=== PATIENT | male | born 1960 | race Caucasian/White ===

== ENCOUNTER 2020-05-17 20:39 | Emergency (ER) | payer MEDICAID, SELFPAY ==
[2020-05-17 21:02] VITALS: BP 148/81; PULSE 112; RESP 22; TEMP 36.6; O2SAT 96
[2020-05-17 21:16] VITALS: BP 148/81; PULSE 112; RESP 22; TEMP 36.6; O2SAT 96; BMI 25.1
[2020-05-17 22:14] VITALS: BP 150/77; PULSE 100; RESP 20; O2SAT 97
--- NOTE | 2020-05-17 22:32 | XR_ITS ---
EXAMINATION: XR chest 1V CLINICAL INFORMATION: Shortness of breath COMPARISON: None TECHNIQUE: XR chest 1V Tubes and lines: None Lungs and Diane: Crowding of lung markings at the right base concerning for possible developing mild interstitial infiltrates. Pleura: Normal. Costophrenic angles are sharp. No pneumothorax. Heart and mediastinum: The mediastinum is within normal limits.. Bones: Skeletal structures included are normal for patient's age. XR/XR chest 1V IMPRESSION: Crowding of lung markings at the right base concerning for possible developing mild infiltrates, please correlate clinically. No dense lobar consolidation pneumonia or pleural effusion.
--- NOTE | 2020-05-17 22:33 | ED_ITS ---
HPI - General Adult General Chief complaint: Anxiety Stated complaint: Panic attack Time Seen by Provider: 05/17/20 21:16 History of Present Illness HPI narrative: patient comes to the emergency room complaining of severe anxiety and shortness of breath. Patient states it has been approximately 24 hours. Patient states that yesterday his Haldol dose was increased from 2 mg to 10 mg, since then he has been having twitching of his cheeks and tongue. patient denies any chest pain, complaining of ongoing shortness of breath. Patient states this is the 1st time that he feels short of breath even with anxiety. Related Data Allergies Allergy/AdvReac Type Severity Reaction Status Date / Time No Known Allergies Allergy Verified 05/17/20 21:16 Review of Systems Review of Systems: Constitutional : No Weight loss, No Fever, No Chills, No Night Sweats, No Fatigue, No Malaise ENT/Mouth : No Hearing loss, No Ear Pain, No Nasal Congestion, No Sinus Pain, No Hoarseness, No sore throat, No Rhinorrhea, No Swallowing Difficulty Eyes: No Eye Pain, No Swelling, No Redness, No Foreign Body, No Discharge, No Vision Changes Cardiovascular : No Chest Pain, No SOB, No Dyspnea on Exertion, No Orthopnea, No Edema, No Palpitations Respiratory : No Cough, No Sputum, No Wheezing, No Smoke Exposure, Complaining of dyspnea Gastrointestinal : No Nausea, No Vomiting, No Diarrhea, No Constipation, No abdominal Pain, No Hematochezia, No Melena Genitourinary : no irregular bleeding, No Dysuria, No Urinary Frequency, No Hematuria, No Urinary Incontinence, No Urgency, No Flank Pain, No Urinary Flow Changes, No Hesitancy Musculoskeletal : no joint pain Skin : No Skin Lesions, No rash Neuro : No Weakness, No Numbness, No Paresthesias, No Loss of Consciousness, No Dizziness, No Headache, complaining twitching of his facial cheeks in his tongue Psych : complaining of anxiety No Depression, No SI/HI/AH/VH, No Social Issues, Heme/Lymph: No Bruising, No Bleeding,No Lymphadenopathy Endocrine : No Polyuria, No Polydipsia, No Temperature Intolerance PMFSH Past Medical History Medical History (Updated 05/18/20 @ 02:16 by Gladis Vanessa MD) MDD (major depressive disorder) Social History Social History Alcohol intake: never Smoking Status: Current every day smoker Smoked in Last 30 Days: Yes Use of substances other than those prescribed or required for medical reasons: No Advance Directives: No Advance Directives Information Provided: Yes Physical Exam Vital Signs: Vital Signs: Last Vital Signs Temp 98 F 05/17/20 21:16 Pulse 100 05/17/20 22:14 Resp 20 05/17/20 22:14 BP 150/77 H 05/17/20 22:14 Pulse Ox 97 05/17/20 22:14 Body Mass Index 25.1 Appearance: Alert. Oriented X3. seems nervous, restless Eyes: Pupils equal, round and reactive to light. ENT: Pharynx normal. Neck: Normal inspection. Neck supple. No lymph nodes noted. No crepitus CVS: Normal heart rate and rhythm. Pulses normal. Normal S1 and S2 Respiratory: No respiratory distress. Breath sounds normal. No Wheezing. No r ales Abdomen: Soft and nontender. No rigidity. No distention. good BS x4 Skin: Skin warm and dry. Normal skin color. Normal skin turgor. Extremities: No lower extremity edema. patient have an tremors involving hands, shakiness, I did not observe any tongue abnormal movements, patient occasionally smack his lips Neuro: Oriented X 3. No motor deficit. No sensory deficit. Moving all extermit ies. No slurred speech. Course Course Course Narrative: , very anxious patient slept comfortably, when patient woke up, he immediately started becoming very anxious. I discussed with the patient that he is possibly developing pneumonia, he will be started on oral antibiotics. Patient agrees to stay for BPH and consult for anxiety and for med readjustment. Patient's brother requesting N consult as well. Patient agrees with plan. Patient is to take 4 more doses of azithromycin to complete a course of antibiotics. N consult pending. Sign-out given to Dr. Rangel. Medical Decision Making Lab Data Result diagrams: 05/17/20 22:51 05/17/20 22:51 Labs: Lab Results 05/17/20 05/17/20 05/17/20 Range/Units 22:51 22:51 22:51 WBC 11.0 H (4.8-10.8) X10*3/uL RBC 5.51 (4.60-5.80) X10*6/uL Hgb 15.1 (14.0-18.0) g/dl Hct 47.3 (42-52) % MCV 85.8 (80-98) fL MCH 27.4 (27.0-33.0) pg MCHC 31.9 (31.0-36.0) g/dl RDW 13.3 (11.0-16.0) % Plt Count 236 (160-400) X10*3/uL MPV 10.7 (9.4-12.4) fL Immature Gran % (Auto) 0.2 (0.0-0.4) % Neut % (Auto) 70.4 (45-73) % Lymph % (Auto) 21.2 (20-40) % [place] % (Auto) 6.3 (2-11) % Eos % (Auto) 1.5 (0-4) % Baso % (Auto) 0.4 (0-2) % Lymph # (Auto) 2.3 (1.2-4.9) X10*3/uL [place] # (Auto) 0.7 (0.1-1.2) X10*3/uL Eos # (Auto) 0.2 (0.0-0.4) X10*3/uL Baso # (Auto) 0.0 (0.0-0.2) X10*3/uL Abs Immat Gran (auto) 0.02 (0.00-0.03) X10*3/uL Absolute Neuts (auto) 7.8 (2.0-8.3) X10*3/uL Absolute Nucleated RBC 0.000 (0.0-0.012) X10*3/uL Nucleated RBC % (auto) 0.0 (0.0-0.2) /100WBC D-Dimer < 200 NG/ML Sodium 143 (135-145) mmol/L Potassium 3.8 (3.3-5.1) mmol/l Chloride 107 (96-108) mmol/L Carbon Dioxide 26 (22-29) mmol/L Anion Gap 14 (12-20) BUN 8 L (9-16) mg/dL Creatinine 0.71 (0.5-1.4) mg/dL Estim Creat Clear Calc 114.2 Estimated GFR > 60 Random Glucose 93 (60-115) mg/dL Calcium 9.1 (8.4-10.2) mg/dL Troponin I High Sens (<3.5-35.0) ng/L B-Natriuretic Peptide (<100) pg/mL 05/17/20 Range/Units 22:51 WBC (4.8-10.8) X10*3/uL RBC (4.60-5.80) X10*6/uL Hgb (14.0-18.0) g/dl Hct (42-52) % MCV (80-98) fL MCH (27.0-33.0) pg MCHC (31.0-36.0) g/dl RDW (11.0-16.0) % Plt Count (160-400) X10*3/uL MPV (9.4-12.4) fL Immature Gran % (Auto) (0.0-0.4) % Neut % (Auto) (45-73) % Lymph % (Auto) (20-40) % [place] % (Auto) (2-11) % Eos % (Auto) (0-4) % Baso % (Auto) (0-2) % Lymph # (Auto) (1.2-4.9) X10*3/uL [place] # (Auto) (0.1-1.2) X10*3/uL Eos # (Auto) (0.0-0.4) X10*3/uL Baso # (Auto) (0.0-0.2) X10*3/uL Abs Immat Gran (auto) (0.00-0.03) X10*3/uL Absolute Neuts (auto) (2.0-8.3) X10*3/uL Absolute Nucleated RBC (0.0-0.012) X10*3/uL Nucleated RBC % (auto) (0.0-0.2) /100WBC D-Dimer NG/ML Sodium (135-145) mmol/L Potassium (3.3-5.1) mmol/l Chloride (96-108) mmol/L Carbon Dioxide (22-29) mmol/L Anion Gap (12-20) BUN (9-16) mg/dL Creatinine (0.5-1.4) mg/dL Estim Creat Clear Calc Estimated GFR Random Glucose (60-115) mg/dL Calcium (8.4-10.2) mg/dL Troponin I High Sens 4.1 (<3.5-35.0) ng/L B-Natriuretic Peptide 47 (<100) pg/mL Discharge Plan Discharge Clinical Impression: Pneumonia, Anxiety
[2020-05-17] MEDS: LORazepam 2 MG/ML VIAL IVPUSH (22:54)
[2020-05-17] MEDS: diphenhydrAMINE HCL 50 MG/ML VIAL IVPUSH (22:54)
[2020-05-17 22:57] LABS: Basophils Percent Auto 0.4 % (0-2); Eosinophils Absolute Auto 0.2 X10*3/uL (0.0-0.4); Eosinophils Percent Auto 1.5 % (0-4); Hematocrit 47.3 % (42-52); Hemoglobin 15.1 g/dl (14.0-18.0); Imm Gran Abs Auto 0.02 X10*3/uL (0.00-0.03); Imm Gran Pct Auto 0.2 % (0.0-0.4); Lymphocytes Absolute Auto 2.3 X10*3/uL (1.2-4.9); Lymphocytes Percent Auto 21.2 % (20-40); MANUAL DIFF FLAG NO; Mean Corpuscular HGB Conc 31.9 g/dl (31.0-36.0); Mean Corpuscular Hemoglobin 27.4 pg (27.0-33.0); Mean Corpuscular Volume 85.8 fL (80-98); Mean Platelet Volume 10.7 fL (9.4-12.4); Monocytes Absolute Auto 0.7 X10*3/uL (0.1-1.2); Monocytes Percent Auto 6.3 % (2-11); Neutrophils Absolute Auto 7.8 X10*3/uL (2.0-8.3); Neutrophils Percent Auto 70.4 % (45-73); Platelet Count 236 X10*3/uL (160-400); Red Blood Count 5.51 X10*6/uL (4.60-5.80); Red Cell Distribution Width 13.3 % (11.0-16.0)
[2020-05-17 23:06] LABS: D Dimer < 200 NG/ML
[2020-05-17 23:16] LABS: Anion Gap 14 (12-20); Blood Urea Nitrogen 8 mg/dL (9-16); Calcium 9.1 mg/dL (8.4-10.2); Carbon Dioxide 26 mmol/L (22-29); Chloride 107 mmol/L (96-108); Creatinine Clr Calc Pharmacy 114.2; Estimated Glomerular Filt Rate > 60; Glucose Random 93 mg/dL (60-115); Potassium 3.8 mmol/l (3.3-5.1); Sodium 143 mmol/L (135-145)
[2020-05-17 23:23] LABS: B Type Natriuretic Peptide 47 pg/mL (<100); Troponin-I High Sensitivity 4.1 ng/L (<3.5-35.0)
[2020-05-18 02:00] VITALS: BP 98/62; PULSE 82; RESP 16; TEMP 36.7; O2SAT 98
[2020-05-18] MEDS: Azithromycin 500 MG TABLET PO (02:33)
--- NOTE | 2020-05-18 02:58 | PC.NURSE ---
call skyla [phone] when need to be picked up.
[2020-05-18 06:43] VITALS: BP 101/61; PULSE 76; RESP 16; TEMP 36.4; O2SAT 96
--- NOTE | 2020-05-18 07:04 | PC.NURSE ---
Report recieved. Pt currently sleeping, respirations even and unlabored, in no apparent distress.
--- NOTE | 2020-05-18 08:01 | PC.NURSE ---
[facility] at bedside for eval.
== END 2020-05-18 09:20 | disposition home or self-care (01) ==
PROVIDERS: Emergency Medicine; Emergency Provider Internal Medicine
DX: J18.9 Pneumonia, unspecified organism (principal); F41.1 Generalized anxiety disorder; F43.0 Acute stress reaction; Z20.828 Contact with and (suspected) exposure to other viral communicable diseases; F17.200 Nicotine dependence, unspecified, uncomplicated; Z71.6 Tobacco abuse counseling
CPT/HCPCS: 36415; 71045; 80048; 83880; 84484; 85025; 85379; 96374; 96375; 99284; J1200; J2060; U0003

== ENCOUNTER 2020-05-19 12:58 | Outpatient (REF) | payer MEDICAID, SELFPAY ==
--- NOTE | 2020-05-19 13:02 | CT_ITS ---
EXAMINATION: CT HEAD WITHOUT CONTRAST CLINICAL INFORMATION: Headaches. COMPARISON: None TECHNIQUE: Contiguous axial imaging was performed from the skull base to vertex without intravenous administration of contrast. This CT examination was performed using dose optimization techniques as appropriate, variously including the following: *Automated exposure control *Adjustment of mA and/or kV according to patient size (this includes techniques or standardized protocols for targeted exams where dose is matched to indication/reason for exam; i.e. extremities or head) *Use of iterative reconstruction technique DLP: 758 mGy-cm FINDINGS: There is no evidence of acute intracranial hemorrhage or territorial infarction. No abnormal mass effect or midline shift is seen. Rankin to white matter differentiation is well preserved. No extra-axial fluid collections are identified. The ventricles are normal in size. There is no abnormal attenuation within the brain parenchyma. The osseous structures and soft tissues are normal. The mastoid air cells are well aerated. There is mild mucosal thickening in the right maxillary antrum and anterior ethmoid air cells. CT/CT head/brain wo con IMPRESSION: No acute intracranial pathology.
== END 2020-05-19 12:59 | disposition home or self-care (01) ==
LOC: HO.CT 12:58
PROVIDERS: Visit Provider Emergency Medicine
DX: R51.9 Headache, unspecified (principal)
CPT/HCPCS: 70450

== ENCOUNTER 2020-09-04 10:00 | Outpatient (RCR) | payer MEDICAID, SELFPAY | END 2020-09-05 08:36 | disposition other institution (70) | LOC: HO.PT 10:00 | PROVIDERS: PCP Emergency Medicine; Visit Provider Emergency Medicine | DX: M25.561 Pain in right knee (principal) | CPT/HCPCS: 97110; 97162; 97530 ==

== ENCOUNTER 2020-09-26 10:08 | Outpatient (REF) | payer MEDICAID, SELFPAY ==
[2020-09-26 10:50] LABS: COVID-19 Test Positive (Negative)
== END 2020-09-26 10:09 | disposition home or self-care (01) ==
LOC: HO.LAB 10:08
PROVIDERS: Visit Provider Internal Medicine
DX: Z20.822 Contact with and (suspected) exposure to COVID-19 (principal)
CPT/HCPCS: 36415; 87635; C9803

== ENCOUNTER 2020-10-27 15:15 | Outpatient (REF) | payer MEDICAID, SELFPAY ==
[2020-10-27 16:34] LABS: MANUAL DIFF FLAG NO
[2020-10-27 16:40] LABS: Basophils Percent Auto 0.3 % (0-2); Eosinophils Absolute Auto 0.2 X10*3/uL (0.0-0.4); Eosinophils Percent Auto 1.9 % (0-4); Hematocrit 46.7 % (42-52); Hemoglobin 14.5 g/dl (14.0-18.0); Imm Gran Abs Auto 0.05 X10*3/uL (0.00-0.03); Imm Gran Pct Auto 0.4 % (0.0-0.4); Lymphocytes Absolute Auto 1.9 X10*3/uL (1.2-4.9); Lymphocytes Percent Auto 14.4 % (20-40); Mean Corpuscular Hemoglobin 26.6 pg (27.0-33.0); Mean Corpuscular Volume 85.7 fL (80-98); Mean Platelet Volume 10.6 fL (9.4-12.4); Monocytes Absolute Auto 0.7 X10*3/uL (0.1-1.2); Monocytes Percent Auto 5.4 % (2-11); Neutrophils Percent Auto 77.6 % (45-73); Platelet Count 241 X10*3/uL (160-400); Red Blood Count 5.45 X10*6/uL (4.60-5.80); Red Cell Distribution Width 14.1 % (11.0-16.0); White Blood Count 12.9 X10*3/uL (4.8-10.8)
[2020-10-27 17:05] LABS: Alanine Aminotransferase 36 U/L (0-40); Albumin Level 4.3 g/dL (3.5-5.0); Alkaline Phosphatase 212 U/L (39-117); Amylase 74 U/L (28-100); Anion Gap 14 (12-20); Aspartate Amino Transferase 19 U/L (5-37); Bilirubin Total 0.4 mg/dL (0.0-1.0); Blood Urea Nitrogen 13 mg/dL (9-16); Calcium 9.5 mg/dL (8.4-10.2); Carbon Dioxide 27 mmol/L (22-29); Chloride 105 mmol/L (96-108); Estimated Glomerular Filt Rate > 60; Glucose Random 134 mg/dL (60-115); Lipase 8 U/L (8-78); Potassium 3.7 mmol/L (3.3-5.1); Sodium 142 mmol/L (135-145); Total Protein 7.1 g/dL (6.5-8.0)
== END 2020-10-27 15:16 | disposition home or self-care (01) ==
LOC: HO.LAB 15:15
PROVIDERS: PCP Family Medicine; Visit Provider Nurse Practitioner
DX: R10.13 Epigastric pain (principal); Z87.11 Personal history of peptic ulcer disease
CPT/HCPCS: 36415; 80053; 82150; 83690; 85025; 99202

== ENCOUNTER → 2020-12-18 09:45 | Outpatient (BNVA) | payer MEDICAID, SELFPAY | PROVIDERS: Visit Provider Nurse Practitioner ==

== ENCOUNTER 2020-12-23 13:54 | Outpatient (REF) | payer MEDICAID, SELFPAY | END 2020-12-23 13:55 | disposition home or self-care (01) | LOC: HO.LNP 13:54 | PROVIDERS: Visit Provider Nurse Practitioner | DX: R10.13 Epigastric pain (principal) | CPT/HCPCS: 87338 ==

== ENCOUNTER 2021-01-01 10:07 | Outpatient (REF) | payer MEDICAID, SELFPAY ==
--- NOTE | ~2021-01-01 | US_ITS ---
EXAMINATION: US ABDOMEN COMPLETE CLINICAL INFORMATION: Epigastric pain. COMPARISON: CT abdomen and pelvis 05/04/2019. Ultrasound abdomen complete 05/01/2018. TECHNIQUE: Real-time imaging of the abdominal viscera. FINDINGS: PANCREAS: Mild prominence of the main pancreatic duct, unchanged when compared to the CT from 2019. ABDOMINAL AORTA: The proximal, mid, and distal segments are normal in caliber. INFERIOR VENA CAVA: Visualized portions are normal. LIVER: Normal. The liver is normal in size. The liver contour is normal. Parenchymal echogenicity is normal. No focal hepatic lesion. There is no intrahepatic biliary duct dilatation seen. GALLBLADDER: Cholelithiasis. No gallbladder wall thickening or pericholecystic free fluid to suggest acute cholecystitis. Focal ring down artifact, likely indicating adenomyomatosis. COMMON BILE DUCT: Dilated measuring up to 1.2 cm. RIGHT KIDNEY: Probable extrarenal pelvis. No hydronephrosis. No renal calculi or focal parenchymal lesions. The kidney measures 11.1 cm in maximum dimension. LEFT KIDNEY: Simple lower pole cyst measuring 1.6 cm. Findings are not clinically significant, and no followup imaging is recommended. No hydronephrosis or renal calculi. The kidney measures 11.9 cm in maximum dimension. SPLEEN: Tiny parenchymal calcification. The spleen measures 10.3 cm in maximum dimension. FREE FLUID: None. US/US abdomen complete IMPRESSION: 1. Cholelithiasis without gallbladder wall thickening or pericholecystic free fluid to suggest acute cholecystitis. 2. Mild dilatation of the common bile duct, new when compared to the prior CT. A distal duct obstruction could be considered. 3. Mild prominence of the main pancreatic duct, unchanged.
== END 2021-01-01 10:08 | disposition home or self-care (01) ==
LOC: HO.US 10:07
PROVIDERS: Visit Provider Nurse Practitioner
DX: R10.13 Epigastric pain (principal); Z87.11 Personal history of peptic ulcer disease
CPT/HCPCS: 76700

== ENCOUNTER → 2021-01-06 16:07 | Outpatient (BNVA) | payer MEDICAID, SELFPAY | PROVIDERS: PCP Family Medicine; Visit Provider Nurse Practitioner ==

== ENCOUNTER 2021-02-13 09:59 | Outpatient (REF) | payer MEDICAID, SELFPAY ==
--- NOTE | ~2021-02-13 | XR_ITS ---
EXAMINATION: XR SHOULDER, LEFT CLINICAL INFORMATION: Left shoulder pain COMPARISON: None TECHNIQUE: AP external rotation, Grashey, scapular Y, and axillary views of the left shoulder. FINDINGS: The bones and soft tissues are normal. No fracture. Glenohumeral and acromioclavicular alignment is anatomic with normal joint space. No abnormal soft tissue calcifications. XR/XR shoulder LT min 2V IMPRESSION: Normal left shoulder.
== END 2021-02-13 10:00 | disposition home or self-care (01) ==
LOC: HO.XRAY 09:59
PROVIDERS: Absent Provider Family Medicine; PCP Family Medicine; Visit Provider Nurse Practitioner Family
DX: M25.512 Pain in left shoulder (principal)
CPT/HCPCS: 73030

== ENCOUNTER → 2021-04-06 15:51 | Outpatient (BNVA) | payer MEDICAID, SELFPAY | PROVIDERS: PCP Family Medicine; Visit Provider Nurse Practitioner ==

== ENCOUNTER 2021-04-10 15:00 | Outpatient (RCR) | payer MEDICAID, SELFPAY | END 2021-05-01 12:33 | disposition home or self-care (01) | LOC: HO.PT 15:00 | PROVIDERS: PCP Nurse Practitioner Family; Visit Provider Nurse Practitioner Family | DX: M25.512 Pain in left shoulder (principal) | CPT/HCPCS: 97110; 97140; 97162; 97530 ==

== ENCOUNTER 2021-04-20 15:09 | Outpatient (REF) | payer MEDICAID, SELFPAY ==
[2021-04-20 15:23] LABS: MANUAL DIFF FLAG NO
[2021-04-20 15:57] LABS: Basophils Absolute Auto 0.1 X10*3/uL (0.0-0.2); Basophils Percent Auto 0.4 % (0-2); Eosinophils Absolute Auto 0.3 X10*3/uL (0.0-0.4); Eosinophils Percent Auto 2.4 % (0-4); Hematocrit 47.7 % (42.0-52.0); Hemoglobin 15.1 g/dl (14.0-18.0); Imm Gran Abs Auto 0.04 X10*3/uL (0.00-0.03); Imm Gran Pct Auto 0.3 % (0.0-0.4); Lymphocytes Absolute Auto 4.1 X10*3/uL (1.2-4.9); Mean Corpuscular HGB Conc 31.7 g/dl (31.0-36.0); Mean Corpuscular Hemoglobin 27.6 pg (27.0-33.0); Mean Corpuscular Volume 87.2 fL (80.0-98.0); Monocytes Absolute Auto 0.8 X10*3/uL (0.1-1.2); Monocytes Percent Auto 6.6 % (2-11); Neutrophils Absolute Auto 7.04 x10*3/uL (2.0-8.3); Neutrophils Percent Auto 57.3 % (45-73); Platelet Count 239 X10*3/uL (160-400); Red Blood Count 5.47 X10*6/uL (4.60-5.80); Red Cell Distribution Width 14.1 % (11.0-16.0); White Blood Count 12.3 X10*3/uL (4.8-10.8)
[2021-04-20 16:26] LABS: Alanine Aminotransferase 16 U/L (0-40); Albumin Level 4.6 g/dL (3.5-5.0); Alkaline Phosphatase 80 U/L (39-117); Anion Gap 13 (12-20); Aspartate Amino Transferase 15 U/L (5-37); Bilirubin Total 0.5 mg/dL (0.0-1.0); Blood Urea Nitrogen 20 mg/dL (9-16); Calcium 9.2 mg/dL (8.4-10.2); Carbon Dioxide 28 mmol/L (22-29); Chloride 105 mmol/L (96-108); Estimated Glomerular Filt Rate > 60; Glucose Random 84 mg/dL (60-115); Potassium 4.1 mmol/L (3.3-5.1); Sodium 142 mmol/L (135-145); Total Protein 7.1 g/dL (6.5-8.0)
== END 2021-04-20 15:10 | disposition home or self-care (01) ==
LOC: HO.LAB 15:09
PROVIDERS: PCP Family Medicine; Visit Provider Nurse Practitioner
DX: Z12.11 Encounter for screening for malignant neoplasm of colon (principal)
CPT/HCPCS: 36415; 80053; 85025

== ENCOUNTER → 2021-06-24 10:02 | Day surgery (SDC) | payer MEDICAID, SELFPAY ==
--- NOTE | 2021-06-23 10:56 | HO.ANESPROP2 ---
Documented by User: Katelynn Olvera NP 06/23/21 10:57 HPI - Anesthesia Eval Consult details Narrative: 60yo M for Colonoscopy PMFSH Active Problems Active Problems: All Active Problems (Updated 04/06/21 @ 17:14 by FRANCO Stock) Smoker (Acute) Hard of hearing (Acute) Chronic hepatitis C (Acute) Colon cancer screening (Acute) IBS (irritable bowel syndrome) (Acute) Gallstones (Acute) History of peptic ulcer disease (Acute) Epigastric pain (Acute) Past Medical History Medical History Chronic headaches MDD (major depressive disorder) Social History Social History Household Members: Family Alcohol intake: never Patient Tobacco Use Status: Current everyday Tobacco user Cigarette Packs Per Day: 0.5 Cigarettes Per Day: 10.0 Use of substances other than those prescribed or required for medical reasons: No Advance Directives: No Advance Directives Information Provided: Yes Recently lost weight without trying: No Current occupational status: disabled Meds Allergies Allergy/AdvReac Type Severity Reaction Status Date / Time haloperidol [From Haldol] Allergy Severe Can't Verified 01/06/21 16:07 breathe Exam Exam Date and Time: June 23, 2021 1056 Pertinent Lab Results Pertinent Lab Results: Laboratory Tests 04/20/21 04/20/21 15:20 15:20 WBC 12.3 H Hgb 15.1 Hct 47.7 Plt Count 239 Sodium 142 Potassium 4.1 Chloride 105 Carbon Dioxide 28 BUN 20 H D Creatinine 0.86 Assessment and Plan Assessment Anesthesia Assessment: Chart Reviewed Documented by User: Sonia Ibarra MD 06/24/21 11:55 PMFSH Past Medical History Medical History Chronic headaches MDD (major depressive disorder) Functional capacity: independent ambulation Family History Family history of problems with anesthesia: No Surgical History History of Problems with Anesthesia: No Social History Social History Household Members: Family Alcohol intake: never Patient Tobacco Use Status: Current everyday Tobacco user Cigarette Packs Per Day: 0.5 Cigarettes Per Day: 10.0 Use of substances other than those prescribed or required for medical reasons: No Advance Directives: No Advance Directives Information Provided: Yes Recently lost weight without trying: No Current occupational status: disabled Meds Allergies Allergy/AdvReac Type Severity Reaction Status Date / Time haloperidol [From Haldol] Allergy Severe Can't Verified 01/06/21 16:07 breathe Assessment and Plan Final Anesthetic Review Family History of Problems with Anesthesia: No History of Problems with Anesthesia: No
[2021-06-24 11:45] VITALS: BP 129/73; PULSE 100; RESP 17; TEMP 37.3; O2SAT 97; BMI 18.8
--- NOTE | 2021-06-24 11:49 | PC.NURSE ---
patient complained of congestion and cough. temp 99.2, sinus tachycardia. denies being in contact with anyone with covid moved to iso room covid test given
[2021-06-24 11:56] LABS: COVID-19 Test Positive (Negative)
--- NOTE | 2021-06-24 12:02 | PC.NURSE ---
covid positive, case cancelled
== END ==
PROVIDERS: Anesthesiology; PCP Family Medicine; Visit Provider Internal Medicine Gastroenterology
DX: Z12.11 Encounter for screening for malignant neoplasm of colon (principal); Z53.09 Procedure and treatment not carried out because of other contraindication; Z20.822 Contact with and (suspected) exposure to COVID-19
CPT/HCPCS: 87635

== ENCOUNTER 2022-11-03 09:44 | Outpatient (REF) | payer MEDICAID, SELFPAY ==
--- NOTE | ~2022-11-03 | MR_ITS ---
EXAMINATION: MR BRAIN WITHOUT CONTRAST CLINICAL INFORMATION: Memory deficit. Dementia. COMPARISON: CT head from 05/19/2020. TECHNIQUE: MRI of the brain was obtained using routine sequences without contrast. FINDINGS: No focal restricted diffusion is demonstrated to suggest acute or subacute cerebral ischemia. No evidence of acute or chronic hemorrhagic products on heme-sensitive imaging. Scattered periventricular and deep white matter T2 FLAIR hyperintensities consistent with mild underlying microangiopathy. Proportional prominence of the ventricles and sulcal spaces without evidence of obstructive hydrocephalus. No abnormal mass effect. No midline shift. Normal appearance of the pituitary gland. Normal positioning of the cerebellar tonsils. Normal arterial and venous vascular flow voids are present. Normal, homogeneous marrow signal. Mild mucosal thickening of the paranasal sinuses. No signal abnormalities within the mastoids. MR/MR head/brain wo con IMPRESSION: 1. No acute intracranial abnormalities. 2. Mild underlying microangiopathy and generalized cerebral volume loss.
== END 2022-11-03 09:45 | disposition home or self-care (01) ==
LOC: HO.MRI 09:44
PROVIDERS: PCP Family Medicine; Visit Provider Family Medicine
DX: R41.3 Other amnesia (principal)
CPT/HCPCS: 70551

== ENCOUNTER 2022-12-28 09:41 | Outpatient (REF) | payer MEDICAID, SELFPAY ==
--- NOTE | ~2022-12-28 | XR_ITS ---
Examination: XR knee LT 2V, XR knee RT 2V Indication: PAIN Comparison: No pertinent prior studies are currently available for comparison. Technique: 2 views of each knee obtained Findings: Right: Chondrocalcinosis is noted in both medial and lateral compartments. No significant knee joint effusion. Mild joint space loss in the medial and lateral compartments. No acute fracture or dislocation. No bony destructive lesions. Left: Mild joint space loss in the medial lateral compartments but no fracture or dislocation. No significant joint effusion. XR/XR knee RT 2V Impression: Mild degenerative changes but no acute fracture or dislocation. Chondrocalcinosis noted.
--- NOTE | ~2022-12-28 | XR_ITS ---
Examination: XR knee LT 2V, XR knee RT 2V Indication: PAIN Comparison: No pertinent prior studies are currently available for comparison. Technique: 2 views of each knee obtained Findings: Right: Chondrocalcinosis is noted in both medial and lateral compartments. No significant knee joint effusion. Mild joint space loss in the medial and lateral compartments. No acute fracture or dislocation. No bony destructive lesions. Left: Mild joint space loss in the medial lateral compartments but no fracture or dislocation. No significant joint effusion. XR/XR knee LT 2V Impression: Mild degenerative changes but no acute fracture or dislocation. Chondrocalcinosis noted.
== END 2022-12-28 09:42 | disposition home or self-care (01) ==
LOC: HO.HHCX 09:41
PROVIDERS: Visit Provider Family Medicine
DX: M25.561 Pain in right knee (principal); M25.562 Pain in left knee; G89.29 Other chronic pain
CPT/HCPCS: 73560

== ENCOUNTER 2023-02-03 16:36 | Emergency (ER) | payer MEDICAID, SELFPAY ==
[2023-02-03] VITALS (9 sets, daily range): BP systolic 91–120; BP diastolic 48–79; PULSE 73–114; RESP 14–16; TEMP 36.3–36.8; O2SAT 98–100; BMI 16.2
--- NOTE | ~2023-02-03 | CT_ITS ---
EXAMINATION: CT ABDOMEN AND PELVIS WITHOUT CONTRAST CLINICAL INFORMATION: Hematuria. COMPARISON: None available. TECHNIQUE: Multidetector volumetric imaging was performed from the superior aspect of the liver through the pubic symphysis. Sagittal and coronal reformatted images were obtained on the technologist's workstation. This CT examination was performed using dose optimization techniques as appropriate, variously including the following: *Automated exposure control. *Adjustment of mA and/or kV according to patient size (this includes techniques or standardized protocols for targeted exams where dose is matched to indication/reason for exam; i.e. extremities or head). *Use of iterative reconstruction technique. DLP: 275 mGy-cm FINDINGS: LUNG BASES: The visualized lung bases are unremarkable. LIVER, GALLBLADDER, AND BILIARY TREE: The liver is normal in size, shape, and attenuation. No focal hepatic lesion or biliary ductal dilatation is present. A single faint 1.3 cm gallstone is noted. PANCREAS: Unremarkable. SPLEEN: A few splenic calcifications are noted. ADRENAL GLANDS: There is nonspecific bilateral adrenal gland thickening. KIDNEYS AND URETERS: The kidneys are normal in size, shape, and attenuation. There is a nonobstructing 1 mm calculus in the midpole of the right kidney. There is a 1.7 cm cyst in the midpole of the left kidney. No perinephric stranding. BLADDER: There are multiple lobular densities within the urinary bladder measuring up to 3 cm which do not appear to arise from the prostate. GASTROINTESTINAL TRACT: There is retained stool throughout. The appendix is within normal limits. ABDOMINAL WALL: No significant hernia is appreciated. LYMPH NODES: Normal. VASCULAR: Unremarkable. PELVIC VISCERA: Unremarkable. OSSEOUS STRUCTURES: Unremarkable. CT/CT abdomen pelvis wo IV con IMPRESSION: Nonobstructing 1 mm calculus midpole of the right kidney. Multiple lobular soft tissue structures within the urinary bladder measuring up to 3 cm possibly hemorrhage and/or mass lesions. Consider direct visualization versus CT urogram. Cholelithiasis. Retained stool. Fleischner guidelines were followed.
--- NOTE | ~2023-02-03 | XR_ITS ---
EXAMINATION: XR CHEST CLINICAL INFORMATION: Shortness of breath. COMPARISON: 05/17/2020 TECHNIQUE: Frontal view of the chest was obtained. FINDINGS: The cardiomediastinal silhouette is normal. There is no focal lung consolidation or pleural effusion. The bony structures and soft tissues are unremarkable. XR/XR chest 1V IMPRESSION: No active cardiopulmonary disease.
--- NOTE | 2023-02-03 16:40 | ED.GENADULT ---
HPI - General Adult General Chief complaint: General Medical Stated complaint: Fatigue/ dizziness Time Seen by Provider: 02/03/23 18:06 Source: patient Mode of arrival: ambulatory Limitations: no limitations History of Present Illness HPI narrative: A 62-year-old male came in from PCP office for evaluation of generalized weakness and fatigue that is been progressive for the past few weeks, patient otherwise decline nausea, vomiting, or rectal bleed. Patient reporting blood in the urine, decline CP or abdominal pain. Patient overall is a poor historian stated that he lost some weight over recent time. Decline AC therapy. Related Data Home Medications Medication Instructions Recorded Confirmed amitriptyline 50 mg tablet 50 mg PO BEDTIME 02/03/23 02/03/23 atorvastatin 40 mg tablet 40 mg PO BEDTIME 02/03/23 02/03/23 benztropine 1 mg tablet 1 mg PO BID 02/03/23 02/03/23 cevimeline 30 mg capsule 1 cap PO BID 02/03/23 02/03/23 famotidine 40 mg tablet 40 mg PO BEDTIME 02/03/23 02/03/23 hydroxyzine pamoate 25 mg capsule 25 mg PO TID PRN Anxiety 02/03/23 02/03/23 lnymuo-tetsvjdf-fngitle 1 cap PO Q8H 02/03/23 02/03/23 24,000-76,000-120,000 unit capsule,delayed rel (Creon) pantoprazole 40 mg tablet,delayed 40 mg PO QAM 02/03/23 02/03/23 release paroxetine HCl 20 mg tablet 40 mg PO QAM 02/03/23 02/03/23 quetiapine 100 mg tablet 100 mg PO BEDTIME 02/03/23 02/03/23 Allergies Allergy/AdvReac Type Severity Reaction Status Date / Time haloperidol [From Haldol] Allergy Severe Can't Verified 01/06/21 16:07 breathe Review of Systems Review of Systems: All other systems are reviewed and are negative Constitutional: Reports as per HPI and Reports no additional constitutional complaints Eyes: Reports as per HPI and Reports no additional eye complaints Reports system reviewed and no additional complaints, except as documented Cardiovascular: Reports as per HPI and Reports no additional cardiovascular complaints Respiratory: Reports as per HPI and Reports no additional respiratory complaints Gastrointestinal: Reports as per HPI and Reports no additional gastrointestinal complaints Genitourinary: Reports no additional female genitourinary complaints Musculoskeletal: Reports no additional musculoskeletal complaints Skin/Breast: Reports system reviewed and no additional complaints, except as docu Psychiatric: Reports no additional psychiatric complaints Endocrine: Reports no additional endocrine complaints Hematologic/Lymphatic: Reports no additional hematologic/lymphatic complaints Allergic/Immunologic: Reports no additional allergic/immunologic complaints Reports system reviewed and no additional complaints, except as documented and Reports Abnormal speech present [facility] Past Medical History Medical History Chronic headaches MDD (major depressive disorder) Social History Social History Household Members: Family Alcohol intake: never Patient Tobacco Use Status: Current everyday Tobacco user Cigarette Packs Per Day: 0.5 Cigarettes Per Day: 10.0 Advance Directives: No Advance Directives Information Provided: No Current occupational status: disabled Physical Exam ED Vital Signs: Vital Signs - 24 hr 02/03/23 16:40 02/03/23 17:45 02/03/23 17:49 Temperature 97.4 F Pulse Rate 114 H 101 H 101 H Respiratory Rate 16 Blood Pressure 120/63 115/79 114/63 Pulse Oximetry 98 Oxygen Delivery Method Room Air 02/03/23 17:49 02/03/23 17:50 02/03/23 20:19 Temperature 98.0 F Pulse Rate 102 H 96 78 Respiratory Rate 14 Blood Pressure 97/59 L 91/48 L 108/65 Pulse Oximetry Oxygen Delivery Method 02/03/23 20:35 Temperature 97.7 F Pulse Rate 78 Respiratory Rate 15 Blood Pressure 102/61 Pulse Oximetry Oxygen Delivery Method BMI result Body Mass Index 16.2 Vital signs have been reviewed as appeared to be correct. Blood pressure normal. Heart rate normal. Respiration rate normal. Temperature normal. Oxygen saturation normal. Appearance: Alert. Oriented X3. No acute distress. Head: Normal external exam. Normocephalic. Atraumatic. No Anderson signs noted. No raccoon eyes noted Eyes: PERRLA. EOMI. Conjunctiva and sclera normal. Eyelids normal. ENT: TM's Normal. Pharynx normal. Uvula midline. Moist mucous membranes. No trismus noted. No drooling noted. No muffled voice noted. Neck: Normal inspection. Neck supple. FROM. No adenopathy. Thyroid Normal. No meningeal signs. No neck mass noted. CVS: Normal heart rate and rhythm. Heart sound normal. No murmurs noted. Pulses normal throughout. Respiratory: No respiratory distress. Painless inspiration. Breath sounds normal. No wheezes/rales/rhonchi noted. Chest nontender. No accessory muscle usage noted or decreased air movement noted. Abdomen: Soft and nontender. Bowel sounds normal in all 4 quadrants. No distention noted. No organomegaly noted. No visible injury noted. Rectal exam: Brown stool with trace positive blood. Back: No CVA tenderness. Full range of motion noted. Skin: Skin warm and dry. Normal skin color. Normal skin turgor. No rashes/lesions/lacerations noted. Extremities: No lower extremity edema. Extremities exhibit normal range of motion. Extremities nontender. Neuro: Oriented X 3. Cranial nerve exam: II-XII are grossly intact No motor deficit. No sensory deficit. Reflexes normal. Course Course Course Narrative: RME: 62yo M w/PMHx Hep C, IBS, c/o weakness, room spinning dizziness & lightheadedness, abdominal pain, hematuria & SOB x today. Sent in from [facility] for anemia. Patient is poor historian. Has paperwork with him > papers state patient w/increased thirst & increased urination EKG, labs, UA, CXR, Orthostatics ordered Full HPI, ROS and PE to be performed by primary ED provider. Reevaluation(s) Reevaluation #1: 62-year-old male came in with symptomatic acute anemia with generalized weakness and dizziness, hematocrit is 8 we will transfuse 1 unit of blood. Case discussed with Dr. Maryan Avila. Who recommended to admit the patient to the hospitalist and she will consult, also recommended no CPI at the current time as long as he is able to void. The case discussed with Dr. Jones who will admit the patient to the hospitalist service. Time: 20:11 Reevaluation #2: As the hospitalist is trying to admit the patient, who stated that he is not going to be admitted using the patient portal concierge service to make sure patient is fully understand risk of going home without the proper management of his condition which including but not limited to severe bleeding, severe anemia, , and delay diagnose of bladder cancer. Patient will be signing AMA form with instruction to follow-up with urology as an outpatient. Patient will be discharged after receiving 1 unit of RBC. Time: 20:51 Medications Administered Discontinued Medications Generic Name Dose Route Start Last Admin Trade Name Frekrystyna PRN Reason Stop Dose Admin Sodium Chloride 100 mls @ 100 mls/hr 02/03/23 18:40 02/03/23 20:16 Ns IV 02/03/23 19:39 100 mls/hr ONCE ONE Administration Medical Decision Making Differential Diagnosis Differential Diagnoses: The differential diagnosis associated with the presentation includes (Bladder malignancy, kidney stone, internal bleeding, severe anemia, blood transfusion, electrolyte abnormality, UTI.) Admission/Observation Consideration of admission/observation: Escalation of care including admission/observation considered Consult Healthcare Provider Management of the patient was discussed with: Hospitalist (Dr. Jones.) and Production Recorder (Dr. Maryan Avila.) Lab Data MDM Lab Attestation statement: I reviewed the patient's lab results. 02/03/23 17:14 02/03/23 17:14 Labs: Lab Results 02/03/23 02/03/23 02/03/23 Range/Units 17:14 17:14 17:14 WBC 8.0 (4.8-10.8) X10*3/uL RBC 3.47 L D (4.60-5.80) X10*6/uL Hgb 8.4 L D (14.0-18.0) g/dl Hct 26.8 L D (42.0-52.0) % MCV 77.2 L (80.0-98.0) fL MCH 24.2 L (27.0-33.0) pg MCHC 31.3 (31.0-36.0) g/dl RDW 14.2 (11.0-16.0) % Plt Count 313 D (160-400) X10*3/uL MPV 9.1 L (9.4-12.4) fL Immature Gran % (Auto) 0.4 (0.0-0.4) % Neut % (Auto) 66.8 (45-73) % Lymph % (Auto) 20.8 (20-40) % [place] % (Auto) 6.4 (2-11) % Eos % (Auto) 5.0 H (0-4) % Baso % (Auto) 0.6 (0-2) % Lymph # (Auto) 1.7 (1.2-4.9) X10*3/uL [place] # (Auto) 0.5 (0.1-1.2) X10*3/uL Eos # (Auto) 0.4 (0.0-0.4) X10*3/uL Baso # (Auto) 0.1 (0.0-0.2) X10*3/uL Abs Immat Gran (auto) 0.03 (0.00-0.03) X10*3/uL Absolute Neuts (auto) 5.4 (2.0-8.3) x10*3/uL Absolute Nucleated RBC 0.000 (0.0-0.012) X10*3/uL Nucleated RBC % (auto) 0.0 (0.0-0.2) /100WBC Smear Tech's Comments VERIFIED PT 11.0 L (11.1-13.3) SEC INR 0.9 (0.9-1.1) Sodium 140 (135-145) mmol/L Potassium 4.3 (3.3-5.1) mmol/L Chloride 108 (96-108) mmol/L Carbon Dioxide 25 (22-29) mmol/L Anion Gap 11 L (12-20) BUN 23 H (9-16) mg/dL Creatinine 1.19 (0.5-1.4) mg/dL Estim Creat Clear Calc 46.0 Estimated GFR > 60 Random Glucose 111 (60-115) mg/dL Calcium 9.5 (8.4-10.2) mg/dL Magnesium 1.9 (1.6-2.6) mg/dL Total Bilirubin 0.2 (0.0-1.0) mg/dL Direct Bilirubin < 0.2 (0.0-0.5) mg/dL AST 19 (5-37) U/L ALT 9 (0-40) U/L Alkaline Phosphatase 69 (39-117) U/L Troponin I High Sens (<3.5-35.0) ng/L B-Natriuretic Peptide (<100) pg/mL Total Protein 6.9 (6.5-8.0) g/dL Albumin 4.2 (3.5-5.0) g/dL Lipase 8 (8-78) U/L Urine Color Urine Appearance Urine pH (5.0-9.0) Ur Specific [place] (1.005-1.025) Urine Protein (Neg-Trace) mg/dL Urine Glucose (UA) (Negative) mg/dL Urine Ketones (Negative) mg/dL Urine Blood (Negative) Urine Nitrite (Negative) Ur Leukocyte Esterase (Negative) Urine RBC (0-2) /HPF Urine WBC (0-5) /HPF Ur Squamous Epith Cells (0-2) /HPF Urine Bacteria (None Seen) Hyaline Casts (0-2) /LPF Stool Occult Blood (NEGATIVE) Blood Type Antibody Screen Crossmatch 02/03/23 02/03/23 02/03/23 Range/Units 17:14 17:14 17:14 WBC (4.8-10.8) X10*3/uL RBC (4.60-5.80) X10*6/uL Hgb (14.0-18.0) g/dl Hct (42.0-52.0) % MCV (80.0-98.0) fL MCH (27.0-33.0) pg MCHC (31.0-36.0) g/dl RDW (11.0-16.0) % Plt Count (160-400) X10*3/uL MPV (9.4-12.4) fL Immature Gran % (Auto) (0.0-0.4) % Neut % (Auto) (45-73) % Lymph % (Auto) (20-40) % [place] % (Auto) (2-11) % Eos % (Auto) (0-4) % Baso % (Auto) (0-2) % Lymph # (Auto) (1.2-4.9) X10*3/uL [place] # (Auto) (0.1-1.2) X10*3/uL Eos # (Auto) (0.0-0.4) X10*3/uL Baso # (Auto) (0.0-0.2) X10*3/uL Abs Immat Gran (auto) (0.00-0.03) X10*3/uL Absolute Neuts (auto) (2.0-8.3) x10*3/uL Absolute Nucleated RBC (0.0-0.012) X10*3/uL Nucleated RBC % (auto) (0.0-0.2) /100WBC Smear Tech's Comments PT (11.1-13.3) SEC INR (0.9-1.1) Sodium (135-145) mmol/L Potassium (3.3-5.1) mmol/L Chloride (96-108) mmol/L Carbon Dioxide (22-29) mmol/L Anion Gap (12-20) BUN (9-16) mg/dL Creatinine (0.5-1.4) mg/dL Estim Creat Clear Calc Estimated GFR Random Glucose (60-115) mg/dL Calcium (8.4-10.2) mg/dL Magnesium (1.6-2.6) mg/dL Total Bilirubin (0.0-1.0) mg/dL Direct Bilirubin (0.0-0.5) mg/dL AST (5-37) U/L ALT (0-40) U/L Alkaline Phosphatase (39-117) U/L Troponin I High Sens < 2.7 (<3.5-35.0) ng/L B-Natriuretic Peptide < 10 (<100) pg/mL Total Protein (6.5-8.0) g/dL Albumin (3.5-5.0) g/dL Lipase (8-78) U/L Urine Color RED Urine Appearance Turbid Urine pH 6.5 (5.0-9.0) Ur Specific [place] 1.020 (1.005-1.025) Urine Protein 300 (3+) H (Neg-Trace) mg/dL Urine Glucose (UA) 100 H (Negative) mg/dL Urine Ketones 15 (Negative) mg/dL Urine Blood Large (3+) H (Negative) Urine Nitrite Positive H (Negative) Ur Leukocyte Esterase Moderate (2+) H (Negative) Urine RBC >20 H (0-2) /HPF Urine WBC 11-20 (0-5) /HPF Ur Squamous Epith Cells 3-5 (0-2) /HPF Urine Bacteria 1+ (None Seen) Hyaline Casts 3-5 (0-2) /LPF Stool Occult Blood (NEGATIVE) Blood Type Antibody Screen Crossmatch 02/03/23 02/03/23 Range/Units 18:23 18:52 WBC (4.8-10.8) X10*3/uL RBC (4.60-5.80) X10*6/uL Hgb (14.0-18.0) g/dl Hct (42.0-52.0) % MCV (80.0-98.0) fL MCH (27.0-33.0) pg MCHC (31.0-36.0) g/dl RDW (11.0-16.0) % Plt Count (160-400) X10*3/uL MPV (9.4-12.4) fL Immature Gran % (Auto) (0.0-0.4) % Neut % (Auto) (45-73) % Lymph % (Auto) (20-40) % Par[place] % (Auto) (2-11) % Eos % (Auto) (0-4) % Baso % (Auto) (0-2) % Lymph # (Auto) (1.2-4.9) X10*3/uL [place] # (Auto) (0.1-1.2) X10*3/uL Eos # (Auto) (0.0-0.4) X10*3/uL Baso # (Auto) (0.0-0.2) X10*3/uL Abs Immat Gran (auto) (0.00-0.03) X10*3/uL Absolute Neuts (auto) (2.0-8.3) x10*3/uL Absolute Nucleated RBC (0.0-0.012) X10*3/uL Nucleated RBC % (auto) (0.0-0.2) /100WBC Smear Tech's Comments PT (11.1-13.3) SEC INR (0.9-1.1) Sodium (135-145) mmol/L Potassium (3.3-5.1) mmol/L Chloride (96-108) mmol/L Carbon Dioxide (22-29) mmol/L Anion Gap (12-20) BUN (9-16) mg/dL Creatinine (0.5-1.4) mg/dL Estim Creat Clear Calc Estimated GFR Random Glucose (60-115) mg/dL Calcium (8.4-10.2) mg/dL Magnesium (1.6-2.6) mg/dL Total Bilirubin (0.0-1.0) mg/dL Direct Bilirubin (0.0-0.5) mg/dL AST (5-37) U/L ALT (0-40) U/L Alkaline Phosphatase (39-117) U/L Troponin I High Sens (<3.5-35.0) ng/L B-Natriuretic Peptide (<100) pg/mL Total Protein (6.5-8.0) g/dL Albumin (3.5-5.0) g/dL Lipase (8-78) U/L Urine Color Urine Appearance Urine pH (5.0-9.0) Ur Specific [place] (1.005-1.025) Urine Protein (Neg-Trace) mg/dL Urine Glucose (UA) (Negative) mg/dL Urine Ketones (Negative) mg/dL Urine Blood (Negative) Urine Nitrite (Negative) Ur Leukocyte Esterase (Negative) Urine RBC (0-2) /HPF Urine WBC (0-5) /HPF Ur Squamous Epith Cells (0-2) /HPF Urine Bacteria (None Seen) Hyaline Casts (0-2) /LPF Stool Occult Blood NEGATIVE (NEGATIVE) Blood Type O Positive Antibody Screen NEGATIVE Crossmatch See Detail Independent Interpretation I performed an independent interpretation of an: Plain X-Ray (Chest: No acute intrathoracic pathology.) and CT Scan (Abdomen and pelvis:Nonobstructing 1 mm calculus midpole of the right kidney. Multiple lobular soft tissue structures within the urinary bladder measuring up to 3 cm possibly hemorrhage and/or mass lesions. Consider direct visualization versus CT urogram. ) Radiology Impression Discussion of test interpretation with radiology: I have reviewed the radiologist's reading. Critical Care Time Critical Care Time Critical Care Time: Yes Total Critical Care Time: 60 Attestation: I spent 60 minutes providing critical care service to the patient, this including time spent at the bedside to evaluate the patient, reassess the patient, monitoring vital signs, review labs, and radiographic studies, counseling the patient/family, discussing the case with consultants, disposition the patient. Discharge Plan Discharge Clinical Impression: Anemia, Mass of urinary bladder, Painless hematuria Patient Disposition: Left Against Medical Advice Instructions: Anemia (ED), Bladder Biopsy (DC), Hematuria (ED) Prescriptions: No Action atorvastatin 40 mg tablet 40 mg PO BEDTIME famotidine 40 mg tablet 40 mg PO BEDTIME quetiapine 100 mg tablet 100 mg PO BEDTIME amitriptyline 50 mg tablet 50 mg PO BEDTIME paroxetine HCl 20 mg tablet 40 mg PO QAM pantoprazole 40 mg tablet,delayed release (DR/EC) 40 mg PO QAM benztropine 1 mg tablet 1 mg PO BID hydroxyzine pamoate 25 mg capsule 25 mg PO TID PRN (Reason: Anxiety) Creon 24,000-76,000 -120,000 unit capsule,delayed release(DR/EC) 1 cap PO Q8H cevimeline 30 mg capsule 1 cap PO BID Referrals: Marga Garrido MD [Primary Care Provider] - Maryan Avila MD [Physician] -
--- NOTE | 2023-02-03 16:43 | ECG_ITS ---
Test Reason : dizziness Blood Pressure : / mmHG Vent. Rate : 108 BPM Atrial Rate : 108 BPM P-R Int : 140 ms QRS Dur : 080 ms QT Int : 340 ms P-R-T Axes : 083 078 064 degrees QTc Int : 455 ms Sinus tachycardia Otherwise normal ECG No previous ECGs available Referred By: Stephanie Carbone Electronically Signed By:TEMITOPE GARCIA
[2023-02-03 17:26] LABS: Basophils Absolute Auto 0.1 X10*3/uL (0.0-0.2); Basophils Percent Auto 0.6 % (0-2); Eosinophils Absolute Auto 0.4 X10*3/uL (0.0-0.4); Hematocrit 26.8 % (42.0-52.0); Hemoglobin 8.4 g/dl (14.0-18.0); Imm Gran Abs Auto 0.03 X10*3/uL (0.00-0.03); Imm Gran Pct Auto 0.4 % (0.0-0.4); Lymphocytes Absolute Auto 1.7 X10*3/uL (1.2-4.9); Lymphocytes Percent Auto 20.8 % (20-40); MANUAL DIFF FLAG SCAN; Mean Corpuscular HGB Conc 31.3 g/dl (31.0-36.0); Mean Corpuscular Hemoglobin 24.2 pg (27.0-33.0); Mean Corpuscular Volume 77.2 fL (80.0-98.0); Mean Platelet Volume 9.1 fL (9.4-12.4); Monocytes Absolute Auto 0.5 X10*3/uL (0.1-1.2); Monocytes Percent Auto 6.4 % (2-11); Neutrophils Absolute Auto 5.4 x10*3/uL (2.0-8.3); Neutrophils Percent Auto 66.8 % (45-73); Platelet Count 313 X10*3/uL (160-400); Red Blood Count 3.47 X10*6/uL (4.60-5.80); Red Cell Distribution Width 14.2 % (11.0-16.0); SCAN SMEAR FLAG 1
[2023-02-03 17:27] LABS: Appearance Urine Turbid; Color Urine RED; Glucose Urine UA 100 mg/dL (Negative); Leukocyte Esterase Urine Moderate (2+) (Negative); Nitrite Urine Positive (Negative); PH 6.5 (5.0-9.0); UMIC TRIGGER UACC YES; Urine Blood Large (3+) (Negative); Urine Ketones 15 mg/dL (Negative); Urine Protein 300 (3+) mg/dL (Neg-Trace)
[2023-02-03 17:35] LABS: INTERNATIONAL NORM RATIO 0.9 (0.9-1.1)
[2023-02-03 17:45] LABS: B Type Natriuretic Peptide < 10 pg/mL (<100)
[2023-02-03 18:03] LABS: SLIDE REVIEW VERIFIED
[2023-02-03 18:04] LABS: Alanine Aminotransferase 9 U/L (0-40); Albumin Level 4.2 g/dL (3.5-5.0); Alkaline Phosphatase 69 U/L (39-117); Anion Gap 11 (12-20); Aspartate Amino Transferase 19 U/L (5-37); Bilirubin Direct < 0.2 mg/dL (0.0-0.5); Bilirubin Total 0.2 mg/dL (0.0-1.0); Blood Urea Nitrogen 23 mg/dL (9-16); Calcium 9.5 mg/dL (8.4-10.2); Carbon Dioxide 25 mmol/L (22-29); Chloride 108 mmol/L (96-108); Estimated Glomerular Filt Rate > 60; Glucose Random 111 mg/dL (60-115); Lipase 8 U/L (8-78); Magnesium 1.9 mg/dL (1.6-2.6); Potassium 4.3 mmol/L (3.3-5.1); Sodium 140 mmol/L (135-145); Total Protein 6.9 g/dL (6.5-8.0); Troponin-I High Sensitivity < 2.7 ng/L (<3.5-35.0)
[2023-02-03 18:29] LABS: Bacteria Urine 1+ (None Seen); RBC Urine >20 /HPF (0-2); UACC Culture Trigger YES
[2023-02-03 18:36] LABS: OBS Int Ctl Valid YES; OBS1 NEGATIVE (NEGATIVE)
--- NOTE | 2023-02-03 20:21 | PM.IMHP ---
History of Present Illness Date of Service: 02/03/23 Attending physician on admission: Silverio Jones Chief Complaint: Hematuria, fatigue Pt is a 62-year-old male with a PMH significant for?IBS, chronic hepatitis C, hx of PUD, and depression who presents to the ED from PCPs office for workup and further evaluation of hematuria and generalized fatigue for the past few weeks. In the ED patient was afebrile but tachycardic up to 114, BP soft as low as 91/48. Labs were significant for H&H of 8.4/26.8, otherwise unremarkable. Electrolytes WNL. Renal function, hepatic function WNL. Troponin negative. UA showing gross hematuria and positive for UTI. Stool negative for occult blood. CXR showed no acute cardiopulmonary disease. CT of abdomen/pelvis found multiple lobular soft tissue structures within the urinary bladder measuring up to 3 cm, possibly hemorrhage and or mass lesions. Recommend direct visualization versus CT urogram. EKG demonstrated sinus tachycardia of 108 with no evidence of ST elevations or depressions. Pt was treated with IVF Pt will be admitted to the hospital [facility] Medical History Chronic headaches MDD (major depressive disorder) Social History Household Members: Family Alcohol intake: never Patient Tobacco Use Status: Current everyday Tobacco user Cigarette Packs Per Day: 0.5 Cigarettes Per Day: 10.0 Advance Directives: No Advance Directives Information Provided: No Current occupational status: disabled Meds Allergies Allergy/AdvReac Type Severity Reaction Status Date / Time haloperidol [From Haldol] Allergy Severe Can't Verified 01/06/21 16:07 breathe Active Medications: Current Medications Pharmacy Consult (Consult Rx Perform Med Rec) 1 each MISCELLANE ONCE PRN PRN Reason: Consult order Home Medications Medication Instructions Recorded Confirmed Last Taken Type amitriptyline 50 mg tablet 50 mg PO BEDTIME 02/03/23 02/03/23 Unknown History atorvastatin 40 mg tablet 40 mg PO BEDTIME 02/03/23 02/03/23 Unknown History benztropine 1 mg tablet 1 mg PO BID 02/03/23 02/03/23 Unknown History cevimeline 30 mg capsule 1 cap PO BID 02/03/23 02/03/23 Unknown History famotidine 40 mg tablet 40 mg PO BEDTIME 02/03/23 02/03/23 Unknown History hydroxyzine pamoate 25 mg capsule 25 mg PO TID PRN Anxiety 02/03/23 02/03/23 Unknown History sxguky-kctahscd-bblmock 1 cap PO Q8H 02/03/23 02/03/23 Unknown History 24,000-76,000-120,000 unit capsule,delayed rel (Creon) pantoprazole 40 mg tablet,delayed 40 mg PO QAM 02/03/23 02/03/23 Unknown History release paroxetine HCl 20 mg tablet 40 mg PO QAM 02/03/23 02/03/23 Unknown History quetiapine 100 mg tablet 100 mg PO BEDTIME 02/03/23 02/03/23 Unknown History Physical Exam Vital Signs and Narrative: Vital Signs: Last Vital Signs Temp 98.0 F 02/03/23 20:19 Pulse 78 02/03/23 20:19 Resp 14 02/03/23 20:19 BP 108/65 02/03/23 20:19 Pulse Ox 98 02/03/23 17:45 O2 Del Method Room Air 02/03/23 17:45 BMI result Body Mass Index 16.2 Results Labs 02/03/23 17:14 02/03/23 17:14 Labs: Laboratory Results - last 24 hr 02/03/23 02/03/23 02/03/23 17:14 17:14 17:14 MCV 77.2 L MCH 24.2 L MCHC 31.3 RDW 14.2 Plt Count 313 D MPV 9.1 L Immature Gran % (Auto) 0.4 Neut % (Auto) 66.8 Lymph % (Auto) 20.8 [place] % (Auto) 6.4 Eos % (Auto) 5.0 H Baso % (Auto) 0.6 Lymph # (Auto) 1.7 [place] # (Auto) 0.5 Eos # (Auto) 0.4 Baso # (Auto) 0.1 Abs Immat Gran (auto) 0.03 Absolute Neuts (auto) 5.4 Absolute Nucleated RBC 0.000 Nucleated RBC % (auto) 0.0 Smear Tech's Comments VERIFIED PT 11.0 L INR 0.9 Anion Gap 11 L Estim Creat Clear Calc 46.0 Estimated GFR > 60 Random Glucose 111 Calcium 9.5 Magnesium 1.9 Total Bilirubin 0.2 Direct Bilirubin < 0.2 AST 19 ALT 9 Alkaline Phosphatase 69 B-Natriuretic Peptide Total Protein 6.9 Albumin 4.2 Lipase 8 Urine Color Urine Appearance Urine pH Ur Specific [place] Urine Protein Urine Glucose (UA) Urine Ketones Urine Blood Urine Nitrite Ur Leukocyte Esterase Urine RBC Urine WBC Ur Squamous Epith Cells Urine Bacteria Hyaline Casts Stool Occult Blood Blood Type Antibody Screen Crossmatch 02/03/23 02/03/23 02/03/23 17:14 17:14 18:23 MCV MCH MCHC RDW Plt Count MPV Immature Gran % (Auto) Neut % (Auto) Lymph % (Auto) [place] % (Auto) Eos % (Auto) Baso % (Auto) Lymph # (Auto) [place] # (Auto) Eos # (Auto) Baso # (Auto) Abs Immat Gran (auto) Absolute Neuts (auto) Absolute Nucleated RBC Nucleated RBC % (auto) Smear Tech's Comments PT INR Anion Gap Estim Creat Clear Calc Estimated GFR Random Glucose Calcium Magnesium Total Bilirubin Direct Bilirubin AST ALT Alkaline Phosphatase B-Natriuretic Peptide < 10 Total Protein Albumin Lipase Urine Color RED Urine Appearance Turbid Urine pH 6.5 Ur Specific [place] 1.020 Urine Protein 300 (3+) H Urine Glucose (UA) 100 H Urine Ketones 15 Urine Blood Large (3+) H Urine Nitrite Positive H Ur Leukocyte Esterase Moderate (2+) H Urine RBC >20 H Urine WBC 11-20 Ur Squamous Epith Cells 3-5 Urine Bacteria 1+ Hyaline Casts 3-5 Stool Occult Blood NEGATIVE Blood Type Antibody Screen Crossmatch 02/03/23 18:52 MCV MCH MCHC RDW Plt Count MPV Immature Gran % (Auto) Neut % (Auto) Lymph % (Auto) [place] % (Auto) Eos % (Auto) Baso % (Auto) Lymph # (Auto) [place] # (Auto) Eos # (Auto) Baso # (Auto) Abs Immat Gran (auto) Absolute Neuts (auto) Absolute Nucleated RBC Nucleated RBC % (auto) Smear Tech's Comments PT INR Anion Gap Estim Creat Clear Calc Estimated GFR Random Glucose Calcium Magnesium Total Bilirubin Direct Bilirubin AST ALT Alkaline Phosphatase B-Natriuretic Peptide Total Protein Albumin Lipase Urine Color Urine Appearance Urine pH Ur Specific [place] Urine Protein Urine Glucose (UA) Urine Ketones Urine Blood Urine Nitrite Ur Leukocyte Esterase Urine RBC Urine WBC Ur Squamous Epith Cells Urine Bacteria Hyaline Casts Stool Occult Blood Blood Type O Positive Antibody Screen NEGATIVE Crossmatch See Detail Imaging Radiologist's Impressions: Impressions Chest X-Ray 02/03/23 16:54 IMPRESSION: No active cardiopulmonary disease. Abdomen/Pelvis CT 02/03/23 18:45 IMPRESSION: Nonobstructing 1 mm calculus midpole of the right kidney. Multiple lobular soft tissue structures within the urinary bladder measuring up to 3 cm possibly hemorrhage and/or mass lesions. Consider direct visualization versus CT urogram. Cholelithiasis. Retained stool. Fleischner guidelines were followed. Assessment and Plan Time Spent With Patient Time: Total time managing care of this patient today ____ minutes.
--- NOTE | 2023-02-03 20:34 | PHA.MEDREC ---
Pharmacy Consult ? Medication Reconciliation Pharmacy has completed the medication reconciliation. Patient from intermediate. List from PCP was brought match claim history except 1 medication. Per list, medication was patient reported and per claim has not been filled since 2021. Ofe Basilio, RachelD
--- NOTE | 2023-02-03 20:44 | PC.NURSE ---
Patient is alert and oriented x3, patient is able to make his needs known. He is afebrile, VSS. Patient denies any pain at present. Blood transfusion of 1 unit of PRBC initiated, patient tolerating infusion well with no adverse reactions noted. Hospitalist at bedside discussing plan of care with patient.
--- NOTE | 2023-02-03 20:48 | PC.NURSE ---
Patient report brief episode of feeling hot, oral temp 98.2, 123/69, P 87, RR 16, O2 Sat 99% RA. Patient reports no further discomfort/feeling hot at present. PRBC infusing. Patient had discussion about need for inpatient hospitalization with Dr. Kendrick and hospitalist in presence of Markos [facility] medical billing instructor-patient reports he understands his current health condition/diagnostic findings/results during today's ER visit, risks of leaving without receiving treatment/need for additional diagnostic procedures and assessment by urologist, however continues to refuse inpatient stay and reporting he would like to leave today after completing blood transfusion.
--- NOTE | 2023-02-03 22:38 | PC.NURSE ---
Blood transfusion completed, VSS. Patient denies any pain. Patient requesting to leave AMA. ED provider is aware.
--- NOTE | 2023-02-03 23:31 | PC.NURSE ---
Patient reports he would like to go home against medical advice. Patient signed AMA form. Patient uninstructed to schedule a f/u appt with his PCP and urologist tomorrow for general assessment/to schedule bladder biopsy. Patient advised to return to ED if symptoms get worse: increasing weakness/dizziness/worsening hematuria or he develops new symptoms.
== END 2023-02-03 23:41 | disposition left against medical advice (07) ==
PROVIDERS: Physician Assistant; Emergency Provider Emergency Medicine; PCP Family Medicine
DX: D64.9 Anemia, unspecified (principal); N32.9 Bladder disorder, unspecified; R31.9 Hematuria, unspecified; R53.1 Weakness; R06.02 Shortness of breath; Z79.899 Other long term (current) drug therapy; F17.210 Nicotine dependence, cigarettes, uncomplicated
CPT/HCPCS: 36415; 36430; 71045; 74176; 80048; 80076; 81001; 82272; 83690; 83735; 83880; 84484; 85025; 85610; 86850; 86900; 86901; 86923; 87086; 93005; 96360; 96361; 99285; P9016

== ENCOUNTER 2023-07-01 12:41 | Inpatient (IN) | payer MEDICAID, SELFPAY ==
[2023-07-01] VITALS (12 sets, daily range): BP systolic 92–132; BP diastolic 52–74; PULSE 60–91; RESP 14–18; TEMP 36.1–37.4; O2SAT 90–100; BMI 17.4
--- NOTE | ~2023-07-01 | CT_ITS ---
EXAMINATION: CT CHEST, ABDOMEN AND PELVIS WITH CONTRAST CLINICAL INFORMATION: Bladder cancer; question metastasis. COMPARISON: CT abdomen and pelvis dated 02/03/2023. TECHNIQUE: Multidetector volumetric imaging was performed from the thoracic inlet through the pubic symphysis following administration of 85 mL Omnipaque 350 intravenous contrast. Sagittal and coronal reformatted images were obtained on the technologist workstation. This CT examination was performed using dose optimization techniques as appropriate, variously including the following: *Automated exposure control. *Adjustment of mA and/or kV according to patient size (this includes techniques or standardized protocols for targeted exams where dose is matched to indication/reason for exam, i.e., extremities or head). *Use of iterative reconstruction technique. DLP: 287 mGy-cm. FINDINGS: CHEST: LUNGS: There are diffuse emphysematous changes. No nodule, mass, infiltrate or groundglass opacity is seen. There is a 4.1 x 1.4 cm crescentic pleural-based opacity at the posterior left base, new from prior. This likely represents a focus of round atelectasis. There are lesser foci of linear scar/subsegmental atelectasis within the right middle lobe, the lingula and the posterior right base. There is no associated focal airway obstruction. There is generalized small airway thickening. The central airways appear patent. MEDIASTINUM: The mediastinum is normal. Central vascular structures are unremarkable. No hilar or mediastinal lymphadenopathy. PERICARDIUM/PLEURA: There is no significant effusion. A posterior left base pleural based opacity is noted, as above. No pleural mass is seen. CHEST WALL/AXILLA: Unremarkable. ABDOMEN/PELVIS: LIVER, GALLBLADDER, BILIARY TREE: The liver is normal in size, shape, and attenuation. No focal hepatic lesion or biliary ductal dilatation is present. A 1.2 cm gallstone is seen (13:29), without gallbladder wall thickening or pericholecystic inflammatory changes. PANCREAS: Unremarkable. SPLEEN: Unremarkable. A small posterior benign, calcified granuloma is incidentally noted. ADRENAL GLANDS: Unremarkable. KIDNEYS AND URETERS: The kidneys are normal in size, shape, and attenuation. No hydronephrosis or hydroureter or calculi seen. There are simple appearing bilateral renal cysts, which require no imaging follow-up. No perinephric stranding. BLADDER: The urinary bladder is somewhat distended. There are 6 large bladder nodules noted, the largest towards the base measuring 4.7 x 4.1 x 2.7 cm (13:70 and 16:49). These have frond-like marginations. GASTROINTESTINAL TRACT: The small and large bowel are unremarkable. The vermiform appendix is poorly identified; however, there is no finding to suggest appendicitis. ABDOMINAL WALL: No significant hernia is demonstrated. LYMPH NODES: Normal. VASCULAR: There is mild aortoiliac atherosclerotic calcification. No abdominal aortic aneurysm or dissection is seen. PELVIC VISCERA: The prostate and seminal vesicles are unremarkable. OSSEOUS STRUCTURES: Unremarkable. No lytic or blastic lesion is noted. CT/CT abdomen pelvis w IV con IMPRESSION: 1. No convincing pulmonary metastasis is seen. 2. There are diffuse emphysematous changes. 3. At the posterior left base, there is a focus of probable round atelectasis, for which clinical correlation and continued attention on imaging follow-up is recommended. 4. There is no thoracic lymphadenopathy or pleural effusion. 5. There is cholelithiasis. 6. Multiple bladder masses are noted, highly suspicious for malignancy. Please correlate with the patient's past medical history. 7. No abdominopelvic lymphadenopathy or ascites is seen. 8. The osseous structures are unremarkable.
--- NOTE | 2023-07-01 13:05 | ED_ITS ---
HPI - Recheck/Abnormal Lab/Rx General Chief Complaint: Altered Mental Status Stated Complaint: LOW HEMOGLOBIN SOB Time Seen by Provider: 07/01/23 13:04 Source: patient and other ([facility] walk-in center office visit note, Dr. Anibal Tran) Mode of arrival: EMS Limitations: altered mental status History of Present Illness HPI narrative: 62-year-old male with a history of hepatitis-C, peptic ulcer disease, irritable bowel syndrome, homelessness, who presented to the emergency department for evaluation weakness times weeks, ?heartburn? times weeks and hematuria x9 days. Patient was seen at the [facility] walk-in clinic by Dr. Fer Tran and was found to have a point of care hemoglobin of 2.9 and was sent to the emergency department for evaluation. Patient is a poor informant but did tell me that he has been having heartburn on and off for weeks. He has not noticed any dark tarry stools or blood per rectum. He states that today he had difficulty walking as he was very weak and that when he was at the clinic had difficulty getting out of the chair secondary to weakness. He also states he has had significant weight loss but can not quantify how much weight he is lost, he states that his belt in his pants do not fit him. Related Data Home Medications Medication Instructions Recorded Confirmed amitriptyline 50 mg tablet 50 mg PO BEDTIME 02/03/23 07/01/23 atorvastatin 40 mg tablet 40 mg PO BEDTIME 02/03/23 07/01/23 benztropine 1 mg tablet 1 mg PO BID 02/03/23 07/01/23 famotidine 40 mg tablet 40 mg PO BEDTIME 02/03/23 07/01/23 hydroxyzine pamoate 25 mg capsule 25 mg PO TID PRN Anxiety 02/03/23 07/01/23 [id number] 1 cap PO Q8H 02/03/23 07/01/23 24,000-76,000-120,000 unit capsule,delayed rel (Creon) pantoprazole 40 mg tablet,delayed 40 mg PO DAILY@0630 02/03/23 07/01/23 release paroxetine HCl 20 mg tablet 40 mg PO DAILY 02/03/23 07/01/23 quetiapine 100 mg tablet 100 mg PO BEDTIME 02/03/23 07/01/23 Allergies Allergy/AdvReac Type Severity Reaction Status Date / Time haloperidol [From Haldol] Allergy Severe Can't Verified 01/06/21 16:07 breathe Review of Systems 2 Review of Systems: Yes Unobtainable due to mental status [facility] Past Medical History [facility] Narrative: Past medical history: Anxiety, chronic hepatitis-C, headaches, homelessness, memory deficits, chronic knee pain, constipation. Social history: He does smoke cigarettes. He denies alcohol use. He denies drug use. Onset Date is defined in the Problem List Problems that require an onset date and time if occurred within 24 hrs of arrival to the ED Aortic Dissection and Rupture; Neurologic impairment; Cardiopulmonary Arrest; Endotracheal Intubation; Insertion or Replacement of Mechanical Circulatory Assist Device Medical History (Updated 07/01/23 @ 16:30 by BRAD Lincoln) HLD (hyperlipidemia) Chronic headaches MDD (major depressive disorder) Social History Social History Household Members: Family Unable to assess alcohol history related to: Unknown Alcohol intake: never Patient Tobacco Use Status: Current everyday Tobacco user Cigarette Packs Per Day: 0.5 Smoked in Last 30 Days: Yes Use of substances other than those prescribed or required for medical reasons: No Advance Directives: Yes Advance Directives Information Provided: Yes Advance Directives on File: No Current occupational status: disabled Physical Exam 2 Vital Signs: Vital Signs: Last Vital Signs Temp 98.4 F 07/01/23 16:22 Pulse 91 07/01/23 16:22 Resp 15 07/01/23 16:22 BP 121/57 L 07/01/23 16:22 Pulse Ox 100 07/01/23 16:22 O2 Del Method Room Air 07/01/23 16:22 O2 Flow Rate 2 07/01/23 16:22 Oxygen Flow Rate 2 07/01/23 13:04 BMI result Body Mass Index 17.4 Exam: General: Awake, alert in no distress, lacks insight as to why he is here. Very thin and cachectic appearing. Patient is very pale Head: Normocephalic, atraumatic EENT: PERRL, Lids normal, sclera normal, conjunctiva normal, nose normal , ears normal, throat without erythema or exudates Neck: Supple, no adenopathy, no trachea midline or C-spine tenderness Lung: breath sounds symmetric, no wheezing, rales or rhonchi Chest: symmetric movement, nontender Heart: regular rate and rhythm, normal S1, S2 no murmurs or rubs Abdomen: Very thin abdomen, moderate epigastric tenderness, normoactive bowel sounds, no rebound, no guarding Rectal: External exam normal, rectal tone normal, brown stool which was Hemoccult negative Back: no vertebral tenderness, no CVAT Extremities: no deformities, moves all extremities symmetrically Skin: Very pale Neuro: Awake, alert, oriented, normal speech, cranial nerves intact, moves all extremities symmetrically Psych: Pleasant, cooperative Medications Administered Discontinued Medications Generic Name Dose Route Start Last Admin Trade Name Freq PRN Reason Stop Dose Admin Al Hydroxide/Mg Hydroxide 30 ml 07/01/23 13:31 07/01/23 14:13 Magnesium Hydrox/Alum Hydrox 30 Ml Oral.Susp PO 07/01/23 13:32 30 ml ONCE STA Administration Belladonna Alkaloids/Phenobarbital 10 ml 07/01/23 13:31 07/01/23 14:13 Phenobarb/Hyoscy/Atropine/Scop 10 Ml Elixir PO 07/01/23 13:32 10 ml ONCE ONE Administration Sodium Chloride 100 mls @ 100 mls/hr 07/01/23 14:28 07/01/23 16:37 Ns IV 07/01/23 15:27 Infused ONCE ONE Infusion Lidocaine HCl 10 ml 07/01/23 13:31 07/01/23 14:13 Lidocaine Hcl Viscous 2 % 15 Ml Solution PO 07/01/23 13:32 10 ml ONCE ONE Administration Pantoprazole Sodium 40 mg 07/01/23 13:31 07/01/23 14:13 Pantoprazole Sodium 40 Mg/10 Ml Vial IVPUSH 07/01/23 13:32 40 mg ONCE ONE Administration Medical Decision Making Medical Decision Making MDM Narrative: 62-year-old male with a history of hepatitis-C, peptic ulcer disease, irritable bowel syndrome, homelessness, who presented to the emergency department for evaluation weakness , ?heartburn? times weeks and hematuria x9 days and significant weight loss. Patient was seen at the [facility] walk-in clinic and found to have point of care hemoglobin of 2.9. Patient is very cachectic and pale appearing. He did have epigastric tenderness on his exam. Rectal exam revealed brown stool which is Hemoccult negative I ordered the following evaluation: CBC, CMP, PT/INR, PTT, type and screen, lipase, COVID-19, influenza, occult stool Patient was ordered to get the following medications: Viscous lidocaine 10 mL, 10 mL, Maalox 30 mL, pantoprazole 40 mg IV 14:29 My interpretation patient's laboratory evaluation is as follows: Severe anemia with an H&H of 2.811.4, this is compared to an H&H of 8.4 and 26.8 on 02/03/2023 and an H&H of 15.1 and 47.7 on 04/20/2021. Patient's MCV is low at 2.8 and 11.4. Coags were normal. BUN elevated at 19 with a normal creatinine of 1.04- otherwise CMP was normal. Lipase was normal. COVID-19 and influenza were negative. Patient most likely has upper GI bleed given his heartburn like symptoms despite the negative occult stool. Malignancy also needs to be considered considering his cachexia. I ordered 3 units of packed red blood cells to be transfused each unit over 2 hours. I will discuss admission with the covering hospitalist. Differential Diagnosis Differential Diagnoses: The differential diagnosis associated with the presentation includes Differential diagnosis includes was not limited to upper GI bleed, lower, GI bleed, peptic ulcer disease, gastric ulcer, iron deficient anemia, blood dyscrasia, malignancy Admission/Observation Consideration of admission/observation: Escalation of care including admission/observation considered Consult Healthcare Provider Management of the patient was discussed with: Hospitalist Lab Data [facility] Lab Attestation statement: I reviewed the patient's lab results. See [facility] for my interpretation 07/01/23 13:35 07/01/23 13:35 Labs: Lab Results 07/01/23 07/01/23 Range/Units 13:35 14:49 WBC 8.9 (4.8-10.8) X10*3/uL RBC 2.09 L D (4.60-5.80) X10*6/uL Hgb 2.8 L* D (14.0-18.0) g/dl Hct 11.4 L* D (42.0-52.0) % MCV 54.5 L (80.0-98.0) fL MCH 13.4 L (27.0-33.0) pg MCHC 24.6 L (31.0-36.0) g/dl RDW 24.6 H (11.0-16.0) % Plt Count 438 H D (160-400) X10*3/uL MPV 10.3 (9.4-12.4) fL Immature Gran % (Auto) 0.8 H (0.0-0.4) % Neut % (Auto) 72.4 (45-73) % Lymph % (Auto) 19.8 L (20-40) % Wilkin % (Auto) 5.9 (2-11) % Eos % (Auto) 0.9 (0-4) % Baso % (Auto) 0.2 (0-2) % Lymph # (Auto) 1.8 (1.2-4.9) X10*3/uL Wilkin # (Auto) 0.5 (0.1-1.2) X10*3/uL Eos # (Auto) 0.1 (0.0-0.4) X10*3/uL Baso # (Auto) 0.0 (0.0-0.2) X10*3/uL Abs Immat Gran (auto) 0.07 H (0.00-0.03) X10*3/uL Absolute Neuts (auto) 6.4 (2.0-8.3) x10*3/uL Absolute Nucleated RBC 0.060 H (0.0-0.012) X10*3/uL Nucleated RBC % (auto) 0.7 H (0.0-0.2) /100WBC Smear Tech's Comments VERIFIED PT 11.5 (11.1-13.3) SEC INR 0.9 (0.9-1.1) APTT 28.8 (26.0-36.4) SEC Sodium 138 (135-145) mmol/L Potassium 4.2 (3.3-5.1) mmol/L Chloride 108 (96-108) mmol/L Carbon Dioxide 24 (22-29) mmol/L Anion Gap 10 L (12-20) BUN 19 H (9-16) mg/dL Creatinine 1.04 (0.5-1.4) mg/dL Estim Creat Clear Calc 56.5 Estimated GFR > 60 Random Glucose 105 (60-115) mg/dL Calcium 8.4 D (8.4-10.2) mg/dL Iron 14 L (45-160) mcg/dL TIBC 369 (228-428) mcg/dL % Saturation 4 L (15-50) % Unsat Iron Binding 355 ug/dL Total Bilirubin 0.2 (0.0-1.0) mg/dL AST 30 (5-37) U/L ALT 11 (0-40) U/L Alkaline Phosphatase 85 (39-117) U/L Troponin I High Sens 6.7 D (<3.5-35.0) ng/L Total Protein 6.8 (6.5-8.0) g/dL Albumin 3.6 (3.5-5.0) g/dL Lipase 10 (8-78) U/L Urine Color RED Urine Appearance Cloudy Urine pH 6.5 (5.0-9.0) Ur Specific [place] 1.020 (1.005-1.025) Urine Protein 300 (3+) H (Neg-Trace) mg/dL Urine Glucose (UA) Negative (Negative) mg/dL Urine Ketones Trace (Negative) mg/dL Urine Blood Large (3+) H (Negative) Urine Nitrite Positive H (Negative) Ur Leukocyte Esterase Small (1+) H (Negative) Urine RBC >20 H (0-2) /HPF Urine WBC >50 H (0-5) /HPF Ur Squamous Epith Cells 0-2 (0-2) /HPF Urine Bacteria 1+ (None Seen) Hyaline Casts 0-2 (0-2) /LPF Stool Occult Blood NEGATIVE (NEGATIVE) COVID-19 (JAQUELINE) Negative (Negative) COVID-19 Clin Com See Note Influenza Type A (DORIS) Negative (Negative) Influenza Type B (DORIS) Negative (Negative) Influenza A & B Note See Note Blood Type O Positive Antibody Screen NEGATIVE Crossmatch See Detail Independent Interpretation I performed an independent interpretation of an: EKG Interpretation: My independent interpretation patient's 12 EKG done at 13:43 hours is as follows: Normal sinus rhythm rate of 83, normal GA interval, QRS duration QTC interval, no ST segment elevation, no ST segment depression, no T-wave abnormalities-this is a normal EKG Independent Historian Clinical information obtained from an independent historian. History obtained from or confirmed by: Other (Outpatient note from Dr. Tran) Critical Care Time Critical Care Time Critical Care Time: Yes Total Critical Care Time: 45 Attestation: Critical Care: The patient was critically ill with a high probability of imminent or life threatening deterioration. I spent greater than 30 minutes of discontinuous time evaluating the patient,delivering critical care at the bedside, discussing and evaluating pertinent data with consultants. Critical care time does not include time spent performing separately billable procedures or teaching. Total time spent performing critical care was 45 minutes. Discharge Plan Discharge Clinical Impression: Microcytic anemia, Weight loss, Dyspepsia Patient Disposition: Admitted As Inpatient Interventions: Admission Worksheet (ED) Last Done: 07/01/23 17:21
--- NOTE | 2023-07-01 13:10 | ECG_ITS ---
Test Reason : LOW HEMOGLOBIN Blood Pressure : / mmHG Vent. Rate : 088 BPM Atrial Rate : 088 BPM P-R Int : 134 ms QRS Dur : 078 ms QT Int : 366 ms P-R-T Axes : 083 071 067 degrees QTc Int : 442 ms Normal sinus rhythm Normal ECG When compared with ECG of 03-FEB-2023 17:07, No significant change was found Referred By: Jonnie Juárez Electronically Signed By:CAROLYN RAMIREZ MD
[2023-07-01 13:51] LABS: OBS Int Ctl Valid YES; OBS1 NEGATIVE (NEGATIVE)
[2023-07-01 13:55] LABS: Basophils Percent Auto 0.2 % (0-2); Eosinophils Absolute Auto 0.1 X10*3/uL (0.0-0.4); Eosinophils Percent Auto 0.9 % (0-4); Imm Gran Abs Auto 0.07 X10*3/uL (0.00-0.03); Imm Gran Pct Auto 0.8 % (0.0-0.4); Lymphocytes Absolute Auto 1.8 X10*3/uL (1.2-4.9); Lymphocytes Percent Auto 19.8 % (20-40); MANUAL DIFF FLAG SCAN; Mean Corpuscular HGB Conc 24.6 g/dl (31.0-36.0); Mean Corpuscular Hemoglobin 13.4 pg (27.0-33.0); Mean Platelet Volume 10.3 fL (9.4-12.4); Monocytes Absolute Auto 0.5 X10*3/uL (0.1-1.2); Monocytes Percent Auto 5.9 % (2-11); NRBC Pct Auto 0.7 /100WBC (0.0-0.2); Neutrophils Absolute Auto 6.4 x10*3/uL (2.0-8.3); Neutrophils Percent Auto 72.4 % (45-73); Platelet Count 438 X10*3/uL (160-400); Red Blood Count 2.09 X10*6/uL (4.60-5.80); Red Cell Distribution Width 24.6 % (11.0-16.0); SCAN SMEAR FLAG 1; White Blood Count 8.9 X10*3/uL (4.8-10.8)
[2023-07-01 13:56] LABS: Mean Corpuscular Volume 54.5 fL (80.0-98.0); PLT ABN DIST 1
[2023-07-01 13:59] LABS: Hemoglobin 2.8 g/dl (14.0-18.0)
[2023-07-01 14:00] LABS: Hematocrit 11.4 % (42.0-52.0)
[2023-07-01 14:02] LABS: Alanine Aminotransferase 11 U/L (0-40); Albumin Level 3.6 g/dL (3.5-5.0); Alkaline Phosphatase 85 U/L (39-117); Anion Gap 10 (12-20); Aspartate Amino Transferase 30 U/L (5-37); Bilirubin Total 0.2 mg/dL (0.0-1.0); Blood Urea Nitrogen 19 mg/dL (9-16); Calcium 8.4 mg/dL (8.4-10.2); Carbon Dioxide 24 mmol/L (22-29); Chloride 108 mmol/L (96-108); Creatinine Clr Calc Pharmacy 56.5; Estimated Glomerular Filt Rate > 60; Glucose Random 105 mg/dL (60-115); Lipase 10 U/L (8-78); Potassium 4.2 mmol/L (3.3-5.1); Sodium 138 mmol/L (135-145); Total Protein 6.8 g/dL (6.5-8.0)
[2023-07-01 14:03] LABS: INTERNATIONAL NORM RATIO 0.9 (0.9-1.1); Prothrombin Time 11.5 SEC (11.1-13.3)
[2023-07-01 14:05] LABS: Partial Thromboplastin Time 28.8 SEC (26.0-36.4)
[2023-07-01 14:09] LABS: COVID-19 Test Negative (Negative); IDNOW Serial# 08D9AD1C; Troponin-I High Sensitivity 6.7 ng/L (<3.5-35.0)
[2023-07-01 14:12] LABS: IDNOW Serial# 16C4AD1C; Influenza A Negative (Negative); Influenza B2 Negative (Negative)
[2023-07-01] MEDS: Lidocaine HCl Viscous 2 % 15 ML SOLUTION 10 ML PO (14:13)
[2023-07-01] MEDS: Pantoprazole Sodium 40 MG/10 ML VIAL IVPUSH (14:13)
[2023-07-01] MEDS: Magnesium Hydrox/Alum Hydrox 30 ML ORAL.SUSP PO (14:13)
[2023-07-01] MEDS: PHENobarb/Hyoscy/Atropine/Scop 10 ML ELIXIR PO (14:13)
--- NOTE | 2023-07-01 14:47 | PM.IMHP ---
History of Present Illness Date of Service: 07/01/23 Attending physician on admission: La Carney Chief Complaint: Abnormal labs, low H&H Pt is a 62-year-old male with a PMH significant for?peptic ulcer disease, IBS, chronic hepatitis-C, GERD, HLD, and anxiety/depression who presents to the ED with low H&H. Pt was seen at [facility] walk-in clinic by Dr. Fer Tran for evaluation of weakness and hematuria for the past few weeks. Point of care hemoglobin was found to be 2.9 and patient was sent to the ED for further evaluation and workup, where H&H was noted to be 2.8/11.4. Pt previously presented to the ED on 02/03/2023 with similar complaints. H&H was found to be 8.4/26.8 and urine was positive for gross hematuria. CT of abdomen and pelvis found multiple lobular soft tissue structures within the urinary bladder measuring up to 3 cm, possibly hemorrhage and/or mass lesions. Pt was scheduled to be admitted to the hospital for further workup but left AMA. Pt is not the greatest of historians, and lacks precise details, but reports he has been experiencing hematuria for a few weeks . Initially hematuria was intermittent and urine would clear for 1-2 days before returning, but lately urine has constantly been red. Patient also complains of generalized weakness, lightheadedness and dizziness with walking, and dysuria the past couple of weeks. Patient reports he lately has only been eating Frosted Flakes cereal without milk, which he admits he is become ?addicted? to. Has a 60+ pack year smoking history; used to smoke 2-3 packs daily for 30+ years, now down to a few cigarettes daily. In the ED pt had relatively stable vital signs with sightly soft BP of 107/55. Labs were significant for severe microcytic anemia of H&H of 2.8/11.4, MCV 54.5, iron 14, % saturation 4%. Urine with gross hematuria, large amount of urine blood, positive for UTI. EKG demonstrated normal sinus rhythm without evidence of ST elevations or depressions. Pt was treated with Protonix, GI cocktail, and transfused 3 units PRBCs. Pt will be admitted to the hospital for treatment and further evaluation of severe symptomatic anemia likely secondary to bladder cancer. Review of Systems Review of Systems: Hematuria Weakness, fatigue Dizziness, lightheadedness, SOB with standing and walking Dysuria Denies fever, chills, nausea, vomiting, abdominal pain No chest pain/pressure, palpitations [facility] Medical History (Updated 07/01/23 @ 16:30 by BRAD Lincoln) HLD (hyperlipidemia) Chronic headaches MDD (major depressive disorder) Social History Household Members: Family Unable to assess alcohol history related to: Unknown Alcohol intake: never Patient Tobacco Use Status: Current everyday Tobacco user Cigarette Packs Per Day: 0.5 Current occupational status: disabled Meds Allergies Allergy/AdvReac Type Severity Reaction Status Date / Time haloperidol [From Haldol] Allergy Severe Can't Verified 01/06/21 16:07 breathe Active Medications: Current Medications Sodium Chloride (Ns) 100 mls @ 100 mls/hr IV ONCE ONE Stop: 07/01/23 15:27 Sodium Chloride (Ns) 100 mls @ 100 mls/hr IV ONCE ONE Stop: 07/01/23 15:27 Sodium Chloride (Ns) 100 mls @ 100 mls/hr IV ONCE ONE Stop: 07/01/23 15:27 Home Medications Medication Instructions Recorded Confirmed Last Taken Type amitriptyline 50 mg tablet 50 mg PO BEDTIME 02/03/23 07/01/23 1 Week Ago History ~06/24/23 atorvastatin 40 mg tablet 40 mg PO BEDTIME 02/03/23 07/01/23 1 Week Ago History ~06/24/23 benztropine 1 mg tablet 1 mg PO BID 02/03/23 07/01/23 1 Week Ago History ~06/24/23 famotidine 40 mg tablet 40 mg PO BEDTIME 02/03/23 07/01/23 1 Week Ago History ~06/24/23 hydroxyzine pamoate 25 mg capsule 25 mg PO TID PRN Anxiety 02/03/23 07/01/23 1 Week Ago History ~06/24/23 mprobn-jbvlhuxh-htnjkyq 1 cap PO Q8H 02/03/23 07/01/23 1 Week Ago History 24,000-76,000-120,000 unit ~06/24/23 capsule,delayed rel (Creon) pantoprazole 40 mg tablet,delayed 40 mg PO DAILY@0630 02/03/23 07/01/23 1 Week Ago History release ~06/24/23 paroxetine HCl 20 mg tablet 40 mg PO DAILY 02/03/23 07/01/23 1 Week Ago History ~06/24/23 quetiapine 100 mg tablet 100 mg PO BEDTIME 02/03/23 07/01/23 1 Week Ago History ~06/24/23 Physical Exam Vital Signs and Narrative: Vital Signs: Last Vital Signs Pulse 68 07/01/23 13:04 Resp 18 07/01/23 13:04 BP 95/74 07/01/23 13:04 Pulse Ox 95 07/01/23 13:04 O2 Del Method Nasal Cannula 07/01/23 13:04 Oxygen Flow Rate 2 07/01/23 13:04 BMI result Body Mass Index 17.4 Constitutional: Alert, cachectic, pale looking, in no acute distress. Mental Status: Oriented to person, place and time. Eyes: Pupils are equal, round, and reactive to light. Ear, Nose, and Throat: Oropharynx clear, mucous membranes moist. Ears and nose without deformities. Trachea midline. Respiratory: Clear to auscultation bilaterally. No wheezing, rales, or rhonchi. Cardiovascular: S1, S2 regular. No murmurs, rubs, or gallops. Gastrointestinal: Abdomen soft, non-tender, non-distended. Normal bowel sounds. Neurologic: Cranial nerves II-XII are grossly intact bilaterally. No focal neurological deficits. Moves all extremities spontaneously. Uncontrollable, repetitive tardive dyskinesia-like movements of mouth Skin: Warm, dry. Musculoskeletal: No cyanosis or clubbing. Extremities: No edema. Psychiatric: Normal mood and affect. Results Labs 07/01/23 13:35 07/01/23 13:35 Labs: Laboratory Results - last 24 hr 07/01/23 13:35 MCV 54.5 L MCH 13.4 L MCHC 24.6 L RDW 24.6 H Plt Count 438 H D MPV 10.3 PT 11.5 INR 0.9 APTT 28.8 Anion Gap 10 L Estim Creat Clear Calc 56.5 Estimated GFR > 60 Random Glucose 105 Calcium 8.4 D Total Bilirubin 0.2 AST 30 ALT 11 Alkaline Phosphatase 85 Total Protein 6.8 Albumin 3.6 Lipase 10 Stool Occult Blood NEGATIVE COVID-19 (JAQUELINE) Negative COVID-19 Clin Com See Note Influenza Type A (DORIS) Negative Influenza Type B (DORIS) Negative Influenza A & B Note See Note Blood Type O Positive Antibody Screen NEGATIVE Crossmatch See Detail Assessment and Plan (1) Microcytic anemia: Status: Acute Plan Pt is a 62-year-old male with a PMH significant for?peptic ulcer disease, IBS, chronic hepatitis-C, GERD, HLD, and anxiety/depression who presents to the ED with low H&H. Pt was seen at [facility] walk-in clinic by Dr. Fer Tran for evaluation of weakness and hematuria for the past few weeks. Point of care hemoglobin was found to be 2.9 and patient was sent to the ED for further evaluation and workup, where H&H was noted to be 2.8/11.4. Pt will be admitted to the hospital for treatment and further evaluation of severe symptomatic anemia likely secondary to bladder cancer. Microcytic anemia H&H 2.8/11.4 with MCV 54.5 Iron levels 14 with 4% saturation Likely secondary to hematuria Patient received 3 units of PRBCs in the ED Heme/Onc consult for IV iron supplementation recommendations Follow CBC Gross hematuria Intermittent since at least 01/2023, constant the past few weeks Likely secondary to bladder cancer CT of abdomen and pelvis on 02/03/2023 found multi lobular soft tissue structures within the urinary bladder measuring up to 3 cm, likely mass lesions Patient with 60+ pack year history of smoking Will repeat imaging and evaluate for metastasis with CT of chest and abdomen/pelvis with contrast tomorrow Urology consult Treat as above UTI UA positive for UTI Will treat with ceftriaxone, started 07/01/2023 GERD Continue famotidine and pantoprazole Mood disorder Continue paroxetine, quetiapine, amitriptyline, hydroxyzine, benztropine Nicotine dependence 60+ pack-year smoking hx Currently smoking a few cigarettes daily NRT Full Code Attending:?Dr. Carney DVT Prophylaxis: Pneumatic boots d/t anemia, gross hematuria Pt will require a hospitalization of at least two nights for treatment of?acute on chronic microcytic anemia secondary to gross hematuria in the setting of likely bladder cancer. Given the severity of patient's anemia, he required immediate transfusion and close monitoring of CBC levels. He also knee treatment with IV oral iron supplementation, specialist consultation, and further workup and evaluation including CT scans of the abdomen/pelvis and chest as well as direct visualization of the bladder. Quality Stroke Does the patient have a stroke diagnosis?: No VTE Prior VTE?: No VTE Risk Level:: Medical - moderate - high VTE Device Contraindication: N/A - Device Ordered VTE Drug Contraindication: Treatment Not Indicated
[2023-07-01 14:52] LABS: SLIDE REVIEW VERIFIED
[2023-07-01 15:01] LABS: Appearance Urine Cloudy; Color Urine RED; Glucose Urine UA Negative (Negative); Leukocyte Esterase Urine Small (1+) (Negative); Nitrite Urine Positive (Negative); PH 6.5 (5.0-9.0); UMIC TRIGGER UACC YES; Urine Blood Large (3+) (Negative); Urine Ketones Trace mg/dL (Negative); Urine Protein 300 (3+) mg/dL (Neg-Trace)
--- NOTE | 2023-07-01 15:12 | PHA.MEDREC ---
Pharmacy Consult ? Medication Reconciliation Pharmacy has completed the medication reconciliation. Patient gets medbox from [facility]. Called pharmacy and spoke to patient to confirm meds.
[2023-07-01 15:18] LABS: Iron 14 mcg/dL (45-160); Percent Iron Saturation 4 % (15-50); Total Iron Binding Capacity 369 mcg/dL (228-428); Unsaturated Iron Binding 355 ug/dL
[2023-07-01 15:22] LABS: Bacteria Urine 1+ (None Seen); Hyaline Casts Urine 0-2 /LPF (0-2); RBC Urine >20 /HPF (0-2); Squamous Epithelial Cell Urine 0-2 /HPF (0-2); UACC Culture Trigger YES; WBC Urine >50 /HPF (0-5)
--- NOTE | 2023-07-01 15:52 | PC.NURSE ---
Transfusion consent verified, first unit of PRBCs obtained from lab, VSS/documented. Transfusion initiated without issue, currently infusing at 175ml/hr. Pt remains calm/cooperative, appears in NAD.
--- NOTE | 2023-07-01 16:13 | P.CNHO_ITS ---
Subjective - Subjective Chief complaint: Weakness Patient: new to practice Consult date: 07/01/23 Primary Care Provider: Marga Garrido MD HPI - Consult Narrative Reason for consult: Anemia, probable bladder cancer Narrative: Ezra Elkins is a 62 year old male with past medical history significant for GERD, anxiety/depression, chronic hepatitis-C, IBS who is presenting with worsening anemia. Patient was diagnosed with bladder masses in January 2023 when he presented with gross hematuria and anemia. Patient was recommended further workup but he left AMA. Patient now states that he presented to walk-in clinic for worsening hematuria and weakness. He has had significant weight loss, complaints of lightheadedness and dizziness as well. His hemoglobin was noted to be 2.9 gram/dL in the walk-in and therefore he was sent for further evaluation to the ED. Evaluation in the ED demonstrated microcytic anemia with hemoglobin of 2.8 gram/dL with an MCV of 54.5 and iron saturation of 4%. He was transfused 3 units PRBC and is being admitted for further workup. Patient states that he is a chronic smoker. He lives at home with his brother and [id number]. He has a poor historian, does not offer any other complaints. Review of Systems - Constitutional Reports as per HPI, Reports fatigue, Reports lack of energy, Reports malaise, Reports weight loss - Cardiovascular Reports no additional cardiovascular complaints - Respiratory Reports no additional respiratory complaints - Gastrointestinal Reports abdominal pain PMFSH Medical History: Medical History (Last Reviewed 07/02/23 @ 13:04 by Maryan Avila MD) Chronic headaches HLD (hyperlipidemia) MDD (major depressive disorder) Social History: Social History (Last Reviewed 07/02/23 @ 13:04 by Maryan Avila MD) Living Situation History: Household Members: Family Housing: Apartment Do you presently have visiting nurse or other home services: No Alcohol History: Unable to assess alcohol history related to: Unknown Alcohol History Details: 1. How often do you have a drink containing alcohol?: a. Never AUDIT-C Alcohol total score: 0 Currently Displaying Signs/Symptoms of Alcohol Withdrawal: No Tobacco History: Patient Tobacco Use Status: Current everyday Tobacco Tobacco use type: Cigarette Cigarette Packs Per Day: 0.5 Smoked in Last 30 Days: Yes Patient Interested in Nicotine Replacement: No Substance Use History: Use of substances other than those prescribed or required for medical reasons : No Currently Displaying Signs/Symptoms of Drug Intoxication Withdrawal: No Domestic Abuse History: Have you been hit, kicked, punched, or otherwise hurt by someone within the past year? If so, by whom?: No Is there a partner from a previous relationship who is making you feel unsafe now?: No Are you made to feel afraid or neglected: No Advance Directives: Advance Directives: Yes Advance Directives Information Provided: Yes Advance Directives on File: No Advance Directives Date on File: 07/01/23 Homicidal Assessment: Do you have thoughts of harming others: None Do you have a plan to hurt others: No Plan Nutrition Assessment: Nutrition Risks: Difficulty swallowing Occupation Assessmet: service: No Current occupational status: disabled Home Medications and Allergies Current Medications: Current Medications Acetaminophen (Acetaminophen 325 Mg Tablet) 650 mg PO Q6H PRN PRN Reason: Pain, Mild (Pain Scale 1-3) Benzonatate (Benzonatate 100 Mg Capsule) 100 mg PO TID PRN PRN Reason: Cough Docusate Sodium (Docusate Sodium 100 Mg Capsule) 100 mg PO DAILY PRN PRN Reason: Constipation Melatonin (Melatonin 3 Mg Tablet) 6 mg PO BEDTIME PRN PRN Reason: Insomnia Ondansetron HCl (Ondansetron Hcl 4 Mg/2 Ml Vial) 4 mg IVPUSH Q8H PRN PRN Reason: Nausea and Vomiting Sodium Chloride (0.9 % Sodium Chloride Flush 3 Ml Syringe) 3 ml IVFLUSH [facility] Medications Medication Instructions Recorded Confirmed Type amitriptyline 50 mg tablet 50 mg PO BEDTIME 02/03/23 07/01/23 History atorvastatin 40 mg tablet 40 mg PO BEDTIME 02/03/23 07/01/23 History benztropine 1 mg tablet 1 mg PO BID 02/03/23 07/01/23 History famotidine 40 mg tablet 40 mg PO BEDTIME 02/03/23 07/01/23 History hydroxyzine pamoate 25 mg capsule 25 mg PO TID PRN Anxiety 02/03/23 07/01/23 History gwufom-ogujvesy-teqezjd 1 cap PO Q8H 02/03/23 07/01/23 History 24,000-76,000-120,000 unit capsule,delayed rel (Creon) pantoprazole 40 mg tablet,delayed 40 mg PO DAILY@0630 02/03/23 07/01/23 History release paroxetine HCl 20 mg tablet 40 mg PO DAILY 02/03/23 07/01/23 History quetiapine 100 mg tablet 100 mg PO BEDTIME 02/03/23 07/01/23 History Allergies Allergy/AdvReac Type Severity Reaction Status Date / Time haloperidol [From Haldol] Allergy Severe Can't Verified 01/06/21 16:07 breathe Physical Exam Vital signs: Vital Signs Temp 98.4 F 07/01/23 15:48 Pulse 85 07/01/23 15:48 Resp 14 07/01/23 15:48 BP 99/52 L 07/01/23 15:48 Pulse Ox 98 07/01/23 15:35 O2 Del Method Nasal Cannula 07/01/23 15:35 O2 Flow Rate 2 07/01/23 15:35 Intake & Output 06/30/23 07/01/23 07/01/23 18:59 06:59 18:59 Intake Total 0 / 0 Balance 0 / 0 Intake: Intake (Blood Product) Amount 0 / 0 Red Blood Cells (E0382) Unit 0 / 0 [id number] Other: Weight 55 kg Weight 55 kg - Constitutional Present: no acute distress - Routine HEENT Exam Head: Present: normal inspection Eye: Present: conjunctivae pale - Routine Neck Exam Present: supple. Absent: lymphadenopathy - Routine Respiratory Exam Present: CTAB - Routine Cardiovascular Exam Cardiovascular: Present: S1, S2 - Routine Abdominal Exam Present: soft Hem/Onc Consult Result - Labs CBC & Chem 7: 07/04/23 05:39 07/03/23 06:16 Labs: Short CBC 07/01/23 Range/Units 13:35 WBC 8.9 (4.8-10.8) X10*3/uL Hgb 2.8 L* D (14.0-18.0) g/dl Hct 11.4 L* D (42.0-52.0) % Plt Count 438 H D (160-400) X10*3/uL BMP 07/01/23 13:35 Sodium 138 Potassium 4.2 Chloride 108 Carbon Dioxide 24 BUN 19 H Creatinine 1.04 Calcium 8.4 D Liver Function 07/01/23 Range/Units 13:35 Total Bilirubin 0.2 (0.0-1.0) mg/dL AST 30 (5-37) U/L ALT 11 (0-40) U/L Alkaline Phosphatase 85 (39-117) U/L Albumin 3.6 (3.5-5.0) g/dL Urine 07/01/23 Range/Units 14:49 Urine Color RED Urine Appearance Cloudy Urine pH 6.5 (5.0-9.0) Ur Specific [place] 1.020 (1.005-1.025) Urine Protein 300 (3+) H (Neg-Trace) mg/dL Urine Glucose (UA) Negative (Negative) mg/dL Assessment and Plan Patient Active problem list reviewed?: Yes (1) Microcytic anemia Status: Acute Assessment and plan: 1. This is a 62-year-old male presenting worsening microcytic/iron deficiency anemia secondary to hematuria related to bladder tumor. Presenting hemoglobin was 2.8 gram/dL, previously in January 2023 it was 8.4 gram/dL. He has had hematuria for many months, he declined workup in January but is willing to undergo further testing at this time. He is being transfused PRBC. I recommend repeat evaluation with CT chest/abdomen and pelvis with IV contrast. Keep hemoglobin above 7 gram/dL. Urology consultation is recommended. Depending on pathological diagnosis and staging, further recommendations will be made. I thank you for this consultation. - Time Spent With Patient Time Spent with Patient (in minutes): 20
--- NOTE | 2023-07-01 16:17 | PM.EVENT ---
Full consult to follow. Patient will need blood and IV iron infusion. Previous imaging showed bladder tumor, repeat imaging, Urology evaluation recommended.
--- NOTE | 2023-07-01 16:41 | MHC.EDTECH ---
This pct assumed care of Pt at 1500 ,vitals taken ,all extrea blanket remove from Patient ,and Patient belongings list done .
--- NOTE | 2023-07-01 17:43 | PC.NURSE ---
PRBC unit 1/3 transfused; Pt tolerated well. IP bed assignment recieved, report submitted, belongings list complete, transporter notified. No RN assist, unit 2/3 to be initiated on the floor.
[2023-07-01] MEDS: Amitriptyline HCl 50 MG TABLET PO (21:09)
[2023-07-01] MEDS: Atorvastatin Calcium 40 MG TABLET PO (21:09)
[2023-07-01] MEDS: Famotidine 20 MG TABLET 40 MG PO (21:09)
[2023-07-01] MEDS: QUEtiapine Fumarate 100 MG TABLET PO (21:09)
[2023-07-01] MEDS: Benztropine Mesylate 1 MG TABLET PO (21:09)
[2023-07-01] MEDS: cefTRIAXone sodium 1 GM in 0.9 % Sodium Chloride 50 ML IV (22:58)
[2023-07-01] MEDS: Lipase/Prot/Amylase 24/76/120K 1 CAP CAPSULE.DR PO (22:58)
[2023-07-02] VITALS (13 sets, daily range): BP systolic 90–134; BP diastolic 44–61; PULSE 68–82; RESP 16–20; TEMP 36.4–37.7; O2SAT 98–100
[2023-07-02 06:46] LABS: Mean Corpuscular HGB Conc 30.4 g/dl (31.0-36.0); Mean Corpuscular Hemoglobin 21.6 pg (27.0-33.0); Mean Corpuscular Volume 70.9 fL (80.0-98.0); NRBC Pct Auto 0.5 /100WBC (0.0-0.2); Platelet Count 362 X10*3/uL (160-400); Red Blood Count 2.92 X10*6/uL (4.60-5.80); White Blood Count 7.6 X10*3/uL (4.8-10.8)
[2023-07-02 07:12] LABS: Hemoglobin 6.3 g/dl (14.0-18.0)
[2023-07-02 07:13] LABS: Hematocrit 20.7 % (42.0-52.0)
[2023-07-02] MEDS: 0.9 % Sodium Chloride Flush 3 ML SYRINGE IVFLUSH ×2 (08:15→13:25)
[2023-07-02] MEDS: Benztropine Mesylate 1 MG TABLET PO ×2 (08:16→21:26)
[2023-07-02] MEDS: Lipase/Prot/Amylase 24/76/120K 1 CAP CAPSULE.DR PO ×2 (08:17→17:21)
[2023-07-02] MEDS: PARoxetine HCL 40 MG TABLET PO (08:17)
[2023-07-02] MEDS: Nicotine 14 MG PATCH.TD24 TRANSDERMA (08:17)
--- NOTE | 2023-07-02 11:00 | P.PNIM_ITS ---
Subjective Subjective Date of Service: 07/02/23 Interval History: transfused 3u pRBCs, Hb 2.8->6.3 ongoing hematuria + bladder pain no dizziness/lightheadedness Review of Systems Review of Systems: Yes all other systems are reviewed and are negative Physical Exam 2 Vital Signs: Vital Signs: Last Vital Signs Temp 98.8 F 07/02/23 10:31 Pulse 74 07/02/23 10:31 Resp 16 07/02/23 10:31 BP 117/61 07/02/23 10:31 Pulse Ox 100 07/02/23 07:35 O2 Del Method Room Air 07/02/23 07:35 O2 Flow Rate 2 07/01/23 23:39 Oxygen Flow Rate 2 07/01/23 13:04 BMI result Body Mass Index 17.4 Gen: in no acute distress, very pale and extensive multiple wasting HEENT: sclera anicteric, moist mucus membranes Neck: supple Lungs: clear to auscultation bilaterally Heart: regular rate and rhythm, no murmurs Abd: soft, non-tender, non-distended Ext: no edema Skin: warm/well-perfused Neuro: alert and oriented x3, tardive dyskinesia Psych: appropriate affect Objective Data Active Medications Acetaminophen (Acetaminophen 325 Mg Tablet) 650 mg PO Q6H PRN PRN Reason: Pain, Mild (Pain Scale 1-3) Amitriptyline HCl (Amitriptyline Hcl 50 Mg Tablet) 50 mg PO BEDTIME [facility] Last Admin: 07/01/23 21:09 Dose: 50 mg Documented By: DONNA Lipase/Protease/Amylase (Lipase/Prot/Amylase 24/76/120k 1 Cap Capsule.) 1 cap PO TIDWM [facility] Last Admin: 07/02/23 08:17 Dose: 1 cap Documented By: PHYLLIS Atorvastatin Calcium (Atorvastatin Calcium 40 Mg Tablet) 40 mg PO BEDTIME [facility] Last Admin: 07/01/23 21:09 Dose: 40 mg Documented By: DONNA Benzonatate (Benzonatate 100 Mg Capsule) 100 mg PO TID PRN PRN Reason: Cough Benztropine Mesylate (Benztropine Mesylate 1 Mg Tablet) 1 mg PO BID [facility] Last Admin: 07/02/23 08:16 Dose: 1 mg Documented By: PHYLLIS Docusate Sodium (Docusate Sodium 100 Mg Capsule) 100 mg PO DAILY PRN PRN Reason: Constipation Famotidine (Famotidine 20 Mg Tablet) 40 mg PO BEDTIME [facility] Last Admin: 07/01/23 21:09 Dose: 40 mg Documented By: DONNA Hydroxyzine HCl (Hydroxyzine Hcl 25 Mg Tablet) 25 mg PO TID PRN PRN Reason: Anxiety Ceftriaxone Sodium 1 gm/ (Sodium Chloride) 50 mls @ 100 mls/hr IV Q24H [facility] Last Infusion: 07/01/23 23:42 Dose: Infused Documented By: HARMONY Melatonin (Melatonin 3 Mg Tablet) 6 mg PO BEDTIME PRN PRN Reason: Insomnia Nicotine (Nicotine 14 Mg Patch.Td24) 14 mg TRANSDERMA DAILY [facility] Last Admin: 07/02/23 08:17 Dose: 14 mg Documented By: PHYLLIS Omeprazole (Omeprazole 20 Mg Capsule.Dr) 20 mg PO DAILY@0630 [facility] Last Admin: 07/02/23 06:01 Dose: Not Given Documented By: HARMONY Non-Admin Reason: Patient Refused Ondansetron HCl (Ondansetron Hcl 4 Mg/2 Ml Vial) 4 mg IVPUSH Q8H PRN PRN Reason: Nausea and Vomiting Paroxetine HCl (Paroxetine Hcl 40 Mg Tablet) 40 mg PO DAILY [facility] Last Admin: 07/02/23 08:17 Dose: 40 mg Documented By: PHYLLIS Quetiapine Fumarate (Quetiapine Fumarate 100 Mg Tablet) 100 mg PO BEDTIME [facility] Last Admin: 07/01/23 21:09 Dose: 100 mg Documented By: DONNA Sodium Chloride (0.9 % Sodium Chloride Flush 3 Ml Syringe) 3 ml IVFLUSH QSHIFT [facility] Last Admin: 07/02/23 08:15 Dose: 3 ml Documented By: PHYLLIS Labs 07/02/23 05:59 07/01/23 13:35 Labs: Laboratory Results - last 24 hr 07/01/23 07/01/23 07/02/23 13:35 14:49 05:59 MCV 54.5 L 70.9 L D MCH 13.4 L 21.6 L MCHC 24.6 L 30.4 L RDW 24.6 H Not Reportable Plt Count 438 H D 362 MPV 10.3 Not Reportable Immature Gran % (Auto) 0.8 H Neut % (Auto) 72.4 Lymph % (Auto) 19.8 L [place] % (Auto) 5.9 Eos % (Auto) 0.9 Baso % (Auto) 0.2 Lymph # (Auto) 1.8 [place] # (Auto) 0.5 Eos # (Auto) 0.1 Baso # (Auto) 0.0 Abs Immat Gran (auto) 0.07 H Absolute Neuts (auto) 6.4 Absolute Nucleated RBC 0.060 H 0.040 H Nucleated RBC % (auto) 0.7 H 0.5 H Smear Tech's Comments VERIFIED PT 11.5 INR 0.9 APTT 28.8 Anion Gap 10 L Estim Creat Clear Calc 56.5 Estimated GFR > 60 Random Glucose 105 Calcium 8.4 D Iron 14 L TIBC 369 % Saturation 4 L Unsat Iron Binding 355 Total Bilirubin 0.2 AST 30 ALT 11 Alkaline Phosphatase 85 Total Protein 6.8 Albumin 3.6 Lipase 10 Urine Color RED Urine Appearance Cloudy Urine pH 6.5 Ur Specific [place] 1.020 Urine Protein 300 (3+) H Urine Glucose (UA) Negative Urine Ketones Trace Urine Blood Large (3+) H Urine Nitrite Positive H Ur Leukocyte Esterase Small (1+) H Urine RBC >20 H Urine WBC >50 H Ur Squamous Epith Cells 0-2 Urine Bacteria 1+ Hyaline Casts 0-2 Stool Occult Blood NEGATIVE COVID-19 (JAQUELINE) Negative COVID-19 Clin Com See Note Influenza Type A (DORIS) Negative Influenza Type B (DORIS) Negative Influenza A & B Note See Note Blood Type O Positive Antibody Screen NEGATIVE Crossmatch See Detail Assessment and Plan (1) Microcytic anemia: Status: Acute Plan d2 62yo M with PUD, IBS, HCV [cured], HLD, mood disorder [schizophrenia?] sent from walk-in center due to POC Hb 2.9 severe GIFTY with HB 2.8, untreated/undiagnosed bladder tumor [previously signed out AMA from our ED 02/03/23] severe GIFTY due to blood loss - transfused 3u pRBCs 07/01- with appropriate rise in H+H, will give additional 1u and recheck CBC in AM - Heme consult for IV iron - FOBT negative bladder tumor - likely malignancy. will obtain CT C/A/P with contrast and consult Heme-Onc and Urology. UTI - ceftriaxone 07/01-, follow UCx PUD - continue PPI HLD - statin mood disorder, ?schizophrenia - continue paroxetine, quetiapine, amitriptyline, hydroxyzine, benztropine tobacco abuse - NRT VTE ppx - SCDs In my clinical judgment, the patient requires continued inpatient hospitalization for the following reasons: severe anemia requiring transfusion Total time managing care of this patient today: 40 minutes. Quality Stroke Does the patient have a stroke diagnosis?: No VTE Prior VTE?: No VTE Risk Level:: Medical - moderate - high VTE Device Contraindication: N/A - Device Ordered VTE Drug Contraindication: Treatment Not Indicated
[2023-07-02] MEDS: iohexoL 350 MG/ML 100 ML INFUS..BTL 85 ML IV (12:34)
--- NOTE | 2023-07-02 12:55 | PM.HEMONCPN ---
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 He has been transfused and seems comfortable. He was seen by Dr. García yesterday. I have seen and examined him and he is stable. Interval History Interval history: Ezra Elkins is a 62 year old male described above. Review of Systems - Constitutional Reports fatigue, Reports lack of energy, Reports weakness, Reports weight loss - ENT Reports dizziness - Cardiovascular Reports fast heart rate, Reports lightheadedness, Reports shortness of breath - Respiratory Reports dyspnea, Reports dyspnea on exertion - Gastrointestinal Reports abdominal pain - Genitourinary Genitourinary: Reports blood in urine [facility] Medical History: Medical History (Last Updated 07/01/23 @ 16:30 by BRAD Lincoln) Chronic headaches HLD (hyperlipidemia) MDD (major depressive disorder) Social History: Social History (Last Reviewed 02/03/23 @ 18:21 by Klaudia Kendrick MD) Living Situation History: Household Members: Family Housing: Apartment Do you presently have visiting nurse or other home services: No Alcohol History: Unable to assess alcohol history related to: Unknown Alcohol History Details: 1. How often do you have a drink containing alcohol?: a. Never AUDIT-C Alcohol total score: 0 Currently Displaying Signs/Symptoms of Alcohol Withdrawal: No Tobacco History: Patient Tobacco Use Status: Current everyday Tobacco Tobacco use type: Cigarette Cigarette Packs Per Day: 0.5 Cigarettes Per Day: 7 Smoked in Last 30 Days: Yes Patient Interested in Nicotine Replacement: No Substance Use History: Use of substances other than those prescribed or required for medical reasons: No Currently Displaying Signs/Symptoms of Drug Intoxication Withdrawal: No Domestic Abuse History: Have you been hit, kicked, punched, or otherwise hurt by someone within the past year? If so, by whom?: No Is there a partner from a previous relationship who is making you feel unsafe now?: No Are you made to feel afraid or neglected: No Advance Directives: Advance Directives: Yes Advance Directives Information Provided: Yes Advance Directives on File: No Advance Directives Date on File: 07/01/23 Homicidal Assessment: Do you have thoughts of harming others: None Do you have a plan to hurt others: No Plan Nutrition Assessment: Nutrition Risks: Difficulty swallowing Occupation Assessmet: Current occupational status: disabled Home Medications and Allergies Current Medications: Current Medications Acetaminophen (Acetaminophen 325 Mg Tablet) 650 mg PO Q6H PRN PRN Reason: Pain, Mild (Pain Scale 1-3) Amitriptyline HCl (Amitriptyline Hcl 50 Mg Tablet) 50 mg PO BEDTIME [facility] Last Admin: 07/01/23 21:09 Dose: 50 mg Lipase/Protease/Amylase (Lipase/Prot/Amylase 24/76/120k 1 Cap Capsule.) 1 cap PO TIDWM [facility] Last Admin: 07/02/23 11:09 Dose: Not Given Atorvastatin Calcium (Atorvastatin Calcium 40 Mg Tablet) 40 mg PO BEDTIME [facility] Last Admin: 07/01/23 21:09 Dose: 40 mg Benzonatate (Benzonatate 100 Mg Capsule) 100 mg PO TID PRN PRN Reason: Cough Benztropine Mesylate (Benztropine Mesylate 1 Mg Tablet) 1 mg PO BID [facility] Last Admin: 07/02/23 08:16 Dose: 1 mg Docusate Sodium (Docusate Sodium 100 Mg Capsule) 100 mg PO DAILY PRN PRN Reason: Constipation Famotidine (Famotidine 20 Mg Tablet) 40 mg PO BEDTIME [facility] Last Admin: 07/01/23 21:09 Dose: 40 mg Hydroxyzine HCl (Hydroxyzine Hcl 25 Mg Tablet) 25 mg PO TID PRN PRN Reason: Anxiety Ceftriaxone Sodium 1 gm/ (Sodium Chloride) 50 mls @ 100 mls/hr IV Q24H [facility] Last Infusion: 07/01/23 23:42 Dose: Infused Melatonin (Melatonin 3 Mg Tablet) 6 mg PO BEDTIME PRN PRN Reason: Insomnia Nicotine (Nicotine 14 Mg Patch.Td24) 14 mg TRANSDERMA DAILY [facility] Last Admin: 07/02/23 08:17 Dose: 14 mg Omeprazole (Omeprazole 20 Mg Capsule.) 20 mg PO DAILY@0630 [facility] Last Admin: 07/02/23 06:01 Dose: Not Given Ondansetron HCl (Ondansetron Hcl 4 Mg/2 Ml Vial) 4 mg IVPUSH Q8H PRN PRN Reason: Nausea and Vomiting Paroxetine HCl (Paroxetine Hcl 40 Mg Tablet) 40 mg PO DAILY [facility] Last Admin: 07/02/23 08:17 Dose: 40 mg Quetiapine Fumarate (Quetiapine Fumarate 100 Mg Tablet) 100 mg PO BEDTIME [facility] Last Admin: 07/01/23 21:09 Dose: 100 mg Sodium Chloride (0.9 % Sodium Chloride Flush 3 Ml Syringe) 3 ml IVFLUSH QSHIFT [facility] Last Admin: 07/02/23 08:15 Dose: 3 ml Home Medications Medication Instructions Recorded Confirmed Type amitriptyline 50 mg tablet 50 mg PO BEDTIME 02/03/23 07/01/23 History atorvastatin 40 mg tablet 40 mg PO BEDTIME 02/03/23 07/01/23 History benztropine 1 mg tablet 1 mg PO BID 02/03/23 07/01/23 History famotidine 40 mg tablet 40 mg PO BEDTIME 02/03/23 07/01/23 History hydroxyzine pamoate 25 mg capsule 25 mg PO TID PRN Anxiety 02/03/23 07/01/23 History [id number] 1 cap PO Q8H 02/03/23 07/01/23 History 24,000-76,000-120,000 unit capsule,delayed rel (Creon) pantoprazole 40 mg tablet,delayed 40 mg PO DAILY@0630 02/03/23 07/01/23 History release paroxetine HCl 20 mg tablet 40 mg PO DAILY 02/03/23 07/01/23 History quetiapine 100 mg tablet 100 mg PO BEDTIME 02/03/23 07/01/23 History Allergies Allergy/AdvReac Type Severity Reaction Status Date / Time haloperidol [From Haldol] Allergy Severe Can't Verified 01/06/21 16:07 breathe Exam Vital signs: Vital Signs Temp 98.8 F 07/02/23 10:31 Pulse 74 07/02/23 10:31 Resp 16 07/02/23 10:31 BP 117/61 07/02/23 10:31 Pulse Ox 100 07/02/23 07:35 O2 Del Method Room Air 07/02/23 07:35 O2 Flow Rate 2 07/01/23 23:39 Intake & Output 07/01/23 07/02/23 07/02/23 18:59 06:59 18:59 Intake Total 800 / 2153.334 1353.334 / 2153.334 450 / 450 Output Total 250 / 250 Balance 800 / 6057.954 1522.334 / 1903.334 450 / 450 Urine Output (Average ml/kg/hr) 0.38 0.38 Intake: Intake, Oral Amount 420 / 420 Intake (Blood Product) Amount 350 / 1050 700 / 1050 350 / 350 Red Blood Cells (E0382) Unit 350 / 350 [id number] Red Blood Cells (E0382) Unit 350 / 350 [id number] Red Blood Cells (E0382) Unit 350 / 350 [id number] Red Blood Cells (E0382) Unit 350 / 350 [id number] Intake, Other Amount 350 / 350 Red Blood Cells (E0382) Unit 350 / 350 [id number] Intake, IV Amount 100 / 333.334 233.334 / 333.334 100 / 100 0.9 % Sodium Chloride 100 ml @ 100 / 283.334 183.334 / 283.334 100 / 100 100 mls/hr IV ONCE ONE Rx#: [id number] cefTRIAXone sodium 1 gm In 0.9 50 / 50 % Sodium Chloride 50 ml @ 100 mls/hr IV Q24H [facility] Rx#: [id number] Output: Output, Urine Amount 250 / 250 Other: Number of Unmeasured Voids 1 Urine Bathroom Urine Color Bloody Weight 55 kg Weight 55 kg BMI result Body Mass Index 17.4 - Constitutional Present: no acute distress - Routine HEENT Exam Eye: Present: conjunctivae pale ENT: Present: mucous membranes moist - Routine Neck Exam Present: full ROM - Routine Chest/Breast/Axilla Exam Breast: Present: Normal Exam - Routine Respiratory Exam Present: decreased breath sounds - Routine Cardiovascular Exam Cardiovascular: Present: tachycardia - Routine Abdominal Exam Present: diminished bowel sounds - Routine Rectal Exam Patient deferred: visual exam Data - Labs CBC & Chem 7: 07/02/23 05:59 07/01/23 13:35 Labs: Laboratory Last Values WBC 7.6 X10*3/uL (4.8-10.8) 07/02/23 05:59 RBC 2.92 X10*6/uL (4.60-5.80) L D 07/02/23 05:59 Hgb 6.3 g/dl (14.0-18.0) L* D 07/02/23 05:59 Hct 20.7 % (42.0-52.0) L* D 07/02/23 05:59 MCV 70.9 fL (80.0-98.0) L D 07/02/23 05:59 MCH 21.6 pg (27.0-33.0) L 07/02/23 05:59 MCHC 30.4 g/dl (31.0-36.0) L 07/02/23 05:59 RDW Not Reportable 07/02/23 05:59 Plt Count 362 X10*3/uL (160-400) 07/02/23 05:59 MPV Not Reportable 07/02/23 05:59 Immature Gran % (Auto) 0.8 % (0.0-0.4) H 07/01/23 13:35 Neut % (Auto) 72.4 % (45-73) 07/01/23 13:35 Lymph % (Auto) 19.8 % (20-40) L 07/01/23 13:35 [place] % (Auto) 5.9 % (2-11) 07/01/23 13:35 Eos % (Auto) 0.9 % (0-4) 07/01/23 13:35 Baso % (Auto) 0.2 % (0-2) 07/01/23 13:35 Lymph # (Auto) 1.8 X10*3/uL (1.2-4.9) 07/01/23 13:35 [place] # (Auto) 0.5 X10*3/uL (0.1-1.2) 07/01/23 13:35 Eos # (Auto) 0.1 X10*3/uL (0.0-0.4) 07/01/23 13:35 Baso # (Auto) 0.0 X10*3/uL (0.0-0.2) 07/01/23 13:35 Abs Immat Gran (auto) 0.07 X10*3/uL (0.00-0.03) H 07/01/23 13:35 Absolute Neuts (auto) 6.4 x10*3/uL (2.0-8.3) 07/01/23 13:35 Absolute Nucleated RBC 0.040 X10*3/uL (0.0-0.012) H 07/02/23 05:59 Nucleated RBC % (auto) 0.5 /100WBC (0.0-0.2) H 07/02/23 05:59 Smear Tech's Comments VERIFIED 07/01/23 13:35 PT 11.5 SEC (11.1-13.3) 07/01/23 13:35 INR 0.9 (0.9-1.1) 07/01/23 13:35 APTT 28.8 SEC (26.0-36.4) 07/01/23 13:35 Sodium 138 mmol/L (135-145) 07/01/23 13:35 Potassium 4.2 mmol/L (3.3-5.1) 07/01/23 13:35 Chloride 108 mmol/L (96-108) 07/01/23 13:35 Carbon Dioxide 24 mmol/L (22-29) 07/01/23 13:35 Anion Gap 10 (12-20) L 07/01/23 13:35 BUN 19 mg/dL (9-16) H 07/01/23 13:35 Creatinine 1.04 mg/dL (0.5-1.4) 07/01/23 13:35 Estim Creat Clear Calc 56.5 07/01/23 13:35 Estimated GFR > 60 07/01/23 13:35 Random Glucose 105 mg/dL (60-115) 07/01/23 13:35 Calcium 8.4 mg/dL (8.4-10.2) D 07/01/23 13:35 Iron 14 mcg/dL (45-160) L 07/01/23 13:35 TIBC 369 mcg/dL (228-428) 07/01/23 13:35 % Saturation 4 % (15-50) L 07/01/23 13:35 Unsat Iron Binding 355 ug/dL 07/01/23 13:35 Total Bilirubin 0.2 mg/dL (0.0-1.0) 07/01/23 13:35 AST 30 U/L (5-37) 07/01/23 13:35 ALT 11 U/L (0-40) 07/01/23 13:35 Alkaline Phosphatase 85 U/L (39-117) 07/01/23 13:35 Troponin I High Sens 6.7 ng/L (<3.5-35.0) D 07/01/23 13:35 Total Protein 6.8 g/dL (6.5-8.0) 07/01/23 13:35 Albumin 3.6 g/dL (3.5-5.0) 07/01/23 13:35 Lipase 10 U/L (8-78) 07/01/23 13:35 Urine Color RED 07/01/23 14:49 Urine Appearance Cloudy 07/01/23 14:49 Urine pH 6.5 (5.0-9.0) 07/01/23 14:49 Ur Specific [place] 1.020 (1.005-1.025) 07/01/23 14:49 Urine Protein 300 (3+) mg/dL (Neg-Trace) H 07/01/23 14:49 Urine Glucose (UA) Negative mg/dL (Negative) 07/01/23 14:49 Urine Ketones Trace mg/dL (Negative) 07/01/23 14:49 Urine Blood Large (3+) (Negative) H 07/01/23 14:49 Urine Nitrite Positive (Negative) H 07/01/23 14:49 Ur Leukocyte Esterase Small (1+) (Negative) H 07/01/23 14:49 Urine RBC >20 /HPF (0-2) H 07/01/23 14:49 Urine WBC >50 /HPF (0-5) H 07/01/23 14:49 Ur Squamous Epith Cells 0-2 /HPF (0-2) 07/01/23 14:49 Urine Bacteria 1+ (None Seen) 07/01/23 14:49 Hyaline Casts 0-2 /LPF (0-2) 07/01/23 14:49 Stool Occult Blood NEGATIVE (NEGATIVE) 07/01/23 13:35 COVID-19 (JAQUELINE) Negative (Negative) 07/01/23 13:35 COVID-19 Clin Com See Note 07/01/23 13:35 Influenza Type A (DORIS) Negative (Negative) 07/01/23 13:35 Influenza Type B (DORIS) Negative (Negative) 07/01/23 13:35 Influenza A & B Note See Note 07/01/23 13:35 Blood Type O Positive 07/01/23 13:35 Antibody Screen NEGATIVE 07/01/23 13:35 Crossmatch See Detail 07/01/23 13:35 Assessment and Plan Patient Active problem list reviewed?: Yes (1) Microcytic anemia Status: Acute Assessment and plan: We recommend we keep hematocrit at 25. He may begin ferrous sufate or gluconate. I will review the issue and ldosing of intravenous iron. - Time Spent With Patient Time Spent with Patient (in minutes): 20
--- NOTE | 2023-07-02 12:58 | PM.UROCN ---
History of Present Illness Consult details Consult date: 07/02/23 Requesting physician: La Carney Narrative: Ezra is a 62 year old male admitted with weakness, anemia due to blood loss, presents with gross hematuria. The chart reviewed notes the patient was evaluated in January 2023 with symptoms of gross hematuria but left AMA at that time. Co-morbidity - Nicotine dependence. CTAP - 02/03/23- Nonobstructing 1 mm calculus midpole of the right kidney. Multiple lobular soft tissue structures within the urinary bladder measuring up to 3 cm possibly hemorrhage and/or mass lesions. CT scan Abd/pelvis performed this AM, results pending. The patient has received transfusions since admisssion. Review of Systems Review of Systems: 10 point ROS negative other than stated in HPI [facility] Past Medical History Medical History HLD (hyperlipidemia) Chronic headaches MDD (major depressive disorder) Social History Social History Household Members: Family Housing: Apartment Do you presently have visiting nurse or other home services: No Unable to assess alcohol history related to: Unknown Alcohol intake: never Patient Tobacco Use Status: Current everyday Tobacco user Tobacco use type: Cigarette Cigarette Packs Per Day: 0.5 Smoked in Last 30 Days: Yes Patient Interested in Nicotine Replacement: No Use of substances other than those prescribed or required for medical reasons: No Currently Displaying Signs/Symptoms of Drug Intoxication Withdrawal: No Have you been hit, kicked, punched, or otherwise hurt by someone within the past year? If so, by whom?: No Is there a partner from a previous relationship who is making you feel unsafe now?: No Are you made to feel afraid or neglected: No Advance Directives: Yes Advance Directives Information Provided: Yes Advance Directives on File: No Advance Directives Date on File: 07/01/23 Do you have thoughts of harming others: None Do you have a plan to hurt others: No Plan Nutrition Risks: Difficulty swallowing Current occupational status: disabled Meds Allergies Allergy/AdvReac Type Severity Reaction Status Date / Time haloperidol [From Haldol] Allergy Severe Can't Verified 01/06/21 16:07 breathe Active Medications: Current Medications Acetaminophen (Acetaminophen 325 Mg Tablet) 650 mg PO Q6H PRN PRN Reason: Pain, Mild (Pain Scale 1-3) Amitriptyline HCl (Amitriptyline Hcl 50 Mg Tablet) 50 mg PO BEDTIME [facility] Last Admin: 07/01/23 21:09 Dose: 50 mg Lipase/Protease/Amylase (Lipase/Prot/Amylase 24/76/120k 1 Cap Capsule.) 1 cap PO TIDWM [facility] Last Admin: 07/02/23 11:09 Dose: Not Given Atorvastatin Calcium (Atorvastatin Calcium 40 Mg Tablet) 40 mg PO BEDTIME [facility] Last Admin: 07/01/23 21:09 Dose: 40 mg Benzonatate (Benzonatate 100 Mg Capsule) 100 mg PO TID PRN PRN Reason: Cough Benztropine Mesylate (Benztropine Mesylate 1 Mg Tablet) 1 mg PO BID [facility] Last Admin: 07/02/23 08:16 Dose: 1 mg Docusate Sodium (Docusate Sodium 100 Mg Capsule) 100 mg PO DAILY PRN PRN Reason: Constipation Famotidine (Famotidine 20 Mg Tablet) 40 mg PO BEDTIME [facility] Last Admin: 07/01/23 21:09 Dose: 40 mg Hydroxyzine HCl (Hydroxyzine Hcl 25 Mg Tablet) 25 mg PO TID PRN PRN Reason: Anxiety Ceftriaxone Sodium 1 gm/ (Sodium Chloride) 50 mls @ 100 mls/hr IV Q24H [facility] Last Infusion: 07/01/23 23:42 Dose: Infused Melatonin (Melatonin 3 Mg Tablet) 6 mg PO BEDTIME PRN PRN Reason: Insomnia Nicotine (Nicotine 14 Mg Patch.Td24) 14 mg TRANSDERMA DAILY [facility] Last Admin: 07/02/23 08:17 Dose: 14 mg Omeprazole (Omeprazole 20 Mg Capsule.) 20 mg PO DAILY@0630 [facility] Last Admin: 07/02/23 06:01 Dose: Not Given Ondansetron HCl (Ondansetron Hcl 4 Mg/2 Ml Vial) 4 mg IVPUSH Q8H PRN PRN Reason: Nausea and Vomiting Paroxetine HCl (Paroxetine Hcl 40 Mg Tablet) 40 mg PO DAILY [facility] Last Admin: 07/02/23 08:17 Dose: 40 mg Quetiapine Fumarate (Quetiapine Fumarate 100 Mg Tablet) 100 mg PO BEDTIME [facility] Last Admin: 07/01/23 21:09 Dose: 100 mg Sodium Chloride (0.9 % Sodium Chloride Flush 3 Ml Syringe) 3 ml IVFLUSH QSHIFT [facility] Last Admin: 07/02/23 08:15 Dose: 3 ml Home Medications Medication Instructions Recorded Confirmed Last Taken Type amitriptyline 50 mg tablet 50 mg PO BEDTIME 02/03/23 07/01/23 1 Week Ago History ~06/24/23 atorvastatin 40 mg tablet 40 mg PO BEDTIME 02/03/23 07/01/23 1 Week Ago History ~06/24/23 benztropine 1 mg tablet 1 mg PO BID 02/03/23 07/01/23 1 Week Ago History ~06/24/23 famotidine 40 mg tablet 40 mg PO BEDTIME 02/03/23 07/01/23 1 Week Ago History ~06/24/23 hydroxyzine pamoate 25 mg capsule 25 mg PO TID PRN Anxiety 02/03/23 07/01/23 1 Week Ago History ~06/24/23 [id number] 1 cap PO Q8H 02/03/23 07/01/23 1 Week Ago History 24,000-76,000-120,000 unit ~06/24/23 capsule,delayed rel (Creon) pantoprazole 40 mg tablet,delayed 40 mg PO DAILY@0630 02/03/23 07/01/23 1 Week Ago History release ~06/24/23 paroxetine HCl 20 mg tablet 40 mg PO DAILY 02/03/23 07/01/23 1 Week Ago History ~06/24/23 quetiapine 100 mg tablet 100 mg PO BEDTIME 02/03/23 07/01/23 1 Week Ago History ~06/24/23 Physical Exam Vital Signs: Vital Signs: Last Vital Signs Temp 98.8 F 07/02/23 10:31 Pulse 74 07/02/23 10:31 Resp 16 07/02/23 10:31 BP 117/61 07/02/23 10:31 Pulse Ox 100 07/02/23 07:35 O2 Del Method Room Air 07/02/23 07:35 O2 Flow Rate 2 07/01/23 23:39 Oxygen Flow Rate 2 07/01/23 13:04 BMI result Body Mass Index 17.4 Results Labs 07/02/23 05:59 07/01/23 13:35 Labs: Abnormal lab results 07/01/23 07/01/23 07/02/23 Range/Units 13:35 14:49 05:59 RBC 2.09 L D 2.92 L D (4.60-5.80) X10*6/uL Hgb 2.8 L* D 6.3 L* D (14.0-18.0) g/dl Hct 11.4 L* D 20.7 L* D (42.0-52.0) % MCV 54.5 L 70.9 L D (80.0-98.0) fL MCH 13.4 L 21.6 L (27.0-33.0) pg MCHC 24.6 L 30.4 L (31.0-36.0) g/dl RDW 24.6 H (11.0-16.0) % Plt Count 438 H D (160-400) X10*3/uL Immature Gran % (Auto) 0.8 H (0.0-0.4) % Lymph % (Auto) 19.8 L (20-40) % Abs Immat Gran (auto) 0.07 H (0.00-0.03) X10*3/uL Absolute Nucleated RBC 0.060 H 0.040 H (0.0-0.012) X10*3/uL Nucleated RBC % (auto) 0.7 H 0.5 H (0.0-0.2) /100WBC Anion Gap 10 L (12-20) BUN 19 H (9-16) mg/dL Iron 14 L (45-160) mcg/dL % Saturation 4 L (15-50) % Urine Protein 300 (3+) H (Neg-Trace) mg/dL Urine Blood Large (3+) H (Negative) Urine Nitrite Positive H (Negative) Ur Leukocyte Esterase Small (1+) H (Negative) Urine RBC >20 H (0-2) /HPF Urine WBC >50 H (0-5) /HPF Crossmatch See Detail Short CBC 07/01/23 07/02/23 Range/Units 13:35 05:59 WBC 8.9 7.6 (4.8-10.8) X10*3/uL Hgb 2.8 L* D 6.3 L* D (14.0-18.0) g/dl Hct 11.4 L* D 20.7 L* D (42.0-52.0) % Plt Count 438 H D 362 (160-400) X10*3/uL BMP 07/01/23 13:35 Sodium 138 Potassium 4.2 Chloride 108 Carbon Dioxide 24 BUN 19 H Creatinine 1.04 Calcium 8.4 D Liver Function 07/01/23 Range/Units 13:35 Total Bilirubin 0.2 (0.0-1.0) mg/dL AST 30 (5-37) U/L ALT 11 (0-40) U/L Alkaline Phosphatase 85 (39-117) U/L Albumin 3.6 (3.5-5.0) g/dL Urine 07/01/23 Range/Units 14:49 Urine Color RED Urine Appearance Cloudy Urine pH 6.5 (5.0-9.0) Ur Specific [place] 1.020 (1.005-1.025) Urine Protein 300 (3+) H (Neg-Trace) mg/dL Urine Glucose (UA) Negative (Negative) mg/dL All other labs normal. Assessment and Plan (1) Smoker: Status: Acute (2) Gross hematuria: Status: Acute (3) Anemia: Status: Inactive Plan Gross hematuria. He is voiding adequately, not in retention Hold on chen or CBI for now The patient will need cystoscopy, will add on for Tue/or Monitor Hb Procedures Date of Service Date of Service: 07/02/23
[2023-07-02] MEDS: Acetaminophen 325 MG TABLET 650 MG PO (13:24)
[2023-07-02 13:28] LABS: Immature Retic Fraction 4.5 % (2.3-13.4); RET ABN SCTR 1; Retic HGB Equivalent 19.4 pg (30.0-35.0); Reticulocyte Percent 1.7 % (0.5-1.8); Reticulocytes Absolute 0.061 X10*6/uL (0.026-0.095)
[2023-07-02 14:06] LABS: Ferritin 29 ng/mL (20-250)
--- NOTE | 2023-07-02 16:46 | PC.NURSE ---
Runs of Vtach today at 15:30 , pt assessed, alert and oriented , no chest pain , no dizziness, no sob . Dr Carney was notified
[2023-07-02 17:09] LABS: Magnesium 2.2 mg/dL (1.6-2.6)
[2023-07-02] MEDS: cefTRIAXone sodium 1 GM in 0.9 % Sodium Chloride 50 ML IV (17:21)
[2023-07-02] MEDS: Atorvastatin Calcium 40 MG TABLET PO (21:26)
[2023-07-02] MEDS: Famotidine 20 MG TABLET 40 MG PO (21:26)
[2023-07-02] MEDS: Amitriptyline HCl 50 MG TABLET PO (21:26)
[2023-07-02] MEDS: QUEtiapine Fumarate 100 MG TABLET PO (21:26)
[2023-07-03] MEDS: 0.9 % Sodium Chloride Flush 3 ML SYRINGE IVFLUSH ×3 (01:41→16:11)
[2023-07-03] MEDS: Omeprazole 20 MG CAPSULE.DR PO (06:41)
[2023-07-03 06:53] LABS: Hematocrit 25.6 % (42.0-52.0); Hemoglobin 7.8 g/dl (14.0-18.0); Mean Corpuscular HGB Conc 30.5 g/dl (31.0-36.0); Mean Corpuscular Hemoglobin 22.2 pg (27.0-33.0); Mean Corpuscular Volume 72.9 fL (80.0-98.0); Mean Platelet Volume 9.8 fL (9.4-12.4); NRBC Pct Auto 1.2 /100WBC (0.0-0.2); Platelet Count 430 X10*3/uL (160-400); Red Blood Count 3.51 X10*6/uL (4.60-5.80); White Blood Count 10.6 X10*3/uL (4.8-10.8)
[2023-07-03 07:06] LABS: Anion Gap 7 (12-20); Blood Urea Nitrogen 17 mg/dL (9-16); Calcium 8.2 mg/dL (8.4-10.2); Carbon Dioxide 25 mmol/L (22-29); Chloride 113 mmol/L (96-108); Creatinine Clr Calc Pharmacy 66.8; Estimated Glomerular Filt Rate > 60; Glucose Random 88 mg/dL (60-115); Sodium 141 mmol/L (135-145)
[2023-07-03 07:22] VITALS: BP 112/55; PULSE 75; RESP 20; TEMP 37.5; O2SAT 99
[2023-07-03 07:40] LABS: Folate 7.9 ng/mL (> or = 4.0); Vitamin B12 1187 pg/mL (200-900)
[2023-07-03] MEDS: Lipase/Prot/Amylase 24/76/120K 1 CAP CAPSULE.DR PO ×2 (08:45→17:41)
[2023-07-03] MEDS: PARoxetine HCL 40 MG TABLET PO (08:45)
[2023-07-03] MEDS: Benztropine Mesylate 1 MG TABLET PO ×2 (08:45→21:06)
--- NOTE | 2023-07-03 09:16 | MHC.CM.PN ---
Pt lives with his brother and sister in law, he does not have home health services, he has not used VNA services. He has gone to [facility] in in [place]. He completed HCP form, naming his 2 brothers, James and James, this was added to chart. For transportation he uses [facility] to get to his medical appts. He does not have any medical equipment. PCP verified, Marga Garrido. CM to follow and assist with DC planning.
--- NOTE | 2023-07-03 11:38 | P.PNIM_ITS ---
Subjective Subjective Date of Service: 07/03/23 Interval History: Being followed for hematuria and anemia. Had 1 episode of hematuria this morning, denies abdominal pain, no nausea, no vomiting, complaining of lightheadedness, no chest pain, no shortness of breath, no palpitation. Review of Systems All other system reviewed and negative. Physical Exam 2 Vital Signs: Vital Signs: Last Vital Signs Temp 99.5 F 07/03/23 07:22 Pulse 75 07/03/23 07:22 Resp 20 07/03/23 07:22 BP 112/55 L 07/03/23 07:22 Pulse Ox 99 07/03/23 07:22 O2 Del Method Room Air 07/03/23 07:22 O2 Flow Rate 2 07/01/23 23:39 Oxygen Flow Rate 2 07/01/23 13:04 BMI result Body Mass Index 17.4 Const: Other: Gen: in no acute distress, resting comfortably Neck: supple Lungs: clear to auscultation bilaterally Heart: regular rate and rhythm, no murmurs Abd: soft, non-tender, non-distended Ext: no edema Skin: warm/well-perfused Neuro: alert and oriented x3 Psych: appropriate affect Objective Data Active Medications Acetaminophen (Acetaminophen 325 Mg Tablet) 650 mg PO Q6H PRN PRN Reason: Pain, Mild (Pain Scale 1-3) Last Admin: 07/02/23 13:24 Dose: 650 mg Documented By: PHYLLIS Amitriptyline HCl (Amitriptyline Hcl 50 Mg Tablet) 50 mg PO BEDTIME [facility] Last Admin: 07/02/23 21:26 Dose: 50 mg Documented By: RAYSHAWN Lipase/Protease/Amylase (Lipase/Prot/Amylase 24/76/120k 1 Cap Capsule.Dr) 1 cap PO TIDWM [facility] Last Admin: 07/03/23 11:03 Dose: Not Given Documented By: COTEMA Non-Admin Reason: Patient Refused Atorvastatin Calcium (Atorvastatin Calcium 40 Mg Tablet) 40 mg PO BEDTIME [facility] Last Admin: 07/02/23 21:26 Dose: 40 mg Documented By: RAYSHAWN Benzonatate (Benzonatate 100 Mg Capsule) 100 mg PO TID PRN PRN Reason: Cough Benztropine Mesylate (Benztropine Mesylate 1 Mg Tablet) 1 mg PO BID [facility] Last Admin: 07/03/23 08:45 Dose: 1 mg Documented By: JOSE Docusate Sodium (Docusate Sodium 100 Mg Capsule) 100 mg PO DAILY PRN PRN Reason: Constipation Famotidine (Famotidine 20 Mg Tablet) 40 mg PO BEDTIME [facility] Last Admin: 07/02/23 21:26 Dose: 40 mg Documented By: RAYSHAWN Hydroxyzine HCl (Hydroxyzine Hcl 25 Mg Tablet) 25 mg PO TID PRN PRN Reason: Anxiety Ceftriaxone Sodium 1 gm/ (Sodium Chloride) 50 mls @ 100 mls/hr IV Q24H [facility] Last Infusion: 07/02/23 17:59 Dose: Infused Documented By: RAYSHAWN Melatonin (Melatonin 3 Mg Tablet) 6 mg PO BEDTIME PRN PRN Reason: Insomnia Nicotine (Nicotine 14 Mg Patch.Td24) 14 mg TRANSDERMA DAILY [facility] Last Admin: 07/03/23 08:44 Dose: Not Given Documented By: JOES Non-Admin Reason: Patient Refused Omeprazole (Omeprazole 20 Mg Capsule.) 20 mg PO DAILY@0630 [facility] Last Admin: 07/03/23 06:41 Dose: 20 mg Documented By: DONNA Ondansetron HCl (Ondansetron Hcl 4 Mg/2 Ml Vial) 4 mg IVPUSH Q8H PRN PRN Reason: Nausea and Vomiting Paroxetine HCl (Paroxetine Hcl 40 Mg Tablet) 40 mg PO DAILY [facility] Last Admin: 07/03/23 08:45 Dose: 40 mg Documented By: JOSE Quetiapine Fumarate (Quetiapine Fumarate 100 Mg Tablet) 100 mg PO BEDTIME [facility] Last Admin: 07/02/23 21:26 Dose: 100 mg Documented By: RAYSHAWN Sodium Chloride (0.9 % Sodium Chloride Flush 3 Ml Syringe) 3 ml IVFLUSH QSHIFT [facility] Last Admin: 07/03/23 08:46 Dose: 3 ml Documented By: JOSE Labs 07/03/23 06:16 07/03/23 06:16 Labs: Laboratory Results - last 24 hr 07/02/23 07/02/23 07/03/23 05:59 13:10 06:16 MCV 72.9 L MCH 22.2 L MCHC 30.5 L RDW Not Reportable Plt Count 430 H MPV 9.8 Absolute Nucleated RBC 0.130 H Nucleated RBC % (auto) 1.2 H Absolute Retic 0.061 Percent Retic 1.7 Immature Retic Fraction 4.5 Retic Hgb Equivalent 19.4 L Anion Gap 7 L Estim Creat Clear Calc 66.8 Estimated GFR > 60 Random Glucose 88 Calcium 8.2 L Magnesium 2.2 Ferritin 29 Vitamin B12 1187 H Folate 7.9 Microbiology Microbiology Results: Microbiology 07/01/23 Unknown Urine Culture - Preliminary Urine clean catch - Urine wheat top No growth to date. Assessment and Plan (1) Microcytic anemia: Status: Acute Plan 62yo M with PUD, IBS, HCV [cured], HLD, mood disorder [schizophrenia?] sent from walk-in center due to POC Hb 2.9 severe GIFTY with HB 2.8, untreated/undiagnosed bladder tumor [previously signed out AMA from our ED 02/03/23] severe GIFTY due to blood loss - status post 4 units of packed RBC, transfused 3u pRBCs 07/01- with appropriate rise in H+H - seen by Dr. García/Dr. Cazares will place on ferrous sulfate monitor H&H, transfuse to keep hematocrit above 25 - FOBT negative, normal B12 and folate bladder tumor - CT abdomen and pelvis showed multiple bladder masses, highly suspicious for malignancy no abdominal pelvic lymphadenopathy or ascites noted, unremarkable osseous structures. Seen by Urology they recommend cystoscopy Tuesday and or Tuesday, will hold off on Vaughn or CBI. UTI -on iv ceftriaxone 07/01-, urine culture showed no growth will DC antibiotics PUD - continue PPI HLD - statin mood disorder, ?schizophrenia - continue paroxetine, quetiapine, amitriptyline, hydroxyzine, benztropine tobacco abuse continue nicotine patch VTE ppx - SCDs In my clinical judgment, the patient requires continued inpatient hospitalization for the following reasons: severe anemia requiring transfusion Total time managing care of this patient today: 40 minutes. Quality Stroke Does the patient have a stroke diagnosis?: No VTE Prior VTE?: No VTE Risk Level:: Medical - moderate - high VTE Device Contraindication: N/A - Device Ordered VTE Drug Contraindication: Treatment Not Indicated
--- NOTE | 2023-07-03 12:23 | PM.HEMONCPN ---
Medical Summary - Medical Summary Date of Service: 07/03/23 Primary Care Provider: Marga Garrido MD Medical Summary: He is a 62 year old man with severe microcytic anemia and chronic genitourinary blood loss from a bladder tumor for which he has declined treatment. He has been transfused and seems comfortable. He was seen by Dr. García yesterday. I have seen and examined him and he is stable. Interval History Interval history: Ezra Elkins is a 62 year old male with chronic iron deficiency from chronic blood loss from a bladder tumor. His hematocrit is no 25%. He feels much better. He is willing to have the tumor treated. Urology will be involved. Review of Systems - Constitutional Reports anorexia, Reports lack of energy, Reports weight loss - Cardiovascular Reports fast heart rate - Respiratory Reports dyspnea - Gastrointestinal Reports abdominal pain - Genitourinary Genitourinary: Reports decreased urination - Musculoskeletal Reports back pain - Neurologic Reports weakness PMFSH Medical History: Medical History (Last Reviewed 07/02/23 @ 13:04 by Maryan Avila MD) Chronic headaches HLD (hyperlipidemia) MDD (major depressive disorder) Social History: Social History (Last Reviewed 07/02/23 @ 13:04 by Maryan Avila MD) Living Situation History: Household Members: Family Housing: Apartment Do you presently have visiting nurse or other home services: No Alcohol History: Unable to assess alcohol history related to: Unknown Alcohol History Details: 1. How often do you have a drink containing alcohol?: a. Never AUDIT-C Alcohol total score: 0 Currently Displaying Signs/Symptoms of Alcohol Withdrawal: No Tobacco History: Patient Tobacco Use Status: Current everyday Tobacco Tobacco use type: Cigarette Cigarette Packs Per Day: 0.5 Smoked in Last 30 Days: Yes Patient Interested in Nicotine Replacement: No Substance Use History: Use of substances other than those prescribed or required for medical reasons: No Currently Displaying Signs/Symptoms of Drug Intoxication Withdrawal: No Domestic Abuse History: Have you been hit, kicked, punched, or otherwise hurt by someone within the past year? If so, by whom?: No Is there a partner from a previous relationship who is making you feel unsafe now?: No Are you made to feel afraid or neglected: No Advance Directives: Advance Directives: Yes Advance Directives Information Provided: Yes Advance Directives on File: No Advance Directives Date on File: 07/01/23 Homicidal Assessment: Do you have thoughts of harming others: None Do you have a plan to hurt others: No Plan Nutrition Assessment: Nutrition Risks: Difficulty swallowing Occupation Assessmet: service: No Current occupational status: disabled Home Medications and Allergies Current Medications: Current Medications Acetaminophen (Acetaminophen 325 Mg Tablet) 650 mg PO Q6H PRN PRN Reason: Pain, Mild (Pain Scale 1-3) Last Admin: 07/02/23 13:24 Dose: 650 mg Amitriptyline HCl (Amitriptyline Hcl 50 Mg Tablet) 50 mg PO BEDTIME [facility] Last Admin: 07/02/23 21:26 Dose: 50 mg Lipase/Protease/Amylase (Lipase/Prot/Amylase 24/76/120k 1 Cap Capsule.) 1 cap PO TIDWM [facility] Last Admin: 07/03/23 11:03 Dose: Not Given Ascorbic Acid (Ascorbic Acid 250 Mg Tablet) 250 mg PO BID [facility] Atorvastatin Calcium (Atorvastatin Calcium 40 Mg Tablet) 40 mg PO BEDTIME [facility] Last Admin: 07/02/23 21:26 Dose: 40 mg Benzonatate (Benzonatate 100 Mg Capsule) 100 mg PO TID PRN PRN Reason: Cough Benztropine Mesylate (Benztropine Mesylate 1 Mg Tablet) 1 mg PO BID [facility] Last Admin: 07/03/23 08:45 Dose: 1 mg Docusate Sodium (Docusate Sodium 100 Mg Capsule) 100 mg PO DAILY PRN PRN Reason: Constipation Famotidine (Famotidine 20 Mg Tablet) 40 mg PO BEDTIME [facility] Last Admin: 07/02/23 21:26 Dose: 40 mg Ferrous Sulfate (Ferrous Sulfate 324 Mg Tablet.) 325 mg PO BIDWM [facility] Hydroxyzine HCl (Hydroxyzine Hcl 25 Mg Tablet) 25 mg PO TID PRN PRN Reason: Anxiety Melatonin (Melatonin 3 Mg Tablet) 6 mg PO BEDTIME PRN PRN Reason: Insomnia Nicotine (Nicotine 14 Mg Patch.Td24) 14 mg TRANSDERMA DAILY [facility] Last Admin: 07/03/23 08:44 Dose: Not Given Omeprazole (Omeprazole 20 Mg Capsule.) 20 mg PO DAILY@0630 [facility] Last Admin: 07/03/23 06:41 Dose: 20 mg Ondansetron HCl (Ondansetron Hcl 4 Mg/2 Ml Vial) 4 mg IVPUSH Q8H PRN PRN Reason: Nausea and Vomiting Paroxetine HCl (Paroxetine Hcl 40 Mg Tablet) 40 mg PO DAILY [facility] Last Admin: 07/03/23 08:45 Dose: 40 mg Quetiapine Fumarate (Quetiapine Fumarate 100 Mg Tablet) 100 mg PO BEDTIME [facility] Last Admin: 07/02/23 21:26 Dose: 100 mg Sodium Chloride (0.9 % Sodium Chloride Flush 3 Ml Syringe) 3 ml IVFLUSH QSHIFT [facility] Last Admin: 07/03/23 08:46 Dose: 3 ml Home Medications Medication Instructions Recorded Confirmed Type amitriptyline 50 mg tablet 50 mg PO BEDTIME 02/03/23 07/01/23 History atorvastatin 40 mg tablet 40 mg PO BEDTIME 02/03/23 07/01/23 History benztropine 1 mg tablet 1 mg PO BID 02/03/23 07/01/23 History famotidine 40 mg tablet 40 mg PO BEDTIME 02/03/23 07/01/23 History hydroxyzine pamoate 25 mg capsule 25 mg PO TID PRN Anxiety 02/03/23 07/01/23 History lvavyv-[id number]-eoevewv 1 cap PO Q8H 02/03/23 07/01/23 History 24,000-76,000-120,000 unit capsule,delayed rel (Creon) pantoprazole 40 mg tablet,delayed 40 mg PO DAILY@0630 02/03/23 07/01/23 History release paroxetine HCl 20 mg tablet 40 mg PO DAILY 02/03/23 07/01/23 History quetiapine 100 mg tablet 100 mg PO BEDTIME 02/03/23 07/01/23 History Allergies Allergy/AdvReac Type Severity Reaction Status Date / Time haloperidol [From Haldol] Allergy Severe Can't Verified 01/06/21 16:07 breathe Exam Vital signs: Vital Signs Temp 99.5 F 07/03/23 07:22 Pulse 75 07/03/23 07:22 Resp 20 07/03/23 07:22 BP 112/55 L 07/03/23 07:22 Pulse Ox 99 07/03/23 07:22 O2 Del Method Room Air 07/03/23 07:22 O2 Flow Rate 2 07/01/23 23:39 Intake & Output 01/13/24 01/14/24 01/14/24 18:59 06:59 18:59 Intake Total 1000 / 1000 Balance 1000 / 1000 Intake: Intake, Oral Amount 500 / 500 Intake (Blood Product) Amount 350 / 350 Red Blood Cells (E0382) Unit 350 / 350 [id number] Intake, IV Amount 150 / 150 0.9 % Sodium Chloride 100 ml @ 100 / 100 100 mls/hr IV ONCE ONE Rx#: [id number] cefTRIAXone sodium 1 gm In 0.9 50 / 50 % Sodium Chloride 50 ml @ 100 mls/hr IV Q24H [facility] Rx#: [id number] Other: Breakfast % Eaten 100% Number of Unmeasured Voids 2 2 Urine Bathroom Bathroom Urine Color Yellow Bloody Weight 55 kg BMI result Body Mass Index 17.4 - Constitutional Present: no acute distress - Routine HEENT Exam Head: Present: atraumatic, normal inspection - Routine Neck Exam Present: full ROM - Routine Respiratory Exam Present: decreased breath sounds - Routine Cardiovascular Exam Cardiovascular: Present: tachycardia - Routine Abdominal Exam Present: diminished bowel sounds, hypoactive bowel sounds - Routine Exam Scrotal: Present: tenderness - Routine Extremities Exam Present: normal capillary refill Data - Labs CBC & Chem 7: 07/03/23 06:16 07/03/23 06:16 - Imaging Radiologist's impression: ITS Impressions Abdomen/Pelvis CT 07/02/23 12:50 IMPRESSION: 1. No convincing pulmonary metastasis is seen. 2. There are diffuse emphysematous changes. 3. At the posterior left base, there is a focus of probable round atelectasis, for which clinical correlation and continued attention on imaging follow-up is recommended. 4. There is no thoracic lymphadenopathy or pleural effusion. 5. There is cholelithiasis. 6. Multiple bladder masses are noted, highly suspicious for malignancy. Please correlate with the patient's past medical history. 7. No abdominopelvic lymphadenopathy or ascites is seen. 8. The osseous structures are unremarkable. Chest CT 07/02/23 12:50 IMPRESSION: 1. No convincing pulmonary metastasis is seen. 2. There are diffuse emphysematous changes. 3. At the posterior left base, there is a focus of probable round atelectasis, for which clinical correlation and continued attention on imaging follow-up is recommended. 4. There is no thoracic lymphadenopathy or pleural effusion. 5. There is cholelithiasis. 6. Multiple bladder masses are noted, highly suspicious for malignancy. Please correlate with the patient's past medical history. 7. No abdominopelvic lymphadenopathy or ascites is seen. 8. The osseous structures are unremarkable. Assessment and Plan Patient Active problem list reviewed?: Yes (1) Microcytic anemia Status: Acute Assessment and plan: We recommend we keep hematocrit at 25. He may begin ferrous sulfate or gluconate. I will review the issue and dosing of intravenous iron. He is more comfortable. Will await urology input and staging. - Time Spent With Patient Time Spent with Patient (in minutes): 15
[2023-07-03 15:40] VITALS: BP 103/56; PULSE 86; RESP 18; TEMP 36.8; O2SAT 100
[2023-07-03] MEDS: Ferrous Sulfate 324 MG TABLET.DR PO (18:32)
[2023-07-03 21:03] VITALS: BP 104/59; PULSE 77; RESP 18; TEMP 37; O2SAT 97
[2023-07-03] MEDS: Famotidine 20 MG TABLET 40 MG PO (21:06)
[2023-07-03] MEDS: QUEtiapine Fumarate 100 MG TABLET PO (21:06)
[2023-07-03] MEDS: Ascorbic Acid 250 MG TABLET PO (21:06)
[2023-07-03] MEDS: Atorvastatin Calcium 40 MG TABLET PO (21:06)
[2023-07-03] MEDS: Amitriptyline HCl 50 MG TABLET PO (21:06)
[2023-07-03 22:59] VITALS: BP 105/59; PULSE 80; RESP 18; TEMP 37.7; O2SAT 99
[2023-07-04 06:46] LABS: Hematocrit 28.6 % (42.0-52.0); Hemoglobin 8.3 g/dl (14.0-18.0); Mean Corpuscular Hemoglobin 22.1 pg (27.0-33.0); Mean Corpuscular Volume 76.1 fL (80.0-98.0); Mean Platelet Volume 9.6 fL (9.4-12.4); NRBC Pct Auto 0.7 /100WBC (0.0-0.2); Platelet Count 487 X10*3/uL (160-400); Red Blood Count 3.76 X10*6/uL (4.60-5.80); White Blood Count 10.7 X10*3/uL (4.8-10.8)
--- NOTE | 2023-07-04 07:00 | CA_ITS ---
Transthoracic Echocardiogram Patient (Last, First, Middle): Ezra Elkins, Gender: Male Date of : 1960 Age: 62 Procedure Date: 07/04/2023 Procedure Type: Transthoracic Echocardiogram Location[place] [facility] [place] Height: 177.8 cm Weight: 54.89 kg BSA: 1.69 m2 Heart Rate: bpm BP: 105 / 59 mmHg Heater Operator: Referring MD: La Carney MD Symptoms: NSVT Study Quality: Adequate ECG Rhythm: Sinus Conclusions: - The left ventricular systolic function is normal. The calculated ejection fraction is 61% by biplane method. - No obvious valvular pathology seen on this study. Findings Left Ventricle Normal left ventricular cavity size. There is normal left ventricular wall thickness. The left ventricular systolic function is normal. The calculated ejection fraction is 61% by biplane method. There is no evidence of regional wall motion abnormalities. Diastolic function is normal for age. LV peak GLS -20.5%. Right Ventricle Normal right ventricular cavity size and systolic function. Atria Both atria are normal in size. Aortic Valve There is a normal trileaflet aortic valve. There is no aortic valve stenosis. There is no aortic valve regurgitation. Mitral Valve The mitral valve appears normal. There is trace mitral valve regurgitation. There is no mitral valve stenosis. Pulmonic Valve The pulmonic valve is likely normal. Tricuspid Valve Normal tricuspid valve structure. There is trace tricuspid valve regurgitation. There is no evidence of pulmonary hypertension. Great Vessels The asc aorta is normal in size. Venous The inferior vena cava is normal in size and collapses greater than 50% with inspiration. Pericardium/Pleural There is no evidence of pericardial effusion. Prior Study Comparison No prior study available for comparison. Recommendations, Care & Conclusions No obvious valvular pathology seen on this study. Measurements 2D Linear Measurements IVSd: 0.92 0.6-0.9/0.6-1.0 cm LVIDd: 4.90 3.9-5.3/4.2-5.9 cm LVIDd Index: 2.90 2.4-3.2/2.2-3.1 cm/m2 LVIDs: 3.25 2.0-3.6 cm LVPWd: 1.08 0.7-1.1 cm Ao Root: 3.40 2.1-3.5 cm LA Diam: 3.70 2.7-3.8/3.0-4.0 cm LAIDs Index: 2.19 1.5-2.3 cm/m2 LV Mass: 219.29 67-162/88-224 g LV Mass Index: 129.76 43-95/49-115 g/m2 LVOT Diam: 1.90 3.0+(-)1.3 cm 2D Systolic Function EF 4C: 63.20 >55% EF 2C: 58.30 >55% EF BiP: 60.60 >55% Mitral Valve MV Pk E: 0.65 MV PK A: 0.90 MV Decel Time: 163.00 E/A: 0.70 E'Lateral: 13.30 E'Medial: 8.81 E/E' Med: 7.40 E/E' Lat: 4.90 PHT: 48.00 MVA PHT: 4.58 Decel [place]: 3.99 Aortic Valve AoV Pk Sixto: 2.12 AoV Mn Sixto: 1.28 AoV VTI: 0.37 AoV Pk Grad: 18.00 Aov Mn Grad: 8.00 KATIA Cont.VTI: 2.05 LVOT LVOT Pk Sixto: 1.36 LVOT Mn Sixto: 0.79 LVOT VTI: 0.27 LVOT Pk Grad: 7.00 LVOT Mn Grad: 3.00 LVOT Diam: 1.90 LVOT Area: 2.84 Diastolic Function MV Pk E: 0.65 MV Pk A: 0.90 E/A: 0.70 E'Medial: 8.81 E/E' Med: 7.40 E' Laterial: 13.30 E/E' Lat: 4.90 Right Ventricle TAPSE (mm): 22.00 TVS' Sixto: 14.00 Tricuspid Valve TR Pk Sixto: 2.19 TR Pk Grad: 19.00 RA Press: 3.00 RVSP: 22.00 Great Vessels Aorta Ao Root-2D: 3.40 2.0-3.7 cm Ao Asc: 3.50 2.1-3.4 cm Pulmonary Valve PV Pk Sixto: 1.02 Peak PV Grad: 4.00 Updated in Other Vendor System with Status of Final Cole Montiel MD electronically signed on 07/04/2023 4:20:18 PM with status of Final
[2023-07-04 07:57] VITALS: BP 99/48; PULSE 74; RESP 20; TEMP 36.6; O2SAT 97
--- NOTE | 2023-07-04 08:11 | P.PNUR_ITS ---
Subjective Subjective Date of Service: 07/05/23 Interval history: Ezra is a 62 year old male with gross hematuria. CTAP - findings suspicious for bladder cancer KIDNEYS AND URETERS: The kidneys are normal in size, shape, and attenuation. No hydronephrosis or hydroureter or calculi seen. BLADDER: The urinary bladder is somewhat distended. 6 large bladder nodules noted, the largest towards the base measuring 4.7 x 4.1 x 2.7 cm. These have frond-like marginations. Physical Exam 2 Vital Signs: Vital Signs: Last Vital Signs Temp 97.9 F 07/04/23 07:57 Pulse 74 07/04/23 07:57 Resp 20 07/04/23 07:57 BP 99/48 L 07/04/23 07:57 Pulse Ox 97 07/04/23 07:57 O2 Del Method Room Air 07/04/23 07:57 O2 Flow Rate 2 07/01/23 23:39 Oxygen Flow Rate 2 07/01/23 13:04 BMI result Body Mass Index 17.4 Const: General: no acute distress and well developed O rientation/consciousness: patient oriented x3 HEENT: Head: Yes normocephalic and Yes atraumatic Eyes: Conjunctivae: conjunctivae normal Neck: Neck: Yes normal visual inspection Chest: Chest palpation & inspection: normal inspection of the chest Resp: Effort & Inspection: normal respiratory effort Cardio: Rate: regular rate GI: Inspection: Yes normal to inspection Palpation (GI): Soft to palpation Skin: General skin exam: no rashes or lesions noted Neuro: General: patient oriented x3 Psych: Appearance: grossly normal Affect: normal affect Urology Results Labs 07/05/23 06:01 07/03/23 06:16 Labs: Laboratory Results - last 24 hr 07/04/23 05:39 WBC 10.7 RBC 3.76 L Hgb 8.3 L Hct 28.6 L MCV 76.1 L MCH 22.1 L MCHC 29.0 L RDW Not Reportable Plt Count 487 H MPV 9.6 Absolute Nucleated RBC 0.080 H Nucleated RBC % (auto) 0.7 H Date of Service: 07/02/23 EXAMINATION: CT CHEST, ABDOMEN AND PELVIS WITH CONTRAST CLINICAL INFORMATION: Bladder cancer; question metastasis. COMPARISON: CT abdomen and pelvis dated 02/03/2023. TECHNIQUE: Multidetector volumetric imaging was performed from the thoracic inlet through the pubic symphysis following administration of 85 mL Omnipaque 350 intravenous contrast. Sagittal and coronal reformatted images were obtained on the technologist workstation. This CT examination was performed using dose optimization techniques as appropriate, variously including the following: *Automated exposure control. *Adjustment of mA and/or kV according to patient size (this includes techniques or standardized protocols for targeted exams where dose is matched to indication/reason for exam, i.e., extremities or head). *Use of iterative reconstruction technique. DLP: 287 mGy-cm. FINDINGS: CHEST: LUNGS: There are diffuse emphysematous changes. No nodule, mass, infiltrate or groundglass opacity is seen. There is a 4.1 x 1.4 cm crescentic pleural-based opacity at the posterior left base, new from prior. This likely represents a focus of round atelectasis. There are lesser foci of linear scar/subsegmental atelectasis within the right middle lobe, the lingula and the posterior right base. There is no associated focal airway obstruction. There is generalized small airway thickening. The central airways appear patent. MEDIASTINUM: The mediastinum is normal. Central vascular structures are unremarkable. No hilar or mediastinal lymphadenopathy. PERICARDIUM/PLEURA: There is no significant effusion. A posterior left base pleural based opacity is noted, as above. No pleural mass is seen. CHEST WALL/AXILLA: Unremarkable. ABDOMEN/PELVIS: LIVER, GALLBLADDER, BILIARY TREE: The liver is normal in size, shape, and attenuation. No focal hepatic lesion or biliary ductal dilatation is present. A 1.2 cm gallstone is seen (13:29), without gallbladder wall thickening or pericholecystic inflammatory changes. PANCREAS: Unremarkable. SPLEEN: Unremarkable. A small posterior benign, calcified granuloma is incidentally noted. ADRENAL GLANDS: Unremarkable. KIDNEYS AND URETERS: The kidneys are normal in size, shape, and attenuation. No hydronephrosis or hydroureter or calculi seen. There are simple appearing bilateral renal cysts, which require no imaging follow-up. No perinephric stranding. BLADDER: The urinary bladder is somewhat distended. There are 6 large bladder nodules noted, the largest towards the base measuring 4.7 x 4.1 x 2.7 cm (13:70 and 16:49). These have frond-like marginations. GASTROINTESTINAL TRACT: The small and large bowel are unremarkable. The vermiform appendix is poorly identified; however, there is no finding to suggest appendicitis. ABDOMINAL WALL: No significant hernia is demonstrated. LYMPH NODES: Normal. VASCULAR: There is mild aortoiliac atherosclerotic calcification. No abdominal aortic aneurysm or dissection is seen. PELVIC VISCERA: The prostate and seminal vesicles are unremarkable. OSSEOUS STRUCTURES: Unremarkable. No lytic or blastic lesion is noted. CT/CT chest w IV con IMPRESSION: 1. No convincing pulmonary metastasis is seen. 2. There are diffuse emphysematous changes. 3. At the posterior left base, there is a focus of probable round atelectasis, for which clinical correlation and continued attention on imaging follow-up is recommended. 4. There is no thoracic lymphadenopathy or pleural effusion. 5. There is cholelithiasis. 6. Multiple bladder masses are noted, highly suspicious for malignancy. Please correlate with the patient's past medical history. 7. No abdominopelvic lymphadenopathy or ascites is seen. 8. The osseous structures are unremarkable. Progress Note: A&P Assessment and plan (1) Gross hematuria: Status: Acute (2) Mass of urinary bladder: Status: Inactive Plan Cystoscopy, fulgaration, bladder tumor resection, in AM Plan discussed with the patient Time Spent With Patient Time: Total time managing care of this patient today ____ minutes. Progress Note: Quality Stroke Does the patient have a stroke diagnosis?: No
--- NOTE | 2023-07-04 09:35 | P.PNIM_ITS ---
Subjective Subjective Date of Service: 07/04/23 Interval History: Being followed for anemia related to hematuria. Persistent hematuria, hematocrit stable denies lightheadedness, no dizziness, no chest pain, no palpitation, tolerating diet, no nausea, no vomiting, no diarrhea. Review of Systems All other system reviewed Physical Exam 2 Vital Signs: Vital Signs: Last Vital Signs Temp 97.9 F 07/04/23 07:57 Pulse 74 07/04/23 07:57 Resp 20 07/04/23 07:57 BP 99/48 L 07/04/23 07:57 Pulse Ox 97 07/04/23 07:57 O2 Del Method Room Air 07/04/23 07:57 O2 Flow Rate 2 07/01/23 23:39 Oxygen Flow Rate 2 07/01/23 13:04 BMI result Body Mass Index 17.4 Const: Other: Gen: in no acute distress, resting comfortably Neck: supple Lungs: clear to auscultation bilaterally Heart: regular rate and rhythm, no murmurs Abd: soft, non-tender, non-distended Ext: no edema Skin: warm/well-perfused Neuro: alert and oriented x3 Psych: appropriate affect Objective Data Active Medications Acetaminophen (Acetaminophen 325 Mg Tablet) 650 mg PO Q6H PRN PRN Reason: Pain, Mild (Pain Scale 1-3) Last Admin: 07/02/23 13:24 Dose: 650 mg Documented By: PHYLLIS Amitriptyline HCl (Amitriptyline Hcl 50 Mg Tablet) 50 mg PO BEDTIME [facility] Last Admin: 07/03/23 21:06 Dose: 50 mg Documented By: RAYSHAWN Lipase/Protease/Amylase (Lipase/Prot/Amylase 24/76/120k 1 Cap Capsule.) 1 cap PO TIDWM [facility] Last Admin: 07/03/23 17:41 Dose: 1 cap Documented By: RAYSHAWN Ascorbic Acid (Ascorbic Acid 250 Mg Tablet) 250 mg PO BID [facility] Last Admin: 07/03/23 21:06 Dose: 250 mg Documented By: RAYSHAWN Atorvastatin Calcium (Atorvastatin Calcium 40 Mg Tablet) 40 mg PO BEDTIME [facility] Last Admin: 07/03/23 21:06 Dose: 40 mg Documented By: RAYSHAWN Benzonatate (Benzonatate 100 Mg Capsule) 100 mg PO TID PRN PRN Reason: Cough Benztropine Mesylate (Benztropine Mesylate 1 Mg Tablet) 1 mg PO BID [facility] Last Admin: 07/03/23 21:06 Dose: 1 mg Documented By: RAYSHAWN Docusate Sodium (Docusate Sodium 100 Mg Capsule) 100 mg PO DAILY PRN PRN Reason: Constipation Famotidine (Famotidine 20 Mg Tablet) 40 mg PO BEDTIME [facility] Last Admin: 07/03/23 21:06 Dose: 40 mg Documented By: RAYSHAWN Ferrous Sulfate (Ferrous Sulfate 324 Mg Tablet.) 324 mg PO BIDWM [facility] Last Admin: 07/03/23 18:32 Dose: 324 mg Documented By: RAYSHAWN Hydroxyzine HCl (Hydroxyzine Hcl 25 Mg Tablet) 25 mg PO TID PRN PRN Reason: Anxiety Melatonin (Melatonin 3 Mg Tablet) 6 mg PO BEDTIME PRN PRN Reason: Insomnia Nicotine (Nicotine 14 Mg Patch.Td24) 14 mg TRANSDERMA DAILY [facility] Last Admin: 07/03/23 08:44 Dose: Not Given Documented By: JOSE Non-Admin Reason: Patient Refused Omeprazole (Omeprazole 20 Mg Capsule.) 20 mg PO DAILY@0630 [facility] Last Admin: 07/04/23 06:43 Dose: Not Given Documented By: GLORIA Non-Admin Reason: Patient Refused Ondansetron HCl (Ondansetron Hcl 4 Mg/2 Ml Vial) 4 mg IVPUSH Q8H PRN PRN Reason: Nausea and Vomiting Paroxetine HCl (Paroxetine Hcl 40 Mg Tablet) 40 mg PO DAILY [facility] Last Admin: 07/03/23 08:45 Dose: 40 mg Documented By: JOSE Quetiapine Fumarate (Quetiapine Fumarate 100 Mg Tablet) 100 mg PO BEDTIME [facility] Last Admin: 07/03/23 21:06 Dose: 100 mg Documented By: RAYSHAWN Sodium Chloride (0.9 % Sodium Chloride Flush 3 Ml Syringe) 3 ml IVFLUSH QSHIFT [facility] Last Admin: 07/04/23 00:09 Dose: Not Given Documented By: GLORIA Non-Admin Reason: Previously Administered Labs 07/04/23 05:39 07/03/23 06:16 Labs: Laboratory Results - last 24 hr 07/04/23 05:39 MCV 76.1 L MCH 22.1 L MCHC 29.0 L RDW Not Reportable Plt Count 487 H MPV 9.6 Absolute Nucleated RBC 0.080 H Nucleated RBC % (auto) 0.7 H Microbiology Microbiology Results: Microbiology 07/01/23 Unknown Urine Culture - Final Urine clean catch - Urine wheat top No growth. Assessment and Plan (1) Microcytic anemia: Status: Acute Plan 62yo M with PUD, IBS, HCV [cured], HLD, mood disorder [schizophrenia?] sent from walk-in center due to POC Hb 2.9 severe GIFTY with HB 2.8, untreated/undiagnosed bladder tumor [previously signed out AMA from our ED 02/03/23] severe GIFTY due to blood loss - status post 4 units of packed RBC, with appropriate rise in H+H - seen by Dr. García/Dr. Cazares they recommend iron supplement, on ferrous sulfate + vitamin-C, monitor H&H, transfuse to keep hematocrit above 25 - FOBT negative, normal B12 and folate bladder tumor Persistent hematuria CT abdomen and pelvis showed multiple bladder masses, highly suspicious for malignancy no abdominal pelvic lymphadenopathy or ascites noted, unremarkable osseous structures. Seen by Urology they recommend cystoscopy on Tuesday, will hold off on Vaughn or CBI. UTI -initially felt to have UTI placed on iv ceftriaxone 07/01-, urine culture showed no growth , IV ceftriaxone discontinued on 07/03 . PUD - continue PPI HLD - statin mood disorder, ?schizophrenia - continue paroxetine, quetiapine, amitriptyline, hydroxyzine, benztropine tobacco abuse continue nicotine patch VTE ppx - SCDs In my clinical judgment, the patient requires continued inpatient hospitalization for the following reasons: severe anemia requiring transfusion and need for cystoscopy. Total time managing care of this patient today: 40 minutes. Quality Stroke Does the patient have a stroke diagnosis?: No VTE Prior VTE?: No VTE Risk Level:: Medical - moderate - high VTE Device Contraindication: N/A - Device Ordered VTE Drug Contraindication: Treatment Not Indicated
--- NOTE | 2023-07-04 10:19 | PC.NURSE ---
Patient refusing all PO medications and breakfast.
--- NOTE | 2023-07-04 10:46 | MHC.CM.PN ---
Per ROUNDS discussion, Patient is not yet medically cleared for dc (Cystoscopy tomorrow); home is the goal and CM will continue to follow.
[2023-07-04 12:09] VITALS: BP 111/65; PULSE 73; RESP 20; TEMP 36.7; O2SAT 99
[2023-07-04] MEDS: Ascorbic Acid 250 MG TABLET PO ×2 (13:56→21:08)
[2023-07-04] MEDS: Lipase/Prot/Amylase 24/76/120K 1 CAP CAPSULE.DR PO ×2 (13:56→17:15)
[2023-07-04] MEDS: PARoxetine HCL 40 MG TABLET PO (13:57)
[2023-07-04] MEDS: Ferrous Sulfate 324 MG TABLET.DR PO (13:57)
[2023-07-04] MEDS: Benztropine Mesylate 1 MG TABLET PO ×2 (13:57→21:09)
[2023-07-04] MEDS: Nicotine 14 MG PATCH.TD24 TRANSDERMA (13:57)
[2023-07-04] MEDS: 0.9 % Sodium Chloride Flush 3 ML SYRINGE IVFLUSH ×2 (14:00→21:09)
[2023-07-04 15:56] VITALS: BP 116/63; PULSE 91; RESP 18; TEMP 36.5; O2SAT 96
[2023-07-04 17:39] LABS: Hematocrit 29.3 % (42.0-52.0); Hemoglobin 8.6 g/dl (14.0-18.0); Mean Corpuscular HGB Conc 29.4 g/dl (31.0-36.0); Mean Corpuscular Hemoglobin 22.3 pg (27.0-33.0); Mean Corpuscular Volume 75.9 fL (80.0-98.0); Mean Platelet Volume 9.7 fL (9.4-12.4); NRBC Pct Auto 0.5 /100WBC (0.0-0.2); Platelet Count 527 X10*3/uL (160-400); Red Blood Count 3.86 X10*6/uL (4.60-5.80); White Blood Count 8.5 X10*3/uL (4.8-10.8)
[2023-07-04 19:25] VITALS: BP 105/52; PULSE 87; RESP 18; TEMP 36.8; O2SAT 100
[2023-07-04] MEDS: Amitriptyline HCl 50 MG TABLET PO (21:08)
[2023-07-04] MEDS: Famotidine 20 MG TABLET 40 MG PO (21:08)
[2023-07-04] MEDS: QUEtiapine Fumarate 100 MG TABLET PO (21:08)
[2023-07-04] MEDS: Atorvastatin Calcium 40 MG TABLET PO (21:09)
[2023-07-04 23:17] VITALS: BP 94/50; PULSE 86; RESP 18; TEMP 36.5; O2SAT 96
[2023-07-05] VITALS (16 sets, daily range): BP systolic 91–139; BP diastolic 45–94; PULSE 63–95; RESP 12–20; TEMP 35.5–37.2; O2SAT 95–100; BMI 17.4
[2023-07-05 07:21] LABS: Hematocrit 28.7 % (42.0-52.0); Hemoglobin 8.3 g/dl (14.0-18.0); Mean Corpuscular HGB Conc 28.9 g/dl (31.0-36.0); Mean Corpuscular Hemoglobin 22.2 pg (27.0-33.0); Mean Corpuscular Volume 76.7 fL (80.0-98.0); Mean Platelet Volume 10.1 fL (9.4-12.4); NRBC Pct Auto 0.5 /100WBC (0.0-0.2); Platelet Count 516 X10*3/uL (160-400); Red Blood Count 3.74 X10*6/uL (4.60-5.80); White Blood Count 8.5 X10*3/uL (4.8-10.8)
[2023-07-05] MEDS: Dextrose 5 % and 0.9 % NaCl 1,000 ML 100 ML IVCONT (08:37)
[2023-07-05] MEDS: Ascorbic Acid 250 MG TABLET PO ×2 (08:39→20:06)
[2023-07-05] MEDS: Lipase/Prot/Amylase 24/76/120K 1 CAP CAPSULE.DR PO ×2 (08:39→12:25)
[2023-07-05] MEDS: Nicotine 14 MG PATCH.TD24 TRANSDERMA (08:39)
[2023-07-05] MEDS: PARoxetine HCL 40 MG TABLET PO (08:39)
[2023-07-05] MEDS: Benztropine Mesylate 1 MG TABLET PO ×2 (08:39→20:06)
[2023-07-05] MEDS: Ferrous Sulfate 324 MG TABLET.DR PO (08:39)
[2023-07-05] MEDS: 0.9 % Sodium Chloride Flush 3 ML SYRINGE IVFLUSH (08:39)
--- NOTE | 2023-07-05 10:32 | MHC.CLN ---
PT IS MODERATELY MALNOURISHED PT WITH MILDLY DEPLETED SUBCUTANEOUS FAT AND MUSCLE MASS, BMI 17.4 WITH 7% NONSIGNIFICANT WT LOSS X 2 YEARS WITH CHRONIC POOR PO INTAKE. PT REPORTS CONSUMING ONLY DRY FROSTED FLAKES CEREAL MAIN SOURCE OF NUTRITION. PT WITH LIKELY BLADDER CA PER MD WITH INCREASED NUTRITION NEEDS. PT APPEARS CACHETIC AND PALE CURRENTLY NPO R/T CYSTOSCOPY TODAY WHEN DIET TO ADVANCE, RECOMMEND ADDING ENSURE MAX BID TO INCREASE KCALS/PROTEIN MONITOR FOR DIET ADVANCEMENT SEE ALSO FULL CLINICAL NUTRITION ASSESSMENT
--- NOTE | 2023-07-05 12:30 | P.PNIM_ITS ---
Subjective Subjective Date of Service: 07/05/23 Interval History: Continued to have hematuria, denies urinary burning, no pain, no lightheadedness, no dizziness, NPO for cystoscopy scheduled for today. No acute events overnight. Review of Systems All other system reviewed and negative. Physical Exam 2 Vital Signs: Vital Signs: Last Vital Signs Temp 98.1 F 07/05/23 07:33 Pulse 69 07/05/23 07:33 Resp 20 07/05/23 07:33 BP 91/52 L 07/05/23 07:33 Pulse Ox 98 07/05/23 07:33 O2 Del Method Room Air 07/05/23 07:33 O2 Flow Rate 2 07/01/23 23:39 Oxygen Flow Rate 2 07/01/23 13:04 BMI result Body Mass Index 17.4 Const: Other: Gen: Awake alert x3, in no acute distress, resting comfortably Neck: supple, no JVD Lungs: clear to auscultation bilaterally Heart: regular rate and rhythm, no murmurs Abd: soft, non-tender, non-distended Ext: no edema Skin: warm/well-perfused Neuro: Nonfocal Psych: appropriate affect Objective Data Active Medications Acetaminophen (Acetaminophen 325 Mg Tablet) 650 mg PO Q6H PRN PRN Reason: Pain, Mild (Pain Scale 1-3) Last Admin: 07/02/23 13:24 Dose: 650 mg Documented By: PHYLLIS Amitriptyline HCl (Amitriptyline Hcl 50 Mg Tablet) 50 mg PO BEDTIME [facility] Last Admin: 07/04/23 21:08 Dose: 50 mg Documented By: YASMIN Lipase/Protease/Amylase (Lipase/Prot/Amylase 24/76/120k 1 Cap Capsule.Dr) 1 cap PO TIDWM [facility] Last Admin: 07/05/23 12:25 Dose: 1 cap Documented By: ALIVIA Ascorbic Acid (Ascorbic Acid 250 Mg Tablet) 250 mg PO BID [facility] Last Admin: 07/05/23 08:39 Dose: 250 mg Documented By: ALIVIA Atorvastatin Calcium (Atorvastatin Calcium 40 Mg Tablet) 40 mg PO BEDTIME [facility] Last Admin: 07/04/23 21:09 Dose: 40 mg Documented By: YASMIN Benzonatate (Benzonatate 100 Mg Capsule) 100 mg PO TID PRN PRN Reason: Cough Benztropine Mesylate (Benztropine Mesylate 1 Mg Tablet) 1 mg PO BID [facility] Last Admin: 07/05/23 08:39 Dose: 1 mg Documented By: ALIVIA Docusate Sodium (Docusate Sodium 100 Mg Capsule) 100 mg PO DAILY PRN PRN Reason: Constipation Famotidine (Famotidine 20 Mg Tablet) 40 mg PO BEDTIME [facility] Last Admin: 07/04/23 21:08 Dose: 40 mg Documented By: YASMIN Fentanyl (Fentanyl Citrate/Pf 100 Mcg/2 Ml Vial) 25 mcg IVPUSH Q5M PRN; Protocol PRN Reason: Pain, Moderate(Pain Scale 4-6) Ferrous Sulfate (Ferrous Sulfate 324 Mg Tablet.) 324 mg PO BIDWM [facility] Last Admin: 07/05/23 08:39 Dose: 324 mg Documented By: ALIVIA Hydroxyzine HCl (Hydroxyzine Hcl 25 Mg Tablet) 25 mg PO TID PRN PRN Reason: Anxiety Cefazolin Sodium/Dextrose (Ancef) 2 gm in 50 mls @ 100 mls/hr IV PREOP ONE Stop: 07/05/23 13:02 Dextrose/Sodium Chloride (D5ns) 1,000 mls @ 100 mls/hr IVCONT .Q10H [facility] Last Admin: 07/05/23 08:37 Dose: 100 mls/hr Documented By: ALIVIA Melatonin (Melatonin 3 Mg Tablet) 6 mg PO BEDTIME PRN PRN Reason: Insomnia Nicotine (Nicotine 14 Mg Patch.Td24) 14 mg TRANSDERMA DAILY [facility] Last Admin: 07/05/23 08:39 Dose: 14 mg Documented By: ALIVIA Omeprazole (Omeprazole 20 Mg Capsule.) 20 mg PO DAILY@0630 [facility] Last Admin: 07/05/23 06:55 Dose: Not Given Documented By: YASMIN Non-Admin Reason: Patient Refused Ondansetron HCl (Ondansetron Hcl 4 Mg/2 Ml Vial) 4 mg IVPUSH Q8H PRN PRN Reason: Nausea and Vomiting Ondansetron HCl (Ondansetron Hcl 4 Mg/2 Ml Vial) 4 mg IVPUSH ONCE PRN PRN Reason: Nausea and Vomiting Paroxetine HCl (Paroxetine Hcl 40 Mg Tablet) 40 mg PO DAILY [facility] Last Admin: 07/05/23 08:39 Dose: 40 mg Documented By: ALIVIA Quetiapine Fumarate (Quetiapine Fumarate 100 Mg Tablet) 100 mg PO BEDTIME [facility] Last Admin: 07/04/23 21:08 Dose: 100 mg Documented By: YASMIN Sodium Chloride (0.9 % Sodium Chloride Flush 3 Ml Syringe) 3 ml IVFLUSH QSHIFT [facility] Last Admin: 07/05/23 08:39 Dose: 3 ml Documented By: ALIVIA Labs 07/05/23 06:01 07/03/23 06:16 Labs: Laboratory Results - last 24 hr 07/04/23 07/05/23 17:14 06:01 MCV 75.9 L 76.7 L MCH 22.3 L 22.2 L MCHC 29.4 L 28.9 L RDW Not Reportable Not Reportable Plt Count 527 H 516 H MPV 9.7 10.1 Absolute Nucleated RBC 0.040 H 0.040 H Nucleated RBC % (auto) 0.5 H 0.5 H Assessment and Plan (1) Microcytic anemia: Status: Acute Plan 62yo M with PUD, IBS, HCV [cured], HLD, mood disorder [schizophrenia?] sent from walk-in center due to POC Hb 2.9 severe GIFTY with HB 2.8, untreated/undiagnosed bladder tumor [previously signed out AMA from our ED 02/03/23] severe GIFTY due to blood loss - status post 4 units of packed RBC, with appropriate rise in H+H , repeat hematocrit stable - seen by Dr. García/Dr. Cazares they recommend iron supplement, on ferrous sulfate + vitamin-C, monitor H&H, transfuse to keep hematocrit above 25 - FOBT negative, normal B12 and folate bladder tumor Persistent hematuria CT abdomen and pelvis showed multiple bladder masses, highly suspicious for malignancy no abdominal pelvic lymphadenopathy or ascites noted, unremarkable osseous structures. Seen by Urology they recommend cystoscopy scheduled for today, patient NPO placed on IV fluids. UTI -initially felt to have UTI placed on iv ceftriaxone 07/01-, urine culture showed no growth , IV ceftriaxone discontinued on 07/03 . PUD - continue PPI HLD - statin mood disorder, ?schizophrenia - continue paroxetine, quetiapine, amitriptyline, hydroxyzine, benztropine tobacco abuse continue nicotine patch VTE ppx - SCDs In my clinical judgment, the patient requires continued inpatient hospitalization for the following reasons: severe anemia requiring transfusion and need for cystoscopy. Total time managing care of this patient today: 40 minutes. Quality Stroke Does the patient have a stroke diagnosis?: No VTE Prior VTE?: No VTE Risk Level:: Medical - moderate - high VTE Device Contraindication: N/A - Device Ordered VTE Drug Contraindication: Treatment Not Indicated
--- NOTE | 2023-07-05 13:13 | HO.ANESPROP2 ---
[facility] Active Problems Active Problems: All Active Problems (Updated 07/02/23 @ 14:07 by Maryan Avila MD) Gross hematuria (Acute) Dyspepsia (Acute) Weight loss (Acute) Microcytic anemia (Acute) Smoker (Acute) Hard of hearing (Acute) Chronic hepatitis C (Acute) Colon cancer screening (Acute) IBS (irritable bowel syndrome) (Acute) Gallstones (Acute) History of peptic ulcer disease (Acute) Epigastric pain (Acute) Past Medical History Medical History HLD (hyperlipidemia) Chronic headaches MDD (major depressive disorder) Family History Family history of problems with anesthesia: No Surgical History History of Problems with Anesthesia: No Social History Social History Household Members: Family Housing: Apartment Do you presently have visiting nurse or other home services: No Unable to assess alcohol history related to: Unknown Alcohol intake: never Patient Tobacco Use Status: Current everyday Tobacco user Tobacco use type: Cigarette Cigarette Packs Per Day: 0.5 Cigarettes Per Day: 10.0 Advance Directives Date on File: 07/01/23 service: No Current occupational status: disabled Meds Allergies Allergy/AdvReac Type Severity Reaction Status Date / Time haloperidol [From Haldol] Allergy Severe Can't Verified 01/06/21 16:07 breathe Active Medications: Current Medications Acetaminophen (Acetaminophen 325 Mg Tablet) 650 mg PO Q6H PRN PRN Reason: Pain, Mild (Pain Scale 1-3) Last Admin: 07/02/23 13:24 Dose: 650 mg Amitriptyline HCl (Amitriptyline Hcl 50 Mg Tablet) 50 mg PO BEDTIME [facility] Last Admin: 07/04/23 21:08 Dose: 50 mg Lipase/Protease/Amylase (Lipase/Prot/Amylase 24/76/120k 1 Cap Capsule.) 1 cap PO TIDWM [facility] Last Admin: 07/05/23 12:25 Dose: 1 cap Ascorbic Acid (Ascorbic Acid 250 Mg Tablet) 250 mg PO BID [facility] Last Admin: 07/05/23 08:39 Dose: 250 mg Atorvastatin Calcium (Atorvastatin Calcium 40 Mg Tablet) 40 mg PO BEDTIME [facility] Last Admin: 07/04/23 21:09 Dose: 40 mg Benzonatate (Benzonatate 100 Mg Capsule) 100 mg PO TID PRN PRN Reason: Cough Benztropine Mesylate (Benztropine Mesylate 1 Mg Tablet) 1 mg PO BID [facility] Last Admin: 07/05/23 08:39 Dose: 1 mg Docusate Sodium (Docusate Sodium 100 Mg Capsule) 100 mg PO DAILY PRN PRN Reason: Constipation Famotidine (Famotidine 20 Mg Tablet) 40 mg PO BEDTIME [facility] Last Admin: 07/04/23 21:08 Dose: 40 mg Fentanyl (Fentanyl Citrate/Pf 100 Mcg/2 Ml Vial) 25 mcg IVPUSH Q5M PRN; Protocol PRN Reason: Pain, Moderate(Pain Scale 4-6) Ferrous Sulfate (Ferrous Sulfate 324 Mg Tablet.) 324 mg PO BIDWM [facility] Last Admin: 07/05/23 08:39 Dose: 324 mg Hydroxyzine HCl (Hydroxyzine Hcl 25 Mg Tablet) 25 mg PO TID PRN PRN Reason: Anxiety Dextrose/Sodium Chloride (D5ns) 1,000 mls @ 100 mls/hr IVCONT .Q10H [facility] Last Infusion: 07/05/23 12:42 Dose: 0 mls/hr Melatonin (Melatonin 3 Mg Tablet) 6 mg PO BEDTIME PRN PRN Reason: Insomnia Nicotine (Nicotine 14 Mg Patch.Td24) 14 mg TRANSDERMA DAILY [facility] Last Admin: 07/05/23 08:39 Dose: 14 mg Omeprazole (Omeprazole 20 Mg Capsule.) 20 mg PO DAILY@0630 [facility] Last Admin: 07/05/23 06:55 Dose: Not Given Ondansetron HCl (Ondansetron Hcl 4 Mg/2 Ml Vial) 4 mg IVPUSH Q8H PRN PRN Reason: Nausea and Vomiting Ondansetron HCl (Ondansetron Hcl 4 Mg/2 Ml Vial) 4 mg IVPUSH ONCE PRN PRN Reason: Nausea and Vomiting Paroxetine HCl (Paroxetine Hcl 40 Mg Tablet) 40 mg PO DAILY [facility] Last Admin: 07/05/23 08:39 Dose: 40 mg Quetiapine Fumarate (Quetiapine Fumarate 100 Mg Tablet) 100 mg PO BEDTIME [facility] Last Admin: 07/04/23 21:08 Dose: 100 mg Sodium Chloride (0.9 % Sodium Chloride Flush 3 Ml Syringe) 3 ml IVFLUSH QSHIFT [facility] Last Admin: 07/05/23 08:39 Dose: 3 ml Home Medications Medication Instructions Recorded Confirmed Last Taken Type amitriptyline 50 mg tablet 50 mg PO BEDTIME 02/03/23 07/01/23 1 Week Ago History ~06/24/23 atorvastatin 40 mg tablet 40 mg PO BEDTIME 02/03/23 07/01/23 1 Week Ago History ~06/24/23 benztropine 1 mg tablet 1 mg PO BID 02/03/23 07/01/23 1 Week Ago History ~06/24/23 famotidine 40 mg tablet 40 mg PO BEDTIME 02/03/23 07/01/23 1 Week Ago History ~06/24/23 hydroxyzine pamoate 25 mg capsule 25 mg PO TID PRN Anxiety 02/03/23 07/01/23 1 Week Ago History ~06/24/23 [id number] 1 cap PO Q8H 02/03/23 07/01/23 1 Week Ago History 24,000-76,000-120,000 unit ~06/24/23 capsule,delayed rel (Creon) pantoprazole 40 mg tablet,delayed 40 mg PO DAILY@0630 02/03/23 07/01/23 1 Week Ago History release ~06/24/23 paroxetine HCl 20 mg tablet 40 mg PO DAILY 02/03/23 07/01/23 1 Week Ago History ~06/24/23 quetiapine 100 mg tablet 100 mg PO BEDTIME 02/03/23 07/01/23 1 Week Ago History ~06/24/23 Exam Height,Weight and Vital Signs: Height 5 ft 10 in Weight 55 kg Last Vital Signs Temp 98.1 F 07/05/23 07:33 Pulse 69 07/05/23 07:33 Resp 20 07/05/23 07:33 BP 91/52 L 07/05/23 07:33 Pulse Ox 98 07/05/23 07:33 O2 Del Method Room Air 07/05/23 07:33 O2 Flow Rate 2 07/01/23 23:39 Oxygen Flow Rate 2 07/01/23 13:04 Pertinent Lab Results Pertinent Lab Results: Laboratory Tests 07/01/23 07/01/23 07/02/23 13:35 14:49 05:59 WBC 8.9 7.6 RBC 2.09 L D 2.92 L D Hgb 2.8 L* D 6.3 L* D Hct 11.4 L* D 20.7 L* D MCV 54.5 L 70.9 L D MCH 13.4 L 21.6 L MCHC 24.6 L 30.4 L RDW 24.6 H Not Reportable Plt Count 438 H D 362 MPV 10.3 Not Reportable Immature Gran % (Auto) 0.8 H Neut % (Auto) 72.4 Lymph % (Auto) 19.8 L [place] % (Auto) 5.9 Eos % (Auto) 0.9 Baso % (Auto) 0.2 Lymph # (Auto) 1.8 [place] # (Auto) 0.5 Eos # (Auto) 0.1 Baso # (Auto) 0.0 Abs Immat Gran (auto) 0.07 H Absolute Neuts (auto) 6.4 Absolute Nucleated RBC 0.060 H 0.040 H Nucleated RBC % (auto) 0.7 H 0.5 H Smear Tech's Comments VERIFIED Smear Path Review SEE NOTE Absolute Retic Percent Retic Immature Retic Fraction Retic Hgb Equivalent PT 11.5 INR 0.9 APTT 28.8 Sodium 138 Potassium 4.2 4.0 Chloride 108 Carbon Dioxide 24 Anion Gap 10 L BUN 19 H Creatinine 1.04 Estim Creat Clear Calc 56.5 Estimated GFR > 60 Random Glucose 105 Calcium 8.4 D Magnesium 2.2 Iron 14 L TIBC 369 % Saturation 4 L Unsat Iron Binding 355 Ferritin Total Bilirubin 0.2 AST 30 ALT 11 Alkaline Phosphatase 85 Troponin I High Sens 6.7 D Total Protein 6.8 Albumin 3.6 Lipase 10 Vitamin B12 Folate Urine Color RED Urine Appearance Cloudy Urine pH 6.5 Ur Specific Mak[place] 1.020 Urine Protein 300 (3+) H Urine Glucose (UA) Negative Urine Ketones Trace Urine Blood Large (3+) H Urine Nitrite Positive H Ur Leukocyte Esterase Small (1+) H Urine RBC >20 H Urine WBC >50 H Ur Squamous Epith Cells 0-2 Urine Bacteria 1+ Hyaline Casts 0-2 Stool Occult Blood NEGATIVE COVID-19 (JAQUELINE) Negative COVID-19 Clin Com See Note Influenza Type A (DORIS) Negative Influenza Type B (DORIS) Negative Influenza A & B Note See Note Blood Type O Positive Antibody Screen NEGATIVE Crossmatch See Detail 07/02/23 07/03/23 07/04/23 13:10 06:16 05:39 WBC 10.6 10.7 RBC 3.51 L D 3.76 L Hgb 7.8 L D 8.3 L Hct 25.6 L D 28.6 L MCV 72.9 L 76.1 L MCH 22.2 L 22.1 L MCHC 30.5 L 29.0 L RDW Not Reportable Not Reportable Plt Count 430 H 487 H MPV 9.8 9.6 Immature Gran % (Auto) Neut % (Auto) Lymph % (Auto) [place] % (Auto) Eos % (Auto) Baso % (Auto) Lymph # (Auto) [place] # (Auto) Eos # (Auto) Baso # (Auto) Abs Immat Gran (auto) Absolute Neuts (auto) Absolute Nucleated RBC 0.130 H 0.080 H Nucleated RBC % (auto) 1.2 H 0.7 H Smear Tech's Comments Smear Path Review Absolute Retic 0.061 Percent Retic 1.7 Immature Retic Fraction 4.5 Retic Hgb Equivalent 19.4 L PT INR APTT Sodium 141 Potassium 4.0 Chloride 113 H Carbon Dioxide 25 Anion Gap 7 L BUN 17 H Creatinine 0.88 Estim Creat Clear Calc 66.8 Estimated GFR > 60 Random Glucose 88 Calcium 8.2 L Magnesium Iron TIBC % Saturation Unsat Iron Binding Ferritin 29 Total Bilirubin AST ALT Alkaline Phosphatase Troponin I High Sens Total Protein Albumin Lipase Vitamin B12 1187 H Folate 7.9 Urine Color Urine Appearance Urine pH Ur Specific [place] Urine Protein Urine Glucose (UA) Urine Ketones Urine Blood Urine Nitrite Ur Leukocyte Esterase Urine RBC Urine WBC Ur Squamous Epith Cells Urine Bacteria Hyaline Casts Stool Occult Blood COVID-19 (JAQUELINE) COVID-19 Clin Com Influenza Type A (DORIS) Influenza Type B (DORIS) Influenza A & B Note Blood Type Antibody Screen Crossmatch 07/04/23 07/05/23 17:14 06:01 WBC 8.5 8.5 RBC 3.86 L 3.74 L Hgb 8.6 L 8.3 L Hct 29.3 L 28.7 L MCV 75.9 L 76.7 L MCH 22.3 L 22.2 L MCHC 29.4 L 28.9 L RDW Not Reportable Not Reportable Plt Count 527 H 516 H MPV 9.7 10.1 Immature Gran % (Auto) Neut % (Auto) Lymph % (Auto) [place] % (Auto) Eos % (Auto) Baso % (Auto) Lymph # (Auto) [place] # (Auto) Eos # (Auto) Baso # (Auto) Abs Immat Gran (auto) Absolute Neuts (auto) Absolute Nucleated RBC 0.040 H 0.040 H Nucleated RBC % (auto) 0.5 H 0.5 H Smear Tech's Comments Smear Path Review Absolute Retic Percent Retic Immature Retic Fraction Retic Hgb Equivalent PT INR APTT Sodium Potassium Chloride Carbon Dioxide Anion Gap BUN Creatinine Estim Creat Clear Calc Estimated GFR Random Glucose Calcium Magnesium Iron TIBC % Saturation Unsat Iron Binding Ferritin Total Bilirubin AST ALT Alkaline Phosphatase Troponin I High Sens Total Protein Albumin Lipase Vitamin B12 Folate Urine Color Urine Appearance Urine pH Ur Specific [place] Urine Protein Urine Glucose (UA) Urine Ketones Urine Blood Urine Nitrite Ur Leukocyte Esterase Urine RBC Urine WBC Ur Squamous Epith Cells Urine Bacteria Hyaline Casts Stool Occult Blood COVID-19 (JAQUELINE) COVID-19 Clin Com Influenza Type A (DORIS) Influenza Type B (DORIS) Influenza A & B Note Blood Type Antibody Screen Crossmatch Airway Mallampati Class: I TM Dist: >3cm Neck ROM: Full Denture: Upper and Lower Partial: Lower Heart: rrr Lungs: clear Assessment and Plan Final Anesthetic Review Family History of Problems with Anesthesia: No History of Problems with Anesthesia: No ASA Class: IV and Emergency Final Preanesthetic Review: No Changes in Pt Med Stat, Meds/Allgs Chart Reviewed, Consent Obtained/Reviewed and Anes Risks/Benef Reviewed Patient Risk: High Procedure Risk: Intermediate Anesthetic Plan Anesthetic Plan: GA Disposition: Standard PACU
--- NOTE | 2023-07-05 13:48 | MHC.SHP ---
Pre-Procedural Eval Section A Date of Service: 07/05/23 The patient is an INPATIENT: Yes Section B Chief Complaint: Gross Hematuria, bladder tumor Allergies: Allergies Allergy/AdvReac Type Severity Reaction Status Date / Time haloperidol [From Haldol] Allergy Severe Can't Verified 01/06/21 16:07 breathe Plan Diagnosis/Plan: Unchanged I have reviewed the history and physical and performed a pertinent physical examination on my patient. No changes have occurred unless specified. Cystoscopy, evacuation of blood clots, fulguration, resection bladder tumors Time Spent With Patient Time: Total time managing care of this patient today ____ minutes.
--- NOTE | 2023-07-05 16:48 | P.BOP_ITS ---
Brief Operative Note Date of Service: 07/05/23 Pre-op diagnosis: Gross Hematuria Bladder tumor Post-op diagnosis: same Procedure: cystoscopy Fulguration, Resection Findings -- Multiple large bladder tumors, bladder neck at 3 and 9' oclock, right and left lateral wall and posterior wall - with largest tumor greater then 5 cm. Complete transurethral resection Bladder tumor - complicated due to size of tumor burden. Sample of resected tumor sent as a specimen, Bleeding areas fulgurated The patient received 2 units PRBC's intra op. Surgeon: Maryan Avila MD Was an [employer] Department Supervisor used for this Procedure?: No Estimated blood loss (mL): 100 Pathology: other (bladder tumor) Condition: stable Disposition: PACU
[2023-07-05] MEDS: fentaNYL citrate/PF 100 MCG/2 ML VIAL 25 MCG IVPUSH ×3 (17:30→17:40)
[2023-07-05] MEDS: Phenazopyridine HCL 100 MG TABLET PO (17:48)
[2023-07-05] MEDS: QUEtiapine Fumarate 100 MG TABLET PO (20:06)
[2023-07-05] MEDS: Atorvastatin Calcium 40 MG TABLET PO (20:06)
[2023-07-05] MEDS: Amitriptyline HCl 50 MG TABLET PO (20:06)
[2023-07-05] MEDS: Famotidine 20 MG TABLET 40 MG PO (20:06)
[2023-07-06] MEDS: 0.9 % Sodium Chloride Flush 3 ML SYRINGE IVFLUSH ×4 (00:05→23:47)
[2023-07-06] MEDS: Dextrose 5 % and 0.9 % NaCl 1,000 ML 100 ML IVCONT (00:37)
[2023-07-06 02:47] VITALS: BP 108/57; PULSE 85; RESP 18; TEMP 36.3; O2SAT 98
[2023-07-06] MEDS: Omeprazole 20 MG CAPSULE.DR PO (05:48)
[2023-07-06 07:42] VITALS: BP 112/58; PULSE 76; RESP 20; TEMP 36.6; O2SAT 97
[2023-07-06 08:04] LABS: Anion Gap 7 (12-20); Blood Urea Nitrogen 14 mg/dL (9-16); Carbon Dioxide 26 mmol/L (22-29); Chloride 112 mmol/L (96-108); Creatinine Clr Calc Pharmacy 76.3; Estimated Glomerular Filt Rate > 60; Glucose Random 184 mg/dL (60-115); Potassium 3.9 mmol/L (3.3-5.1); Sodium 141 mmol/L (135-145)
[2023-07-06 08:26] LABS: Hematocrit 34.4 % (42.0-52.0); Hemoglobin 10.4 g/dl (14.0-18.0); Mean Corpuscular HGB Conc 30.2 g/dl (31.0-36.0); Mean Corpuscular Hemoglobin 24.4 pg (27.0-33.0); Mean Corpuscular Volume 80.6 fL (80.0-98.0); Mean Platelet Volume 9.3 fL (9.4-12.4); NRBC Pct Auto 0.2 /100WBC (0.0-0.2); Platelet Count 478 X10*3/uL (160-400); Red Blood Count 4.27 X10*6/uL (4.60-5.80); White Blood Count 11.5 X10*3/uL (4.8-10.8)
--- NOTE | 2023-07-06 09:02 | HO.POSTANES ---
Post Anesthesia Evaluation Post Anesthesia Evaluation Date of Service: 07/06/23 Vital Signs: Vital Signs Temp Pulse Resp BP Pulse Ox O2 Del Method 07/06/23 07:42 97.8 F 76 20 112/58 L 97 Room Air 07/06/23 02:47 97.3 F 85 18 108/57 L 98 Room Air 07/05/23 23:41 97.3 F 93 18 105/55 L 96 Room Air Anesthesia: General Mental Status: Awake Pain Control: Satisfactory Nausea/Vomiting: None Hydration: Adequate Anesthesia-Related Issues: No Anes. Related Issues
[2023-07-06] MEDS: Benztropine Mesylate 1 MG TABLET PO ×2 (09:31→20:02)
[2023-07-06] MEDS: Acetaminophen 325 MG TABLET 650 MG PO (09:31)
[2023-07-06] MEDS: Lipase/Prot/Amylase 24/76/120K 1 CAP CAPSULE.DR PO ×3 (09:31→16:53)
[2023-07-06] MEDS: Ferrous Sulfate 324 MG TABLET.DR PO ×2 (09:31→16:54)
[2023-07-06] MEDS: Nicotine 14 MG PATCH.TD24 TRANSDERMA (09:32)
[2023-07-06] MEDS: PARoxetine HCL 40 MG TABLET PO (09:32)
[2023-07-06] MEDS: Ascorbic Acid 250 MG TABLET PO ×2 (09:35→20:03)
--- NOTE | 2023-07-06 10:55 | MHC.CLN ---
F/U PT IS MODERATELY MALNOURISHED SEE FULL CLINICAL NUTRITION ASSESSMENT DATED 07/05/23 DIET ADVANCED TO REGULAR RECOMMEND ADDING ENSURE MAX BID TO INCREASE KCALS/PROTEIN MONITOR PO INTAKE
--- NOTE | 2023-07-06 13:46 | HO.PM.IMPN ---
Subjective Subjective Date of Service: 07/06/23 Interval History: Complaining of bladder discomfort, denies fever, no chills, no lightheadedness, no dizziness, CBI with punch colored urine, complaining of bilateral elbow redness, no fevers, no chills, no pain, complaining of itching. Tolerating diet. Review of Systems All other system reviewed and negative Physical Exam Vital Signs: Vital Signs: Last Vital Signs Temp 97.8 F 07/06/23 07:42 Pulse 76 07/06/23 07:42 Resp 20 07/06/23 07:42 BP 112/58 L 07/06/23 07:42 Pulse Ox 97 07/06/23 07:42 O2 Del Method Room Air 07/06/23 07:42 O2 Flow Rate 2 07/01/23 23:39 Oxygen Flow Rate 2 07/01/23 13:04 BMI result Body Mass Index 17.4 Const: Other: Gen: Awake alert x3, in no acute distress, resting comfortably Neck: supple, no JVD Lungs: clear to auscultation bilaterally Heart: regular rate and rhythm, no murmurs Abd: soft, non-tender, non-distended Ext: no edema Skin: Bilateral elbow hyperemia, no swelling, no lesions, likely pressure related Neuro: Non focal Psych: appropriate affect Objective Data Active Medications Acetaminophen (Acetaminophen 325 Mg Tablet) 650 mg PO Q6H PRN PRN Reason: Pain, Mild (Pain Scale 1-3) Last Admin: 07/06/23 09:31 Dose: 650 mg Documented By: ALIVIA Amitriptyline HCl (Amitriptyline Hcl 50 Mg Tablet) 50 mg PO BEDTIME [facility] Last Admin: 07/05/23 20:06 Dose: 50 mg Documented By: CELSA Lipase/Protease/Amylase (Lipase/Prot/Amylase 24/76/120k 1 Cap Capsule.Dr) 1 cap PO TIDWM [facility] Last Admin: 07/06/23 12:58 Dose: 1 cap Documented By: ALIVIA Ascorbic Acid (Ascorbic Acid 250 Mg Tablet) 250 mg PO BID [facility] Last Admin: 07/06/23 09:35 Dose: 250 mg Documented By: ALIVIA Atorvastatin Calcium (Atorvastatin Calcium 40 Mg Tablet) 40 mg PO BEDTIME [facility] Last Admin: 07/05/23 20:06 Dose: 40 mg Documented By: CELSA Benzonatate (Benzonatate 100 Mg Capsule) 100 mg PO TID PRN PRN Reason: Cough Benztropine Mesylate (Benztropine Mesylate 1 Mg Tablet) 1 mg PO BID [facility] Last Admin: 07/06/23 09:31 Dose: 1 mg Documented By: ALIVIA Docusate Sodium (Docusate Sodium 100 Mg Capsule) 100 mg PO DAILY PRN PRN Reason: Constipation Famotidine (Famotidine 20 Mg Tablet) 40 mg PO BEDTIME [facility] Last Admin: 07/05/23 20:06 Dose: 40 mg Documented By: CELSA Ferrous Sulfate (Ferrous Sulfate 324 Mg Tablet.) 324 mg PO BIDWM [facility] Last Admin: 07/06/23 09:31 Dose: 324 mg Documented By: ALIVIA Hydroxyzine HCl (Hydroxyzine Hcl 25 Mg Tablet) 25 mg PO TID PRN PRN Reason: Anxiety Melatonin (Melatonin 3 Mg Tablet) 6 mg PO BEDTIME PRN PRN Reason: Insomnia Nicotine (Nicotine 14 Mg Patch.Td24) 14 mg TRANSDERMA DAILY [facility] Last Admin: 07/06/23 09:32 Dose: 14 mg Documented By: ALIVIA Omeprazole (Omeprazole 20 Mg Capsule.) 20 mg PO DAILY@0630 [facility] Last Admin: 07/06/23 05:48 Dose: 20 mg Documented By: CELSA Ondansetron HCl (Ondansetron Hcl 4 Mg/2 Ml Vial) 4 mg IVPUSH Q8H PRN PRN Reason: Nausea and Vomiting Ondansetron HCl (Ondansetron Hcl 4 Mg/2 Ml Vial) 4 mg IVPUSH ONCE PRN PRN Reason: Nausea and Vomiting Oxycodone HCl (Oxycodone Hcl Immed Release 5 Mg Tablet) 5 mg PO Q6H PRN PRN Reason: Pain, Severe (Pain Scale 7-10) Paroxetine HCl (Paroxetine Hcl 40 Mg Tablet) 40 mg PO DAILY [facility] Last Admin: 07/06/23 09:32 Dose: 40 mg Documented By: ALIVIA Quetiapine Fumarate (Quetiapine Fumarate 100 Mg Tablet) 100 mg PO BEDTIME [facility] Last Admin: 07/05/23 20:06 Dose: 100 mg Documented By: CELSA Sodium Chloride (0.9 % Sodium Chloride Flush 3 Ml Syringe) 3 ml IVFLUSH QSHIFT [facility] Last Admin: 07/06/23 09:31 Dose: 3 ml Documented By: IZZYAC Labs 07/06/23 07:00 07/06/23 07:00 Labs: Laboratory Results - last 24 hr 07/05/23 07/06/23 14:03 07:00 MCV 80.6 MCH 24.4 L MCHC 30.2 L RDW Not Reportable Plt Count 478 H MPV 9.3 L Absolute Nucleated RBC 0.020 H Nucleated RBC % (auto) 0.2 Anion Gap 7 L Estim Creat Clear Calc 76.3 Estimated GFR > 60 Random Glucose 184 H Calcium 8.0 L Blood Type O Positive Antibody Screen NEGATIVE Crossmatch See Detail Assessment and Plan (1) Microcytic anemia: Status: Acute Plan 62yo M with PUD, IBS, HCV [cured], HLD, mood disorder [schizophrenia?] sent from walk-in center due to POC Hb 2.9 severe GIFTY with HB 2.8, untreated/undiagnosed bladder tumor [previously signed out AMA from our ED 02/03/23] severe GIFTY due to Acute blood loss - status post 6 units of packed RBC, with appropriate rise in H+H , repeat hematocrit stable this a.m. - continue ferrous sulfate + vitamin-C, monitor H&H, transfuse to keep hematocrit above 25 - FOBT negative, normal B12 and folate bladder tumor Underwent cystoscopy , complete Transurethral resection of bladder tumor and fulguration pod #1 Continue CBI, follow urology recommendation, monitor H&H, follow pathology,add oxycodone for pain PUD - continue PPI HLD - statin mood disorder, ?schizophrenia - continue paroxetine, quetiapine, amitriptyline, hydroxyzine, benztropine tobacco abuse continue nicotine patch VTE ppx - SCDs In my clinical judgment, the patient requires continued inpatient hospitalization for the following reasons: Persistent hematuria receiving CBI and need close hematocrit monitoring Total time managing care of this patient today: 40 minutes. Quality Stroke Does the patient have a stroke diagnosis?: No VTE Prior VTE?: No VTE Risk Level:: Medical - moderate - high VTE Device Contraindication: N/A - Device Ordered VTE Drug Contraindication: Treatment Not Indicated
[2023-07-06 15:30] VITALS: BP 125/66; PULSE 89; RESP 18; TEMP 36.3; O2SAT 99
--- NOTE | 2023-07-06 15:42 | MHC.CM.PN ---
EMR reviewed and per MD rounds, pt is not medically cleared for D/C due to management of hematuria/receiving CBI. CM will continue to follow.
[2023-07-06 19:48] VITALS: BP 135/69; PULSE 102; RESP 20; TEMP 36.4; O2SAT 97
[2023-07-06] MEDS: QUEtiapine Fumarate 100 MG TABLET PO (20:02)
[2023-07-06] MEDS: Amitriptyline HCl 50 MG TABLET PO (20:02)
[2023-07-06] MEDS: Atorvastatin Calcium 40 MG TABLET PO (20:02)
[2023-07-06] MEDS: Famotidine 20 MG TABLET 40 MG PO (20:03)
[2023-07-06 23:48] VITALS: BP 135/69; PULSE 102; RESP 20; TEMP 36.4; O2SAT 97
[2023-07-07 03:14] VITALS: BP 107/61; PULSE 80; RESP 20; TEMP 36.6; O2SAT 97
[2023-07-07] MEDS: Omeprazole 20 MG CAPSULE.DR PO (05:31)
[2023-07-07 07:26] LABS: MANUAL DIFF FLAG NO
[2023-07-07 07:34] LABS: Basophils Percent Auto 0.4 % (0-2); Eosinophils Absolute Auto 0.2 X10*3/uL (0.0-0.4); Eosinophils Percent Auto 2.1 % (0-4); Hematocrit 32.8 % (42.0-52.0); Imm Gran Abs Auto 0.07 X10*3/uL (0.00-0.03); Imm Gran Pct Auto 0.6 % (0.0-0.4); Lymphocytes Absolute Auto 2.2 X10*3/uL (1.2-4.9); Lymphocytes Percent Auto 19.6 % (20-40); Mean Corpuscular HGB Conc 30.5 g/dl (31.0-36.0); Mean Corpuscular Hemoglobin 24.3 pg (27.0-33.0); Mean Corpuscular Volume 79.6 fL (80.0-98.0); Mean Platelet Volume 9.4 fL (9.4-12.4); Monocytes Absolute Auto 0.9 X10*3/uL (0.1-1.2); Monocytes Percent Auto 7.8 % (2-11); Neutrophils Absolute Auto 7.9 x10*3/uL (2.0-8.3); Neutrophils Percent Auto 69.5 % (45-73); Platelet Count 430 X10*3/uL (160-400); Red Blood Count 4.12 X10*6/uL (4.60-5.80); White Blood Count 11.3 X10*3/uL (4.8-10.8)
[2023-07-07 07:38] VITALS: BP 102/55; PULSE 67; RESP 20; TEMP 36.9; O2SAT 97
--- NOTE | 2023-07-07 09:13 | PM.UROPN ---
Subjective Subjective Date of Service: 07/07/23 Interval history: Cystoscopy findings: Large bladder cancer burden, unable to debulk. Fulgurated bleeding areas however, tumors may rebleed. Recommend Oncology evaluation for neoadjuvant chemo-with goal to refer to center for radical cystectomy Physical Exam Vital Signs: Vital Signs: Last Vital Signs Temp 98.4 F 07/07/23 07:38 Pulse 67 07/07/23 07:38 Resp 20 07/07/23 07:38 BP 102/55 L 07/07/23 07:38 Pulse Ox 97 07/07/23 07:38 O2 Del Method Room Air 07/07/23 07:38 O2 Flow Rate 2 07/01/23 23:39 Oxygen Flow Rate 2 07/01/23 13:04 BMI result Body Mass Index 17.4 Urology Results Labs 07/07/23 07:13 07/06/23 07:00 Labs: Laboratory Results - last 24 hr 07/05/23 07/07/23 14:03 07:13 WBC 11.3 H RBC 4.12 L Hgb 10.0 L Hct 32.8 L MCV 79.6 L MCH 24.3 L MCHC 30.5 L RDW Not Reportable Plt Count 430 H MPV 9.4 Immature Gran % (Auto) 0.6 H Neut % (Auto) 69.5 Lymph % (Auto) 19.6 L [place] % (Auto) 7.8 Eos % (Auto) 2.1 Baso % (Auto) 0.4 Lymph # (Auto) 2.2 [place] # (Auto) 0.9 Eos # (Auto) 0.2 Baso # (Auto) 0.0 Abs Immat Gran (auto) 0.07 H Absolute Neuts (auto) 7.9 Absolute Nucleated RBC 0.000 Nucleated RBC % (auto) 0.0 Blood Type O Positive Antibody Screen NEGATIVE Crossmatch See Detail Progress Note: A&P Assessment and plan (1) Gross hematuria: Status: Acute (2) Bladder cancer: Status: Acute Plan Large bladder cancer burden, unable to debulk. Fulgurated bleeding areas however, tumors may rebleed. Recommend Oncology evaluation for neoadjuvant chemo-with goal to refer to center for radical cystectomy Hold CBI and observe - restart for [place] colored urine or clots Time Spent With Patient Time: Total time managing care of this patient today ____ minutes. Progress Note: Quality Stroke Does the patient have a stroke diagnosis?: No
[2023-07-07] MEDS: Docusate Sodium 100 MG CAPSULE PO (09:18)
[2023-07-07] MEDS: Lipase/Prot/Amylase 24/76/120K 1 CAP CAPSULE.DR PO ×3 (09:18→16:28)
[2023-07-07] MEDS: Ferrous Sulfate 324 MG TABLET.DR PO ×2 (09:18→16:28)
[2023-07-07] MEDS: Nicotine 14 MG PATCH.TD24 TRANSDERMA (09:18)
[2023-07-07] MEDS: PARoxetine HCL 40 MG TABLET PO (09:18)
[2023-07-07] MEDS: Benztropine Mesylate 1 MG TABLET PO ×2 (09:18→20:34)
[2023-07-07] MEDS: Ascorbic Acid 250 MG TABLET PO ×2 (09:19→20:34)
[2023-07-07] MEDS: 0.9 % Sodium Chloride Flush 3 ML SYRINGE IVFLUSH ×2 (09:19→16:28)
[2023-07-07] MEDS: oxyCODONE HCl Immed Release 5 MG TABLET PO ×2 (09:25→20:35)
--- NOTE | 2023-07-07 11:34 | PC.NURSE ---
CBI clamped at 940 per MD progress report note plan
--- NOTE | 2023-07-07 12:19 | P.PNIM_ITS ---
Subjective Subjective Date of Service: 07/07/23 Interval History: Denies pain, CBI running urine lyte punch colored, no fevers no chills hematocrit stable tolerating diet no acute issues overnight. Review of Systems All other system reviewed and negative. Physical Exam 2 Vital Signs: Vital Signs: Last Vital Signs Temp 98.4 F 07/07/23 07:38 Pulse 67 07/07/23 07:38 Resp 20 07/07/23 07:38 BP 102/55 L 07/07/23 07:38 Pulse Ox 97 07/07/23 07:38 O2 Del Method Room Air 07/07/23 07:38 O2 Flow Rate 2 07/01/23 23:39 Oxygen Flow Rate 2 07/01/23 13:04 BMI result Body Mass Index 17.4 Const: Other: Gen: Awake alert x3, in no acute distress, resting comfortably Neck: supple, no JVD Lungs: clear to auscultation bilaterally Heart: regular rate and rhythm, no murmurs Abd: soft, non-tender, non-distended Ext: no edema Skin: Bilateral elbow hyperemia, no swelling, no lesions, likely pressure related Neuro: Non focal Psych: appropriate affect CBI dark pink urine Objective Data Active Medications Acetaminophen (Acetaminophen 325 Mg Tablet) 650 mg PO Q6H PRN PRN Reason: Pain, Mild (Pain Scale 1-3) Last Admin: 07/06/23 09:31 Dose: 650 mg Documented By: ALIVIA Amitriptyline HCl (Amitriptyline Hcl 50 Mg Tablet) 50 mg PO BEDTIME [facility] Last Admin: 07/06/23 20:02 Dose: 50 mg Documented By: RAYSHAWN Lipase/Protease/Amylase (Lipase/Prot/Amylase 24/76/120k 1 Cap Capsule.Dr) 1 cap PO TIDWM [facility] Last Admin: 07/07/23 11:37 Dose: 1 cap Documented By: ALIVIA Ascorbic Acid (Ascorbic Acid 250 Mg Tablet) 250 mg PO BID [facility] Last Admin: 07/07/23 09:19 Dose: 250 mg Documented By: ALIVIA Atorvastatin Calcium (Atorvastatin Calcium 40 Mg Tablet) 40 mg PO BEDTIME [facility] Last Admin: 07/06/23 20:02 Dose: 40 mg Documented By: RAYSHAWN Benzonatate (Benzonatate 100 Mg Capsule) 100 mg PO TID PRN PRN Reason: Cough Benztropine Mesylate (Benztropine Mesylate 1 Mg Tablet) 1 mg PO BID [facility] Last Admin: 07/07/23 09:18 Dose: 1 mg Documented By: ALIVIA Docusate Sodium (Docusate Sodium 100 Mg Capsule) 100 mg PO DAILY PRN PRN Reason: Constipation Last Admin: 07/07/23 09:18 Dose: 100 mg Documented By: ALIVIA Famotidine (Famotidine 20 Mg Tablet) 40 mg PO BEDTIME [facility] Last Admin: 07/06/23 20:03 Dose: 40 mg Documented By: RAYSHAWN Ferrous Sulfate (Ferrous Sulfate 324 Mg Tablet.) 324 mg PO BIDWM [facility] Last Admin: 07/07/23 09:18 Dose: 324 mg Documented By: ALIVIA Hydroxyzine HCl (Hydroxyzine Hcl 25 Mg Tablet) 25 mg PO TID PRN PRN Reason: Anxiety Melatonin (Melatonin 3 Mg Tablet) 6 mg PO BEDTIME PRN PRN Reason: Insomnia Nicotine (Nicotine 14 Mg Patch.Td24) 14 mg TRANSDERMA DAILY [facility] Last Admin: 07/07/23 09:18 Dose: 14 mg Documented By: ALIVIA Omeprazole (Omeprazole 20 Mg Capsule.) 20 mg PO DAILY@0630 [facility] Last Admin: 07/07/23 05:31 Dose: 20 mg Documented By: CELSA Ondansetron HCl (Ondansetron Hcl 4 Mg/2 Ml Vial) 4 mg IVPUSH Q8H PRN PRN Reason: Nausea and Vomiting Ondansetron HCl (Ondansetron Hcl 4 Mg/2 Ml Vial) 4 mg IVPUSH ONCE PRN PRN Reason: Nausea and Vomiting Oxycodone HCl (Oxycodone Hcl Immed Release 5 Mg Tablet) 5 mg PO Q6H PRN PRN Reason: Pain, Severe (Pain Scale 7-10) Last Admin: 07/07/23 09:25 Dose: 5 mg Documented By: ALIVIA Paroxetine HCl (Paroxetine Hcl 40 Mg Tablet) 40 mg PO DAILY [facility] Last Admin: 07/07/23 09:18 Dose: 40 mg Documented By: ALIVIA Quetiapine Fumarate (Quetiapine Fumarate 100 Mg Tablet) 100 mg PO BEDTIME [facility] Last Admin: 07/06/23 20:02 Dose: 100 mg Documented By: RAYSHAWN Sodium Chloride (0.9 % Sodium Chloride Flush 3 Ml Syringe) 3 ml IVFLUSH QSHIFT [facility] Last Admin: 07/07/23 09:19 Dose: 3 ml Documented By: ALIVIA Labs 07/07/23 07:13 07/06/23 07:00 Labs: Laboratory Results - last 24 hr 07/05/23 07/07/23 14:03 07:13 MCV 79.6 L MCH 24.3 L MCHC 30.5 L RDW Not Reportable Plt Count 430 H MPV 9.4 Immature Gran % (Auto) 0.6 H Neut % (Auto) 69.5 Lymph % (Auto) 19.6 L [place] % (Auto) 7.8 Eos % (Auto) 2.1 Baso % (Auto) 0.4 Lymph # (Auto) 2.2 [place] # (Auto) 0.9 Eos # (Auto) 0.2 Baso # (Auto) 0.0 Abs Immat Gran (auto) 0.07 H Absolute Neuts (auto) 7.9 Absolute Nucleated RBC 0.000 Nucleated RBC % (auto) 0.0 Blood Type O Positive Antibody Screen NEGATIVE Crossmatch See Detail Assessment and Plan (1) Microcytic anemia: Status: Acute Plan 62yo M with PUD, IBS, HCV [cured], HLD, mood disorder [schizophrenia?] sent from walk-in center due to POC Hb 2.9 severe GIFTY with HB 2.8, untreated/undiagnosed bladder tumor [previously signed out AMA from our ED 02/03/23] severe GIFTY due to Acute blood loss - status post 6 units of packed RBC, with appropriate rise in H+H , repeat hematocrit stable this a.m. - continue ferrous sulfate + vitamin-C, monitor H&H - FOBT negative, normal B12 and folate. bladder tumor Underwent cystoscopy , complete Transurethral resection of bladder tumor and fulguration pod #2 Will clamp CBI, as per neuro recommendation, if noted to have [place] colored urine no clots will resume CBI monitor H&H, follow pathology, oxycodone for pain PUD - continue PPI HLD - statin mood disorder, ?schizophrenia - continue paroxetine, quetiapine, amitriptyline, hydroxyzine,and benztropine. Moderate malnutrition continue supplements tobacco abuse continue nicotine patch VTE ppx - SCDs In my clinical judgment, the patient requires continued inpatient hospitalization for the following reasons: Persistent hematuria receiving CBI and need close hematocrit monitoring Total time managing care of this patient today: 40 minutes. Quality Stroke Does the patient have a stroke diagnosis?: No VTE Prior VTE?: No VTE Risk Level:: Medical - moderate - high VTE Device Contraindication: N/A - Device Ordered VTE Drug Contraindication: Treatment Not Indicated
--- NOTE | 2023-07-07 12:31 | PC.NURSE ---
CBI unclamped at 1230 by , wants it to run for another day
[2023-07-07 15:18] VITALS: BP 125/74; PULSE 88; RESP 16; TEMP 36.4; O2SAT 96
[2023-07-07] MEDS: Famotidine 20 MG TABLET 40 MG PO (20:34)
[2023-07-07] MEDS: QUEtiapine Fumarate 100 MG TABLET PO (20:34)
[2023-07-07] MEDS: Atorvastatin Calcium 40 MG TABLET PO (20:35)
[2023-07-07] MEDS: Amitriptyline HCl 50 MG TABLET PO (20:35)
[2023-07-07 23:44] VITALS: BP 127/71; PULSE 83; RESP 16; TEMP 37.1; O2SAT 98
[2023-07-08] MEDS: 0.9 % Sodium Chloride Flush 3 ML SYRINGE IVFLUSH ×3 (00:15→16:29)
[2023-07-08 03:30] VITALS: BP 109/57; PULSE 77; RESP 20; TEMP 36.2; O2SAT 95
[2023-07-08] MEDS: Omeprazole 20 MG CAPSULE.DR PO (05:51)
[2023-07-08 06:09] LABS: Hemoglobin 9.9 g/dl (14.0-18.0)
[2023-07-08 06:11] LABS: Hematocrit 33.1 % (42.0-52.0); Mean Corpuscular HGB Conc 29.9 g/dl (31.0-36.0); Mean Corpuscular Hemoglobin 24.4 pg (27.0-33.0); Mean Corpuscular Volume 81.5 fL (80.0-98.0); Mean Platelet Volume 9.5 fL (9.4-12.4); Platelet Count 408 X10*3/uL (160-400); Red Blood Count 4.06 X10*6/uL (4.60-5.80); White Blood Count 10.4 X10*3/uL (4.8-10.8)
[2023-07-08 06:14] LABS: PLT ABN DIST 1
[2023-07-08] MEDS: Lipase/Prot/Amylase 24/76/120K 1 CAP CAPSULE.DR PO ×3 (07:47→16:26)
[2023-07-08] MEDS: Ferrous Sulfate 324 MG TABLET.DR PO ×2 (07:48→16:26)
[2023-07-08] MEDS: Benztropine Mesylate 1 MG TABLET PO ×2 (07:48→21:20)
[2023-07-08] MEDS: Ascorbic Acid 250 MG TABLET PO ×2 (07:48→21:20)
[2023-07-08] MEDS: Nicotine 14 MG PATCH.TD24 TRANSDERMA (07:48)
[2023-07-08] MEDS: PARoxetine HCL 40 MG TABLET PO (07:48)
[2023-07-08] MEDS: oxyCODONE HCl Immed Release 5 MG TABLET PO ×2 (07:50→19:13)
[2023-07-08] MEDS: Docusate Sodium 100 MG CAPSULE PO (07:50)
[2023-07-08 07:54] VITALS: BP 129/62; PULSE 76; RESP 20; TEMP 36.6; O2SAT 97
--- NOTE | 2023-07-08 11:54 | MHC.CLN ---
F/U PO INTAKE 75-100% DIET RX: REGULAR-APPROPRIATE PT RECEIVING ENSURE MAX BID TO INCREASE KCALS/PROTEIN SUPP PROVIDES 300KCALS, 60G PROTEIN MONITOR PO INTAKE AND ENCOURAGE SUPPLEMENT
--- NOTE | 2023-07-08 13:34 | PC.NURSE ---
Dr Barone asked to stopped CBI at 10 am, pink tinged urine. Started to have increased hematuria. Urology at bedside and wanted CBI restarted for another 24 hours. Restarted at 1PM. Will continue to monitor.
--- NOTE | 2023-07-08 14:42 | P.PNIM_ITS ---
Subjective Subjective Date of Service: 07/08/23 Interval History: Being followed for hematuria status post resection of bladder tumor and fulguration, noted to have large bladder cancer burden on cystoscopy. Receiving CBI, CBI was held but noted to have recurrent hematuria therefore CVA restarted patient denies pain, no fevers, no chills, tolerating diet with no nausea no vomiting or abdominal pain. Review of Systems All other system reviewed and negative. Physical Exam 2 Vital Signs: Vital Signs: Last Vital Signs Temp 97.8 F 07/08/23 07:54 Pulse 76 07/08/23 07:54 Resp 20 07/08/23 07:54 BP 129/62 07/08/23 07:54 Pulse Ox 97 07/08/23 07:54 O2 Del Method Room Air 07/08/23 07:54 O2 Flow Rate 2 07/01/23 23:39 Oxygen Flow Rate 2 07/01/23 13:04 BMI result Body Mass Index 17.4 Const: Other: Gen: Awake alert x3, in no acute distress, resting comfortably Neck: supple, no JVD Lungs: clear to auscultation bilaterally Heart: regular rate and rhythm, no murmurs Abd: soft, non-tender, non-distended Ext: no edema Skin: Bilateral elbow hyperemia, stable, no swelling, no lesions, likely pressure related Neuro: Non focal Psych: appropriate affect CBI dark pink urine Objective Data Active Medications Acetaminophen (Acetaminophen 325 Mg Tablet) 650 mg PO Q6H PRN PRN Reason: Pain, Mild (Pain Scale 1-3) Last Admin: 07/06/23 09:31 Dose: 650 mg Documented By: ALIVIA Amitriptyline HCl (Amitriptyline Hcl 50 Mg Tablet) 50 mg PO BEDTIME [facility] Last Admin: 07/07/23 20:35 Dose: 50 mg Documented By: RAYSHAWN Lipase/Protease/Amylase (Lipase/Prot/Amylase /120k 1 Cap Capsule.) 1 cap PO TIDWM [facility] Last Admin: 07/08/23 11:30 Dose: 1 cap Documented By: ANITHA Ascorbic Acid (Ascorbic Acid 250 Mg Tablet) 250 mg PO BID [facility] Last Admin: 07/08/23 07:48 Dose: 250 mg Documented By: ANITHA Atorvastatin Calcium (Atorvastatin Calcium 40 Mg Tablet) 40 mg PO BEDTIME [facility] Last Admin: 07/07/23 20:35 Dose: 40 mg Documented By: RAYSHAWN Benzonatate (Benzonatate 100 Mg Capsule) 100 mg PO TID PRN PRN Reason: Cough Benztropine Mesylate (Benztropine Mesylate 1 Mg Tablet) 1 mg PO BID [facility] Last Admin: 07/08/23 07:48 Dose: 1 mg Documented By: ANITHA Docusate Sodium (Docusate Sodium 100 Mg Capsule) 100 mg PO DAILY PRN PRN Reason: Constipation Last Admin: 07/08/23 07:50 Dose: 100 mg Documented By: ANITHA Famotidine (Famotidine 20 Mg Tablet) 40 mg PO BEDTIME [facility] Last Admin: 07/07/23 20:34 Dose: 40 mg Documented By: RAYSHAWN Ferrous Sulfate (Ferrous Sulfate 324 Mg Tablet.) 324 mg PO BIDWM [facility] Last Admin: 07/08/23 07:48 Dose: 324 mg Documented By: ANITHA Hydroxyzine HCl (Hydroxyzine Hcl 25 Mg Tablet) 25 mg PO TID PRN PRN Reason: Anxiety Melatonin (Melatonin 3 Mg Tablet) 6 mg PO BEDTIME PRN PRN Reason: Insomnia Nicotine (Nicotine 14 Mg Patch.Td24) 14 mg TRANSDERMA DAILY [facility] Last Admin: 07/08/23 07:48 Dose: 14 mg Documented By: ANITHA Omeprazole (Omeprazole 20 Mg Capsule.) 20 mg PO DAILY@0630 [facility] Last Admin: 07/08/23 05:51 Dose: 20 mg Documented By: JEANMARIEBBAJ Ondansetron HCl (Ondansetron Hcl 4 Mg/2 Ml Vial) 4 mg IVPUSH Q8H PRN PRN Reason: Nausea and Vomiting Ondansetron HCl (Ondansetron Hcl 4 Mg/2 Ml Vial) 4 mg IVPUSH ONCE PRN PRN Reason: Nausea and Vomiting Oxycodone HCl (Oxycodone Hcl Immed Release 5 Mg Tablet) 5 mg PO Q6H PRN PRN Reason: Pain, Severe (Pain Scale 7-10) Last Admin: 07/08/23 07:50 Dose: 5 mg Documented By: ANITHA Paroxetine HCl (Paroxetine Hcl 40 Mg Tablet) 40 mg PO DAILY [facility] Last Admin: 07/08/23 07:48 Dose: 40 mg Documented By: ANITHA Quetiapine Fumarate (Quetiapine Fumarate 100 Mg Tablet) 100 mg PO BEDTIME [facility] Last Admin: 07/07/23 20:34 Dose: 100 mg Documented By: RAYSHAWN Sodium Chloride (0.9 % Sodium Chloride Flush 3 Ml Syringe) 3 ml IVFLUSH QSHIFT [facility] Last Admin: 07/08/23 07:53 Dose: 3 ml Documented By: ANITHA Labs 07/08/23 05:39 07/06/23 07:00 Labs: Laboratory Results - last 24 hr 07/08/23 05:39 MCV 81.5 MCH 24.4 L MCHC 29.9 L RDW Not Reportable Plt Count 408 H MPV 9.5 Absolute Nucleated RBC 0.000 Nucleated RBC % (auto) 0.0 Assessment and Plan (1) Microcytic anemia: Status: Acute Plan 62yo M with PUD, IBS, HCV [cured], HLD, mood disorder [schizophrenia?] sent from walk-in center due to POC Hb 2.9 noted to have severe iron deficiency anemia with HB 2.8, untreated/undiagnosed bladder tumor [previously signed out AMA from our ED 02/03/23] severe GIFTY due to Acute blood loss - status post 6 units of packed RBC, with appropriate rise in H+H , repeat hematocrit stable this a.m. - continue ferrous sulfate + vitamin-C, monitor H&H, FOBT negative, normal B12 and folate. Bladder tumor Underwent cystoscopy , complete Transurethral resection of bladder tumor and fulguration pod #3 CBI clamped but noted to have recurrent hematuria therefore will continue CBI , persistent bleed due to areas of fulguration and tumor can rebleed. monitor H&H, pathology showed urothelial carcinoma, invasive and papillary, oxycodone for pain Dr. Chris Dimas recommend to consult Oncology for neoadjuvant chemo-with goal to refer to center for radical cystectomy due to large bladder cancer burden, unable to debulk Spoke with Dr. Valles she recommend outpatient follow-up for chemotherapy, patient seen by Dr. García she will be back on Tuesday. PUD - continue PPI HLD - statin mood disorder, ?schizophrenia - continue paroxetine, quetiapine, amitriptyline, hydroxyzine,and benztropine. No behavioral issues Moderate malnutrition continue supplements tobacco abuse continue nicotine patch VTE ppx - SCDs In my clinical judgment, the patient requires continued inpatient hospitalization for the following reasons: Persistent hematuria receiving CBI and need close hematocrit monitoring Total time managing care of this patient today: 40 minutes. Quality Stroke Does the patient have a stroke diagnosis?: No VTE Prior VTE?: No VTE Risk Level:: Medical - moderate - high VTE Device Contraindication: N/A - Device Ordered VTE Drug Contraindication: Treatment Not Indicated
[2023-07-08 15:55] VITALS: BP 107/69; PULSE 92; RESP 18; TEMP 37; O2SAT 94
[2023-07-08 20:03] VITALS: BP 129/66; PULSE 96; RESP 18; TEMP 37.2; O2SAT 96
[2023-07-08] MEDS: QUEtiapine Fumarate 100 MG TABLET PO (21:20)
[2023-07-08] MEDS: Atorvastatin Calcium 40 MG TABLET PO (21:20)
[2023-07-08] MEDS: Famotidine 20 MG TABLET 40 MG PO (21:20)
[2023-07-08] MEDS: Amitriptyline HCl 50 MG TABLET PO (21:20)
[2023-07-08 23:40] VITALS: BP 124/64; PULSE 90; RESP 18; TEMP 37.1; O2SAT 96
[2023-07-09] MEDS: 0.9 % Sodium Chloride Flush 3 ML SYRINGE IVFLUSH ×4 (00:02→20:23)
[2023-07-09] MEDS: oxyCODONE HCl Immed Release 5 MG TABLET PO ×3 (03:57→20:23)
[2023-07-09 03:58] VITALS: BP 127/64; PULSE 81; RESP 18; TEMP 36.6; O2SAT 98
[2023-07-09] MEDS: Omeprazole 20 MG CAPSULE.DR PO (05:23)
[2023-07-09 06:20] LABS: Hematocrit 30.8 % (42.0-52.0); Hemoglobin 9.4 g/dl (14.0-18.0); Mean Corpuscular HGB Conc 30.5 g/dl (31.0-36.0); Mean Corpuscular Hemoglobin 24.7 pg (27.0-33.0); Mean Corpuscular Volume 81.1 fL (80.0-98.0); Mean Platelet Volume 9.6 fL (9.4-12.4); Platelet Count 381 X10*3/uL (160-400); White Blood Count 8.5 X10*3/uL (4.8-10.8)
[2023-07-09 07:26] VITALS: BP 111/63; PULSE 76; RESP 20; TEMP 36.2; O2SAT 96
[2023-07-09] MEDS: Nicotine 14 MG PATCH.TD24 TRANSDERMA (08:20)
[2023-07-09] MEDS: Ferrous Sulfate 324 MG TABLET.DR PO ×2 (08:21→17:37)
[2023-07-09] MEDS: Lipase/Prot/Amylase 24/76/120K 1 CAP CAPSULE.DR PO ×3 (08:21→17:37)
[2023-07-09] MEDS: Ascorbic Acid 250 MG TABLET PO ×2 (08:21→20:22)
[2023-07-09] MEDS: PARoxetine HCL 40 MG TABLET PO (08:21)
[2023-07-09] MEDS: Benztropine Mesylate 1 MG TABLET PO ×2 (08:21→20:23)
--- NOTE | 2023-07-09 11:04 | HO.PM.IMPN ---
Subjective Subjective Date of Service: 07/09/23 Interval History: Being followed for hematuria status post resection of bladder tumor and fulguration noted to have large bladder cancer burden on cystoscopy. Receiving CBI CBI was held but noted to have recurrent hematuria therefore CVA restarted patient denies pain, no fevers, no chills, tolerating diet with no nausea no vomiting or abdominal pain. Review of Systems All other system reviewed and negative. Physical Exam Vital Signs: Vital Signs: Last Vital Signs Temp 97.2 F 07/09/23 07:26 Pulse 76 07/09/23 07:26 Resp 20 07/09/23 07:26 BP 111/63 07/09/23 07:26 Pulse Ox 96 07/09/23 07:26 O2 Del Method Room Air 07/09/23 07:26 O2 Flow Rate 2 07/01/23 23:39 Oxygen Flow Rate 2 07/01/23 13:04 BMI result Body Mass Index 17.4 Appearing in no acute distress lung sounds are clear to auscultation heart regular rate rhythm, clear S1, S2 positive bowel sounds, abdomen is soft, nontender neuro patient is alert x3, no focal deficits Objective Data Active Medications Acetaminophen (Acetaminophen 325 Mg Tablet) 650 mg PO Q6H PRN PRN Reason: Pain, Mild (Pain Scale 1-3) Last Admin: 07/06/23 09:31 Dose: 650 mg Documented By: ALIVIA Amitriptyline HCl (Amitriptyline Hcl 50 Mg Tablet) 50 mg PO BEDTIME [facility] Last Admin: 07/08/23 21:20 Dose: 50 mg Documented By: LAURA Lipase/Protease/Amylase (Lipase/Prot/Amylase /76/120k 1 Cap Capsule.Dr) 1 cap PO TIDWM [facility] Last Admin: 07/09/23 08:21 Dose: 1 cap Documented By: MARY BETH Ascorbic Acid (Ascorbic Acid 250 Mg Tablet) 250 mg PO BID [facility] Last Admin: 07/09/23 08:21 Dose: 250 mg Documented By: MARY BETH Atorvastatin Calcium (Atorvastatin Calcium 40 Mg Tablet) 40 mg PO BEDTIME [facility] Last Admin: 07/08/23 21:20 Dose: 40 mg Documented By: LAURA Benzonatate (Benzonatate 100 Mg Capsule) 100 mg PO TID PRN PRN Reason: Cough Benztropine Mesylate (Benztropine Mesylate 1 Mg Tablet) 1 mg PO BID [facility] Last Admin: 07/09/23 08:21 Dose: 1 mg Documented By: MARY BETH Docusate Sodium (Docusate Sodium 100 Mg Capsule) 100 mg PO DAILY PRN PRN Reason: Constipation Last Admin: 07/08/23 07:50 Dose: 100 mg Documented By: ANITHA Famotidine (Famotidine 20 Mg Tablet) 40 mg PO BEDTIME [facility] Last Admin: 07/08/23 21:20 Dose: 40 mg Documented By: LAURA Ferrous Sulfate (Ferrous Sulfate 324 Mg Tablet.) 324 mg PO BIDWM [facility] Last Admin: 07/09/23 08:21 Dose: 324 mg Documented By: MARY BETH Hydroxyzine HCl (Hydroxyzine Hcl 25 Mg Tablet) 25 mg PO TID PRN PRN Reason: Anxiety Melatonin (Melatonin 3 Mg Tablet) 6 mg PO BEDTIME PRN PRN Reason: Insomnia Nicotine (Nicotine 14 Mg Patch.Td24) 14 mg TRANSDERMA DAILY [facility] Last Admin: 07/09/23 08:20 Dose: 14 mg Documented By: MARY BETH Omeprazole (Omeprazole 20 Mg Capsule.) 20 mg PO DAILY@0630 [facility] Last Admin: 07/09/23 05:23 Dose: 20 mg Documented By: COLLEEN Ondansetron HCl (Ondansetron Hcl 4 Mg/2 Ml Vial) 4 mg IVPUSH Q8H PRN PRN Reason: Nausea and Vomiting Ondansetron HCl (Ondansetron Hcl 4 Mg/2 Ml Vial) 4 mg IVPUSH ONCE PRN PRN Reason: Nausea and Vomiting Oxycodone HCl (Oxycodone Hcl Immed Release 5 Mg Tablet) 5 mg PO Q6H PRN PRN Reason: Pain, Severe (Pain Scale 7-10) Last Admin: 07/09/23 03:57 Dose: 5 mg Documented By: COLLEEN Paroxetine HCl (Paroxetine Hcl 40 Mg Tablet) 40 mg PO DAILY [facility] Last Admin: 07/09/23 08:21 Dose: 40 mg Documented By: MARY BETH Quetiapine Fumarate (Quetiapine Fumarate 100 Mg Tablet) 100 mg PO BEDTIME [facility] Last Admin: 07/08/23 21:20 Dose: 100 mg Documented By: LAURA Sodium Chloride (0.9 % Sodium Chloride Flush 3 Ml Syringe) 3 ml IVFLUSH QSHIFT [facility] Last Admin: 07/09/23 08:21 Dose: 3 ml Documented By: MARY BETH Labs 07/09/23 05:38 07/06/23 07:00 Labs: Laboratory Results - last 24 hr 07/09/23 05:38 MCV 81.1 MCH 24.7 L MCHC 30.5 L RDW TNP Plt Count 381 MPV 9.6 Absolute Nucleated RBC 0.000 Nucleated RBC % (auto) 0.0 Assessment and Plan (1) Microcytic anemia: Status: Acute Plan 62yo M with PUD, IBS, HCV [cured], HLD, mood disorder [schizophrenia?] sent from walk-in center due to POC Hb 2.9 noted to have severe iron deficiency anemia with HB 2.8, untreated/undiagnosed bladder tumor [previously signed out AMA from our ED 02/03/23] Severe GIFTY due to Acute blood loss status post 6 units of packed RBC with appropriate rise in H+H continue ferrous sulfate + vitamin-C monitor H&H FOBT negative normal B12 and folate. Bladder tumor Underwent cystoscopy, complete Transurethral resection of bladder tumor and fulguration CBI clamped but noted to have recurrent hematuria therefore will continue CBI , persistent bleed due to areas of fulguration and tumor can rebleed. monitor H&H, pathology showed urothelial carcinoma, invasive and papillary, oxycodone for pain Dr. Chris Dimas recommend to consult Oncology for neoadjuvant chemo-with goal to refer to center for radical cystectomy due to large bladder cancer burden, unable to debulk Spoke with Dr. Valles she recommend outpatient follow-up for chemotherapy PUD continue PPI HLD statin mood disorder, ?schizophrenia continue paroxetine, quetiapine, amitriptyline, hydroxyzine,and benztropine. No behavioral issues Moderate malnutrition continue supplements tobacco abuse continue nicotine patch VTE ppx - SCDs Attending Dr. Wright full code In my clinical judgment, the patient requires continued inpatient hospitalization for the following reasons: Persistent hematuria receiving CBI and need close hematocrit monitoring Total time managing care of this patient today: 40 minutes. Quality Stroke Does the patient have a stroke diagnosis?: No VTE Prior VTE?: No VTE Risk Level:: Medical - moderate - high VTE Device Contraindication: N/A - Device Ordered VTE Drug Contraindication: Treatment Not Indicated
[2023-07-09 15:37] VITALS: BP 116/61; PULSE 81; RESP 18; TEMP 36.6; O2SAT 98
[2023-07-09] MEDS: Acetaminophen 325 MG TABLET 650 MG PO (20:22)
[2023-07-09] MEDS: QUEtiapine Fumarate 100 MG TABLET PO (20:22)
[2023-07-09] MEDS: Amitriptyline HCl 50 MG TABLET PO (20:22)
[2023-07-09] MEDS: Famotidine 20 MG TABLET 40 MG PO (20:22)
[2023-07-09] MEDS: Atorvastatin Calcium 40 MG TABLET PO (20:23)
[2023-07-10] VITALS: BP 116/58; PULSE 84; RESP 18; TEMP 36.5; O2SAT 96
[2023-07-10 06:04] LABS: Hematocrit 31.8 % (42.0-52.0); Hemoglobin 9.6 g/dl (14.0-18.0); Mean Corpuscular HGB Conc 30.2 g/dl (31.0-36.0); Mean Corpuscular Hemoglobin 24.8 pg (27.0-33.0); Mean Corpuscular Volume 82.2 fL (80.0-98.0); Mean Platelet Volume 9.3 fL (9.4-12.4); Platelet Count 360 X10*3/uL (160-400); Red Blood Count 3.87 X10*6/uL (4.60-5.80); White Blood Count 7.7 X10*3/uL (4.8-10.8)
[2023-07-10] MEDS: Omeprazole 20 MG CAPSULE.DR PO (06:07)
[2023-07-10 07:04] VITALS: BP 117/65; PULSE 70; RESP 18; TEMP 37; O2SAT 95
[2023-07-10] MEDS: Ferrous Sulfate 324 MG TABLET.DR PO (09:11)
[2023-07-10] MEDS: Benztropine Mesylate 1 MG TABLET PO ×2 (09:11→20:20)
[2023-07-10] MEDS: Lipase/Prot/Amylase 24/76/120K 1 CAP CAPSULE.DR PO ×2 (09:11→12:40)
[2023-07-10] MEDS: Nicotine 14 MG PATCH.TD24 TRANSDERMA (09:11)
[2023-07-10] MEDS: Ascorbic Acid 250 MG TABLET PO ×2 (09:11→20:21)
[2023-07-10] MEDS: PARoxetine HCL 40 MG TABLET PO (09:11)
[2023-07-10] MEDS: 0.9 % Sodium Chloride Flush 3 ML SYRINGE IVFLUSH ×2 (09:13→20:29)
--- NOTE | 2023-07-10 10:45 | HO.PM.IMPN ---
Subjective Subjective Date of Service: 07/10/23 Interval History: Being followed for hematuria status post resection of bladder tumor and fulguration noted to have large bladder cancer burden on cystoscopy. Receiving CBI Review of Systems All other system reviewed and negative. Physical Exam Vital Signs: Vital Signs: Last Vital Signs Temp 98.6 F 07/10/23 07:04 Pulse 70 07/10/23 07:04 Resp 18 07/10/23 07:04 BP 117/65 07/10/23 07:04 Pulse Ox 95 07/10/23 07:04 O2 Del Method Room Air 07/10/23 07:04 O2 Flow Rate 2 07/01/23 23:39 Oxygen Flow Rate 2 07/01/23 13:04 BMI result Body Mass Index 17.4 Appearing in no acute distress lung sounds are clear to auscultation heart regular rate rhythm, clear S1, S2 positive bowel sounds, abdomen is soft, nontender neuro patient is alert x3, no focal deficits Vaughn and CBI Objective Data Active Medications Acetaminophen (Acetaminophen 325 Mg Tablet) 650 mg PO Q6H PRN PRN Reason: Pain, Mild (Pain Scale 1-3) Last Admin: 07/09/23 20:22 Dose: 650 mg Documented By: BARRERA Amitriptyline HCl (Amitriptyline Hcl 50 Mg Tablet) 50 mg PO BEDTIME [facility] Last Admin: 07/09/23 20:22 Dose: 50 mg Documented By: BARRERA Lipase/Protease/Amylase (Lipase/Prot/Amylase 24/76/120k [address] Caps[address].Dr) 1 cap PO TIDWM [facility] Last Admin: 07/10/23 09:11 Dose: 1 cap Documented By: MARY BETH Ascorbic Acid (Ascorbic Acid 250 Mg Tablet) 250 mg PO BID [facility] Last Admin: 07/10/23 09:11 Dose: 250 mg Documented By: MARY BETH Atorvastatin Calcium (Atorvastatin Calcium 40 Mg Tablet) 40 mg PO BEDTIME [facility] Last Admin: 07/09/23 20:23 Dose: 40 mg Documented By: BARRERA Benzonatate (Benzonatate 100 Mg Capsule) 100 mg PO TID PRN PRN Reason: Cough Benztropine Mesylate (Benztropine Mesylate 1 Mg Tablet) 1 mg PO BID [facility] Last Admin: 07/10/23 09:11 Dose: 1 mg Documented By: MARY BETH Docusate Sodium (Docusate Sodium 100 Mg Capsule) 100 mg PO DAILY PRN PRN Reason: Constipation Last Admin: 07/08/23 07:50 Dose: 100 mg Documented By: ANITHA Famotidine (Famotidine 20 Mg Tablet) 40 mg PO BEDTIME [facility] Last Admin: 07/09/23 20:22 Dose: 40 mg Documented By: BARRERA Ferrous Sulfate (Ferrous Sulfate 324 Mg Tablet.) 324 mg PO BIDWM [facility] Last Admin: 07/10/23 09:11 Dose: 324 mg Documented By: MARY BETH Hydroxyzine HCl (Hydroxyzine Hcl 25 Mg Tablet) 25 mg PO TID PRN PRN Reason: Anxiety Melatonin (Melatonin 3 Mg Tablet) 6 mg PO BEDTIME PRN PRN Reason: Insomnia Nicotine (Nicotine 14 Mg Patch.Td24) 14 mg TRANSDERMA DAILY [facility] Last Admin: 07/10/23 09:11 Dose: 14 mg Documented By: MARY BETH Omeprazole (Omeprazole 20 Mg Capsule.) 20 mg PO DAILY@0630 [facility] Last Admin: 07/10/23 06:07 Dose: 20 mg Documented By: BARRERA Ondansetron HCl (Ondansetron Hcl 4 Mg/2 Ml Vial) 4 mg IVPUSH Q8H PRN PRN Reason: Nausea and Vomiting Ondansetron HCl (Ondansetron Hcl 4 Mg/2 Ml Vial) 4 mg IVPUSH ONCE PRN PRN Reason: Nausea and Vomiting Oxycodone HCl (Oxycodone Hcl Immed Release 5 Mg Tablet) 5 mg PO Q6H PRN PRN Reason: Pain, Severe (Pain Scale 7-10) Last Admin: 07/09/23 20:23 Dose: 5 mg Documented By: BARRERA Paroxetine HCl (Paroxetine Hcl 40 Mg Tablet) 40 mg PO DAILY [facility] Last Admin: 07/10/23 09:11 Dose: 40 mg Documented By: MARY BETH Quetiapine Fumarate (Quetiapine Fumarate 100 Mg Tablet) 100 mg PO BEDTIME [facility] Last Admin: 07/09/23 20:22 Dose: 100 mg Documented By: BARRERA Sodium Chloride (0.9 % Sodium Chloride Flush 3 Ml Syringe) 3 ml IVFLUSH QSHIFT [facility] Last Admin: 07/10/23 09:13 Dose: 3 ml Documented By: MARY BETH Labs 07/10/23 05:40 07/06/23 07:00 Labs: Laboratory Results - last 24 hr 07/10/23 05:40 MCV 82.2 MCH 24.8 L MCHC 30.2 L RDW Not Reportable Plt Count 360 MPV 9.3 L Absolute Nucleated RBC 0.000 Nucleated RBC % (auto) 0.0 Assessment and Plan (1) Microcytic anemia: Status: Acute Plan 62yo M with PUD, IBS, HCV [cured], HLD, mood disorder [schizophrenia?] sent from walk-in center due to POC Hb 2.9 noted to have severe iron deficiency anemia with HB 2.8, untreated/undiagnosed bladder tumor [previously signed out AMA from our ED 02/03/23] Severe GIFTY due to Acute blood loss status post 6 units of packed RBC with appropriate rise in H+H continue ferrous sulfate + vitamin-C monitor H&H FOBT negative normal B12 and folate. Bladder tumor Underwent cystoscopy, complete Transurethral resection of bladder tumor and fulguration CBI clamped but noted to have recurrent hematuria therefore will continue CBI , persistent bleed due to areas of fulguration and tumor can rebleed. monitor H&H, pathology showed urothelial carcinoma, invasive and papillary, oxycodone for pain Dr. Chris Dimas recommend to consult Oncology for neoadjuvant chemo-with goal to refer to center for radical cystectomy due to large bladder cancer burden, unable to debulk Dr. Valles>recommend outpatient follow-up for chemotherapy PUD continue PPI HLD statin mood disorder, ?schizophrenia continue paroxetine, quetiapine, amitriptyline, hydroxyzine,and benztropine. No behavioral issues Moderate protein callorie malnutrition. BMI 17.4 continue supplements tobacco abuse continue nicotine patch VTE ppx - SCDs Attending Dr. Wright full code In my clinical judgment, the patient requires continued inpatient hospitalization for the following reasons: Persistent hematuria receiving CBI and need close hematocrit monitoring Total time managing care of this patient today: 40 minutes. Quality Stroke Does the patient have a stroke diagnosis?: No VTE Prior VTE?: No VTE Risk Level:: Medical - moderate - high VTE Device Contraindication: N/A - Device Ordered VTE Drug Contraindication: Treatment Not Indicated
[2023-07-10 15:25] VITALS: BP 124/72; PULSE 74; RESP 18; TEMP 36.6; O2SAT 96
--- NOTE | 2023-07-10 16:59 | PC.NURSE ---
CBI clamped per request of Divine Hernandez NP at 1050 for one hour. At 1150 recheck urine remained pink with very small clots provider notified hand irrigated per request to assess for clots. No further clotting noted urine remains pink with very small clots. Divine Hernandez NP aware irrigation to remain clamped at this time. 1520 pt agitated wanting to leave this RN sat with patient addressed concerns Divine Hernandez [employer] at bedside to speak with patient. Pleasant and calm following meeting with provider bed in low position alarm for safety.
[2023-07-10 20:16] VITALS: BP 127/63; PULSE 93; RESP 18; TEMP 36.8; O2SAT 97
[2023-07-10] MEDS: Famotidine 20 MG TABLET 40 MG PO (20:18)
[2023-07-10] MEDS: Amitriptyline HCl 50 MG TABLET PO (20:20)
[2023-07-10] MEDS: QUEtiapine Fumarate 100 MG TABLET PO (20:21)
[2023-07-10] MEDS: Atorvastatin Calcium 40 MG TABLET PO (20:21)
[2023-07-10] MEDS: oxyCODONE HCl Immed Release 5 MG TABLET PO (20:26)
[2023-07-10] MEDS: Melatonin 3 MG TABLET 6 MG PO (20:26)
[2023-07-10] MEDS: hydrOXYzine HCL 25 MG TABLET PO (20:28)
[2023-07-10 23:57] VITALS: BP 104/56; PULSE 71; RESP 16; TEMP 36.6; O2SAT 97
[2023-07-11] MEDS: oxyCODONE HCl Immed Release 5 MG TABLET PO (02:51)
[2023-07-11 03:07] VITALS: BP 107/59; PULSE 70; RESP 18; TEMP 36.4; O2SAT 97
[2023-07-11] MEDS: Omeprazole 20 MG CAPSULE.DR PO (05:12)
[2023-07-11] MEDS: hydrOXYzine HCL 25 MG TABLET PO ×2 (05:12→20:44)
[2023-07-11 07:05] LABS: MANUAL DIFF FLAG NO
[2023-07-11 07:21] LABS: Basophils Absolute Auto 0.1 X10*3/uL (0.0-0.2); Basophils Percent Auto 0.6 % (0-2); Eosinophils Absolute Auto 0.3 X10*3/uL (0.0-0.4); Eosinophils Percent Auto 3.6 % (0-4); Hematocrit 34.4 % (42.0-52.0); Hemoglobin 10.2 g/dl (14.0-18.0); Imm Gran Abs Auto 0.03 X10*3/uL (0.00-0.03); Imm Gran Pct Auto 0.3 % (0.0-0.4); Lymphocytes Absolute Auto 2.2 X10*3/uL (1.2-4.9); Lymphocytes Percent Auto 25.5 % (20-40); Mean Corpuscular HGB Conc 29.7 g/dl (31.0-36.0); Mean Corpuscular Volume 84.3 fL (80.0-98.0); Mean Platelet Volume 9.7 fL (9.4-12.4); Monocytes Absolute Auto 0.6 X10*3/uL (0.1-1.2); Monocytes Percent Auto 7.3 % (2-11); Neutrophils Absolute Auto 5.5 x10*3/uL (2.0-8.3); Neutrophils Percent Auto 62.7 % (45-73); Platelet Count 355 X10*3/uL (160-400); Red Blood Count 4.08 X10*6/uL (4.60-5.80); White Blood Count 8.7 X10*3/uL (4.8-10.8)
[2023-07-11 07:31] LABS: Anion Gap 8 (12-20); Blood Urea Nitrogen 17 mg/dL (9-16); Calcium 8.6 mg/dL (8.4-10.2); Carbon Dioxide 31 mmol/L (22-29); Chloride 109 mmol/L (96-108); Creatinine Clr Calc Pharmacy 77.3; Estimated Glomerular Filt Rate > 60; Glucose Random 64 mg/dL (60-115); Potassium 4.1 mmol/L (3.3-5.1); Sodium 144 mmol/L (135-145)
[2023-07-11 07:34] VITALS: BP 112/57; PULSE 74; RESP 20; TEMP 36.7; O2SAT 97
--- NOTE | 2023-07-11 08:15 | P.PNHO-ONC_ITS ---
Medical Summary - Medical Summary Date of Service: 07/11/23 Chief complaint: None at this time Primary Care Provider: Marga Garrido MD Medical Summary: Diagnosis: Muscle invasive bladder cancer Patient was diagnosed with bladder masses in January 2023 when he presented with gross hematuria and anemia. Patient was recommended further workup but he left AMA. He presented to emergency department in June 2023 with hemoglobin of 2.9 gram/dL. Evaluation in the ED demonstrated microcytic anemia with hemoglobin of 2.8 gram/dL with an MCV of 54.5 and iron saturation of 4%. He was transfused 3 units PRBC and is being admitted for further workup. Interval History Interval history: Patient is aware that he has bladder cancer. He denies any abdominal pain or any complaints at this time. He wants to know when he can go home. Review of Systems - Neurologic Reports dizziness, Reports weakness PMFSH Medical History: Medical History (Last Reviewed 07/02/23 @ 13:04 by Maryan Avila MD) Chronic headaches HLD (hyperlipidemia) MDD (major depressive disorder) Social History: Social History (Last Reviewed 07/02/23 @ 13:04 by Maryan Avila MD) Living Situation History: Household Members: Family Housing: Apartment Do you presently have visiting nurse or other home services: No Alcohol History: Unable to assess alcohol history related to: Unknown Alcohol History Details: 1. How often do you have a drink containing alcohol?: a. Never AUDIT-C Alcohol total score: 0 Currently Displaying Signs/Symptoms of Alcohol Withdrawal: No Tobacco History: Patient Tobacco Use Status: Current everyday Tobacco Tobacco use type: Cigarette Cigarette Packs Per Day: 0.5 Smoked in Last 30 Days: Yes Patient Interested in Nicotine Replacement: No Substance Use History: Use of substances other than those prescribed or required for medical reasons : No Currently Displaying Signs/Symptoms of Drug Intoxication Withdrawal: No Domestic Abuse History: Have you been hit, kicked, punched, or otherwise hurt by someone within the past year? If so, by whom?: No Is there a partner from a previous relationship who is making you feel unsafe now?: No Are you made to feel afraid or neglected: No Advance Directives: Advance Directives: Yes Advance Directives Information Provided: Yes Advance Directives on File: No Advance Directives Date on File: 07/01/23 Homicidal Assessment: Do you have thoughts of harming others: None Do you have a plan to hurt others: No Plan Nutrition Assessment: Nutrition Risks: Difficulty swallowing Occupation Assessmet: service: No Current occupational status: disabled Home Medications and Allergies Current Medications: Current Medications Acetaminophen (Acetaminophen 325 Mg Tablet) 650 mg PO Q6H PRN PRN Reason: Pain, Mild (Pain Scale 1-3) Last Admin: 07/09/23 20:22 Dose: 650 mg Amitriptyline HCl (Amitriptyline Hcl 50 Mg Tablet) 50 mg PO BEDTIME [facility] Last Admin: 07/10/23 20:20 Dose: 50 mg Lipase/Protease/Amylase (Lipase/Prot/Amylase 24/76/120k 1 Cap Capsule.) 1 cap PO TIDWM [facility] Last Admin: 07/10/23 18:11 Dose: Not Given Ascorbic Acid (Ascorbic Acid 250 Mg Tablet) 250 mg PO BID [facility] Last Admin: 07/10/23 20:21 Dose: 250 mg Atorvastatin Calcium (Atorvastatin Calcium 40 Mg Tablet) 40 mg PO BEDTIME [facility] Last Admin: 07/10/23 20:21 Dose: 40 mg Benzonatate (Benzonatate 100 Mg Capsule) 100 mg PO TID PRN PRN Reason: Cough Benztropine Mesylate (Benztropine Mesylate 1 Mg Tablet) 1 mg PO BID [facility] Last Admin: 07/10/23 20:20 Dose: 1 mg Docusate Sodium (Docusate Sodium 100 Mg Capsule) 100 mg PO DAILY PRN PRN Reason: Constipation Last Admin: 07/08/23 07:50 Dose: 100 mg Famotidine (Famotidine 20 Mg Tablet) 40 mg PO BEDTIME [facility] Last Admin: 07/10/23 20:18 Dose: 40 mg Ferrous Sulfate (Ferrous Sulfate 324 Mg Tablet.) 324 mg PO BIDWM [facility] Last Admin: 07/10/23 18:10 Dose: Not Given Hydroxyzine HCl (Hydroxyzine Hcl 25 Mg Tablet) 25 mg PO TID PRN PRN Reason: Anxiety Last Admin: 07/11/23 05:12 Dose: 25 mg Melatonin (Melatonin 3 Mg Tablet) 6 mg PO BEDTIME PRN PRN Reason: Insomnia Last Admin: 07/10/23 20:26 Dose: 6 mg Nicotine (Nicotine 14 Mg Patch.Td24) 14 mg TRANSDERMA DAILY [facility] Last Admin: 07/10/23 09:11 Dose: 14 mg Omeprazole (Omeprazole 20 Mg Capsule.Dr) 20 mg PO DAILY@0630 [facility] Last Admin: 07/11/23 05:12 Dose: 20 mg Ondansetron HCl (Ondansetron Hcl 4 Mg/2 Ml Vial) 4 mg IVPUSH Q8H PRN PRN Reason: Nausea and Vomiting Ondansetron HCl (Ondansetron Hcl 4 Mg/2 Ml Vial) 4 mg IVPUSH ONCE PRN PRN Reason: Nausea and Vomiting Oxycodone HCl (Oxycodone Hcl Immed Release 5 Mg Tablet) 5 mg PO Q6H PRN PRN Reason: Pain, Severe (Pain Scale 7-10) Last Admin: 07/11/23 02:51 Dose: 5 mg Paroxetine HCl (Paroxetine Hcl 40 Mg Tablet) 40 mg PO DAILY [facility] Last Admin: 07/10/23 09:11 Dose: 40 mg Quetiapine Fumarate (Quetiapine Fumarate 100 Mg Tablet) 100 mg PO BEDTIME [facility] Last Admin: 07/10/23 20:21 Dose: 100 mg Sodium Chloride (0.9 % Sodium Chloride Flush 3 Ml Syringe) 3 ml [facility]USH [facility] Last Admin: 07/11/23 07:05 Dose: Not Given Home Medications Medication Instructions Recorded Confirmed Type amitriptyline 50 mg tablet 50 mg PO BEDTIME 02/03/23 07/01/23 History atorvastatin 40 mg tablet 40 mg PO BEDTIME 02/03/23 07/01/23 History benztropine 1 mg tablet 1 mg PO BID 02/03/23 07/01/23 History famotidine 40 mg tablet 40 mg PO BEDTIME 02/03/23 07/01/23 History hydroxyzine pamoate 25 mg capsule 25 mg PO TID PRN Anxiety 02/03/23 07/01/23 History esmegb-qcdstled-oxhdivw 1 cap PO Q8H 02/03/23 07/01/23 History 24,000-76,000-120,000 unit capsule,delayed rel (Creon) pantoprazole 40 mg tablet,delayed 40 mg PO DAILY@0630 02/03/23 07/01/23 History release paroxetine HCl 20 mg tablet 40 mg PO DAILY 02/03/23 07/01/23 History quetiapine 100 mg tablet 100 mg PO BEDTIME 02/03/23 07/01/23 History Allergies Allergy/AdvReac Type Severity Reaction Status Date / Time haloperidol [From Haldol] Allergy Severe Can't Verified 01/06/21 16:07 breathe Exam Vital signs: Vital Signs Temp 98.0 F 07/11/23 07:34 Pulse 74 07/11/23 07:34 Resp 20 07/11/23 07:34 BP 112/57 L 07/11/23 07:34 Pulse Ox 97 07/11/23 07:34 O2 Del Method Room Air 07/11/23 07:34 O2 Flow Rate 2 07/01/23 23:39 Intake & Output 07/10/23 07/11/23 07/11/23 18:59 06:59 18:59 Intake Total 120 / 120 Output Total 1600 / 1800 200 / 1800 Balance -1600 / -1680 -80 / -1680 Urine Output (Average ml/kg/hr) 2.42 0.30 Intake: Intake, Oral Amount 120 / 120 Output: Output, Urine Amount (Catheter) 1600 / 1800 200 / 1800 3-way Urethral 1600 / 1800 200 / 1800 Other: Number of Bowel Movements 0 Urine Color Yellow Bloody Last Bowel Movement 07/09/23 07/09/23 Continuous Bladder Irrigation Fluid - Amount Instilled 3-way Urethral 800 Weight 55 kg BMI result Body Mass Index 17.4 - Constitutional Present: no acute distress - Routine HEENT Exam Head: Present: normal inspection - Routine Neck Exam Present: full ROM - Routine Respiratory Exam Present: CTAB - Routine Cardiovascular Exam Cardiovascular: Present: S1, S2 - Routine Abdominal Exam Present: soft - Routine Extremities Exam Present: normal capillary refill Data - Labs CBC & Chem 7: 07/11/23 06:47 07/11/23 06:47 - Imaging Radiologist's impression: ITS Impressions Abdomen/Pelvis CT 07/02/23 12:50 IMPRESSION: 1. No convincing pulmonary metastasis is seen. 2. There are diffuse emphysematous changes. 3. At the posterior left base, there is a focus of probable round atelectasis, for which clinical correlation and continued attention on imaging follow-up is recommended. 4. There is no thoracic lymphadenopathy or pleural effusion. 5. There is cholelithiasis. 6. Multiple bladder masses are noted, highly suspicious for malignancy. Please correlate with the patient's past medical history. 7. No abdominopelvic lymphadenopathy or ascites is seen. 8. The osseous structures are unremarkable. Chest CT 07/02/23 12:50 IMPRESSION: 1. No convincing pulmonary metastasis is seen. 2. There are diffuse emphysematous changes. 3. At the posterior left base, there is a focus of probable round atelectasis, for which clinical correlation and continued attention on imaging follow-up is recommended. 4. There is no thoracic lymphadenopathy or pleural effusion. 5. There is cholelithiasis. 6. Multiple bladder masses are noted, highly suspicious for malignancy. Please correlate with the patient's past medical history. 7. No abdominopelvic lymphadenopathy or ascites is seen. 8. The osseous structures are unremarkable. Assessment and Plan Patient Active problem list reviewed?: Yes (1) Microcytic anemia Status: Acute Assessment and plan: 1. This is a 62-year-old male presenting worsening microcytic/iron deficiency anemia secondary to hematuria related to bladder tumor. Presenting hemoglobin was 2.8 gram/dL, previously in January 2023 it was 8.4 gram/dL. He has had hematuria for many months, he declined workup in January but is willing to undergo further testing at this time. He is being transfused PRBC. Staging CT chest/abdomen and pelvis demonstrated 6 large bladder masses, largest measuring 4.7 x 4.1 x 2.7 cm present at the base. No evidence of metastatic disease. Diffuse emphysematous changes, at the posterior left base of lung rounded area of atelectasis for which follow-up imaging was recommended. No abdominal or pelvic lymphadenopathy, osseous structures normal. He underwent cystoscopy on 07/05/2023 this revealed multiple large bladder tumors. Transurethral resection of bladder tumor located at 3 and 9 o'clock position of right and left lateral wall and posterior wall revealed high-grade urothelial carcinoma, invasive and papillary. Because of extent of tumor burden, debulking in entirety could not be performed. He has been recommended neoadjuvant chemotherapy. This has been discussed with the patient. I will see him in follow-up upon discharge and make arrangements for this. Thank you. - Time Spent With Patient Time Spent with Patient (in minutes): 15
[2023-07-11] MEDS: Ferrous Sulfate 324 MG TABLET.DR PO (08:18)
[2023-07-11] MEDS: Lipase/Prot/Amylase 24/76/120K 1 CAP CAPSULE.DR PO (08:18)
[2023-07-11] MEDS: Ascorbic Acid 250 MG TABLET PO ×2 (08:19→20:44)
[2023-07-11] MEDS: Benztropine Mesylate 1 MG TABLET PO ×2 (08:19→20:44)
[2023-07-11] MEDS: PARoxetine HCL 40 MG TABLET PO (08:19)
[2023-07-11] MEDS: Nicotine 14 MG PATCH.TD24 TRANSDERMA (08:19)
[2023-07-11 10:40] LABS: Lactate Dehydrogenase 238 U/L (118-273)
--- NOTE | 2023-07-11 11:08 | MHC.CM.PN ---
EMR reviewed and per MD rounds, pt is not medically cleared for D/C due to pending urology and hematology consults, and pending PT consult. CM will continue to follow.
--- NOTE | 2023-07-11 12:06 | MHC.CLN ---
F/U PO INTAKE REMAINS 100% CONSISTENTLY DIET RX: REGULAR-APPROPRIATE PT RECEIVING ENSURE MAX BID TO INCREASE KCALS/PROTEIN SUPP PROVIDES 300KCALS, 60G PROTEIN WITH 100% ACCEPTANCE MONITOR PO INTAKE AND ENCOURAGE SUPPLEMENT WEEKLY WEIGHTS R/T DX MALNUTRITION
--- NOTE | 2023-07-11 14:50 | HO.PM.IMPN ---
Subjective Subjective Date of Service: 07/11/23 Interval History: Being followed for hematuria status post resection of bladder tumor and fulguration noted to have large bladder cancer burden on cystoscopy. Receiving CBI Review of Systems All other system reviewed and negative. Physical Exam Vital Signs: Vital Signs: Last Vital Signs Temp 98.0 F 07/11/23 07:34 Pulse 74 07/11/23 07:34 Resp 20 07/11/23 07:34 BP 112/57 L 07/11/23 07:34 Pulse Ox 97 07/11/23 07:34 O2 Del Method Room Air 07/11/23 07:34 O2 Flow Rate 2 07/01/23 23:39 Oxygen Flow Rate 2 07/01/23 13:04 BMI result Body Mass Index 17.4 Appearing in no acute distress lung sounds are clear to auscultation heart regular rate rhythm, clear S1, S2 positive bowel sounds, abdomen is soft, nontender neuro patient is alert x3, no focal deficits Hematuria Objective Data Active Medications Acetaminophen (Acetaminophen 325 Mg Tablet) 650 mg PO Q6H PRN PRN Reason: Pain, Mild (Pain Scale 1-3) Last Admin: 07/09/23 20:22 Dose: 650 mg Documented By: BARRERA Amitriptyline HCl (Amitriptyline Hcl 50 Mg Tablet) 50 mg PO BEDTIME [facility] Last Admin: 07/10/23 20:20 Dose: 50 mg Documented By: NEY Lipase/Protease/Amylase (Lipase/Prot/Amylase 24/76/120k 1 Cap Capsule.Dr) 1 cap PO TIDWM [facility] Last Admin: 07/11/23 12:17 Dose: 1 cap Documented By: CELIA Ascorbic Acid (Ascorbic Acid 250 Mg Tablet) 250 mg PO BID [facility] Last Admin: 07/11/23 08:19 Dose: 250 mg Documented By: CELIA Atorvastatin Calcium (Atorvastatin Calcium 40 Mg Tablet) 40 mg PO BEDTIME [facility] Last Admin: 07/10/23 20:21 Dose: 40 mg Documented By: NEY Benzonatate (Benzonatate 100 Mg Capsule) 100 mg PO TID PRN PRN Reason: Cough Benztropine Mesylate (Benztropine Mesylate 1 Mg Tablet) 1 mg PO BID [facility] Last Admin: 07/11/23 08:19 Dose: 1 mg Documented By: CELIA Docusate Sodium (Docusate Sodium 100 Mg Capsule) 100 mg PO DAILY PRN PRN Reason: Constipation Last Admin: 07/08/23 07:50 Dose: 100 mg Documented By: ANITHA Famotidine (Famotidine 20 Mg Tablet) 40 mg PO BEDTIME [facility] Last Admin: 07/10/23 20:18 Dose: 40 mg Documented By: NEY Ferrous Sulfate (Ferrous Sulfate 324 Mg Tablet.) 324 mg PO BIDWM [facility] Last Admin: 07/11/23 08:18 Dose: 324 mg Documented By: CELIA Hydroxyzine HCl (Hydroxyzine Hcl 25 Mg Tablet) 25 mg PO TID PRN PRN Reason: Anxiety Last Admin: 07/11/23 05:12 Dose: 25 mg Documented By: NEY Melatonin (Melatonin 3 Mg Tablet) 6 mg PO BEDTIME PRN PRN Reason: Insomnia Last Admin: 07/10/23 20:26 Dose: 6 mg Documented By: NEY Nicotine (Nicotine 14 Mg Patch.Td24) 14 mg TRANSDERMA DAILY [facility] Last Admin: 07/11/23 08:19 Dose: 14 mg Documented By: CELIA Omeprazole (Omeprazole 20 Mg Capsule.) 20 mg PO DAILY@0630 [facility] Last Admin: 07/11/23 05:12 Dose: 20 mg Documented By: NEY Ondansetron HCl (Ondansetron Hcl 4 Mg/2 Ml Vial) 4 mg IVPUSH Q8H PRN PRN Reason: Nausea and Vomiting Ondansetron HCl (Ondansetron Hcl 4 Mg/2 Ml Vial) 4 mg IVPUSH ONCE PRN PRN Reason: Nausea and Vomiting Paroxetine HCl (Paroxetine Hcl 40 Mg Tablet) 40 mg PO DAILY [facility] Last Admin: 07/11/23 08:19 Dose: 40 mg Documented By: CELIA Quetiapine Fumarate (Quetiapine Fumarate 100 Mg Tablet) 100 mg PO BEDTIME [facility] Last Admin: 07/10/23 20:21 Dose: 100 mg Documented By: NEY Sodium Chloride (0.9 % Sodium Chloride Flush 3 Ml Syringe) 3 ml IVFLUSH QSHIFT [facility] Last Admin: 07/11/23 12:25 Dose: Not Given Documented By: HO.SOFFAA Non-Admin Reason: See Note Labs 07/11/23 06:47 07/11/23 06:47 Labs: Laboratory Results - last 24 hr 07/11/23 06:47 MCV 84.3 MCH 25.0 L MCHC 29.7 L RDW Not Reportable Plt Count 355 MPV 9.7 Immature Gran % (Auto) 0.3 Neut % (Auto) 62.7 Lymph % (Auto) 25.5 [place] % (Auto) 7.3 Eos % (Auto) 3.6 Baso % (Auto) 0.6 Lymph # (Auto) 2.2 [place] # (Auto) 0.6 Eos # (Auto) 0.3 Baso # (Auto) 0.1 Abs Immat Gran (auto) 0.03 Absolute Neuts (auto) 5.5 Absolute Nucleated RBC 0.000 Nucleated RBC % (auto) 0.0 Anion Gap 8 L Estim Creat Clear Calc 77.3 Estimated GFR > 60 Random Glucose 64 Calcium 8.6 D Lactate Dehydrogenase 238 Carcinoembryonic Ag 7.70 Assessment and Plan (1) Microcytic anemia: Status: Acute Plan 62yo M with PUD, IBS, HCV [cured], HLD, mood disorder [schizophrenia?] sent from walk-in center due to POC Hb 2.9 noted to have severe iron deficiency anemia with HB 2.8, untreated/undiagnosed bladder tumor [previously signed out AMA from our ED 02/03/23] Acute GI blood loss status post 6 units of packed RBC with appropriate rise in H+H continue ferrous sulfate + vitamin-C monitor H&H FOBT negative normal B12 and folate. Bladder tumor Underwent cystoscopy, complete Transurethral resection of bladder tumor and fulguration CBI clamped but noted to have recurrent hematuria therefore will continue CBI , persistent bleed due to areas of fulguration and tumor can rebleed. monitor H&H, pathology showed urothelial carcinoma, invasive and papillary, oxycodone for pain Dr. Chris Dimas recommend to consult Oncology for neoadjuvant chemo-with goal to refer to center for radical cystectomy due to large bladder cancer burden, unable to debulk Dr. García>recommend outpatient follow-up for chemotherapy PUD continue PPI HLD statin mood disorder, ?schizophrenia continue paroxetine, quetiapine, amitriptyline, hydroxyzine,and benztropine. No behavioral issues Moderate protein callorie malnutrition. BMI 17.4 continue supplements tobacco abuse continue nicotine patch VTE ppx - SCDs Attending Dr. Wright full code In my clinical judgment, the patient requires continued inpatient hospitalization for the following reasons: Persistent hematuria receiving CBI and need close hematocrit monitoring Total time managing care of this patient today: 40 minutes. Quality Stroke Does the patient have a stroke diagnosis?: No VTE Prior VTE?: No VTE Risk Level:: Medical - moderate - high VTE Device Contraindication: N/A - Device Ordered VTE Drug Contraindication: Treatment Not Indicated
--- NOTE | 2023-07-11 14:51 | P.CDIM_ITS ---
PROVIDER RESPONSE TEXT: To clarify, the appropriate diagnosis supported by the clinical indicators: Acute blood loss anemia QUERY TEXT: PHYSICIAN'S DOCUMENTATION REQUEST Date of Query: 07/11/2023 10:12 AM EST Patient Name: Ezra Elkins Admit Date: 07/01/2023 Dear Jeny Hernandez, A review of the medical record indicates additional documentation may be needed. Please review below and update the documentation accordingly. Clinical Indicators: H&H on 07/10/23: 9.6/31.8 Per Hospitalist Progress Note 07/10/23: Severe GIFTY due to Acute blood loss status post 6 units of packed RBC with appropriate rise in H+H continue ferrous sulfate + vitamin-C monitor H&H Persistent hematuria receiving CBI Based on the above, could you clarify which of the following is the most likely type of anemia you ar e evaluating, treating, and/or monitoring? Acute blood loss anemia Acute blood loss anemia with baseline chronic anemia (specify type) Anemia of chronic disease indicate if neoplastic disease, CKD, or other Chronic iron deficiency anemia due to blood loss Other (explain) Clinically unable to determine (explain) Thank you, Mar Foster RN Use of terms such as suspected, likely, concern for, or probable (associated with a specific diagnosi s that is being evaluated, monitored, or treated as if it exists) are acceptable and can be coded in the inpatient se tting, when documented at the time of discharge. Please use your independent medical judgment in providing your response. THIS QUERY IS PART OF THE PERMANENT MEDICAL RECORD
--- NOTE | 2023-07-11 16:29 | P.PNUR_ITS ---
Subjective Subjective Date of Service: 07/11/23 Interval history: Ezra is a 62 year old male with significant bladder tumor burden s/p cysto fulguration, path high grade, invasive, muscle was not present in specimen. Urine is still bloody, no clots, hb stable, chen removed Recommend - Hem/Onc referral for neoadjuvant chemo which may shrink the tumor with referral to tertiary center for second opinion for possible radical cystectomy Path: Histologic type: Urothelial carcinoma, invasive and papillary Histologic grade: High grade Muscularis propria: Not identified Extent of invasion: Invades lamina propria (subepithelial connective tissue) Physical Exam 2 Vital Signs: Vital Signs: Last Vital Signs Temp 98.0 F 07/11/23 07:34 Pulse 74 07/11/23 07:34 Resp 20 07/11/23 07:34 BP 112/57 L 07/11/23 07:34 Pulse Ox 97 07/11/23 07:34 O2 Del Method Room Air 07/11/23 07:34 O2 Flow Rate 2 07/01/23 23:39 Oxygen Flow Rate 2 07/01/23 13:04 BMI result Body Mass Index 17.4 Const: Other: thin General: no acute distress and well developed Nutritional Appearance: c achectic Orientation/consciousness: patient oriented x3 HEENT: Head: Yes normocephalic and Yes atraumatic Eyes: Conjunctivae: conjunctivae normal Neck: Neck: Yes normal visual inspection Chest: Chest palpation & inspection: normal inspection of the chest Resp: Effort & Inspection: normal respiratory effort Cardio: Rate: regular rate GI: Inspection: Yes normal to inspection Palpation (GI): Soft to palpation : Penis: normal penis Scrotum: scrotum normal Skin: General skin exam: no rashes or lesions noted Neuro: General: patient oriented x3 Extrem: General: No pedal edema Psych: Appearance: grossly normal Affect: normal affect Urology Results Labs 07/11/23 06:47 07/11/23 06:47 Labs: Laboratory Results - last 24 hr 07/11/23 06:47 WBC 8.7 RBC 4.08 L Hgb 10.2 L Hct 34.4 L MCV 84.3 MCH 25.0 L MCHC 29.7 L RDW Not Reportable Plt Count 355 MPV 9.7 Immature Gran % (Auto) 0.3 Neut % (Auto) 62.7 Lymph % (Auto) 25.5 [place] % (Auto) 7.3 Eos % (Auto) 3.6 Baso % (Auto) 0.6 Lymph # (Auto) 2.2 [place] # (Auto) 0.6 Eos # (Auto) 0.3 Baso # (Auto) 0.1 Abs Immat Gran (auto) 0.03 Absolute Neuts (auto) 5.5 Absolute Nucleated RBC 0.000 Nucleated RBC % (auto) 0.0 Sodium 144 Potassium 4.1 Chloride 109 H Carbon Dioxide 31 H Anion Gap 8 L BUN 17 H Creatinine 0.76 Estim Creat Clear Calc 77.3 Estimated GFR > 60 Random Glucose 64 Calcium 8.6 D Lactate Dehydrogenase 238 Carcinoembryonic Ag 7.70 Progress Note: A&P Assessment and plan (1) Gross hematuria: Status: Acute (2) Bladder cancer: Status: Acute Plan Large bladder cancer burden, unable to debulk. s/p cysto 07/05/23-- Fulgurated bleeding areas however, tumors may rebleed. Recommend Oncology evaluation for neoadjuvant chemo-with goal to refer to center for radical cystectomy Hb stable, urine bloody, no clots Chen removed. Start flomax Time Spent With Patient Time: Total time managing care of this patient today ____ minutes. Progress Note: Quality Stroke Does the patient have a stroke diagnosis?: No
--- NOTE | 2023-07-11 16:41 | P.OP_ITS ---
Operative Note Operative Note Date of Service: 07/05/23 Narrative: PREOP DIAGNOSIS: Gross Hematuria, Bladder tumors POSTOP DIAGNOSIS: Gross Hematuria, Bladder tumors PROCEDURE: CYSTOSCOPY TRANSURETHRAL RESECTION and FULGURATION OF BLADDER TUMORS x3, size 2-5 cm, Add - Modified for time- Extended time 120 minutes -Complicated due to size of tumor burden. Anesthesia: General Surgeon Dr. Puckett Indications: Gross hematuria, anemia due to blood loss Findings -- Multiple large bladder tumors, located at the bladder neck at 3 and 9' oclock, right and left lateral wall and posterior wall - with largest tumor greater then 5 cm. The patient received 2 units PRBC's intra op. EBL - 100 mL Details of procedure: The patient was brought into the operating room placed on the OR table in supine position. Antibiotics administered. General anesthesia was administered. The patient was repositioned into lithotomy position, prepped and draped in the usual sterile fashion. Time-out was done per protocol. 2% urojet placed. The 24 Bangladeshi resectoscope under direct visualization with 30 degree lens was passed transurethrally into the bladder. Visualization of the bladder noted about 6 intrinsic papillary bladder tumors located at the bladder neck at 3 and 9' oclock, right and left lateral wall and posterior wall - with largest tumor greater then 5 cm. On visualization there was bleeding noted at the bladder tumor on the posterior bladder wall, right lateral wall and left lateral wall. The tumors at the bladder neck (3 and 9 oclock) were not actively bleeding. The roller ball and loop was used to fulgurate the bleeding areas The loop resectoscope was used to resect the bladder tumor on the posterior wall and right lateral wall to obtain tissue for diagnosis, due to the bleeding, the goal was not to obtain deep resection so muscle was not visualized. There was no evidence of perforation. Once there was good hemostasis the resectoscope was removed. A [address] 30cc balloon with stylet was passed without difficulty. The patient was brought out of anesthesia and taken to recovery in stable condition. Complications: None Drains: [address] catheter 30 cc balloon
[2023-07-11 19:35] VITALS: BP 127/62; PULSE 79; RESP 20; TEMP 37.1; O2SAT 96
[2023-07-11] MEDS: Melatonin 3 MG TABLET 6 MG PO (20:43)
[2023-07-11] MEDS: Famotidine 20 MG TABLET 40 MG PO (20:43)
[2023-07-11] MEDS: QUEtiapine Fumarate 100 MG TABLET PO (20:43)
[2023-07-11] MEDS: 0.9 % Sodium Chloride Flush 3 ML SYRINGE IVFLUSH (20:44)
[2023-07-11] MEDS: Atorvastatin Calcium 40 MG TABLET PO (20:44)
[2023-07-11] MEDS: Tamsulosin HCL 0.4 MG CAPSULE PO (20:44)
[2023-07-11] MEDS: Amitriptyline HCl 50 MG TABLET PO (20:44)
[2023-07-11] MEDS: Acetaminophen 325 MG TABLET 650 MG PO (20:48)
[2023-07-12] MEDS: Omeprazole 20 MG CAPSULE.DR PO (05:51)
[2023-07-12 07:25] VITALS: BP 100/51; PULSE 68; RESP 18; TEMP 36.6; O2SAT 95
[2023-07-12] MEDS: PARoxetine HCL 40 MG TABLET PO (09:05)
[2023-07-12] MEDS: Benztropine Mesylate 1 MG TABLET PO (09:05)
[2023-07-12] MEDS: Ascorbic Acid 250 MG TABLET PO (09:05)
[2023-07-12] MEDS: Ferrous Sulfate 324 MG TABLET.DR PO (09:05)
[2023-07-12] MEDS: Nicotine 14 MG PATCH.TD24 TRANSDERMA (09:05)
[2023-07-12] MEDS: Lipase/Prot/Amylase 24/76/120K 1 CAP CAPSULE.DR PO ×2 (09:05→11:45)
[2023-07-12] MEDS: hydrOXYzine HCL 25 MG TABLET PO (09:06)
--- NOTE | 2023-07-12 09:29 | W.MHC.F2F ---
Service Date Service Date: 07/12/23 Encounter Date of encounter: 07/12/23 Reasons for Services Signs and symptoms assessed: GI bleed, blood loss, bladder tumor Reason for assisted: CV/CP assess and/or care Homebound: Leaving the home is medically contraindicated at this time without the asist of a device and/or another person due th the listed conditions above and below. Reason homebound: unsteady gait / fall risk Certification: Based on the above findings, I certify that this patient is confined to the home and needs intermittent assisted care, physical therapy and/or speech therapy, or continues to need occupational therapy. The patient is under my care, and I have initiated the establishment of the plan of care. The patient will be followed by a physician who will periodically review the plan of care. Time Spent With Patient Time: Total time managing care of this patient today ____ minutes.
--- NOTE | 2023-07-12 09:30 | P.DS_ITS ---
DS: Providers Provider Date of Service: 07/12/23 Date of admission: 07/01/23 15:35 Primary care physician: Marga Garrido MD Consults: 07/01/23 15:44 Consult to Hematology / Oncology Routine Consulting Provider: Claudia García Reason for consultation: IV iron recommendations Consult to Urology Routine Consulting Provider: Maryan Avila Reason for consultation: Hematuria, H&H 2.8/11.4, ?bladder cancer 07/08/23 07:40 Consult to Hematology / Oncology Routine Consulting Provider: Topher Valles Reason for consultation: bladder tumor Has provider been notified: No DS: Diagnosis Discharge Diagnosis (1) Gross hematuria: Status: Acute (2) Bladder cancer: Status: Acute DS: Summary Hospital Course Hospital Course: History and physical as per admitting provider. Pt is a 62-year-old male with a PMH significant for?peptic ulcer disease, IBS, chronic hepatitis-C, GERD, HLD, and anxiety/depression who presents to the ED with low H&H. Pt was seen at [facility] walk-in clinic by Dr. Fer Tran for evaluation of weakness and hematuria for the past few weeks. Point of care hemoglobin was found to be 2.9 and patient was sent to the ED for further evaluation and workup, where H&H was noted to be 2.8/11.4. Pt previously presented to the ED on 02/03/2023 with similar complaints. H&H was found to be 8.4/26.8 and urine was positive for gross hematuria. CT of abdomen and pelvis found multiple lobular soft tissue structures within the urinary bladder measuring up to 3 cm, possibly hemorrhage and/or mass lesions. Pt was scheduled to be admitted to the hospital for further workup but left AMA. Pt is not the greatest of historians, and lacks precise details, but reports he has been experiencing hematuria for a few weeks . Initially hematuria was intermittent and urine would clear for 1-2 days before returning, but lately urine has constantly been red. Patient also complains of generalized weakness, lightheadedness and dizziness with walking, and dysuria the past couple of weeks. Patient reports he lately has only been eating Frosted Flakes cereal without milk, which he admits he is become ?addicted? to. Has a 60+ pack year smoking history; used to smoke 2-3 packs daily for 30+ years, now down to a few cigarettes daily. In the ED pt had relatively stable vital signs with sightly soft BP of 107/55. Labs were significant for severe microcytic anemia of H&H of 2.8/11.4, MCV 54.5, iron 14, % saturation 4%. Urine with gross hematuria, large amount of urine blood, positive for UTI. EKG demonstrated normal sinus rhythm without evidence of ST elevations or depressions. Pt was treated with Protonix, GI cocktail, and transfused 3 units PRBCs. Pt will be admitted to the hospital for treatment and further evaluation of severe symptomatic anemia likely secondary to bladder cancer. 62-year-old man treated for acute GI blood loss secondary to bladder tumor. Patient required a total of 6 units of packed red blood cells with good rise in hemoglobin and hematocrit. He was also treated with iron supplementation. Underwent cystoscopy, complete trans urethral resection of bladder tumor and fulguration, unfortunately the bladder was unable to be debulked. Goal would be for neoadjuvant chemotherapy for eventual radical cystectomy due to large bladder cancer burden. Patient already has a scheduled appointment in 1 week with Oncology. During hospitalization due to blood clots and bleeding he did have CBI, towards the end blood clots had lessened, urology provider removed Vaughn catheter. Recommended continuation of Flomax. Patient aware that he still will have hematuria but should report to his primary care provider or urologist any urinary retention or noticeable blood clots. At this time patient is stable for discharge home with services, he lives with his brother. Hyperlipidemia continue statin Mental health. Continue paroxetine, Seroquel, amitriptyline, hydroxyzine and benztropine Severe moderate protein calorie malnutrition. Brother reports that he only eats cereal. Patient was encouraged to increase protein in his diet. Tobacco use. Treated with nicotine patches while inpatient. Discussed importance of smoking cessation. Time Attestation Discharge coordination time: Greater than 30 minutes Quality: Safe Use of Opioids Does Pt have an Active Cancer Diagnosis on the Problem List?: No Quality: Stroke Does the patient have a stroke diagnosis?: No Physical Exam Vital Signs: Vital Signs: Last Vital Signs Temp 97.9 F 07/12/23 07:25 Pulse 68 07/12/23 07:25 Resp 18 07/12/23 07:25 BP 100/51 L 07/12/23 07:25 Pulse Ox 95 07/12/23 07:25 O2 Del Method Room Air 07/12/23 07:25 O2 Flow Rate 2 07/01/23 23:39 Oxygen Flow Rate 2 07/01/23 13:04 BMI result Body Mass Index 17.4 Appearing in no acute distress, thin and frail head is normocephalic atraumatic eyes pupils are PERRLA sclera is anicteric mouth throat mucous membranes are intact and moist neck is supple no lymphadenopathy, no JVD noted lung sounds are clear to auscultation heart regular rate rhythm, clear S1, S2 positive bowel sounds, abdomen is soft, nontender neuro patient is alert x3, no focal deficits DS: Data Data Completed and Pending Completed studies during hospitalization [Text1]: Pending at discharge 07/05/23 15:42 Surgical [PTH] Routine Labs on day of discharge: Laboratory Results - last 24 hr 07/11/23 06:47 Lactate Dehydrogenase 238 Carcinoembryonic Ag 7.70 Discharge Plan Discharge Anticipated Discharge Date/Time: 07/12/23 09:19 Patient Disposition: Home Health Service Discharge Diagnosis: GI bleed Bladder tumor Protein calorie malnutrition Referrals: Marga Garrido MD [Primary Care Provider] - 1 Week Discharge Medications: New tamsulosin 0.4 mg Capsule 0.4 mg PO BEDTIME Qty: 30 0RF ferrous sulfate 324 mg (65 mg iron) Tablet,Delayed Release (Dr/Ec) 324 mg PO BIDWM Qty: 30 0RF Continued atorvastatin 40 mg tablet 40 mg PO BEDTIME famotidine 40 mg tablet 40 mg PO BEDTIME quetiapine 100 mg tablet 100 mg PO BEDTIME amitriptyline 50 mg tablet 50 mg PO BEDTIME paroxetine HCl 20 mg tablet 40 mg PO DAILY pantoprazole 40 mg tablet,delayed release (DR/EC) 40 mg PO DAILY@0630 benztropine 1 mg tablet 1 mg PO BID hydroxyzine pamoate 25 mg capsule 25 mg PO TID PRN (Reason: Anxiety) Creon 24,000-76,000 -120,000 unit capsule,delayed release(DR/EC) 1 cap PO Q8H Discharge Orders: Discharge Order (Routine); Ordered 07/12/23 Ordered By: Jeny Hernandez Diet: Advance to usual diet Activity on Discharge: As tolerated Stand Alone Forms: Patient Portal Discharge page Care Plan Goals: Increase protein in your diet: Meat, eggs, milk, beans are good sources of protein you can also add protein shakes as well. Health Concerns: GI bleed Bladder tumor Protein calorie malnutrition Plan of Treatment: Follow-up with your oncology appointment scheduled for 1 week from now Follow-up with urologist as needed for urinary retention or increased/worsening bleeding Take all medications as prescribed Assessment: See discharge summary
--- NOTE | 2023-07-12 10:35 | MHC.CM.PN ---
Pt has been medically cleared for DC. CM called pt.'s brother Shady today to confirm that family can pick him up, home care services will be from [facility].
--- NOTE | 2023-07-12 11:59 | PC.NURSE ---
Addendum entered by Ezra Kolb RN 07/12/23 12:20: pt c/o 12/27 bladder pain stating tylenol and ibuprofen has no effect. informed. Original Note: pt bladder scanned for 537ml. pt voided 400ml of dark red urine. informed.
[2023-07-12] MEDS: oxyCODONE HCl Immed Release 5 MG TABLET PO (13:50)
== END 2023-07-12 15:59 | disposition home health service (06) | DRG 446 ==
LOC: HO.ED 14:53 → HO.EDOVER 16:21 → HO.S3 16:45 → HO.IMC 19:49
PROVIDERS: Family Medicine; Hospitalist; Internal Medicine; Internal Medicine Medical Oncology; Urology; Admitting Provider Student in an Organized Health Care Education/Training Program; Emergency Provider Emergency Medicine Emergency Medical Services; PCP Family Medicine; Visit Provider Nurse Practitioner Acute Care
PROC: 0TBB8ZZ Excision of Bladder, Via Natural or Artificial Opening Endoscopic (ICD-10-PCS; principal; 2023-07-05 12:00)
PROC: 0TBB8ZZ Excision of Bladder, Via Natural or Artificial Opening Endoscopic (ICD-10-PCS; 2023-07-05 12:00)
DX: C67.8 Malignant neoplasm of overlapping sites of bladder (principal); I47.20 Ventricular tachycardia, unspecified; E44.0 Moderate protein-calorie malnutrition; E88.A Wasting disease (syndrome) due to underlying condition; D62 Acute posthemorrhagic anemia; F20.9 Schizophrenia, unspecified; E78.5 Hyperlipidemia, unspecified; F32.A Depression, unspecified; F41.9 Anxiety disorder, unspecified; R13.10 Dysphagia, unspecified; K27.9 Peptic ulcer, site unspecified, unspecified as acute or chronic, without hemorrhage or perforation; K21.9 Gastro-esophageal reflux disease without esophagitis; D63.0 Anemia in neoplastic disease; F17.210 Nicotine dependence, cigarettes, uncomplicated; Z68.1 Body mass index [BMI] 19.9 or less, adult; Z71.6 Tobacco abuse counseling; Z79.899 Other long term (current) drug therapy
CPT/HCPCS: 36415; 71260; 74177; 80048; 80053; 81001; 81003; 82272; 82378; 82607; 82728; 82746; 83540; 83615; 83690; 83735; 84132; 84484; 85025; 85027; 85045; 85610; 85730; 86850; 86900; 86901; 86923; 87086; 87502; 87635; 88307; 93005; 93306; 93356; 99285; C1758; C9113; J0690; J0696; J1100; J2250; J2371; J2405; J2704; J3010; P9016; Q9957; Q9967

== ENCOUNTER → 2023-07-01 13:10 | Outpatient (BNV) | payer MEDICAID, SELFPAY | PROVIDERS: Emergency Provider Emergency Medicine Emergency Medical Services; PCP Family Medicine; Visit Provider Internal Medicine Cardiovascular Disease | DX: D64.9 Anemia, unspecified (principal) | CPT/HCPCS: 93010 ==

== ENCOUNTER 2023-07-01 15:35 | Outpatient (BNV) | payer MEDICAID, SELFPAY | END 2023-07-04 07:00 | PROVIDERS: Admitting Provider Student in an Organized Health Care Education/Training Program; Emergency Provider Emergency Medicine Emergency Medical Services; PCP Family Medicine; Visit Provider Internal Medicine | DX: I47.10 Supraventricular tachycardia, unspecified (principal) | CPT/HCPCS: 93306 ==

== ENCOUNTER → 2023-07-01 15:35 | Outpatient (BNV) | payer MEDICAID, SELFPAY | PROVIDERS: Admitting Provider Student in an Organized Health Care Education/Training Program; Emergency Provider Emergency Medicine Emergency Medical Services; PCP Family Medicine; Visit Provider Internal Medicine | DX: C67.8 Malignant neoplasm of overlapping sites of bladder (principal) | CPT/HCPCS: 99222; 99232 ==

== ENCOUNTER → 2023-07-01 15:35 | Outpatient (BNV) | payer MEDICAID, SELFPAY | PROVIDERS: Admitting Provider Student in an Organized Health Care Education/Training Program; Emergency Provider Emergency Medicine Emergency Medical Services; PCP Family Medicine; Visit Provider Urology | DX: R31.0 Gross hematuria (principal); C67.8 Malignant neoplasm of overlapping sites of bladder | CPT/HCPCS: 52240; 99232 ==

== ENCOUNTER → 2023-07-01 15:35 | Outpatient (BNV) | payer MEDICAID, SELFPAY | PROVIDERS: Admitting Provider Student in an Organized Health Care Education/Training Program; Emergency Provider Emergency Medicine Emergency Medical Services; PCP Family Medicine; Visit Provider Student in an Organized Health Care Education/Training Program | DX: R31.0 Gross hematuria (principal); C67.9 Malignant neoplasm of bladder, unspecified | CPT/HCPCS: 99223; 99232; 99233; 99239; G0180 ==

== ENCOUNTER 2023-08-15 19:20 | Emergency (ER) | payer MEDICAID, SELFPAY ==
--- NOTE | ~2023-08-15 | XR_ITS ---
EXAMINATION: XR RIBS, LEFT CLINICAL INFORMATION: Left-sided chest pain. COMPARISON: CT chest 07/02/2023. TECHNIQUE: 3 views of the left ribs were obtained. FINDINGS: Background of emphysema. No consolidation, pneumothorax, or pleural effusion. Normal appearance of the cardiomediastinal silhouette. Osseous structures are unremarkable. Ribs are intact. No fractures are identified. XR/XR ribs LT min 3V w CXR1V IMPRESSION: 1. No acute cardiopulmonary findings. 2. No displaced rib fractures.
[2023-08-15 19:29] VITALS: BP 108/63; BP 118/74; PULSE 80; PULSE 91; RESP 16; TEMP 37.3; O2SAT 98; BMI 15.2
--- NOTE | 2023-08-15 19:37 | MHC.EDTECH ---
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
--- NOTE | 2023-08-15 19:42 | ED_ITS ---
HPI - Chest Pain General Chief Complaint: Chest Pain Stated Complaint: l-sided chest pain,diff breathing Time Seen by Provider: 08/15/23 19:27 Source: patient and EMS Mode of arrival: EMS Limitations: no limitations History of Present Illness HPI narrative: 62-year-old male with past medical history significant for peptic ulcer disease, IBS, chronic hepatitis-C, GERD, anxiety, depression, hematuria due to bladder tumor with anemia that required blood transfusion. Patient presented today for evaluation of left-sided chest pain started at 18:00 while watching TV pain is localized to the left side of the chest with no radiation worsening with taking a deep breath and certain movements, no clear other aggravating or relieving factors, pain is associated with shortness of breath. No known history of atrial fibrillation patient found to be in atrial fibrillation with slow ventricular response today in the emergency department appeared to be new from previous old EKGs. Patient also reported having blood in the urine. Related Data Home Medications Medication Instructions Recorded Confirmed amitriptyline 50 mg tablet 50 mg PO BEDTIME 02/03/23 07/01/23 atorvastatin 40 mg tablet 40 mg PO BEDTIME 02/03/23 07/01/23 benztropine 1 mg tablet 1 mg PO BID 02/03/23 07/01/23 famotidine 40 mg tablet 40 mg PO BEDTIME 02/03/23 07/01/23 hydroxyzine pamoate 25 mg capsule 25 mg PO TID PRN Anxiety 02/03/23 07/01/23 iebxet-[id number]-qrzgihw 1 cap PO Q8H 02/03/23 07/01/23 24,000-76,000-120,000 unit capsule,delayed rel (Creon) pantoprazole 40 mg tablet,delayed 40 mg PO DAILY@0630 02/03/23 07/01/23 release paroxetine HCl 20 mg tablet 40 mg PO DAILY 02/03/23 07/01/23 quetiapine 100 mg tablet 100 mg PO BEDTIME 02/03/23 07/01/23 Previous Rx's Medication Instructions Recorded ferrous sulfate 324 mg (65 mg 324 mg PO BIDWM #30 tabs 07/12/23 iron) tablet,delayed release oxycodone 5 mg tablet 5 mg PO Q8H PRN pain #21 tabs 07/12/23 tamsulosin 0.4 mg capsule 0.4 mg PO BEDTIME #30 caps 07/12/23 Allergies Allergy/AdvReac Type Severity Reaction Status Date / Time haloperidol [From Haldol] Allergy Severe Can't Verified 08/15/23 19:40 breathe Review of Systems 2 Review of Systems: All other systems are reviewed and are negative Constitutional: Reports as per HPI and Reports no additional constitutional complaints Eyes: Reports as per HPI and Reports no additional eye complaints Reports system reviewed and no additional complaints, except as documented Cardiovascular: Reports as per HPI and Reports no additional cardiovascular complaints Respiratory: Reports as per HPI and Reports no additional respiratory complaints Gastrointestinal: Reports as per HPI and Reports no additional gastrointestinal complaints Genitourinary: Reports no additional female genitourinary complaints Musculoskeletal: Reports no additional musculoskeletal complaints Skin/Breast: Reports system reviewed and no additional complaints, except as docu Psychiatric: Reports no additional psychiatric complaints Endocrine: Reports no additional endocrine complaints Hematologic/Lymphatic: Reports no additional hematologic/lymphatic complaints Allergic/Immunologic: Reports no additional allergic/immunologic complaints Reports system reviewed and no additional complaints, except as documented and Reports Abnormal speech present [facility] Past Medical History Medical History Microcytic anemia Smoker HLD (hyperlipidemia) Chronic headaches MDD (major depressive disorder) Social History Social History Household Members: Family Housing: Apartment Do you presently have visiting nurse or other home services: No Unable to assess alcohol history related to: Unknown Alcohol intake: never Patient Tobacco Use Status: Current everyday Tobacco user Tobacco use type: Cigarette Cigarette Packs Per Day: 0.5 Smoked in Last 30 Days: No Use of substances other than those prescribed or required for medical reasons: No Advance Directives: Yes Advance Directives on File: Yes Advance Directives Date on File: 07/01/23 service: No Current occupational status: disabled Physical Exam 2 Vital Signs: Vital Signs: Last Vital Signs Temp 98.2 F 08/15/23 23:43 Pulse 77 08/15/23 23:43 Resp 16 08/15/23 23:43 BP 100/65 08/15/23 23:43 Pulse Ox 97 08/15/23 23:43 O2 Del Method Room Air 08/15/23 23:43 BMI result Body Mass Index 15.2 Vital signs have been reviewed and appear to be correct. Blood pressure elevated. Heart rate normal. Respiratory rate normal. Temperature normal. Oxygen saturation normal. Appearance: Alert. Oriented X3. No acute distress. Head: Normal external exam. Normocephalic. Atraumatic. No Anderson signs noted. No raccoon eyes noted Eyes: PERRLA. EOMI. Conjunctiva and sclera normal. Eyelids normal. ENT: TM's Normal. Pharynx normal. Uvula midline. Moist mucous membranes. No trismus noted. No drooling noted. No muffled voice noted. Neck: Normal inspection. Neck supple. FROM. No adenopathy. Thyroid Normal. No meningeal signs. No neck mass noted. CVS: Normal heart rate and rhythm. Heart sound normal. No murmurs noted. Pulses normal throughout. Respiratory: No respiratory distress. Painless inspiration. Breath sounds normal. No wheezes/rales/rhonchi noted. Chest nontender. No accessory muscle usage noted or decreased air movement noted. Abdomen: Soft and nontender. Bowel sounds normal in all 4 quadrants. No distention noted. No organomegaly noted. No visible injury noted. Back: No CVA tenderness. Full range of motion noted. Skin: Skin warm and dry. Normal skin color. Normal skin turgor. No rashes/lesions/lacerations noted. Extremities: No lower extremity edema. Extremities exhibit normal range of motion. Extremities nontender. Neuro: Oriented X 3. Cranial nerve exam: II-XII are grossly intact No motor deficit. No sensory deficit. Reflexes normal. Course Reevaluation(s) Reevaluation #1: 62-year-old male came in for evaluation of left-sided chest pain patient had unremarkable EKG with normal troponin x2, patient also is a low risk for pulmonary embolism/ DVT with negative D-dimer, chest x-ray is unremarkable. Patient was reassured and will discharge home to follow-up with PCP. Patient feels good, tolerated p.o. intake while he is in the emergency department. Time: 01:40 Medical Decision Making Differential Diagnosis Differential Diagnoses: The differential diagnosis associated with the presentation includes ( pulmonary embolism, ACS, pneumonia, pneumothorax, pleural effusion, electrolyte abnormality, severe anemia.) Admission/Observation Consideration of admission/observation: Escalation of care including admission/observation considered Lab Data MDM Lab Attestation statement: I reviewed the patient's lab results. 08/15/23 20:09 08/15/23 20:09 Labs: Lab Results 08/15/23 08/16/23 Range/Units 20:09 00:44 WBC 11.4 H (4.8-10.8) X10*3/uL RBC 4.12 L (4.60-5.80) X10*6/uL Hgb 10.5 L (14.0-18.0) g/dl Hct 33.1 L (42.0-52.0) % MCV 80.3 (80.0-98.0) fL MCH 25.5 L (27.0-33.0) pg MCHC 31.7 (31.0-36.0) g/dl RDW TNP Plt Count 272 (160-400) X10*3/uL MPV 9.0 L (9.4-12.4) fL Immature Gran % (Auto) 0.3 (0.0-0.4) % Neut % (Auto) 76.3 H (45-73) % Lymph % (Auto) 14.0 L (20-40) % Moore % (Auto) 5.5 (2-11) % Eos % (Auto) 3.6 (0-4) % Baso % (Auto) 0.3 (0-2) % Lymph # (Auto) 1.6 (1.2-4.9) X10*3/uL Moore # (Auto) 0.6 (0.1-1.2) X10*3/uL Eos # (Auto) 0.4 (0.0-0.4) X10*3/uL Baso # (Auto) 0.0 (0.0-0.2) X10*3/uL Abs Immat Gran (auto) 0.03 (0.00-0.03) X10*3/uL Absolute Neuts (auto) 8.7 H (2.0-8.3) x10*3/uL Absolute Nucleated RBC 0.000 (0.0-0.012) X10*3/uL Nucleated RBC % (auto) 0.0 (0.0-0.2) /100WBC D-Dimer High Sensitivty 221 NG/ML Sodium 142 (135-145) mmol/L Potassium 3.4 (3.3-5.1) mmol/L Chloride 108 (96-108) mmol/L Carbon Dioxide 27 (22-29) mmol/L Anion Gap 10 L (12-20) BUN 21 H (9-16) mg/dL Creatinine 0.90 (0.5-1.4) mg/dL Estim Creat Clear Calc 57.1 Estimated GFR > 60 Random Glucose 88 (60-115) mg/dL Calcium 9.2 D (8.4-10.2) mg/dL Total Bilirubin 0.2 (0.0-1.0) mg/dL Direct Bilirubin < 0.2 (0.0-0.5) mg/dL AST 18 (5-37) U/L ALT 12 (0-40) U/L Alkaline Phosphatase 95 (39-117) U/L Troponin I High Sens < 2.7 D < 2.7 (<3.5-35.0) ng/L B-Natriuretic Peptide < 10 (<100) pg/mL Total Protein 6.9 (6.5-8.0) g/dL Albumin 3.7 (3.5-5.0) g/dL Lipase 6 L (8-78) U/L Influenza Type A (PCR) NEGATIVE (Negative) Influenza Type B (PCR) NEGATIVE (Negative) RSV RNA Qual (PCR) NEGATIVE (Negative) SARS-CoV-2 RNA (RT-PCR) NEGATIVE (Negative) Independent Interpretation I performed an independent interpretation of an: Plain X-Ray ( chest: No acute cardiopulmonary disease, no displaced rib fracture.) Radiology Impression Discussion of test interpretation with radiology: I have reviewed the radiologist's reading. Scores Heart Score History: -0- slightly suspicious ECG: -0- normal Age: -1- >45 - <65 Risk factory: -1- 1 or 2 risk factors Troponin: -0- < or = normal limit Score: 2 Risk: 1.7% Discharge Plan Discharge Clinical Impression: Chest pain Patient Disposition: Home, Self-Care Instructions: Chest Pain (ED) Prescriptions: No Action atorvastatin 40 mg tablet 40 mg PO BEDTIME famotidine 40 mg tablet 40 mg PO BEDTIME quetiapine 100 mg tablet 100 mg PO BEDTIME amitriptyline 50 mg tablet 50 mg PO BEDTIME paroxetine HCl 20 mg tablet 40 mg PO DAILY pantoprazole 40 mg tablet,delayed release (DR/EC) 40 mg PO DAILY@0630 benztropine 1 mg tablet 1 mg PO BID hydroxyzine pamoate 25 mg capsule 25 mg PO TID PRN (Reason: Anxiety) Creon 24,000-76,000 -120,000 unit capsule,delayed release(DR/EC) 1 cap PO Q8H tamsulosin 0.4 mg Capsule 0.4 mg PO BEDTIME Qty: 30 0RF ferrous sulfate 324 mg (65 mg iron) Tablet,Delayed Release (Dr/Ec) 324 mg PO BIDWM Qty: 30 0RF oxycodone 5 mg tablet 5 mg PO Q8H PRN (Reason: pain) Qty: 21 0RF Rx Instructions: Partial Fill upon patient request. Referrals: [place],[facility] [Primary Care Provider] -
[2023-08-15 20:00] VITALS: PULSE 72
[2023-08-15 20:16] LABS: MANUAL DIFF FLAG NO
[2023-08-15 20:24] LABS: D Dimer High Sensitivity 221 NG/ML
[2023-08-15 20:25] LABS: Basophils Percent Auto 0.3 % (0-2); Eosinophils Absolute Auto 0.4 X10*3/uL (0.0-0.4); Eosinophils Percent Auto 3.6 % (0-4); Hematocrit 33.1 % (42.0-52.0); Hemoglobin 10.5 g/dl (14.0-18.0); Imm Gran Abs Auto 0.03 X10*3/uL (0.00-0.03); Imm Gran Pct Auto 0.3 % (0.0-0.4); Lymphocytes Absolute Auto 1.6 X10*3/uL (1.2-4.9); Mean Corpuscular HGB Conc 31.7 g/dl (31.0-36.0); Mean Corpuscular Hemoglobin 25.5 pg (27.0-33.0); Mean Corpuscular Volume 80.3 fL (80.0-98.0); Monocytes Absolute Auto 0.6 X10*3/uL (0.1-1.2); Monocytes Percent Auto 5.5 % (2-11); Neutrophils Absolute Auto 8.7 x10*3/uL (2.0-8.3); Neutrophils Percent Auto 76.3 % (45-73); Platelet Count 272 X10*3/uL (160-400); Red Blood Count 4.12 X10*6/uL (4.60-5.80); White Blood Count 11.4 X10*3/uL (4.8-10.8)
[2023-08-15 20:35] LABS: Alanine Aminotransferase 12 U/L (0-40); Albumin Level 3.7 g/dL (3.5-5.0); Alkaline Phosphatase 95 U/L (39-117); Anion Gap 10 (12-20); Aspartate Amino Transferase 18 U/L (5-37); Bilirubin Direct < 0.2 mg/dL (0.0-0.5); Bilirubin Total 0.2 mg/dL (0.0-1.0); Blood Urea Nitrogen 21 mg/dL (9-16); Calcium 9.2 mg/dL (8.4-10.2); Carbon Dioxide 27 mmol/L (22-29); Chloride 108 mmol/L (96-108); Creatinine Clr Calc Pharmacy 57.1; Estimated Glomerular Filt Rate > 60; Glucose Random 88 mg/dL (60-115); Lipase 6 U/L (8-78); Potassium 3.4 mmol/L (3.3-5.1); Sodium 142 mmol/L (135-145); Total Protein 6.9 g/dL (6.5-8.0)
[2023-08-15 20:40] LABS: B Type Natriuretic Peptide < 10 pg/mL (<100)
[2023-08-15 20:45] LABS: Troponin-I High Sensitivity < 2.7 ng/L (<3.5-35.0)
[2023-08-15 20:55] LABS: Influenza A PCR NEGATIVE (Negative); Influenza B PCR NEGATIVE (Negative); Resp Syncy Virus RNA Qual PCR NEGATIVE (Negative); SARS COV2 PCR INHOUSE NEGATIVE (Negative)
[2023-08-15 22:38] VITALS: BP 109/59; PULSE 79; RESP 16; TEMP 37.1; O2SAT 97
[2023-08-15 23:43] VITALS: BP 100/65; PULSE 77; RESP 16; TEMP 36.8; O2SAT 97
--- NOTE | 2023-08-16 00:52 | MHC.EDTECH ---
PATIENT REPEATED TROP DRAWN AND SENT TO LAB .
[2023-08-16 01:08] LABS: Troponin-I High Sensitivity < 2.7 ng/L (<3.5-35.0)
[2023-08-16 01:44] VITALS: BP 109/54; PULSE 81; RESP 16; TEMP 36.2; O2SAT 97
== END 2023-08-16 01:53 | disposition home or self-care (01) ==
PROVIDERS: Emergency Provider Emergency Medicine
DX: R07.9 Chest pain, unspecified (principal); Z11.52 Encounter for screening for COVID-19; Z20.828 Contact with and (suspected) exposure to other viral communicable diseases
CPT/HCPCS: 0241U; 36415; 71101; 80048; 80076; 83690; 83880; 84484; 85025; 85379; 99283; 99285

== ENCOUNTER 2023-08-17 13:35 | Outpatient (AMB) | payer MEDICAID, SELFPAY ==
--- NOTE | 2023-08-17 13:40 | A.OFFVIS_ITS ---
Intake Intake Visit Reasons: bladder mas/ ER follow up Intake Note: Patient presents today for a follow-up Meds- Tamsulosin Allergies to Antibiotic- No Known Allergies Blood Thinner- None Account Development Associate Required: No Accompanied by: Self / Same As Patient Allergies haloperidol [From Haldol] Allergy (Severe, Verified 08/17/23 14:01) Can't breathe Medication List - Last Reconciled 08/17/23 by Ori Whitehead MD amitriptyline 50 mg PO BEDTIME atorvastatin 40 mg PO BEDTIME benztropine 1 mg PO BID famotidine 40 mg PO BEDTIME ferrous sulfate 324 mg PO BIDWM hydroxyzine pamoate 25 mg PO TID PRN [id number]-[id number]-ridnlxk 24,000-76,000 -120,000 unit (Creon) 1 cap PO Q8H oxycodone 10 mg PO Q6H PRN pantoprazole 40 mg PO DAILY@0630 paroxetine HCl 40 mg PO DAILY quetiapine 100 mg PO BEDTIME tamsulosin 0.4 mg PO BEDTIME HPI HPI Comments History of Present Illness Details Ezra is a pleasant male. He is a patient of [facility]. He seen for the following urologic conditions - invasive bladder cancer Discussion today regarding treatment invasive bladder cancer Will be necessary to repeat TURBT to complete debulking of tumor Given his current status is non operative candidate for cystectomy Recommendation for chemoradiation Referral to [facility] for combination chemoradiation Plan to repeat TURBT Bladder cancer invasive 07/13 High-grade, invasive bladder cancer Diagnosed with TURBT June 2023 Initial presentation through emergency room and lesions found on CT scan imaging No distant disease seen on initial imaging Long-term smoker No work place exposures Chronic hepatitis-C PFSH Medical History Microcytic anemia Smoker HLD (hyperlipidemia) Chronic headaches MDD (major depressive disorder) Social History Household Members: Family Housing: Apartment Do you presently have visiting nurse or other home services: No Unable to assess alcohol history related to: Unknown Alcohol intake: never Patient Tobacco Use Status: Current everyday Tobacco user Tobacco use type: Cigarette Cigarette Packs Per Day: 0.5 Advance Directives Date on File: 07/01/23 service: No Current occupational status: disabled Review of Systems Const Denies chills and Denies fever(s) Card Reports no additional complaints and Denies syncope Resp Denies cough GI Denies abdominal pain and Denies heartburn Reports as per HPI and Denies change in libido Neuro Denies syncope Psych Denies change in libido Endo Denies change in libido Physical Exam Const General: cooperative, healthy appearing, comfortable and no acute distress Orientation/consciousness: patient oriented x3 HEENT Face and sinus: Yes normal facial exam Mouth: moist mucous membranes Neck Neck: Yes normal visual inspection, Yes full ROM and Yes trachea midline Chest Chest palpation & inspection: normal inspection of the chest Resp Effort & Inspection: normal respiratory effort, able to speak in complete sentences and no respiratory distress GI Inspection: Yes normal to inspection Back/Spine/Pelvis Cervical Spine: normal cervical lordosis Thoracic/Lumbar Spine: thoracic and lumbar spine normal to inspection Skin General skin exam: no rashes or lesions noted Neuro General: patient oriented x3, gait normal, tone normal and moves all extremities Extrem General: Yes normal to inspection and Yes capillary refill normal Assessment & Plan Assessment & Plan (1) Bladder cancer: Comment: Invasive, high-grade Code(s): C67.9 - Malignant neoplasm of bladder, unspecified Plan Referral to Radiation Oncology/Medical Oncology [facility] for chemoradiation assessment for invasive bladder cancer Repeat TURBT Risks, benefits and alternatives to therapy were discussed. These include but are not limited to infection, bleeding, damage to local organs and tissues, need for further interventions. Anesthetic risks regarding cardiac arrhythmia, blood clots, and potential mortality were discussed. The patient understands the typical recovery time and the outpatient nature of the procedure. After consideration of these risks the patient gives full informed consent and they wish to move ahead with the procedure. Orders: Orders AMB Urinalysis Automated Today R33.9 - Retention of urine, unspecified Urine Cytology Today C67.9 - Malignant neoplasm of bladder, unspecified Referrals Radiation Oncology Referral C67.9 - Malignant neoplasm of bladder, unspecified Hematology & Oncology Referral C67.9 - Malignant neoplasm of bladder, unspecified Patient Instructions: Imaging studies, laboratory and physical exam results were discussed and reviewed in detail. No major barriers to patient understanding were identified. An opportunity to ask questions regarding the treatment plan was provided. All questions were answered. The patient expressed understanding and agreement with the above treatment plan. The patient is aware they should contact our office by phone for worsening of their current condition or the appearance of new urologic symptoms. Compliance is encouraged with any medications and followup testing that is ordered. It is a privilege to participate in the urologic care of your patient. If you have any questions or concerns regarding treatment for the above conditions, or other urologic issues, please do not hesitate to contact me. The office telephone contact is [phone]. This note is constructed using voice recognition software. 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 Yours sincerely, Dr rOi Whitehead MD, [facility] - Urology Providers of Expert, Compassionate Care for the Genitourinary System Coding Level of Care Code Est Pt Level 4 (76906) Diagnoses Bladder cancer C67.9
== END 2023-08-17 14:24 | disposition home or self-care (01) ==
LOC: HO.HUSH 13:36
PROVIDERS: Visit Provider Urology
DX: C67.9 Malignant neoplasm of bladder, unspecified (principal)
CPT/HCPCS: 99213

== ENCOUNTER 2023-08-17 13:35 | Outpatient (REF) | payer MEDICAID, SELFPAY | END 2023-08-17 13:36 | disposition home or self-care (01) | LOC: HO.LAB 13:35 | PROVIDERS: Visit Provider Urology | DX: C67.9 Malignant neoplasm of bladder, unspecified (principal) | CPT/HCPCS: 99212 ==

== ENCOUNTER 2023-08-26 14:21 | Outpatient (REF) | payer MEDICAID, SELFPAY ==
--- NOTE | ~2023-08-26 | XR_ITS ---
EXAMINATION: XR THORACOLUMBAR SPINE CLINICAL INFORMATION: Acute midline thoracic pain after fall COMPARISON: None available. TECHNIQUE: 4 view thoracic spine FINDINGS: Normal alignment. Vertebral bodies and intervertebral discs are maintained in height. Pedicles and visualized ribs are unremarkable. No focal paravertebral soft tissue swelling seen. Visualized heart, mediastinum and lung gardner within normal limits. XR/XR thoracic spine 2V IMPRESSION: No acute bony pathology.
== END 2023-08-26 14:22 | disposition home or self-care (01) ==
LOC: HO.HHCX 14:21
PROVIDERS: Visit Provider Student in an Organized Health Care Education/Training Program
DX: M54.6 Pain in thoracic spine (principal)
CPT/HCPCS: 72070

== ENCOUNTER 2023-09-06 08:45 | Day surgery (SDC) | payer MEDICAID, SELFPAY ==
--- NOTE | 2023-09-05 09:19 | HO.ANESPROP2 ---
Documented by User: Katelynn Olvera NP 09/05/23 09:21 HPI - Anesthesia Eval Consult details Narrative: 62yo M for TUR Bladder Tumor s/p same 06/2023 with GA-LMA 4 PMFSH Active Problems Active Problems: All Active Problems (Updated 08/17/23 @ 14:23 by Ori Whitehead MD) Bladder cancer (Acute) Weight loss (Acute) Hard of hearing (Acute) Chronic hepatitis C (Acute) Colon cancer screening (Acute) IBS (irritable bowel syndrome) (Acute) Gallstones (Acute) History of peptic ulcer disease (Acute) Epigastric pain (Acute) Past Medical History Medical History HLD (hyperlipidemia) Microcytic anemia Smoker Chronic headaches MDD (major depressive disorder) Family History Family history of problems with anesthesia: No Surgical History Surgical History Hx of cystoscopy History of Problems with Anesthesia: No Social History Social History Household Members: Family Housing: Apartment Do you presently have visiting nurse or other home services: No Unable to assess alcohol history related to: Unknown Alcohol intake: never Patient Tobacco Use Status: Current everyday Tobacco user Tobacco use type: Cigarette Cigarette Packs Per Day: 0.5 Advance Directives: No Advance Directives Information Provided: Yes Advance Directives Date on File: 07/01/23 service: No Current occupational status: disabled Meds Allergies Allergy/AdvReac Type Severity Reaction Status Date / Time haloperidol [From Haldol] Allergy Severe Can't Verified 08/17/23 14:01 breathe Home Medications Medication Instructions Recorded Confirmed Last Taken Type amitriptyline 50 mg tablet 50 mg PO BEDTIME 02/03/23 09/02/23 1 Week Ago History ~06/24/23 atorvastatin 40 mg tablet 40 mg PO BEDTIME 02/03/23 09/02/23 1 Week Ago History ~06/24/23 benztropine 1 mg tablet 1 mg PO BID 02/03/23 09/02/23 1 Week Ago History ~06/24/23 famotidine 40 mg tablet 40 mg PO BEDTIME 02/03/23 09/02/23 1 Week Ago History ~06/24/23 hydroxyzine pamoate 25 mg capsule 25 mg PO TID PRN Anxiety 02/03/23 09/02/23 1 Week Ago History ~06/24/23 jporxu-[id number]-[id number] 1 cap PO Q8H 02/03/23 09/02/23 1 Week Ago History 24,000-76,000-120,000 unit ~06/24/23 capsule,delayed rel (Creon) pantoprazole 40 mg tablet,delayed 40 mg PO DAILY@0630 02/03/23 09/02/23 1 Week Ago History release ~06/24/23 paroxetine HCl 20 mg tablet 40 mg PO DAILY 02/03/23 09/02/23 1 Week Ago History ~06/24/23 quetiapine 100 mg tablet 100 mg PO BEDTIME 02/03/23 09/02/23 1 Week Ago History ~06/24/23 oxycodone 10 mg tablet 10 mg PO Q6H PRN severe pain 08/17/23 09/02/23 Unknown History Exam Height,Weight and Vital Signs: Height 5 ft 10 in Pertinent Lab Results Pertinent Lab Results: Laboratory Tests 08/15/23 20:09 WBC 11.4 H Hgb 10.5 L Hct 33.1 L Plt Count 272 Sodium 142 Potassium 3.4 Chloride 108 Carbon Dioxide 27 BUN 21 H Creatinine 0.90 Narrative Narrative: EKG 07/2023 NSR @ 76 ECHO 06/2023 Conclusions: - The left ventricular systolic function is normal. The calculated ejection fraction is 61% by biplane method. - No obvious valvular pathology seen on this study. Assessment and Plan Assessment Anesthesia Assessment: Chart Reviewed Final Anesthetic Review Family History of Problems with Anesthesia: No History of Problems with Anesthesia: No Documented by User: Denisha Terry MD 09/06/23 09:35 PMFSH Past Medical History Medical History HLD (hyperlipidemia) Microcytic anemia Smoker Chronic headaches MDD (major depressive disorder) Surgical History Surgical History Hx of cystoscopy Social History Social History Household Members: Family Housing: Apartment Do you presently have visiting nurse or other home services: No Unable to assess alcohol history related to: Unknown Alcohol intake: never Patient Tobacco Use Status: Current everyday Tobacco user Tobacco use type: Cigarette Cigarette Packs Per Day: 0.5 Advance Directives: No Advance Directives Information Provided: Yes Advance Directives Date on File: 07/01/23 service: No Current occupational status: disabled Meds Allergies Allergy/AdvReac Type Severity Reaction Status Date / Time haloperidol [From Haldol] Allergy Severe Can't Verified 08/17/23 14:01 breathe Home Medications Medication Instructions Recorded Confirmed Last Taken Type amitriptyline 50 mg tablet 50 mg PO BEDTIME 02/03/23 09/02/23 1 Week Ago History ~06/24/23 atorvastatin 40 mg tablet 40 mg PO BEDTIME 02/03/23 09/02/23 1 Week Ago History ~06/24/23 benztropine 1 mg tablet 1 mg PO BID 02/03/23 09/02/23 1 Week Ago History ~06/24/23 famotidine 40 mg tablet 40 mg PO BEDTIME 02/03/23 09/02/23 1 Week Ago History ~06/24/23 hydroxyzine pamoate 25 mg capsule 25 mg PO TID PRN Anxiety 02/03/23 09/02/23 1 Week Ago History ~06/24/23 mlgeev-wctgapqt-rbndjeg 1 cap PO Q8H 02/03/23 09/02/23 1 Week Ago History 24,000-76,000-120,000 unit ~06/24/23 capsule,delayed rel (Creon) pantoprazole 40 mg tablet,delayed 40 mg PO DAILY@0630 02/03/23 09/02/23 1 Week Ago History release ~06/24/23 paroxetine HCl 20 mg tablet 40 mg PO DAILY 02/03/23 09/02/23 1 Week Ago History ~06/24/23 quetiapine 100 mg tablet 100 mg PO BEDTIME 02/03/23 09/02/23 1 Week Ago History ~06/24/23 oxycodone 10 mg tablet 10 mg PO Q6H PRN severe pain 08/17/23 09/02/23 Unknown History Exam Airway Mallampati Class: II TM Dist: >3cm Neck ROM: Full Heart: rrr Lungs: cta Assessment and Plan Assessment Anesthesia Assessment: Anesthesia Plan Discussed Final Anesthetic Review NPO: Yes ASA Class: III Final Preanesthetic Review: No Changes in Pt Med Stat, Meds/Allgs Chart Reviewed, Consent Obtained/Reviewed and Anes Risks/Benef Reviewed Patient Risk: Intermediate Procedure Risk: Intermediate Anesthetic Plan Anesthetic Plan: GA Disposition: Standard PACU
[2023-09-06] VITALS (10 sets, daily range): BP systolic 84–113; BP diastolic 46–71; PULSE 81–100; RESP 16–18; TEMP 35.9–36.5; O2SAT 97–100; BMI 15.4
[2023-09-06] MEDS: Lactated Ringers 1,000 ML 100 ML IVCONT (10:21)
--- NOTE | 2023-09-06 10:23 | PC.NURSE ---
1000 Dr. Terry, anesthesiologist at bedside for consent. Made aware of pt bp 84/46 on left upper arm and 85/54 on rightg upper arm. pt c/o feeling weak , constantly jittery (denies rereational drugs. states he is nervous), alert and oriented to person, place, date and time but not to situation. knows he is here for a procedure but does not know what procedure is. States he is very forgetful (not new). iv started #20 r f/a first stick, iv infusing @ [facility].
--- NOTE | 2023-09-06 10:29 | PC.NURSE ---
Dr. Chris Fregoso at bedside. recycle bp 91/61.
[2023-09-06] MEDS: Lactated Ringers 1,000 ML 999 ML IV (10:35)
--- NOTE | 2023-09-06 10:38 | PC.NURSE ---
call to phlebotomy made for stat labs and type & screen, as ordered. Order given per Dr. Terry for LR 1000ml IV bolus to infuse, infusing as ordered.
[2023-09-06 11:14] LABS: Hematocrit 35.2 % (42.0-52.0); Mean Corpuscular HGB Conc 31.3 g/dl (31.0-36.0); Mean Corpuscular Volume 83.2 fL (80.0-98.0); Mean Platelet Volume 8.9 fL (9.4-12.4); Platelet Count 263 X10*3/uL (160-400); Red Blood Count 4.23 X10*6/uL (4.60-5.80); Red Cell Distribution Width 18.9 % (11.0-16.0); White Blood Count 6.8 X10*3/uL (4.8-10.8)
--- NOTE | 2023-09-06 11:28 | MHC.SHP ---
Pre-Procedural Eval Section A - 24 Hr Update-Section A only Date of Service: 09/06/23 The patient is an INPATIENT: No The patient has been examined within 24 hours of the surgical procedure. The History & Physical has been completed within 30 days and I have reviewed it.: Yes Section B - Complete if H&P > 30 days Chief Complaint: Malignant neoplasm of bladder, unspecified Allergies: Allergies Allergy/AdvReac Type Severity Reaction Status Date / Time haloperidol [From Haldol] Allergy Severe Can't Verified 08/17/23 14:01 breathe Plan Diagnosis/Plan: Unchanged I have reviewed the history and physical and performed a pertinent physical examination on my patient. No changes have occurred unless specified. Cystoscopy Transurethral resection bladder tumor. Discussed risks to include but not limited to, blood in the urine, burning with urination, urgency. Time Spent With Patient Time: Total time managing care of this patient today ____ minutes.
[2023-09-06] MEDS: Phenazopyridine HCL 200 MG TABLET PO (14:53)
--- NOTE | 2023-09-06 16:01 | P.OP_ITS ---
Operative Note Operative Note Date of Service: 09/06/23 Narrative: PREOP DIAGNOSIS: Gross Hematuria, Bladder cancer POSTOP DIAGNOSIS: Gross Hematuria, Bladder cancer PROCEDURE: CYSTOSCOPY TRANSURETHRAL RESECTION and FULGURATION OF BLADDER TUMORS Add - Modified for time- Extended time 90 minutes -Complicated due to multiple tumors and size of tumor burden. Anesthesia: General Surgeon Dr. Puckett Indications: Repeat cystoscopy TURBT for debulking of large bladder tumor burden Findings -- Multiple large bladder tumors, located at the bladder neck at 3 and 9' oclock, right and left lateral wall and posterior wall - tumor burden - greater then 5 cm. Details of procedure: The patient was brought into the operating room placed on the OR table in supine position. Antibiotics administered. General anesthesia was administered. The patient was repositioned into lithotomy position, prepped and draped in the usual sterile fashion. Time-out was done per protocol. 2% urojet placed. The 24 [place] resectoscope under direct visualization with 30 degree lens was passed transurethrally into the bladder. Visualization of the bladder noted about multiple intrinsic papillary bladder tumors located at the bladder neck at 3 and 9' oclock, right lateral wall posterior to the trigone and left posterior lateral wall - with largest tumor greater then 5 cm. The loop was used to debulk the bladder tumors. Resection was not deep into the muscle. The rollerball attachment alternating with the loop was used for hemostasis in the bleeding areas. Once there was good hemostasis the resectoscope was removed. A chen was passed without difficulty. The patient was brought out of anesthesia and taken to recovery in stable condition. Complications: None Drains: chen catheter
== END 2023-09-06 15:48 | disposition home or self-care (01) ==
PROVIDERS: Anesthesiology; PCP Family Medicine; Visit Provider Urology
PROC: 0TBB8ZZ Excision of Bladder, Via Natural or Artificial Opening Endoscopic (ICD-10-PCS; CPT 52240; principal; 2023-09-06 10:40)
DX: C67.5 Malignant neoplasm of bladder neck (principal); C67.2 Malignant neoplasm of lateral wall of bladder; C67.4 Malignant neoplasm of posterior wall of bladder; R31.0 Gross hematuria; D50.9 Iron deficiency anemia, unspecified; E78.5 Hyperlipidemia, unspecified; R51.9 Headache, unspecified; F32.A Depression, unspecified; Z79.899 Other long term (current) drug therapy; Z88.8 Allergy status to other drugs, medicaments and biological substances; F17.210 Nicotine dependence, cigarettes, uncomplicated
CPT/HCPCS: 52240; 36415; 85027; 86850; 86900; 86901; 87086; 88307; J0131; J0690; J1170; J2250; J2371; J2704; J3010

== ENCOUNTER → 2023-09-06 08:45 | Outpatient (BNV) | payer MEDICAID, SELFPAY | PROVIDERS: PCP Family Medicine; Visit Provider Urology | DX: C67.8 Malignant neoplasm of overlapping sites of bladder (principal) | CPT/HCPCS: 52240 ==

== ENCOUNTER 2023-09-07 14:07 | Emergency (ER) | payer MEDICAID, SELFPAY ==
[2023-09-07] VITALS (8 sets, daily range): BP systolic 90–113; BP diastolic 48–69; PULSE 77–122; RESP 14–20; TEMP 36.7–37.2; O2SAT 92–98; BMI 13.9
--- NOTE | 2023-09-07 14:45 | ED.GENADULT ---
HPI - General Adult General Chief complaint: Altered Mental Status Stated complaint: Dizziness, chills Time Seen by Provider: 09/07/23 14:54 Source: patient Mode of arrival: ambulatory Limitations: no limitations History of Present Illness HPI narrative: Patient comes to emergency room complaining of weakness and feeling lightheaded. Patient states that yesterday he had TURP here at [facility]. Patient states that he has been eating and drinking okay, denies fever chills, mild abdominal discomfort. Related Data Home Medications Medication Instructions Recorded Confirmed amitriptyline 50 mg tablet 50 mg PO BEDTIME 02/03/23 09/07/23 atorvastatin 40 mg tablet 40 mg PO BEDTIME 02/03/23 09/07/23 benztropine 1 mg tablet 1 mg PO BID 02/03/23 09/07/23 famotidine 40 mg tablet 40 mg PO BEDTIME 02/03/23 09/07/23 hydroxyzine pamoate 25 mg capsule 25 mg PO TID PRN Anxiety 02/03/23 09/07/23 [id number] 1 cap PO Q8H 02/03/23 09/07/23 24,000-76,000-120,000 unit capsule,delayed rel (Creon) pantoprazole 40 mg tablet,delayed 40 mg PO DAILY@0630 02/03/23 09/07/23 release paroxetine HCl 20 mg tablet 40 mg PO DAILY 02/03/23 09/07/23 quetiapine 100 mg tablet 100 mg PO BEDTIME 02/03/23 09/07/23 oxycodone 10 mg tablet 10 mg PO Q6H PRN severe pain 08/17/23 09/07/23 Previous Rx's Medication Instructions Recorded ferrous sulfate 324 mg (65 mg 324 mg PO BIDWM #30 tabs 07/12/23 iron) tablet,delayed release tamsulosin 0.4 mg capsule 0.4 mg PO BEDTIME #30 caps 07/12/23 phenazopyridine 200 mg tablet 200 mg PO Q8H PRN urinary burning 09/06/23 (Pyridium) #20 tabs Allergies Allergy/AdvReac Type Severity Reaction Status Date / Time haloperidol [From Haldol] Allergy Severe Can't Verified 09/07/23 14:51 breathe Review of Systems Review of Systems: Constitutional : Patient complaining of fatigue, generalized malaise, no fever or chills ENT/Mouth : No Hearing loss, No Ear Pain, No Nasal Congestion, No Sinus Pain, No Hoarseness, No sore throat, No Rhinorrhea, No Swallowing Difficulty Eyes: No Eye Pain, No Swelling, No Redness, No Foreign Body, No Discharge, No Vision Changes Cardiovascular : No Chest Pain, No SOB, No Dyspnea on Exertion, No Orthopnea, No Edema, No Palpitations Respiratory : No Cough, No Sputum, No Wheezing, No Smoke Exposure, No Dyspnea Gastrointestinal : No Nausea, No Vomiting, No Diarrhea, No Constipation, No abdominal Pain, No Hematochezia, No Melena Genitourinary : no irregular bleeding, No Dysuria, No Urinary Frequency, complaining of Hematuria, No Urinary Incontinence, No Urgency, No Flank Pain, No Urinary Flow Changes, No Hesitancy Musculoskeletal : No joint pain, No Myalgias, No Joint Swelling Skin : No Skin Lesions, No rash Neuro : No Weakness, No Numbness, No Paresthesias, No Loss of Consciousness, No Dizziness, No Headache Psych : No Anxiety/Panic, No Depression, No SI/HI/AH/VH, No Social Issues, Heme/Lymph: No Bruising, No Bleeding,No Lymphadenopathy Endocrine : No Polyuria, No Polydipsia, No Temperature Intolerance PMFSH Past Medical History Medical History (Updated 09/07/23 @ 19:44 by Gladis Vanessa MD) Bladder cancer Chronic hepatitis C HLD (hyperlipidemia) Microcytic anemia Smoker Chronic headaches MDD (major depressive disorder) Surgical History Hx of cystoscopy Social History Social History Household Members: Family Housing: Apartment Do you presently have visiting nurse or other home services: No Unable to assess alcohol history related to: Unknown Alcohol intake: former Patient Tobacco Use Status: Current everyday Tobacco user Tobacco use type: Cigarette Cigarette Packs Per Day: 0.5 Cigarettes Per Day: 7 Smoked in Last 30 Days: Yes Use of substances other than those prescribed or required for medical reasons: No Advance Directives: Yes Advance Directives on File: Yes Advance Directives Date on File: 07/01/23 service: No Current occupational status: disabled Physical Exam ED Vital Signs: Vital Signs - 24 hr 09/07/23 14:41 09/07/23 15:28 09/07/23 16:17 Temperature 98.8 F 98.1 F Pulse Rate 110 H 88 90 Respiratory Rate 20 14 Blood Pressure 93/63 92/48 L 112/62 Pulse Oximetry 92 98 Oxygen Delivery Method Room Air Room Air 09/07/23 16:17 09/07/23 16:18 09/07/23 18:58 Temperature Pulse Rate 103 H 122 H 77 Respiratory Rate 16 Blood Pressure 112/69 105/65 101/58 L Pulse Oximetry 97 Oxygen Delivery Method Room Air 09/07/23 19:04 09/07/23 19:09 09/07/23 19:09 Temperature Pulse Rate 77 91 98 Respiratory Rate Blood Pressure 90/56 L 113/61 108/67 Pulse Oximetry Oxygen Delivery Method BMI result Body Mass Index 13.9 Const Other: Appearance: Alert. Oriented X3. No acute distress. Cachectic Eyes: Pupils equal, round and reactive to light. ENT: Pharynx normal. Neck: Normal inspection. Neck supple. No lymph nodes noted. No crepitus CVS: Normal heart rate and rhythm. Pulses normal. Normal S1 and S2 Respiratory: No respiratory distress. Breath sounds normal. No Wheezing. No rales Abdomen: Soft and nontender. No rigidity. No distention. : Draining orange color urine from phenazopyridine Skin: Skin warm and dry. Normal skin color. Normal skin turgor. Extremities: No lower extremity edema. No Lacerations. No Rash Neuro: Oriented X 3. No motor deficit. No sensory deficit. Moving all extremities. No slurred speech. CN 2 through 12 grossly intact Psych: calm, cooperative, normal affect Course Course Course Narrative: This is an RME: Additional HPI, ROS, PE not included below will be deferred to primary provider. This is a 62-year-old male, with a history of HDL, headaches, major depressive disorder, microcytic anemia, bladder cancer diagnosed with TURBT Jun 2023, who presents the emergency department with complaints of generalized weakness, dizziness, and suprapubic pain. Recent under surgery yesterday. Bloody urine seen in [place] bag. Discussed case with attending physician, patient brought back for further evaluation. Medications Administered Discontinued Medications Generic Name Dose Route Start Last Admin Trade Name Freq PRN Reason Stop Dose Admin Sodium Chloride 1,000 mls @ 999 mls/hr 09/07/23 18:38 03/20/24 19:41 Ns IVCONT 09/07/23 19:38 999 mls/hr .Q1H1M ONE Administration Medical Decision Making Medical Decision Making [facility] Narrative: -my interpretation of labs: White blood cell count 14.0. Chemistry within normal limits. LFTs within normal limits troponin negative, lipase negative, urine negative for UTI, urine positive for fentanyl than benzodiazepines, which were likely given yesterday during this urology procedure (TURP) -patient feeling better after IV fluids. At this time, no change in medications. -orthostatic vitals were negative -I discussed with the patient if he needs extra help at home. Patient states that his family takes good care of him and at this time he does not require any additional services. Differential Diagnosis Differential Diagnoses: The differential diagnosis associated with the presentation includes (UTI, decompensation, viral syndrome) Admission/Observation Consideration of admission/observation: Escalation of care including admission/observation considered (Given patient's presentation and symptoms, admission considered) Lab Data [facility] Lab Attestation statement: I reviewed the patient's lab results. 09/07/23 15:37 09/07/23 15:37 Labs: Lab Results 09/07/23 09/07/23 09/07/23 Range/Units 15:37 15:41 17:31 WBC 14.0 H (4.8-10.8) X10*3/uL RBC 4.44 L (4.60-5.80) X10*6/uL Hgb 11.4 L (14.0-18.0) g/dl Hct 36.6 L (42.0-52.0) % MCV 82.4 (80.0-98.0) fL MCH 25.7 L (27.0-33.0) pg MCHC 31.1 (31.0-36.0) g/dl RDW 18.7 H (11.0-16.0) % Plt Count 274 (160-400) X10*3/uL MPV 9.0 L (9.4-12.4) fL Immature Gran % (Auto) 0.3 (0.0-0.4) % Neut % (Auto) 77.2 H (45-73) % Lymph % (Auto) 15.3 L (20-40) % [place] % (Auto) 5.9 (2-11) % Eos % (Auto) 1.0 (0-4) % Baso % (Auto) 0.3 (0-2) % Lymph # (Auto) 2.1 (1.2-4.9) X10*3/uL [place] # (Auto) 0.8 (0.1-1.2) X10*3/uL Eos # (Auto) 0.1 (0.0-0.4) X10*3/uL Baso # (Auto) 0.0 (0.0-0.2) X10*3/uL Abs Immat Gran (auto) 0.04 H (0.00-0.03) X10*3/uL Absolute Neuts (auto) 10.8 H (2.0-8.3) x10*3/uL Absolute Nucleated RBC 0.000 (0.0-0.012) X10*3/uL Nucleated RBC % (auto) 0.0 (0.0-0.2) /100WBC PT 11.8 (11.1-13.3) SEC INR 1.0 (0.9-1.1) APTT 29.4 (26.0-36.8) SEC Sodium 141 (135-145) mmol/L Potassium 3.5 (3.3-5.1) mmol/L Chloride 106 (96-108) mmol/L Carbon Dioxide 28 (22-29) mmol/L Anion Gap 11 L (12-20) BUN 13 (9-16) mg/dL Creatinine 0.79 (0.5-1.4) mg/dL Estim Creat Clear Calc 64.4 Estimated GFR > 60 Random Glucose 88 (60-115) mg/dL Lactic Acid 0.6 (0.5-2.0) mmol/L Calcium 9.1 (8.4-10.2) mg/dL Magnesium 1.7 (1.6-2.6) mg/dL Total Bilirubin 0.2 (0.0-1.0) mg/dL Direct Bilirubin < 0.2 (0.0-0.5) mg/dL AST 20 (5-37) U/L ALT 13 (0-40) U/L Alkaline Phosphatase 104 (39-117) U/L Troponin I High Sens < 2.7 (<3.5-35.0) ng/L Total Protein 6.9 (6.5-8.0) g/dL Albumin 3.8 (3.5-5.0) g/dL Lipase 6 L (8-78) U/L Urine Color [place] Urine Appearance Cloudy Urine pH 6.5 (5.0-9.0) Ur Specific [place] 1.020 (1.005-1.025) Urine Protein See Note (Neg-Trace) mg/dL Urine Glucose (UA) See Note (Negative) mg/dL Urine Ketones See Note (Negative) mg/dL Urine Blood See Note (Negative) Urine Nitrite See Note (Negative) Ur Leukocyte Esterase See Note (Negative) Urine RBC >20 H (0-2) /HPF Urine WBC 6-10 (0-5) /HPF Ur Squamous Epith Cells 3-5 (0-2) /HPF Urine Bacteria Trace (None Seen) Hyaline Casts 0-2 (0-2) /LPF Urine Opiates Screen Not Detected (Not Detect) Urine Fentanyl Screen POSITIVE H (Not Detect) Ur Barbiturates Screen Not Detected (Not Detect) Ur Phencyclidine Scrn Not Detected (Not Detect) Ur Amphetamines Screen Not Detected (Not Detect) U Benzodiazepines Scrn POSITIVE H (Not Detect) Urine Cocaine Screen Not Detected (Not Detect) U Marijuana (THC) Screen Not Detected (Not Detect) Ethyl Alcohol < 10 mg/dL Independent Interpretation I performed an independent interpretation of an: EKG (My interpretation of EKG: Normal sinus rhythm, heart rate 96, no ST segment depression or elevation, no T-wave inversion, QTC 467) Critical Care Time Critical Care Time Critical Care Time: Yes Total Critical Care Time: 45 Attestation: I have personally provided critical care time. Time includes review of lab data, radiology results, discussion with consultants, and monitoring for potential decompensation. Intervention performed as documented. Discharge Plan Discharge Clinical Impression: Weakness Patient Disposition: Home, Self-Care Instructions: Weakness (ED) Additional Instructions: Please follow-up with your primary care physician tomorrow. If you have any worsening or new symptoms, please return to the emergency room or call 911 Prescriptions: No Action phenazopyridine [Pyridium] 200 mg tablet 200 mg PO Q8H PRN (Reason: urinary burning) Qty: 20 0RF atorvastatin 40 mg tablet 40 mg PO BEDTIME famotidine 40 mg tablet 40 mg PO BEDTIME quetiapine 100 mg tablet 100 mg PO BEDTIME amitriptyline 50 mg tablet 50 mg PO BEDTIME paroxetine HCl 20 mg tablet 40 mg PO DAILY pantoprazole 40 mg tablet,delayed release (DR/EC) 40 mg PO DAILY@0630 benztropine 1 mg tablet 1 mg PO BID hydroxyzine pamoate 25 mg capsule 25 mg PO TID PRN (Reason: Anxiety) Creon 24,000-76,000 -120,000 unit capsule,delayed release(DR/EC) 1 cap PO Q8H tamsulosin 0.4 mg Capsule 0.4 mg PO BEDTIME Qty: 30 0RF ferrous sulfate 324 mg (65 mg iron) Tablet,Delayed Release (Dr/Ec) 324 mg PO BIDWM Qty: 30 0RF oxycodone 10 mg tablet 10 mg PO Q6H PRN (Reason: severe pain)
--- NOTE | 2023-09-07 14:48 | ECG_ITS ---
Test Reason : ALTERED MENTAL STATE Blood Pressure : / mmHG Vent. Rate : 096 BPM Atrial Rate : 096 BPM P-R Int : 136 ms QRS Dur : 082 ms QT Int : 370 ms P-R-T Axes : 083 062 069 degrees QTc Int : 467 ms Normal sinus rhythm Normal ECG When compared with ECG of 01-JUL-2023 13:43, No significant changes seen Referred By: Spring Jimenez Electronically Signed By:FITO GARCIA
--- NOTE | 2023-09-07 15:40 | ED.GENADULT ---
HPI - General Adult General Chief complaint: Altered Mental Status Stated complaint: Dizziness, chills Time Seen by Provider: 09/07/23 14:54 Source: patient Mode of arrival: ambulatory Limitations: no limitations Related Data Home Medications Medication Instructions Recorded Confirmed amitriptyline 50 mg tablet 50 mg PO BEDTIME 02/03/23 09/07/23 atorvastatin 40 mg tablet 40 mg PO BEDTIME 02/03/23 09/07/23 benztropine 1 mg tablet 1 mg PO BID 02/03/23 09/07/23 famotidine 40 mg tablet 40 mg PO BEDTIME 02/03/23 09/07/23 hydroxyzine pamoate 25 mg capsule 25 mg PO TID PRN Anxiety 02/03/23 09/07/23 [id number] 1 cap PO Q8H 02/03/23 09/07/23 24,000-76,000-120,000 unit capsule,delayed rel (Creon) pantoprazole 40 mg tablet,delayed 40 mg PO DAILY@0630 02/03/23 09/07/23 release paroxetine HCl 20 mg tablet 40 mg PO DAILY 02/03/23 09/07/23 quetiapine 100 mg tablet 100 mg PO BEDTIME 02/03/23 09/07/23 oxycodone 10 mg tablet 10 mg PO Q6H PRN severe pain 08/17/23 09/07/23 Previous Rx's Medication Instructions Recorded ferrous sulfate 324 mg (65 mg 324 mg PO BIDWM #30 tabs 07/12/23 iron) tablet,delayed release tamsulosin 0.4 mg capsule 0.4 mg PO BEDTIME #30 caps 07/12/23 phenazopyridine 200 mg tablet 200 mg PO Q8H PRN urinary burning 09/06/23 (Pyridium) #20 tabs Allergies Allergy/AdvReac Type Severity Reaction Status Date / Time haloperidol [From Haldol] Allergy Severe Can't Verified 09/07/23 14:51 breathe PMFSH Past Medical History Medical History HLD (hyperlipidemia) Microcytic anemia Smoker Chronic headaches MDD (major depressive disorder) Surgical History Hx of cystoscopy Social History Social History Household Members: Family Housing: Apartment Do you presently have visiting nurse or other home services: No Unable to assess alcohol history related to: Unknown Alcohol intake: never Patient Tobacco Use Status: Current everyday Tobacco user Tobacco use type: Cigarette Cigarette Packs Per Day: 0.5 Cigarettes Per Day: 7 Advance Directives: Yes Advance Directives on File: Yes Advance Directives Date on File: 07/01/23 service: No Current occupational status: disabled Physical Exam ED Vital Signs: Vital Signs - 24 hr 09/07/23 14:41 09/07/23 15:28 Temperature 98.8 F 98.1 F Pulse Rate 110 H 88 Respiratory Rate 20 14 Blood Pressure 93/63 92/48 L Pulse Oximetry 92 98 Oxygen Delivery Method Room Air Room Air BMI result Body Mass Index 13.9 Discharge Plan Discharge Prescriptions: No Action phenazopyridine [Pyridium] 200 mg tablet 200 mg PO Q8H PRN (Reason: urinary burning) Qty: 20 0RF atorvastatin 40 mg tablet 40 mg PO BEDTIME famotidine 40 mg tablet 40 mg PO BEDTIME quetiapine 100 mg tablet 100 mg PO BEDTIME amitriptyline 50 mg tablet 50 mg PO BEDTIME paroxetine HCl 20 mg tablet 40 mg PO DAILY pantoprazole 40 mg tablet,delayed release (DR/EC) 40 mg PO DAILY@0630 benztropine 1 mg tablet 1 mg PO BID hydroxyzine pamoate 25 mg capsule 25 mg PO TID PRN (Reason: Anxiety) Creon 24,000-76,000 -120,000 unit capsule,delayed release(DR/EC) 1 cap PO Q8H tamsulosin 0.4 mg Capsule 0.4 mg PO BEDTIME Qty: 30 0RF ferrous sulfate 324 mg (65 mg iron) Tablet,Delayed Release (Dr/Ec) 324 mg PO BIDWM Qty: 30 0RF oxycodone 10 mg tablet 10 mg PO Q6H PRN (Reason: severe pain)
[2023-09-07 15:50] LABS: MANUAL DIFF FLAG NO
[2023-09-07 15:51] LABS: Basophils Percent Auto 0.3 % (0-2); Eosinophils Absolute Auto 0.1 X10*3/uL (0.0-0.4); Hematocrit 36.6 % (42.0-52.0); Hemoglobin 11.4 g/dl (14.0-18.0); Imm Gran Abs Auto 0.04 X10*3/uL (0.00-0.03); Imm Gran Pct Auto 0.3 % (0.0-0.4); Lymphocytes Absolute Auto 2.1 X10*3/uL (1.2-4.9); Lymphocytes Percent Auto 15.3 % (20-40); Mean Corpuscular HGB Conc 31.1 g/dl (31.0-36.0); Mean Corpuscular Hemoglobin 25.7 pg (27.0-33.0); Mean Corpuscular Volume 82.4 fL (80.0-98.0); Monocytes Absolute Auto 0.8 X10*3/uL (0.1-1.2); Monocytes Percent Auto 5.9 % (2-11); Neutrophils Absolute Auto 10.8 x10*3/uL (2.0-8.3); Neutrophils Percent Auto 77.2 % (45-73); Platelet Count 274 X10*3/uL (160-400); Red Blood Count 4.44 X10*6/uL (4.60-5.80); Red Cell Distribution Width 18.7 % (11.0-16.0)
[2023-09-07 15:58] LABS: Prothrombin Time 11.8 SEC (11.1-13.3)
--- NOTE | 2023-09-07 15:59 | PC.NURSE ---
Denies pain or discomfort, reports chen bag looks like it has blood in it. Labs drawn per order
[2023-09-07 16:00] LABS: Partial Thromboplastin Time 29.4 SEC (26.0-36.8)
[2023-09-07 16:01] LABS: Lactic Acid 0.6 mmol/L (0.5-2.0)
[2023-09-07 16:05] LABS: Ethanol < 10 mg/dL
[2023-09-07 16:07] LABS: Alanine Aminotransferase 13 U/L (0-40); Albumin Level 3.8 g/dL (3.5-5.0); Alkaline Phosphatase 104 U/L (39-117); Anion Gap 11 (12-20); Aspartate Amino Transferase 20 U/L (5-37); Bilirubin Direct < 0.2 mg/dL (0.0-0.5); Bilirubin Total 0.2 mg/dL (0.0-1.0); Blood Urea Nitrogen 13 mg/dL (9-16); Calcium 9.1 mg/dL (8.4-10.2); Carbon Dioxide 28 mmol/L (22-29); Chloride 106 mmol/L (96-108); Creatinine Clr Calc Pharmacy 64.4; Estimated Glomerular Filt Rate > 60; Glucose Random 88 mg/dL (60-115); Lipase 6 U/L (8-78); Magnesium 1.7 mg/dL (1.6-2.6); Potassium 3.5 mmol/L (3.3-5.1); Sodium 141 mmol/L (135-145); Total Protein 6.9 g/dL (6.5-8.0)
[2023-09-07 16:08] LABS: Amphetamine Screen Urine Not Detected (Not Detect); Barbiturates, Urine Not Detected (Not Detect); Benzodiazepines Screen Urine POSITIVE (Not Detect); Cannabinoid Screen Urine Not Detected (Not Detect); Cocaine Screen Urine Not Detected (Not Detect); Fentanyl, urine POSITIVE (Not Detect); Opiate Screen Urine Not Detected (Not Detect); Phencyclidine Screen Urine Not Detected (Not Detect)
[2023-09-07 16:16] LABS: Troponin-I High Sensitivity < 2.7 ng/L (<3.5-35.0)
--- NOTE | 2023-09-07 16:54 | MHC.EDTECH ---
Pt needed assistance with standing and transferring onto the stretcher but otherwise tolerated the activity well.
[2023-09-07 18:15] LABS: Appearance Urine Cloudy; Color Urine Orange; PH 6.5 (5.0-9.0); UMIC TRIGGER UACC YES
[2023-09-07 18:27] LABS: Bacteria Urine Trace (None Seen); Hyaline Casts Urine 0-2 /LPF (0-2); RBC Urine >20 /HPF (0-2); UACC Culture Trigger YES
[2023-09-07] MEDS: 0.9 % Sodium Chloride 1,000 ML 999 ML IVCONT (19:41)
--- NOTE | 2023-09-07 19:42 | PC.NURSE ---
assumed care of pt. pt resting in stretcher, no acute distress noted. vss. iv fluid bolus begun at this time.
--- NOTE | 2023-09-07 22:51 | PC.NURSE ---
returned case inspector Em ambulated pt, pt ambulated with steady gait. no acute distress noted, pt denies sob and dizziness.
== END 2023-09-07 23:09 | disposition home or self-care (01) ==
PROVIDERS: Physician Assistant Medical; Emergency Provider Emergency Medicine; PCP Family Medicine
DX: R53.1 Weakness (principal); C67.9 Malignant neoplasm of bladder, unspecified; Z98.890 Other specified postprocedural states
CPT/HCPCS: 36415; 80048; 80076; 80307; 81001; 83605; 83690; 83735; 84484; 85025; 85610; 85730; 87040; 93005; 96360; 99284; 99285

== ENCOUNTER → 2023-09-07 14:48 | Outpatient (BNV) | payer MEDICAID, SELFPAY | PROVIDERS: Emergency Provider Emergency Medicine; PCP Family Medicine; Visit Provider Internal Medicine | DX: R41.82 Altered mental status, unspecified (principal) | CPT/HCPCS: 93010 ==

== ENCOUNTER → 2023-09-09 08:50 | Outpatient (BNVA) | payer MEDICAID, SELFPAY | PROVIDERS: PCP Family Medicine; Visit Provider Urology ==

== ENCOUNTER 2023-09-28 18:27 | Outpatient (REF) | payer MEDICAID, SELFPAY | END 2023-09-28 18:28 | disposition home or self-care (01) | LOC: HO.HHCLNP 18:27 | PROVIDERS: Visit Provider Emergency Medicine | DX: R30.0 Dysuria (principal) | CPT/HCPCS: 87086 ==

== ENCOUNTER 2023-10-12 17:59 | Outpatient (REF) | payer MEDICAID, SELFPAY | END 2023-10-12 18:00 | disposition home or self-care (01) | LOC: HO.HHCLNP 17:59 | PROVIDERS: Visit Provider Registered Nurse | DX: R07.0 Pain in throat (principal) | CPT/HCPCS: 87070; 87147 ==

== ENCOUNTER 2023-11-07 15:10 | Outpatient (AMB) | payer MEDICAID, SELFPAY ==
--- NOTE | 2023-11-07 15:30 | A.OFFVIS_ITS ---
Intake Visit Reasons: follow-up/discuss repeat TURBT Intake Note: Patient presents today for a follow-up bladder cancer Meds- Tamsulosin Allergies to Antibiotic- No Known Allergies Blood Thinner- None Care Taker Required: No Accompanied by: Self / Same As Patient Allergies haloperidol [From Haldol] Allergy (Severe, Verified 11/07/23 15:32) Can't breathe HPI Comments Details: Ezra is a 63 year male. He is a patient of [facility]. Long-term smoker, Chronic hepatitis-C. He is s/p cysto TURBT on 07/06/23 and repeat TURBT on 09/06/23. He states that his urine is darker in the morning but denies blood clots. Discussion today regarding treatment invasive bladder cancer. TURBT 09/06/2023- path There was still significant tumor burden remaining. Given his current status is non operative candidate for cystectomy. Referral was sent for chemoradiation to [facility] for combination but the patient failed to show up visits likely due to transportation issues. PET-CT ordered [place] refer [place] [facility] [place] [facility] Medical History Bladder cancer Chronic hepatitis C HLD (hyperlipidemia) Microcytic anemia Smoker Chronic headaches MDD (major depressive disorder) Surgical History Hx of cystoscopy Social History Household Members: Family Housing: Apartment Do you presently have visiting nurse or other home services: No Unable to assess alcohol history related to: Unknown Alcohol intake: former Patient Tobacco Use Status: Current everyday Tobacco user Tobacco use type: Cigarette Cigarette Packs Per Day: 0.5 Cigarettes Per Day: 7 Advance Directives Date on File: 07/01/23 service: No Current occupational status: disabled Review of Systems Const All systems reviewed & are unremarkable except as noted in HPI and below Reports no additional complaints Eyes Reports no additional complaints ENT Reports no additional complaints Card Reports no additional complaints Resp Reports no additional complaints GI Reports no additional complaints Reports as per HPI Musc Reports no additional complaints Skin/Breast Reports system reviewed and no additional complaints, except as documented Neuro Reports no additional complaints Psych Reports no additional complaints Endo Reports no additional complaints Kris/Lymph Reports no additional complaints Aller/Immun Reports no additional complaints Results AMB Urinalysis, Automated 2 UA Leukoctes 0 Yonatan/uL Last Edit by Mae Coleman Trevin on 11/07/23 15:53 UA Nitrite Negative Last Edit by Mae Coleman [facility] on 11/07/23 15:53 UA Urobilinogen 0.2 mg/dL Last Edit by Mae Coleman [facility] on 11/07/23 15:5 3 UA Protein 0 mg/dL Last Edit by Mae Coleman [facility] on 11/07/23 15:53 UA pH 0 Last Edit by Mae Coleman [facility] on 11/07/23 15:53 UA Blood 200 Tae/uL Last Edit by Mae Coleman [facility] on 11/07/23 15:53 3+ Mae Coleman 11/07/23 15:53 UA Specific [place] 1.010 Last Edit by Mae Coleman [facility] on 11/07/23 15: 53 UA Ketone Negative Last Edit by Mae Coleman [facility] on 11/07/23 15:53 UA Bilirubin 0 mg/dL Last Edit by Mae Coleman [facility] on 11/07/23 15:53 UA Glucose 0 mg/dL Last Edit by Mae Coleman [facility] on 11/07/23 15:53 Results Reviewed Results Reviewed: Laboratory Last Values Urine pH (Auto) 0 11/07/23 15:32 Specific [place] (Auto) 1.010 11/07/23 15:32 Urine Protein (Auto) 0 mg/dL 11/07/23 15:32 Glucose (UA)(Auto) 0 mg/dL 11/07/23 15:32 Urine Ketones (Auto) Negative 11/07/23 15:32 Urine Blood (Auto) 200 Tae/uL 11/07/23 15:32 Urine Nitrite (Auto) Negative 11/07/23 15:32 Urine Bilirubin (Auto) 0 mg/dL 11/07/23 15:32 Urine Urobilinogen (Auto) 0.2 mg/dL 11/07/23 15:32 Leukocyte Esterase (Auto) 0 Yonatan/uL 11/07/23 15:32 Collected: 09/06/23 Location: [facility] Received: 09/06/23 Diagnosis Bladder, transurethral resection: - High-grade urothelial carcinoma, invasive into lamina propria. - Muscularis propria present. Bladder, transurethral resection/biopsy Procedure: Transurethral resection Tumor site: Multiple sites throughout the bladder Histologic type: Urothelial carcinoma Histologic grade: High-grade (with relatively abundant background low-grade) Muscularis propria: Present Extent of invasion: Lamina propria Lymphovascular invasion: Not identified Clinical History Malignant neoplasm of bladder Collected: 07/05/23 Location: [facility] Received: 07/06/23 Diagnosis Bladder tumor: Urothelial carcinoma, invasive and papillary, high grade. Bladder, transurethral resection/biopsy Procedure: Transurethral resection Tumor site: Per op note: bladder neck at 3 and 9 o'clock, right and left lateral wall and posterior wall Histologic type: Urothelial carcinoma, invasive and papillary Histologic grade: High grade Muscularis propria: Not identified Extent of invasion: Invades lamina propria (subepithelial connective tissue) Lymphovascular invasion: Not identified Clinical History Bladder tumor Microscopic Description Microscopic sections show a proliferation of highly atypical cells with thickened complex papillary architecture with invasion into the subepithelial tissue. The malignant cells show variability in size and shape, with loss of polarity. The cells have clumped chromatin and prominent nucleoli. Mitotic figures are easily identified. Assessment & Plan Assessment & Plan (1) Bladder cancer: Comment: Invasive, high-grade Code(s): C67.9 - Malignant neoplasm of bladder, unspecified Category: Medical Plan PET CT - fu in 6 weeks Orders: Orders PET CT fusion whole body 11/07/23 C67.9 - Malignant neoplasm of bladder, unspecified AMB Urinalysis Automated 11/07/23 Z13.9 - Encounter for screening, unspecified Urine Cytology 11/07/23 C67.9 - Malignant neoplasm of bladder, unspecified, R31.9 - Hematuria, unspecified Referrals Hematology & Oncology Referral C67.9 - Malignant neoplasm of bladder, unspecified Coding Level of Care Code Est Pt Level 4 (72159) Diagnoses Bladder cancer C67.9
== END 2023-11-07 16:22 | disposition home or self-care (01) ==
PROVIDERS: PCP Family Medicine; Referring Provider Family Medicine; Visit Provider Urology
DX: C67.9 Malignant neoplasm of bladder, unspecified (principal)
CPT/HCPCS: 99214

== ENCOUNTER 2023-11-07 15:10 | Outpatient (REF) | payer MEDICAID, SELFPAY ==
[2023-11-07 17:28] LABS: Urine Cytology See Pathology rpt
== END 2023-11-07 15:11 | disposition home or self-care (01) ==
LOC: HO.LAB 15:10
PROVIDERS: PCP Family Medicine; Visit Provider Urology
DX: C67.9 Malignant neoplasm of bladder, unspecified (principal); R31.9 Hematuria, unspecified; B18.2 Chronic viral hepatitis C
CPT/HCPCS: 81003; 88112; 99212

== ENCOUNTER 2023-12-28 15:47 | Emergency (ER) | payer MEDICAID, SELFPAY ==
[2023-12-28] VITALS (7 sets, daily range): BP systolic 100–126; BP diastolic 45–72; PULSE 64–95; RESP 14–20; TEMP -17.7–36.8; O2SAT 93–99; BMI 16.2
--- NOTE | ~2023-12-28 | CT_ITS ---
EXAMINATION: CT ANGIOGRAM HEAD CT ANGIOGRAM NECK CLINICAL INFORMATION: Bilateral vision loss COMPARISON: MRI brain 11/03/2022 TECHNIQUE: Test bolus sequences followed by intravenous administration 70 mL of Omnipaque 350. Helical imaging was performed in the axial plane from the aortic arch to the skull vertex. Delayed postcontrast imaging of the head was also performed. The data was processed at the human performance technologist's workstation for generation of MIP sequences. Angled MIPs and volume rendered reformatted images were also generated at an offline 3D workstation. Stenoses are assessed in accordance with Pitt et al. Quantification of Carotid Stenosis on CT Angiography. AJR 2006. 27(1):13-19. [address] CT examination was performed using dose optimization techniques as appropriate, variously including the following: *Automated exposure control *Adjustment of mA and/or kV according to patient size (this includes techniques or standardized protocols for targeted exams where dose is matched to indication/reason for exam; i.e. extremities or head) *Use of iterative reconstruction technique DLP: 2243.28 mGy-cm FINDINGS: CT HEAD: Mild generalized parenchymal volume loss. There is no abnormal attenuation within the brain parenchyma. No territorial loss of wheat-white differentiation. No acute intracranial hemorrhage or extra-axial fluid collection. 7 mm partially rim calcified pineal gland cyst without significant mass effect along the tectum. No herniation pattern. No pathologic intra-axial enhancement or regional oligemia. The orbits are grossly normal. Leftward nasal septal deviation and prominent leftward bony spur encroaching upon the left lateral nasal cavity wall. Mild patchy polypoid mucosal disease in the ethmoid air cells and moderate right maxillary sinus mucosal disease. Small retention cyst in the left maxillary sinus. No mastoid effusion. Osseous structures are intact. CTA HEAD: Arteriovenous timing of contrast bolus somewhat limits diagnostic assessment, particularly of the distal intracranial arterial vasculature. No hemodynamically significant stenosis or occlusion in the anterior or posterior circulation. Extradural origin of the right posterior inferior cerebellar artery, a normal anatomic variant. 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 The ophthalmic arteries opacify normally. No aneurysms and no high flow vascular malformations. Timing of the contrast bolus allows assessment of the major dural venous sinuses, which all opacify normally CTA NECK: Four vessel branching pattern with left vertebral artery arising directly from the arch between the left common carotid and left subclavian arteries. Origins of the great vessels are widely patent. The common carotid arteries are widely patent. Is atherosclerotic disease of the carotid bifurcations without stenosis. The internal carotid arteries are widely patent. The right vertebral artery is dominant. The vertebral artery ostia are widely patent. Both vertebral arteries are widely patent throughout their extracranial cervical course. CT NECK: The patient is edentulous with attritional changes of the maxillary alveolus. Small retention cyst along the right lateral oropharyngeal wall projecting into the lumen. Partially imaged extensive centrilobular and paraseptal emphysema with left apical pleural parenchymal scarring. Mild cervical spondylosis. CT/CT angio head neck IMPRESSION: 1. No acute intracranial findings. 2. No acute arterial occlusion or hemodynamically significant stenosis within the head or neck.
--- NOTE | 2023-12-28 16:04 | ED_ITS ---
HPI - General Adult General Chief complaint: Neuro Symptoms/Deficit Stated complaint: intermittent loss of vision x3 months Time Seen by Provider: 12/28/23 16:41 Source: patient Limitations: no limitations History of Present Illness ED Provider: carmela PRUITT narrative: Patient is 63 years old history of bladder cancer IBS anxiety comes here for transient nose vision both eyes specially when he wakes up in the morning lasting only for few seconds patient is very vague in his history was seen by cost and risk analysis manager diagnose as amaurosis fugax no imaging done no vision loss at this time Related Data Home Medications ?Medication ?Instructions ?Recorded ?Confirmed amitriptyline 50 mg tablet 50 mg PO BEDTIME 02/03/23 09/07/23 atorvastatin 40 mg tablet 40 mg PO BEDTIME 02/03/23 09/07/23 benztropine 1 mg tablet 1 mg PO BID 02/03/23 09/07/23 famotidine 40 mg tablet 40 mg PO BEDTIME 02/03/23 09/07/23 hydroxyzine pamoate 25 mg capsule 25 mg PO TID PRN Anxiety 02/03/23 09/07/23 rkwizs-qvemrofm-ngeanhj 1 cap PO Q8H 02/03/23 09/07/23 24,000-76,000-120,000 unit capsule,delayed rel (Creon) pantoprazole 40 mg tablet,delayed 40 mg PO DAILY@0630 02/03/23 09/07/23 release paroxetine HCl 20 mg tablet 40 mg PO DAILY 02/03/23 09/07/23 quetiapine 100 mg tablet 100 mg PO BEDTIME 02/03/23 09/07/23 oxycodone 10 mg tablet 10 mg PO Q6H PRN severe pain 08/17/23 09/07/23 Previous Rx's ?Medication ?Instructions ?Recorded ferrous sulfate 324 mg (65 mg 324 mg PO BIDWM #30 tabs 07/12/23 iron) tablet,delayed release tamsulosin 0.4 mg capsule 0.4 mg PO BEDTIME #30 caps 07/12/23 phenazopyridine 200 mg tablet 200 mg PO Q8H PRN urinary burning 09/06/23 (Pyridium) #20 tabs aspirin 81 mg tablet,delayed 81 mg PO DAILY #30 tabs 12/28/23 release (Isacc Low Dose Aspirin) Allergies Allergy/AdvReac Type Severity Reaction Status Date / Time haloperidol [From Haldol] Allergy Severe Difficulty Verified 12/28/23 16:01 Breathing Review of Systems 2 Review of Systems: Yes all other systems are reviewed and are negative [facility] Past Medical History Medical History Bladder cancer Chronic hepatitis C HLD (hyperlipidemia) Microcytic anemia Smoker Chronic headaches MDD (major depressive disorder) Surgical History Hx of cystoscopy Social History Social History Household Members: Family Housing: Apartment Do you presently have visiting nurse or other home services: No Unable to assess alcohol history related to: Unknown Alcohol intake: former Patient Tobacco Use Status: Current everyday Tobacco user Tobacco use type: Cigarette Cigarette Packs Per Day: 0.5 Cigarettes Per Day: 7 Smoked in Last 30 Days: Yes Advance Directives: Yes Advance Directives on File: Yes Advance Directives Date on File: 08/15/23 Do you have a plan to hurt others: No Plan service: No Current occupational status: disabled Physical Exam ED Vital Signs: Vital Signs - 24 hr 12/28/23 15:57 12/28/23 17:23 12/28/23 18:05 Temperature 97.9 F 98.3 F 98.0 F Pulse Rate 95 81 84 Respiratory Rate 18 15 15 Blood Pressure 126/45 L 110/55 L 103/61 Pulse Oximetry 93 96 94 Oxygen Delivery Method Room Air Room Air Room Air BMI result Body Mass Index 16.2 Appearance: Alert. Oriented X3. No acute distress. Thin built Eyes: PERRLA, No Nystagmus normal fundus normal visual gardner ENT: Pharynx normal. Oral Mucosa moist Neck: Normal inspection. Neck supple. CVS: Normal heart rate and rhythm. Pulses normal. Respiratory: No respiratory distress. Equal air entry bilateral, no wheezing/rales/rhonchi Abdomen: Soft and nontender. Bowel sounds are present, no mass palpable, no CVA tenderness Skin: Skin warm and dry. Normal skin color. Normal skin turgor. Extremities: No lower extremity edema. No calf tenderness Neuro: Oriented X 3. No motor deficit. No sensory deficit.No cerebellar signs , cranial nerves II-XII intact Course Course Course Narrative: This is an RME: Additional HPI, ROS, PE not included below will be deferred to primary provider. RME assessment and note performed by: Spring Jimenez PA-C This is a [id number], past medical history significant for peptic ulcer disease, IBS, chronic hepatitis-C, GERD, anxiety, depression, hematuria due to bladder tumor with anemia that required blood transfusion, who presents to the ER with complaints of body aches and BL leg pain. Expect was called in from [facility], who reports that over the last 2 weeks, he has had bilateral vision loss that lasts about 3 minutes with associated headache. He was seen by the [facility] on 12/20 and was diagnosed with amaurosis fugax and was told to come to the emergency room. He was unable to get a ride until today. Plan: Labs, EKG, CTA head and neck Medications Administered Discontinued Medications Generic Name Dose Route Start Last Admin Trade Name Freq PRN Reason Stop Dose Admin Iohexol 100 ml 12/28/23 17:48 12/28/23 17:48 Iohexol 350 Mg/Ml 100 Ml Infus..Btl IV 12/28/23 17:49 70 ml ONCE ONE Administration Medical Decision Making Differential Diagnosis Differential Diagnoses: The differential diagnosis associated with the presentation includes Transient blurred vision/vision loss likely for amaurosis fugax CTA negative for any obstructive lesion discharge patient home advised to take baby aspirin daily Admission/Observation Consideration of admission/observation: Escalation of care including admission/observation considered CVA/amaurosis fugax/blurred vision Lab Data MDM Lab Attestation statement: I reviewed the patient's lab results. 12/28/23 16:47 12/28/23 16:47 Labs: Lab Results 12/28/23 Range/Units 16:47 WBC 8.9 (4.8-10.8) X10*3/uL RBC 4.87 (4.60-5.80) X10*6/uL Hgb 13.3 L (14.0-18.0) g/dl Hct 40.4 L (42.0-52.0) % MCV 83.0 (80.0-98.0) fL MCH 27.3 (27.0-33.0) pg MCHC 32.9 (31.0-36.0) g/dl RDW 14.6 (11.0-16.0) % Plt Count 199 D (160-400) X10*3/uL MPV 9.6 (9.4-12.4) fL Immature Gran % (Auto) 0.3 (0.0-0.4) % Neut % (Auto) 52.9 (45-73) % Lymph % (Auto) 32.1 (20-40) % [place] % (Auto) 7.1 (2-11) % Eos % (Auto) 7.0 H (0-4) % Baso % (Auto) 0.6 (0-2) % Lymph # (Auto) 2.9 (1.2-4.9) X10*3/uL [place] # (Auto) 0.6 (0.1-1.2) X10*3/uL Eos # (Auto) 0.6 H (0.0-0.4) X10*3/uL Baso # (Auto) 0.1 (0.0-0.2) X10*3/uL Abs Immat Gran (auto) 0.03 (0.00-0.03) X10*3/uL Absolute Neuts (auto) 4.7 (2.0-8.3) x10*3/uL Absolute Nucleated RBC 0.000 (0.0-0.012) X10*3/uL Nucleated RBC % (auto) 0.0 (0.0-0.2) /100WBC ESR 10 (0-15) MM/HR PT 11.2 (11.1-13.3) SEC INR 0.9 (0.9-1.1) APTT 30.3 (26.0-36.8) SEC Sodium 142 (135-145) mmol/L Potassium 3.8 (3.3-5.1) mmol/L Chloride 105 (96-108) mmol/L Carbon Dioxide 28 (22-29) mmol/L Anion Gap 13 (12-20) BUN 14 (9-16) mg/dL Creatinine 0.83 (0.5-1.4) mg/dL Estim Creat Clear Calc 65.1 Estimated GFR > 60 Random Glucose 89 (60-115) mg/dL Calcium 9.2 (8.4-10.2) mg/dL Total Bilirubin 0.4 (0.0-1.0) mg/dL Direct Bilirubin 0.1 (0.0-0.5) mg/dL AST 26 (5-37) U/L ALT 27 (0-40) U/L Alkaline Phosphatase 94 (39-117) U/L C-Reactive Protein 0.11 (< or = 0.50) mg/dL Total Protein 7.0 (6.5-8.0) g/dL Albumin 4.3 (3.5-5.0) g/dL Ethyl Alcohol < 10 mg/dL Independent Interpretation I performed an independent interpretation of an: CT Scan Radiology Impression Discussion of test interpretation with radiology: I have reviewed the radiologist's reading. Radiologist Impression: CT/CT angio head neck IMPRESSION: 1. No acute intracranial findings. 2. No acute arterial occlusion or hemodynamically significant stenosis within the head or neck. Discharge Plan Discharge Clinical Impression: Amaurosis fugax Patient Disposition: Home, Self-Care Instructions: Blurred Vision (ED) Additional Instructions: Your CT scan is negative for acute stroke Your vision loss is likely from the spasm of the blood vessels Start taking baby aspirin 81 mg daily Follow with your PCP Prescriptions: New aspirin [Isacc Low Dose Aspirin] 81 mg tablet,delayed release (DR/EC) 81 mg PO DAILY Qty: 30 0RF No Action phenazopyridine [Pyridium] 200 mg tablet 200 mg PO Q8H PRN (Reason: urinary burning) Qty: 20 0RF atorvastatin 40 mg tablet 40 mg PO BEDTIME famotidine 40 mg tablet 40 mg PO BEDTIME quetiapine 100 mg tablet 100 mg PO BEDTIME amitriptyline 50 mg tablet 50 mg PO BEDTIME paroxetine HCl 20 mg tablet 40 mg PO DAILY pantoprazole 40 mg tablet,delayed release (DR/EC) 40 mg PO DAILY@0630 benztropine 1 mg tablet 1 mg PO BID hydroxyzine pamoate 25 mg capsule 25 mg PO TID PRN (Reason: Anxiety) Creon 24,000-76,000 -120,000 unit capsule,delayed release(DR/EC) 1 cap PO Q8H tamsulosin 0.4 mg Capsule 0.4 mg PO BEDTIME Qty: 30 0RF ferrous sulfate 324 mg (65 mg iron) Tablet,Delayed Release (Dr/Ec) 324 mg PO BIDWM Qty: 30 0RF oxycodone 10 mg tablet 10 mg PO Q6H PRN (Reason: severe pain) Print Language: Danish
--- OUTSIDE RECORDS SUMMARY | 2023-12-28 16:45 | XMS_ITS | Continuity of Care Document ---
Author Organization [facility] Address [address] [place] [id number]- Care Team Providers Care Underwater Trapper Name Role Phone Not on Staff, PCP Primary Care Physician Unavail able Encounter [facility] [place] Date(s): 08/18/23 - 09/17/23 [facility] [address] [place] [id number]- Attending Physician: Beata Ibrahim Admitting Physician: Beata Ibrahim Referring Physician: AdmtrBeata Allergies, Adverse Reactions, Alerts No Known Allergies Medications Flexeril 10 mg oral tablet 1 tablet = 10 mg, By Mouth, 3 times a day, PRN spasm, # 15 tablet, 0 Refills Start Date: 02/16/09 Stop Date: 03/18/09 Status: Ordered ibuprofen 600 mg oral tablet 1 tablet = 600 mg, By Mouth, 4 times a day, PRN Pain, with food, # 20 tablet, 0 Refills Start Date: 02/16/09 Stop Date: 03/02/09 Status: Ordered Problem List Condition Confirmation Course Effective Dates Status Health St atus Informant Malignant neoplasm of overlapping sites of bladder Confirmed Active Underweight Confirmed Active Social History Social History Type Response Smoking Status 5-9 cigarettes (betw een 1/4 to 1/2 pack)/day in last 30 days; Interested in cessation: No; Patient wants NRT during admission No entered on: 09/12/23 Sex Patient Care team information Care Team Personnel Name: Not on Staff, PCP Position: S Physician (General Medicine) Member Role: PCP Care Team Related Persons Name: MIGUEL ÁNGEL LOPEZ
--- OUTSIDE RECORDS SUMMARY | 2023-12-28 16:45 | XMS_ITS | Continuity of Care Document ---
Author Organization [facility] Address [address] [place] [address]- Care Team Providers Care Welding Inspector Name Role Phone Not on Staff, PCP Primary Care Physician Unavail able [place] [facility] [place](s[place] 08/18/23 - 12/18/23 [facility] [address], [place] [address] Discharge Disposition: A-D/C Home Attending Physician: Eugene Rodriguez MD, Evelio Cadet Admitting Physician: Sj Pearce MD Referring Physician: Ventura WORLEY, Ori Arrieta Allergies, Adverse Reactions, Alerts No Known Allergies [...] of bladder Confirmed Active Underweight Confirmed Active Vital Signs Most recent to oldest [Reference Range]: 1 2 Height 174.4 cm (10/18/23 1:31 PM) 175.3 cm (09/12/23 2:09 PM) Weight 48.3 kg (10/18/23 1:31 PM) 50.0 kg (09/12/23 2:09 PM) Oxygen Saturation [94-100 %] 96 % (10/18/23 1:31 PM) 99 % (09/12/23 2:09 PM) Pulse Rate [55-90 bpm] 89 bpm (10/18/23 1:31 PM) 66 bpm (09/12/23 2:09 PM) Body Mass Index [18.5-24.99 kg/m2] 15.88 kg/m2 *L* (10/18/23 1:31 PM) 16.27 kg/m2 *L* (09/12/23 2:09 PM) Blood Pressure [90-138/55-84 mm Hg] 123/ 69mm Hg (10/18/23 1:31 PM) 110/74mm Hg (09/12/23 2:09 PM) Temperature [96.8-100.4 DegF] 98.7 DegF (10/18/23 1:31 PM) 98.1 DegF (09/12/23 2:09 PM) Mode of Delivery (Oxygen) Room air (10/18/23 1:31 PM) Room air (09/12/23 2:09 PM) Blood pressure sites Arm, right (10/18/23 1:31 PM) Arm, right (09/12/23 2:09 PM) Temperature Route Oral (10/18/23 1:31 PM) Temporal (09/12/23 2:09 PM) Dry Weight 48.3 kg (10/18/23 1:31 PM) 50.0 kg (09/12/23 2:09 PM) Weight Obtained Via Standing scale (10/18/23 1:31 PM) Standing scale (09/12/23 2:09 PM) Dry Weight Obtained Via Standing scale (10/18/23 1:31 PM) Standing scale (09/12/23 2:09 PM) Social History Social History Type Response Smoking Status 5-9 cigarettes (betw een 1/4 to 1/2 pack)/day in last 30 days; Interested in cessation: No; Patient wants NRT during admission No entered on: 09/12/23 Sex Hospital Consult note * Event Display: Inpatient Consult Note, Non-BH Authored Date: Laboratory * Event Display: Non Lab Results Authored Date: Note * Melany Michaud MA: PERFORM, SIGN, VERIFY Event Display: Patient Education/Instruction Authored Date: [id number] [facility] *Heme/Onc Adult Clinical Summary Name MARCUS PRABHAKAR Age 62 Years 1960 PCP Not on Staff, PCP PCP Phone Visit Date 08/18/2023 15:16:00 Additional Instructions: Scheduled Appointments?? Future Appointments ?No Future Appointments Scheduled Follow-Up Instructions ?? With: Address: When: Evelio Rodriguez [address] [place] [address] Hem/[place] [address] [facility] (1) 12/13/2023 1:15 PM Diagnosis Malignant neoplasm of overlapping sites of bladder Medications: Please continue your medications until treatment is completed or stopped by your provider. Discuss any questions related to medications with your provider. Medications to Continue with No Changes These medications were not printed or sent to your pharmacy Cyclobenzaprine (Flexeril 10 mg oral tablet) 10 Milligram Oral 3 times a day as needed spasm. Refills: 0. Next Dose: Ibuprofen (ibuprofen 600 mg oral tablet) 1 tab(s) Oral 4 times a day as needed Pain. with food. Refills: 0. Next Dose: Allergy Info:?? NKA Medications Given This Visit Future Orders ?No future orders Future Orders ?No future orders Vital Signs Height 174.4 cm Weight 48.3 kg BMI 15.88 kg/m2 Blood Pressure 123 mm Hg/69 mm Hg Temperature 98.7 DegF Pulse Rate 89 bpm Respiratory Rate 02 Sat Mode of Delivery 96 %/Room air You can now view a summary of your hospital visit from the comfort of your home through a free online portal called [employer]. [employer] is a website that allows you to securely view your medical information including discharge summary, medications and follow-up visits. ??You can alsosend a secure electronic message to your doctor???s office to request appointments, renew medications or just ask a question. You can enroll at [email or web address] or register during your next office visit. Disclaimer:?? The information provided is of a general nature and is intended to be used in conjunction with the recommendations and advice of your health care practitioner. ??Every effort has been made to ensure that the information provided is accurate and complete at the time it is provided to you however, as your needs change, or, as new ??information becomes available, different or additional instructions may be required. If you have questions, please consult with your primary care provider or pharmacist, as appropriate. ??This information is not intended to serve as substitution for assessment and evaluation by a qualified health care provider. If you do not have a primary care provider, you may find a [facility] provider by calling [facility] [employer] Link at [phone]. [facility], in keeping with [facility] guidance, no longer requires face masks for staff, patientsor visitors in most situations. Similar to time spent indoors at other locations, there is the chance that you were exposed to respiratory viruses during your time with us (such as flu or COVID-19).? If you develop symptoms concerning for a viral respiratory infection, please seek testing (and treatment if indicated) from your medical provider or home test kit. For information about the plan of care including goals and instructions for your diagnosis, please see the patient education orders section of this document. Patient Education Materials?? The content of this educational material or handout may have been modified, supplemented, or adapted from its original content and format to support your individualized medical care. Patient Care team information Care Team Personnel Name: Not on Staff, PCP Position: S Physician (General Medicine) Member Role: PCP Care Team Related Persons Name: LISETH PRABHAKAR Name: MIGUEL ÁNGEL LOPEZ
[2023-12-28 16:53] LABS: MANUAL DIFF FLAG NO
[2023-12-28 16:54] LABS: Basophils Absolute Auto 0.1 X10*3/uL (0.0-0.2); Basophils Percent Auto 0.6 % (0-2); Eosinophils Absolute Auto 0.6 X10*3/uL (0.0-0.4); Hematocrit 40.4 % (42.0-52.0); Hemoglobin 13.3 g/dl (14.0-18.0); Imm Gran Abs Auto 0.03 X10*3/uL (0.00-0.03); Imm Gran Pct Auto 0.3 % (0.0-0.4); Lymphocytes Absolute Auto 2.9 X10*3/uL (1.2-4.9); Lymphocytes Percent Auto 32.1 % (20-40); Mean Corpuscular HGB Conc 32.9 g/dl (31.0-36.0); Mean Corpuscular Hemoglobin 27.3 pg (27.0-33.0); Mean Platelet Volume 9.6 fL (9.4-12.4); Monocytes Absolute Auto 0.6 X10*3/uL (0.1-1.2); Monocytes Percent Auto 7.1 % (2-11); Neutrophils Absolute Auto 4.7 x10*3/uL (2.0-8.3); Neutrophils Percent Auto 52.9 % (45-73); Platelet Count 199 X10*3/uL (160-400); Red Blood Count 4.87 X10*6/uL (4.60-5.80); Red Cell Distribution Width 14.6 % (11.0-16.0); White Blood Count 8.9 X10*3/uL (4.8-10.8)
--- NOTE | 2023-12-28 17:03 | PC.NURSE ---
Pt comes in for increasing blurry vision/ vision loss x2 weeks. This first started in his left eye and is now progressing into his right eye intermittently. Strength equal bilaterally in hands, feet, and legs. Neuros intact. Pupils round and equal but unreactive to light. Pt a/o x4, respirations even and unlabored, lung sound cta bilaterally, s1 and s2 heard, abdomen soft and non-tender. 20g IV placed in left forearm. Pt resting in bed quietly, call nj within reach. Awaiting CT scan at this time.
[2023-12-28 17:09] LABS: INTERNATIONAL NORM RATIO 0.9 (0.9-1.1); Prothrombin Time 11.2 SEC (11.1-13.3)
[2023-12-28 17:12] LABS: Partial Thromboplastin Time 30.3 SEC (26.0-36.8)
[2023-12-28 17:19] LABS: Alanine Aminotransferase 27 U/L (0-40); Albumin Level 4.3 g/dL (3.5-5.0); Alkaline Phosphatase 94 U/L (39-117); Anion Gap 13 (12-20); Aspartate Amino Transferase 26 U/L (5-37); Bilirubin Direct 0.1 mg/dL (0.0-0.5); Bilirubin Total 0.4 mg/dL (0.0-1.0); Blood Urea Nitrogen 14 mg/dL (9-16); C Reactive Protein 0.11 mg/dL (< or = 0.50); Calcium 9.2 mg/dL (8.4-10.2); Carbon Dioxide 28 mmol/L (22-29); Chloride 105 mmol/L (96-108); Creatinine Clr Calc Pharmacy 65.1; Estimated Glomerular Filt Rate > 60; Ethanol < 10 mg/dL; Glucose Random 89 mg/dL (60-115); Potassium 3.8 mmol/L (3.3-5.1); Sodium 142 mmol/L (135-145)
[2023-12-28 17:35] LABS: Erythrocyte Sedimentation Rate 10 MM/HR (0-15)
[2023-12-28] MEDS: iohexoL 350 MG/ML 100 ML INFUS..BTL IV (17:48)
--- NOTE | 2023-12-28 19:49 | MHC.EDTECH ---
pt vitals signs checked, no questions or concerns, call nj within reach.
[2023-12-28] MEDS: Aspirin Enteric Coated 81 MG TABLET.DR PO (20:06)
== END 2023-12-28 21:06 | disposition home or self-care (01) ==
PROVIDERS: Physician Assistant Medical; Emergency Provider Internal Medicine
DX: G45.3 Amaurosis fugax (principal); Z79.899 Other long term (current) drug therapy; F17.210 Nicotine dependence, cigarettes, uncomplicated
CPT/HCPCS: 36415; 70496; 70498; 80048; 80076; 80307; 85025; 85610; 85652; 85730; 86140; 99284; 99285; Q9967

== ENCOUNTER → 2024-01-03 14:40 | Outpatient (BNV) | payer MEDICAID, SELFPAY | PROVIDERS: PCP Family Medicine; Visit Provider Internal Medicine | DX: C67.8 Malignant neoplasm of overlapping sites of bladder (principal) | CPT/HCPCS: 99213; 99214 ==

== ENCOUNTER 2024-01-15 20:14 | Emergency (ER) | payer MEDICAID, SELFPAY ==
--- NOTE | 2024-01-15 | ECG_ITS ---
Test Reason : DIZINESS Blood Pressure : / mmHG Vent. Rate : 097 BPM Atrial Rate : 097 BPM P-R Int : 134 ms QRS Dur : 082 ms QT Int : 348 ms P-R-T Axes : 080 070 071 degrees QTc Int : 441 ms Normal sinus rhythm Normal ECG When compared with ECG of 07-SEP-2023 15:20, No significant change was found Referred By: Generic ED Physician Electronically Signed By:Charles Ibarra
--- NOTE | ~2024-01-15 | CT_ITS ---
EXAMINATION: CT HEAD WITHOUT CONTRAST CLINICAL INFORMATION: Headache status-post fall. COMPARISON: CTA head dated 01/17/2024; MRI brain dated 11/16/2022. TECHNIQUE: Contiguous axial imaging was performed from the skull base to vertex without intravenous administration of contrast. This CT examination was performed using dose optimization techniques as appropriate, variously including the following: *Automated exposure control *Adjustment of mA and/or kV according to patient size (this includes techniques or standardized protocols for targeted exams where dose is matched to indication/reason for exam; i.e. extremities or head) *Use of iterative reconstruction technique DLP: 630 mGy-cm FINDINGS: There is no acute intracranial hemorrhage or evidence of territorial infarction. No abnormal mass effect or midline shift is seen. Rankin to white matter differentiation is well preserved. There is no abnormal attenuation within the brain parenchyma. A 7 mm calcified right renal cyst is redemonstrated. The ventricles and sulci are age-appropriate in size. No extra-axial fluid collections are identified. The calvarium and scalp soft tissues are normal. The middle ear cavity and mastoid air cells are clear. The visualized paranasal sinuses are clear. CT/CT head/brain wo IV con IMPRESSION: No acute intracranial pathology.
[2024-01-15 20:23] VITALS: BP 112/81; BP 124/74; PULSE 113; PULSE 120; RESP 16; TEMP 36.6; O2SAT 96; BMI 17.5
[2024-01-15 20:36] VITALS: BP 116/64; PULSE 95
[2024-01-15 20:38] VITALS: BP 104/61; PULSE 105
[2024-01-15 20:40] VITALS: BP 92/53; PULSE 100
--- NOTE | 2024-01-15 20:53 | ED.FALL ---
HPI - Fall General Chief Complaint: Fall Stated Complaint: fall yesterday with head strike, No LOC, hematuria Time Seen by Provider: 01/15/24 20:52 Source: patient Mode of arrival: EMS Limitations: no limitations History of Present Illness ED Provider: Dr. Jonnie Juárez HPI Narrative: 63-year-old male with a history of bladder cancer, chronic hepatitis-C, hyperlipidemia, microcytic anemia, chronic headaches, depression who presents emergency department for evaluation of fall and injury to his head and lower back. Patient states that he was feeling fine and walked up to the top of his stairs and felt lightheaded. He states that he caught himself on the banister and then felt better. When he was coming back down the stairs he again felt lightheaded and dizzy, lost his balance and fell. He states that he struck his back in his head on the lower steps. He had no loss of consciousness. Currently complaining of headache, upper and lower back pain. He denied nausea, vomiting or weakness. He states he was not ill prior to the fall. He denied fever, chills, chest pain, shortness of breath, rhinorrhea, cough, diarrhea, change in his bowel movements. Related Data Home Medications ?Medication ?Instructions ?Recorded ?Confirmed amitriptyline 50 mg tablet 50 mg PO BEDTIME 02/03/23 01/10/24 atorvastatin 40 mg tablet 40 mg PO BEDTIME 02/03/23 01/10/24 benztropine 1 mg tablet 1 mg PO BID 02/03/23 01/10/24 famotidine 40 mg tablet 40 mg PO BEDTIME 02/03/23 01/10/24 hydroxyzine pamoate 25 mg capsule 25 mg PO TID PRN Anxiety 02/03/23 01/10/24 jqonxr-essnxzke-pldhwoi 1 cap PO Q8H 02/03/23 01/10/24 24,000-76,000-120,000 unit capsule,delayed rel (Creon) pantoprazole 40 mg tablet,delayed 40 mg PO DAILY@0630 02/03/23 01/10/24 release paroxetine HCl 20 mg tablet 40 mg PO DAILY 02/03/23 01/10/24 quetiapine 100 mg tablet 100 mg PO BEDTIME 02/03/23 01/10/24 oxycodone 10 mg tablet 10 mg PO Q6H PRN severe pain 02/28/24 07/23/24 Previous Rx's ?Medication ?Instructions ?Recorded ferrous sulfate 324 mg (65 mg 324 mg PO BIDWM #30 tabs 07/12/23 iron) tablet,delayed release tamsulosin 0.4 mg capsule 0.4 mg PO BEDTIME #30 caps 07/12/23 phenazopyridine 200 mg tablet 200 mg PO Q8H PRN urinary burning 09/06/23 (Pyridium) #20 tabs aspirin 81 mg tablet,delayed 81 mg PO DAILY #30 tabs 12/28/23 release (Isacc Low Dose Aspirin) Allergies Allergy/AdvReac Type Severity Reaction Status Date / Time haloperidol [From Haldol] Allergy Severe Difficulty Verified 01/15/24 20:26 Breathing Review of Systems Review of Systems: Yes all other systems are reviewed and are negative [facility] Past Medical History Medical History Bladder cancer Chronic hepatitis C HLD (hyperlipidemia) Microcytic anemia Smoker Chronic headaches MDD (major depressive disorder) Surgical History Hx of cystoscopy Social History Social History Household Members: Family Housing: Apartment Do you presently have visiting nurse or other home services: No Unable to assess alcohol history related to: Unknown Alcohol intake: former Patient Tobacco Use Status: Current everyday Tobacco user Tobacco use type: Cigarette Cigarette Packs Per Day: 0.5 Cigarettes Per Day: 7 Advance Directives: Yes Advance Directives on File: Yes Advance Directives Date on File: 08/15/23 service: No Current occupational status: disabled Physical Exam Vital Signs: Vital Signs: Last Vital Signs Temp 98 F 01/15/24 20:23 Pulse 100 01/15/24 20:40 Resp 16 01/15/24 20:23 BP 92/53 L 01/15/24 20:40 Pulse Ox 96 01/15/24 20:23 O2 Del Method Room Air 01/15/24 20:23 BMI result Body Mass Index 17.5 Orthostatic vital signs: Supine: BP 116/64 , heart rate 95 Sitting: BP 104/61, heart rate 104 Standing: BP 92/52, heart rate 100 Exam: General: Awake, alert in no distress, patient was a edentulous and has dysarthric speech which is comprehensible Head: Normocephalic, atraumatic EENT: PERRL, Lids normal, sclera normal, conjunctiva normal, nose normal , ears normal, throat without erythema or exudates Neck: Supple, no adenopathy Lung: breath sounds symmetric, no wheezing, rales or rhonchi Chest: symmetric movement, nontender Heart: regular rate and rhythm, normal S1, S2 no murmurs or rubs Abdomen: soft, non-tender, nondistended, normal bowel sounds Back: No point vertebral tenderness, tenderness with palpation of the paraspinal muscles bilaterally in the lumbar sacral area, no ecchymosis or abrasions Extremities: no deformities, moves all extremities symmetrically Neuro: Awake, alert, oriented, normal speech, cranial nerves intact, moves all extremities symmetrically Psych: Pleasant, cooperative Medications Administered Discontinued Medications Generic Name Dose Route Start Last Admin Trade Name Freq PRN Reason Stop Dose Admin Acetaminophen 975 mg 01/15/24 21:05 01/15/24 21:25 Acetaminophen 325 Mg Tablet PO 01/15/24 21:06 975 mg ONCE STA Administration Sodium Chloride 1,000 mls @ 999 mls/hr 01/15/24 21:05 01/15/24 21:15 Ns IV 01/15/24 22:05 999 mls/hr .Q1H1M STA Administration Medical Decision Making Medical Decision Making MDM Narrative: 63-year-old male with a history of bladder cancer, chronic hepatitis-C, hyperlipidemia, microcytic anemia, chronic headaches, depression who presents emergency department for evaluation of fall and injury to his head and lower back while walking down stairs prior to coming to the emergency department. The patient did feel lightheaded prior to falling. Patient was complaining of headache and back pain. Review of systems was negative. Orthostatic vital signs revealed a 28 point drop in blood pressure but only a 5 point drop in heart rate. Exam did reveal tenderness palpation of his lower back otherwise was unremarkable with a nonfocal neurologic exam. Differential diagnosis: ?Includes but is not limited to closed head injury, skull fracture, intracranial bleed, orthostatic hypotension secondary to dehydration/volume depletion, anemia, electrolyte abnormalities Following evaluation was ordered: CBC, CMP, troponin, urinalysis, PT/INR, EKG Patient was initially treated with the following: Tylenol 975 mg orally, normal saline x1 L Course 22:36 The patient was orthostatic by blood pressure but not pulse. He did feel better after receiving 1 L of IV fluid. My interpretation patient's laboratory evaluation is as follows: CBC and CMP were normal. Troponin was below detectable limits. CT scan of the head revealed no acute process. Patient is feeling better after receiving the IV fluid. Patient's symptoms most likely caused by dehydration and I did discuss this with him. I advised him to increase his fluid intake over the next several days. He was given printed and verbal instructions and discharged home. Admission/Observation Consideration of admission/observation: Escalation of care including admission/observation considered Lab Data MDM Lab Attestation statement: I reviewed the patient's lab results. 01/15/24 20:51 01/15/24 20:51 Labs: Lab Results 01/15/24 Range/Units 20:51 WBC 9.2 (4.8-10.8) X10*3/uL RBC 5.04 (4.60-5.80) X10*6/uL Hgb 13.9 L (14.0-18.0) g/dl Hct 42.1 (42.0-52.0) % MCV 83.5 (80.0-98.0) fL MCH 27.6 (27.0-33.0) pg MCHC 33.0 (31.0-36.0) g/dl RDW 15.3 (11.0-16.0) % Plt Count 253 D (160-400) X10*3/uL MPV 9.2 L (9.4-12.4) fL Immature Gran % (Auto) 0.4 (0.0-0.4) % Neut % (Auto) 59.7 (45-73) % Lymph % (Auto) 27.2 (20-40) % [place] % (Auto) 6.1 (2-11) % Eos % (Auto) 6.1 H (0-4) % Baso % (Auto) 0.5 (0-2) % Lymph # (Auto) 2.5 (1.2-4.9) X10*3/uL [place] # (Auto) 0.6 (0.1-1.2) X10*3/uL Eos # (Auto) 0.6 H (0.0-0.4) X10*3/uL Baso # (Auto) 0.1 (0.0-0.2) X10*3/uL Abs Immat Gran (auto) 0.04 H (0.00-0.03) X10*3/uL Absolute Neuts (auto) 5.5 (2.0-8.3) x10*3/uL Absolute Nucleated RBC 0.000 (0.0-0.012) X10*3/uL Nucleated RBC % (auto) 0.0 (0.0-0.2) /100WBC PT 11.5 (11.1-13.3) SEC INR 0.9 (0.9-1.1) Sodium 144 (135-145) mmol/L Potassium 3.9 (3.3-5.1) mmol/L Chloride 108 (96-108) mmol/L Carbon Dioxide 26 (22-29) mmol/L Anion Gap 14 (12-20) BUN 17 H (9-16) mg/dL Creatinine 1.16 (0.5-1.4) mg/dL Estim Creat Clear Calc 50.2 Estimated GFR > 60 Random Glucose 104 (60-115) mg/dL Calcium 9.7 (8.4-10.2) mg/dL Total Bilirubin 0.4 (0.0-1.0) mg/dL AST 17 (5-37) U/L ALT 14 (0-40) U/L Alkaline Phosphatase 77 (39-117) U/L Troponin I High Sens < 2.7 (<3.5-35.0) ng/L Total Protein 6.8 (6.5-8.0) g/dL Albumin 4.3 (3.5-5.0) g/dL Independent Interpretation I performed an independent interpretation of an: EKG Interpretation: My independent interpretation the patient's 12 EKG done at 20:31 hours is as follows: Normal sinus rhythm rate of 94, normal PA interval, QRS duration QTC interval, no ST segment elevation, no ST segment depression, no T-wave abnormalities. This is a normal EKG. Radiology Impression Discussion of test interpretation with radiology: I have reviewed the radiologist's reading. Radiologist Impression: CT head/brain wo IV con IMPRESSION: No acute intracranial pathology. Dictated By: Marck Morrow MD Chronic Conditions Patient?s care impacted by: Other (Hepatitis-C, bladder cancer) Discharge Plan Discharge Clinical Impression: Fall, Head injury, Back contusion Patient Disposition: Home, Self-Care Instructions: Contusion in Adults (ED) Additional Instructions: Your blood work was unremarkable. Your CT scan of the head revealed no broken bones or bleeding in the brain which is reassuring. Your dizziness was most likely caused by dehydration I want you to increase the amount of food and fluid that you eat and drink over the next several days to prevent dehydration Continue medications as prescribed by your providers. Take Tylenol (acetaminophen) 500 mg pills, 2 pills every 6 hours as needed for pain or fever. Follow-up with your doctor in 2 days. Please return to the emergency department if your symptoms get worse or if you develop any symptoms that are concerning to you. Prescriptions: No Action phenazopyridine [Pyridium] 200 mg tablet 200 mg PO Q8H PRN (Reason: urinary burning) Qty: 20 0RF aspirin [Isacc Low Dose Aspirin] 81 mg tablet,delayed release (DR/EC) 81 mg PO DAILY Qty: 30 0RF atorvastatin 40 mg tablet 40 mg PO BEDTIME famotidine 40 mg tablet 40 mg PO BEDTIME quetiapine 100 mg tablet 100 mg PO BEDTIME amitriptyline 50 mg tablet 50 mg PO BEDTIME paroxetine HCl 20 mg tablet 40 mg PO DAILY pantoprazole 40 mg tablet,delayed release (DR/EC) 40 mg PO DAILY@0630 benztropine 1 mg tablet 1 mg PO BID hydroxyzine pamoate 25 mg capsule 25 mg PO TID PRN (Reason: Anxiety) Creon 24,000-76,000 -120,000 unit capsule,delayed release(DR/EC) 1 cap PO Q8H tamsulosin 0.4 mg Capsule 0.4 mg PO BEDTIME Qty: 30 0RF ferrous sulfate 324 mg (65 mg iron) Tablet,Delayed Release (Dr/Ec) 324 mg PO BIDWM Qty: 30 0RF oxycodone 10 mg tablet 10 mg PO Q6H PRN (Reason: severe pain) Print Language: [place]
--- NOTE | 2024-01-15 20:53 | PC.NURSE ---
orthostatics as documented. Dr. Juárez made aware. pt denied dizziness upon standing however looked to be unsteady. pt assisted back to stretcher and call nj within reach.
[2024-01-15 20:54] LABS: MANUAL DIFF FLAG NO
[2024-01-15 20:55] LABS: Basophils Absolute Auto 0.1 X10*3/uL (0.0-0.2); Basophils Percent Auto 0.5 % (0-2); Eosinophils Absolute Auto 0.6 X10*3/uL (0.0-0.4); Eosinophils Percent Auto 6.1 % (0-4); Hematocrit 42.1 % (42.0-52.0); Hemoglobin 13.9 g/dl (14.0-18.0); Imm Gran Abs Auto 0.04 X10*3/uL (0.00-0.03); Imm Gran Pct Auto 0.4 % (0.0-0.4); Lymphocytes Absolute Auto 2.5 X10*3/uL (1.2-4.9); Lymphocytes Percent Auto 27.2 % (20-40); Mean Corpuscular Hemoglobin 27.6 pg (27.0-33.0); Mean Corpuscular Volume 83.5 fL (80.0-98.0); Mean Platelet Volume 9.2 fL (9.4-12.4); Monocytes Absolute Auto 0.6 X10*3/uL (0.1-1.2); Monocytes Percent Auto 6.1 % (2-11); Neutrophils Absolute Auto 5.5 x10*3/uL (2.0-8.3); Neutrophils Percent Auto 59.7 % (45-73); Platelet Count 253 X10*3/uL (160-400); Red Blood Count 5.04 X10*6/uL (4.60-5.80); Red Cell Distribution Width 15.3 % (11.0-16.0); White Blood Count 9.2 X10*3/uL (4.8-10.8)
[2024-01-15 21:05] LABS: INTERNATIONAL NORM RATIO 0.9 (0.9-1.1); Prothrombin Time 11.5 SEC (11.1-13.3)
[2024-01-15 21:13] LABS: Alanine Aminotransferase 14 U/L (0-40); Albumin Level 4.3 g/dL (3.5-5.0); Alkaline Phosphatase 77 U/L (39-117); Anion Gap 14 (12-20); Aspartate Amino Transferase 17 U/L (5-37); Bilirubin Total 0.4 mg/dL (0.0-1.0); Blood Urea Nitrogen 17 mg/dL (9-16); Calcium 9.7 mg/dL (8.4-10.2); Carbon Dioxide 26 mmol/L (22-29); Chloride 108 mmol/L (96-108); Creatinine Clr Calc Pharmacy 50.2; Estimated Glomerular Filt Rate > 60; Glucose Random 104 mg/dL (60-115); Potassium 3.9 mmol/L (3.3-5.1); Sodium 144 mmol/L (135-145); Total Protein 6.8 g/dL (6.5-8.0)
[2024-01-15 21:15] VITALS: PULSE 95
[2024-01-15] MEDS: 0.9 % Sodium Chloride 1,000 ML 999 ML IV (21:15)
[2024-01-15 21:22] LABS: Troponin-I High Sensitivity < 2.7 ng/L (<3.5-35.0)
[2024-01-15] MEDS: Acetaminophen 325 MG TABLET 975 MG PO (21:25)
--- NOTE | 2024-01-15 23:10 | PC.NURSE ---
pt educated on d/c; at this time axox4 ambulatory with steady gait. pt reports 3/10 back pain. pt states does not feel like he can provide ua sample at this time, bladder scan shows 104mL urine in bladder. MD aware and in agreement for pt to f/u with pcp for ua and pt in agreement as well. pt verbalizes understanding d/c education.
[2024-01-15 23:11] VITALS: BP 100/58; PULSE 73; RESP 16; TEMP 36.8; O2SAT 96
== END 2024-01-15 23:12 | disposition home or self-care (01) ==
PROVIDERS: Emergency Provider Emergency Medicine Emergency Medical Services; PCP Family Medicine
DX: S30.0XXA Contusion of lower back and pelvis, initial encounter (principal); S09.90XA Unspecified injury of head, initial encounter; R42 Dizziness and giddiness; R51.9 Headache, unspecified; M54.6 Pain in thoracic spine; F17.210 Nicotine dependence, cigarettes, uncomplicated; W10.9XXA Fall (on) (from) unspecified stairs and steps, initial encounter; Y93.89 Activity, other specified; Y92.098 Other place in other non-institutional residence as the place of occurrence of the external cause; Y99.8 Other external cause status; Z79.899 Other long term (current) drug therapy
CPT/HCPCS: 36415; 70450; 80053; 84484; 85025; 85610; 93005; 96360; 99284; 99285

== ENCOUNTER → 2024-01-15 20:31 | Outpatient (BNV) | payer MEDICAID, SELFPAY | PROVIDERS: Emergency Provider Emergency Medicine Emergency Medical Services; PCP Family Medicine; Visit Provider Internal Medicine Cardiovascular Disease | DX: R03.1 Nonspecific low blood-pressure reading (principal) | CPT/HCPCS: 93010 ==

== ENCOUNTER 2024-01-20 13:55 | Outpatient (REF) | payer MEDICAID, SELFPAY ==
[2024-01-20 18:37] LABS: Urine Cytology See Pathology rpt
== END 2024-01-20 13:56 | disposition home or self-care (01) ==
LOC: HO.LAB 13:55
PROVIDERS: PCP Family Medicine; Visit Provider Urology
DX: C67.9 Malignant neoplasm of bladder, unspecified (principal); N39.0 Urinary tract infection, site not specified
CPT/HCPCS: 51798; 81003; 87086; 88112; 99212

== ENCOUNTER 2024-01-20 13:55 | Outpatient (AMB) | payer MEDICAID, SELFPAY ==
--- NOTE | 2024-01-20 14:20 | A.OFFVIS_ITS ---
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 He complains of dark urine and dysuria. He was diagnosed with bladder cancer in 07/09/2023. He underwent cystoscopy on 07/05/2023 this revealed multiple large bladder tumors. Transurethral resection of bladder tumor in June 2023 of tumors revealed high-grade urothelial carcinoma, invasive and papillary. Muscularis propria was not identified. Staging CT chest/abdomen and pelvis demonstrated 6 large bladder masses, largest measuring 4.7 x 4.1 x 2.7 cm present at the base. No evidence of metastatic disease. No abdominal or pelvic lymphadenopathy, osseous structures normal. He had PET-CT in August 2023 which revealed diffuse bladder wall thickening, no evidence of FDG avid abdominopelvic lymph nodes. Patchy opacities in the lingula and left lower lobe likely representing infectious/inflammatory process. He was referred to [facility] radiation oncology. He was recommended repeat cystoscopy and biopsy. He underwent another TURBT in 09/07/2023 which revealed high-grade urothelial carcinoma, invasive into lamina propria. Muscularis propria present. No lymphovascular invasion. He had another PET-CT done at [facility] on 12/30/2023. No FDG avid abdominal or pelvic lymphadenopathy. The patient was evaluated by oncology and discussed that he does not need systemic chemo or immunotherapy. Plan - urine c/s, will start Abx empiracally, will schedule repeat cysto turbt. [facility] Medical History Bladder cancer Chronic hepatitis C HLD (hyperlipidemia) Microcytic anemia Smoker Chronic headaches MDD (major depressive disorder) Surgical History Hx of cystoscopy Social History Household Members: Family Housing: Apartment Do you presently have visiting nurse or other home services: No Unable to assess alcohol history related to: Unknown Alcohol intake: former Patient Tobacco Use Status: Current everyday Tobacco user Tobacco use type: Cigarette Cigarette Packs Per Day: 0.5 Cigarettes Per Day: 7 Advance Directives Date on File: 08/15/23 service: No Current occupational status: disabled Office Procedures Post Void Residual Post Residual Void Post Void Residual (PVR): 57 [id number] Void Residual by ultrasound Results AMB Urinalysis, Automated UA Leukoctes 500 Yonatan/uL Last Edit by Roseanna Calhoun CMA on 01/20/24 14:30 UA Nitrite Positive Last Edit by Roseanna Calhoun CMA on 01/20/24 14:30 UA Urobilinogen 1 mg/dL Last Edit by Roseanna Calhoun CMA on 01/20/24 14:30 UA Protein 300 mg/dL Last Edit by Roseanna Calhoun CMA on 01/20/24 14:30 UA pH 6.5 Last Edit by Roseanna Calhoun CMA on 01/20/24 14:30 UA Blood 200 Tae/uL Last Edit by Roseanna Calhoun CMA on 01/20/24 14:30 UA Specific Yale 1.030 Last Edit by Roseanna Calhoun CMA on 01/20/24 14:30 UA Ketone Positive Last Edit by Roseanna Calhoun CMA on 01/20/24 14:30 UA Bilirubin 1 mg/dL Last Edit by Roseanna Calhoun CMA on 01/20/24 14:30 UA Glucose 0 mg/dL Last Edit by Roseanna Calhoun CMA on 01/20/24 14:30 Results Reviewed Results Reviewed: Laboratory Last Values Urine pH (Auto) 6.5 01/20/24 14:21 Specific Yale (Auto) 1.030 01/20/24 14:21 Urine Protein (Auto) 300 mg/dL 01/20/24 14:21 Glucose (UA)(Auto) 0 mg/dL 01/20/24 14:21 Urine Ketones (Auto) Positive 01/20/24 14:21 Urine Blood (Auto) 200 Tae/uL 01/20/24 14:21 Urine Nitrite (Auto) Positive 01/20/24 14:21 Urine Bilirubin (Auto) 1 mg/dL 01/20/24 14:21 Urine Urobilinogen (Auto) 1 mg/dL 01/20/24 14:21 Leukocyte Esterase (Auto) 500 Yonatan/uL 01/20/24 14:21 Collected: 09/06/23 Location: [facility] Received: 09/06/23 Diagnosis Bladder, transurethral resection: - High-grade urothelial carcinoma, invasive into lamina propria. - Muscularis propria present. Bladder, transurethral resection/biopsy Procedure: Transurethral resection Tumor site: Multiple sites throughout the bladder Histologic type: Urothelial carcinoma Histologic grade: High-grade (with relatively abundant background low-grade) Muscularis propria: Present Extent of invasion: Lamina propria Lymphovascular invasion: Not identified Clinical History Malignant neoplasm of bladder Collected: 07/05/23 Location: [facility] Received: 07/06/23 Diagnosis Bladder tumor: Urothelial carcinoma, invasive and papillary, high grade. Bladder, transurethral resection/biopsy Procedure: Transurethral resection Tumor site: Per op note: bladder neck at 3 and 9 o'clock, right and left lateral wall and posterior wall Histologic type: Urothelial carcinoma, invasive and papillary Histologic grade: High grade Muscularis propria: Not identified Extent of invasion: Invades lamina propria (subepithelial connective tissue) Lymphovascular invasion: Not identified Clinical History Bladder tumor Microscopic Description Microscopic sections show a proliferation of highly atypical cells with thickened complex papillary architecture with invasion into the subepithelial tissue. The malignant cells show variability in size and shape, with loss of polarity. The cells have clumped chromatin and prominent nucleoli. Mitotic figures are easily identified. Assessment & Plan Assessment & Plan (1) Bladder cancer: Comment: Invasive, high-grade Code(s): C67.9 - Malignant neoplasm of bladder, unspecified Category: Medical (2) UTI (urinary tract infection): Code(s): N39.0 - Urinary tract infection, site not specified Category: Medical Plan bactrim, urine c/s, repeat cysto turbt Orders: Orders AMB Post Void Residual by ultrasound 01/20/24 Z13.9 - Encounter for screening, unspecified Urine Cytology 01/20/24 C67.9 - Malignant neoplasm of bladder, unspecified AMB Urinalysis Automated 01/20/24 Z13.9 - Encounter for screening, unspecified Urine Culture 01/20/24 N39.0 - Urinary tract infection, site not specified Medications: New sulfamethoxazole-trimethoprim 800-160 mg (Bactrim DS) 1 tab PO BID 20 tabs 0RF 10 days Patient Instructions: The patient had an opportunity to ask questions regarding treatment plan. The patient expressed understanding and agreement with the above treatment plan. The patient is aware they should contact our office by phone for worsening of their current condition or the appearance of new symptoms. Compliance is encouraged with any medications and followup testing that is ordered. It is a privilege to be allowed the opportunity to participate in the urologic care of your patient. If you have any questions or concerns regarding treatment for the above conditions please do not hesitate to contact me. The office telephone contact is [phone]. This note is constructed in part using voice recognition software. While every effort has been made to ensure accuracy gas engine operator errors may have been included. Yours sincerely, Maryan Avila MD Coding Level of Care Code Est Pt Level 4 (60000) Diagnoses Bladder cancer C67.9 UTI (urinary tract infection) N39.0 CPT Codes Post Residual Void - PVR CPT Code: 10917-Rsfi Void Residual by ultrasound ([id number])
== END 2024-01-20 14:55 | disposition home or self-care (01) ==
LOC: HO.HUSH 13:55
PROVIDERS: PCP Family Medicine; Referring Provider Family Medicine; Visit Provider Urology
DX: C67.8 Malignant neoplasm of overlapping sites of bladder (principal); N39.0 Urinary tract infection, site not specified
CPT/HCPCS: 99214

== ENCOUNTER 2024-01-26 22:49 | Inpatient (IN) | payer MEDICAID, SELFPAY ==
--- NOTE | ~2024-01-26 | CT_ITS ---
EXAMINATION: CT HEAD WITHOUT CONTRAST CT CERVICAL SPINE WITHOUT CONTRAST CLINICAL INFORMATION: Fall. Pain. COMPARISON: 01/15/2024 TECHNIQUE: Contiguous axial imaging was performed through the head and cervical spine without intravenous administration of contrast. Sagittal and coronal reformatted images also obtained This CT examination was performed using dose optimization techniques as appropriate, variously including the following: *Automated exposure control *Adjustment of mA and/or kV according to patient size (this includes techniques or standardized protocols for targeted exams where dose is matched to indication/reason for exam; i.e. extremities or head) *Use of iterative reconstruction technique DLP: 932 mGy-cm FINDINGS: The lateral, third and fourth ventricles are normally outlined. The cortical sulci and basal cisterns are normally outlined as well. There is no acute territorial defect, hemorrhage or midline shift. The extra-axial spaces are unremarkable. Calvarium is/scalp: Intact. Maxillofacial sinuses and mastoids: Clear as visualized. Cervical spine: The alignment is normal. There is mild diffuse cervical disc degenerative change with minimal loss of disc space, mild endplate change and mild osteophyte formation associated with mild diffuse facet osteoarthritic hypertrophic change without significant spinal canal or neuroforaminal narrowing. The bone mineralization is normal. No fracture is seen. Soft tissues are unremarkable. There is upper lung field emphysematous change. CT/CT head/brain wo IV con IMPRESSION: 1. No acute intracranial process seen. 2. There is no acute cervical spine fracture or malalignment. There is mild diffuse cervical spondylosis.
--- NOTE | ~2024-01-26 | CT_ITS ---
EXAMINATION: CT HEAD WITHOUT CONTRAST CT CERVICAL SPINE WITHOUT CONTRAST CLINICAL INFORMATION: Fall. Pain. COMPARISON: 01/15/2024 TECHNIQUE: Contiguous axial imaging was performed through the head and cervical spine without intravenous administration of contrast. Sagittal and coronal reformatted images also obtained This CT examination was performed using dose optimization techniques as appropriate, variously including the following: *Automated exposure control *Adjustment of mA and/or kV according to patient size (this includes techniques or standardized protocols for targeted exams where dose is matched to indication/reason for exam; i.e. extremities or head) *Use of iterative reconstruction technique DLP: 932 mGy-cm FINDINGS: The lateral, third and fourth ventricles are normally outlined. The cortical sulci and basal cisterns are normally outlined as well. There is no acute territorial defect, hemorrhage or midline shift. The extra-axial spaces are unremarkable. Calvarium is/scalp: Intact. Maxillofacial sinuses and mastoids: Clear as visualized. Cervical spine: The alignment is normal. There is mild diffuse cervical disc degenerative change with minimal loss of disc space, mild endplate change and mild osteophyte formation associated with mild diffuse facet osteoarthritic hypertrophic change without significant spinal canal or neuroforaminal narrowing. The bone mineralization is normal. No fracture is seen. Soft tissues are unremarkable. There is upper lung field emphysematous change. CT/CT cervical spine wo IV con IMPRESSION: 1. No acute intracranial process seen. 2. There is no acute cervical spine fracture or malalignment. There is mild diffuse cervical spondylosis.
--- NOTE | ~2024-01-26 | XR_ITS ---
EXAMINATION: XR HUMERUS, LEFT CLINICAL INFORMATION: Fall. Pain. COMPARISON: None available. TECHNIQUE: AP and lateral views of the left humerus. FINDINGS: The bones and soft tissues are normal. No fracture. Imaged portions of the shoulder and elbow are unremarkable. XR/XR humerus LT IMPRESSION: No significant abnormality identified.
--- NOTE | ~2024-01-26 | XR_ITS ---
EXAMINATION: XR CHEST CLINICAL INFORMATION: Hypotension and cough COMPARISON: 07/02/2023 TECHNIQUE: Semiupright portable 5:50 AM view of the chest was obtained. FINDINGS: Advanced emphysema again noted with hyperinflation. Irregular lesion left lower lobe appears similar. No superimposed process. No pleural disease. Heart images are normal. No acute osseous abnormality. XR/XR chest 1V IMPRESSION: Advanced emphysema. No acute superimposed process. Stable irregular lesion left lower lobe. Follow-up CT recommended.
[2024-01-26 22:52] VITALS: BP 105/49; BP 142/74; PULSE 85; PULSE 98; RESP 17; TEMP 36.6; O2SAT 95; O2SAT 96; BMI 15.8
[2024-01-26 23:07] VITALS: BP 105/49; PULSE 83; RESP 18; TEMP 36.6; O2SAT 95
--- OUTSIDE RECORDS SUMMARY | 2024-01-26 23:24 | XMS_ITS | Continuity of Care Document ---
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
--- NOTE | 2024-01-26 23:49 | ED_ITS ---
HPI - Fall General Chief Complaint: Fall Stated Complaint: Fall w/ head strike Time Seen by Provider: 01/26/24 23:41 Source: patient and EMS Mode of arrival: EMS Limitations: no limitations History of Present Illness ED Provider: Dr. Gladis Vanessa HPI Narrative: Patient comes to the emergency room complaining of a fall and the shoulder pain. Patient states that he was walking up the stairs, missed a step, fell forward landing on the left side of his body and slipped down 6 steps. Patient states that he did not lose consciousness, patient is not on blood thinners. Patient complaining of abrasions to the left side of the forehead. Patient states that what hurts him the most is the left shoulder. Patient states that he was able to get up by himself and walk, denies pain in the hips or lower extremities Related Data Home Medications ?Medication ?Instructions ?Recorded ?Confirmed amitriptyline 50 mg tablet 50 mg PO BEDTIME 02/03/23 01/10/24 atorvastatin 40 mg tablet 40 mg PO BEDTIME 02/03/23 01/10/24 benztropine 1 mg tablet 1 mg PO BID 02/03/23 01/10/24 famotidine 40 mg tablet 40 mg PO BEDTIME 02/03/23 01/10/24 hydroxyzine pamoate 25 mg capsule 25 mg PO TID PRN Anxiety 02/03/23 01/10/24 eombgd-[id number]-[id number] 1 cap PO Q8H 02/03/23 01/10/24 24,000-76,000-120,000 unit capsule,delayed rel (Creon) pantoprazole 40 mg tablet,delayed 40 mg PO DAILY@0630 02/03/23 01/10/24 release paroxetine HCl 20 mg tablet 40 mg PO DAILY 02/03/23 01/10/24 quetiapine 100 mg tablet 100 mg PO BEDTIME 02/03/23 01/10/24 oxycodone 10 mg tablet 10 mg PO Q6H PRN severe pain 08/17/23 01/10/24 Previous Rx's ?Medication ?Instructions ?Recorded ferrous sulfate 324 mg (65 mg 324 mg PO BIDWM #30 tabs 07/12/23 iron) tablet,delayed release tamsulosin 0.4 mg capsule 0.4 mg PO BEDTIME #30 caps 07/12/23 phenazopyridine 200 mg tablet 200 mg PO Q8H PRN urinary burning 09/06/23 (Pyridium) #20 tabs aspirin 81 mg tablet,delayed 81 mg PO DAILY #30 tabs 12/28/23 release (Isacc Low Dose Aspirin) sulfamethoxazole 800 1 tab PO BID 10 days #20 tabs 01/20/24 mg-trimethoprim 160 mg tablet (Bactrim DS) Allergies Allergy/AdvReac Type Severity Reaction Status Date / Time haloperidol [From Haldol] Allergy Severe Difficulty Verified 01/26/24 23:03 Breathing Review of Systems 2 Review of Systems: Constitutional : No Weight loss, No Fever, No Chills, No Night Sweats, No Fatigue, No Malaise ENT/Mouth : No Hearing loss, No Ear Pain, No Nasal Congestion, No Sinus Pain, No Hoarseness, No sore throat, No Rhinorrhea, No Swallowing Difficulty Eyes: No Eye Pain, No Swelling, No Redness, No Foreign Body, No Discharge, No Vision Changes Cardiovascular : No Chest Pain, No SOB, No Dyspnea on Exertion, No Orthopnea, No Edema, No Palpitations Respiratory : No Cough, No Sputum, No Wheezing, No Smoke Exposure, No Dyspnea Gastrointestinal : No Nausea, No Vomiting, No Diarrhea, No Constipation, No abdominal Pain, No Hematochezia, No Melena Genitourinary : no irregular bleeding, No Dysuria, No Urinary Frequency, No Hematuria, No Urinary Incontinence, No Urgency, No Flank Pain, No Urinary Flow Changes, No Hesitancy Musculoskeletal : Complaining of left shoulder pain, No Myalgias, No Joint Swelling Skin : Complaining of multiple abrasions to the left side of face Neuro : No Weakness, No Numbness, No Paresthesias, No Loss of Consciousness, No Dizziness, No Headache Psych : No Anxiety/Panic, No Depression, No SI/HI/AH/VH, No Social Issues, Heme/Lymph: No Bruising, No Bleeding,No Lymphadenopathy Endocrine : No Polyuria, No Polydipsia, No Temperature Intolerance PMFSH Past Medical History Medical History Bladder cancer Chronic hepatitis C HLD (hyperlipidemia) Microcytic anemia Smoker Chronic headaches MDD (major depressive disorder) Surgical History Hx of cystoscopy Social History Social History Household Members: Family Housing: Apartment Do you presently have visiting nurse or other home services: No Unable to assess alcohol history related to: Unknown Alcohol intake: former Patient Tobacco Use Status: Current everyday Tobacco user Tobacco use type: Cigarette Cigarette Packs Per Day: 0.5 Cigarettes Per Day: 7 Smoked in Last 30 Days: Yes Use of substances other than those prescribed or required for medical reasons: No Advance Directives: Yes Advance Directives on File: Yes Advance Directives Date on File: 08/15/23 Do you have a plan to hurt others: No Plan service: No Current occupational status: disabled Physical Exam 2 Vital Signs: Vital Signs: Last Vital Signs Temp 97.9 F 01/27/24 06:00 Pulse 81 01/27/24 06:00 Resp 20 01/27/24 06:00 BP 109/61 01/27/24 06:00 Pulse Ox 99 01/27/24 06:00 O2 Del Method Room Air 01/27/24 06:00 BMI result Body Mass Index 15.8 Const: Other: Appearance: Alert. Oriented X3. No acute distress. Eyes: Pupils equal, round and reactive to light. ENT: Pharynx normal. Neck: Normal inspection. Neck supple. No lymph nodes noted. No crepitus, no palpable step-offs, no C-spine tenderness, normal range of motion CVS: Normal heart rate and rhythm. Pulses normal. Normal S1 and S2 Respiratory: No respiratory distress. Breath sounds normal. No Wheezing. No rales Abdomen: Soft and nontender. No rigidity. No distention. Skin: Skin warm and dry. A bit pale, Normal skin turgor. Extremities: No lower extremity edema. Patient able to flex and extend the hips knees. Patient has normal range of motion with the right arm, patient has significant pain to palpation over the left shoulder and left humerus Neuro: Oriented X 3. No motor deficit. No sensory deficit. Moving all extremities. No slurred speech. CN 2 through 12 grossly intact Psych: calm, cooperative, normal affect Course Course Course Narrative: -patient's CT scans of the head and cervical spine pending, x-ray of the shoulder and the humerus. -also, patient known to become anemic, patient has bladder cancer, we will check labs Medications Administered Discontinued Medications Generic Name Dose Route Start Last Admin Trade Name Lucho PRN Reason Stop Dose Admin Sodium Chloride 1,000 mls @ 999 mls/hr 01/27/24 02:30 01/27/24 03:04 Ns IV 01/27/24 03:30 Infused .Q1H1M BIBIANA Infusion Sodium Chloride 1,000 mls @ 999 mls/hr 01/27/24 05:45 01/27/24 06:34 Ns IV 01/27/24 06:45 Infused .Q1H1M BIBIANA Infusion Medical Decision Making Medical Decision Making [facility] Narrative: -my interpretation of EKG, sinus rhythm, heart rate 71, no ST segment depression or elevation, no T-wave inversion, QTC 478 -my interpretation of labs: Hematology at baseline, chemistry within normal limits -humerus x-ray: Shoulder unremarkable, no abnormality of the humerus. -head CT and cervical spine CT, no acute findings -I was informed by the patient's nurse that the blood pressure dropped to the mid 80s, patient receiving IV fluids. Patient asymptomatic. -patient received 2 L of normal saline, patient's blood pressure 109/61. -patient will be getting 1/3 L of fluid. Patient's blood pressure still remains off. -at this time, 07:00, patient has not urinated yet. It is possible the patient may have a UTI? Hematuria is expected, patient has history of bladder cancer. -blood pressure improvement and urinalysis pending. Chest x-ray radiology report pending as well. -sign-out given to my colleague Dr. Cuba Differential Diagnosis Differential Diagnoses: The differential diagnosis associated with the presentation includes (Intracranial bleed, cervical spine injury, hip fracture, dislocation, contusion) Admission/Observation Consideration of admission/observation: Escalation of care including admission/observation considered (Given patient's presentation and vitals, observation considered) Lab Data [facility] Lab Attestation statement: I reviewed the patient's lab results. 01/27/24 00:13 01/27/24 00:13 Labs: Lab Results 01/27/24 01/27/24 01/27/24 Range/Units 00:13 06:07 06:08 WBC 8.5 (4.8-10.8) X10*3/uL RBC 4.31 L (4.60-5.80) X10*6/uL Hgb 12.0 L (14.0-18.0) g/dl Hct 35.9 L (42.0-52.0) % MCV 83.3 (80.0-98.0) fL MCH 27.8 (27.0-33.0) pg MCHC 33.4 (31.0-36.0) g/dl RDW 14.6 (11.0-16.0) % Plt Count 194 (160-400) X10*3/uL MPV 9.8 (9.4-12.4) fL Immature Gran % (Auto) 0.4 (0.0-0.4) % Neut % (Auto) 53.1 (45-73) % Lymph % (Auto) 27.1 (20-40) % [place] % (Auto) 6.5 (2-11) % Eos % (Auto) 12.4 H (0-4) % Baso % (Auto) 0.5 (0-2) % Lymph # (Auto) 2.3 (1.2-4.9) X10*3/uL [place] # (Auto) 0.6 (0.1-1.2) X10*3/uL Eos # (Auto) 1.1 H (0.0-0.4) X10*3/uL Baso # (Auto) 0.0 (0.0-0.2) X10*3/uL Abs Immat Gran (auto) 0.03 (0.00-0.03) X10*3/uL Absolute Neuts (auto) 4.5 (2.0-8.3) x10*3/uL Absolute Nucleated RBC 0.000 (0.0-0.012) X10*3/uL Nucleated RBC % (auto) 0.0 (0.0-0.2) /100WBC PT 11.7 (11.1-13.3) SEC INR 1.0 (0.9-1.1) Sodium 139 (135-145) mmol/L Potassium 4.2 (3.3-5.1) mmol/L Chloride 108 (96-108) mmol/L Carbon Dioxide 23 (22-29) mmol/L Anion Gap 12 (12-20) BUN 13 (9-16) mg/dL Creatinine 1.09 (0.5-1.4) mg/dL Estim Creat Clear Calc 48.3 Estimated GFR > 60 Random Glucose 105 (60-115) mg/dL Lactic Acid 0.6 (0.5-2.0) mmol/L Calcium 8.9 D (8.4-10.2) mg/dL Magnesium 1.6 (1.6-2.6) mg/dL Total Bilirubin 0.2 (0.0-1.0) mg/dL Direct Bilirubin < 0.2 (0.0-0.5) mg/dL AST 19 (5-37) U/L ALT 11 (0-40) U/L Alkaline Phosphatase 71 (39-117) U/L Troponin I High Sens 4.2 D (<3.5-35.0) ng/L B-Natriuretic Peptide < 10 (<100) pg/mL Total Protein 6.2 L (6.5-8.0) g/dL Albumin 3.9 (3.5-5.0) g/dL Ethyl Alcohol < 10 mg/dL COVID-19 (JAQUELINE) Negative (Negative) COVID-19 Clin Com See Note Independent Interpretation I performed an independent interpretation of an: Plain X-Ray and CT Scan Radiology Impression Discussion of test interpretation with radiology: I have reviewed the radiologist's reading. Radiologist Impression: The bones and soft tissues are normal. No fracture. Imaged portions of the shoulder and elbow are unremarkable. XR/XR humerus LT IMPRESSION: No significant abnormality identified. INDINGS: The lateral, third and fourth ventricles are normally outlined. The cortical sulci and basal cisterns are normally outlined as well. There is no acute territorial defect, hemorrhage or midline shift. The extra-axial spaces are unremarkable. Calvarium is/scalp: Intact. Maxillofacial sinuses and mastoids: Clear as visualized. Cervical spine: The alignment is normal. There is mild diffuse cervical disc degenerative change with minimal loss of disc space, mild endplate change and mild osteophyte formation associated with mild diffuse facet osteoarthritic hypertrophic change without significant spinal canal or neuroforaminal narrowing. The bone mineralization is normal. No fracture is seen. Soft tissues are unremarkable. There is upper lung field emphysematous change. CT/CT head/brain wo IV con IMPRESSION: 1. No acute intracranial process seen. 2. There is no acute cervical spine fracture or malalignment. There is mild diffuse cervical spondylosis. Critical Care Time Critical Care Time Critical Care Time: Yes Total Critical Care Time: 75 Attestation: I have personally provided critical care time. Time includes review of lab data, radiology results, discussion with consultants, and monitoring for potential decompensation. Intervention performed as documented. Discharge Plan Discharge Clinical Impression: Fall, Arm contusion, Acute hypotension, Dehydration Patient Disposition: Still a Patient Prescriptions: No Action phenazopyridine [Pyridium] 200 mg tablet 200 mg PO Q8H PRN (Reason: urinary burning) Qty: 20 0RF aspirin [Isacc Low Dose Aspirin] 81 mg tablet,delayed release (DR/EC) 81 mg PO DAILY Qty: 30 0RF atorvastatin 40 mg tablet 40 mg PO BEDTIME famotidine 40 mg tablet 40 mg PO BEDTIME quetiapine 100 mg tablet 100 mg PO BEDTIME amitriptyline 50 mg tablet 50 mg PO BEDTIME paroxetine HCl 20 mg tablet 40 mg PO DAILY pantoprazole 40 mg tablet,delayed release (DR/EC) 40 mg PO DAILY@0630 benztropine 1 mg tablet 1 mg PO BID hydroxyzine pamoate 25 mg capsule 25 mg PO TID PRN (Reason: Anxiety) Creon 24,000-76,000 -120,000 unit capsule,delayed release(DR/EC) 1 cap PO Q8H tamsulosin 0.4 mg Capsule 0.4 mg PO BEDTIME Qty: 30 0RF ferrous sulfate 324 mg (65 mg iron) Tablet,Delayed Release (Dr/Ec) 324 mg PO BIDWM Qty: 30 0RF oxycodone 10 mg tablet 10 mg PO Q6H PRN (Reason: severe pain) sulfamethoxazole-trimethoprim [Bactrim DS] 800-160 mg tablet 1 tab PO BID 10 Days Qty: 20 0RF Print Language: Estonian
[2024-01-27] VITALS (14 sets, daily range): BP systolic 77–125; BP diastolic 46–91; PULSE 69–83; RESP 15–20; TEMP 36.2–36.7; O2SAT 96–99; BMI 15.9
[2024-01-27 00:17] LABS: Basophils Percent Auto 0.5 % (0-2); Eosinophils Absolute Auto 1.1 X10*3/uL (0.0-0.4); Eosinophils Percent Auto 12.4 % (0-4); Hematocrit 35.9 % (42.0-52.0); Imm Gran Abs Auto 0.03 X10*3/uL (0.00-0.03); Imm Gran Pct Auto 0.4 % (0.0-0.4); Lymphocytes Absolute Auto 2.3 X10*3/uL (1.2-4.9); Lymphocytes Percent Auto 27.1 % (20-40); MANUAL DIFF FLAG NO; Mean Corpuscular HGB Conc 33.4 g/dl (31.0-36.0); Mean Corpuscular Hemoglobin 27.8 pg (27.0-33.0); Mean Corpuscular Volume 83.3 fL (80.0-98.0); Mean Platelet Volume 9.8 fL (9.4-12.4); Monocytes Absolute Auto 0.6 X10*3/uL (0.1-1.2); Monocytes Percent Auto 6.5 % (2-11); Neutrophils Absolute Auto 4.5 x10*3/uL (2.0-8.3); Neutrophils Percent Auto 53.1 % (45-73); Platelet Count 194 X10*3/uL (160-400); Red Blood Count 4.31 X10*6/uL (4.60-5.80); Red Cell Distribution Width 14.6 % (11.0-16.0); White Blood Count 8.5 X10*3/uL (4.8-10.8)
[2024-01-27 00:35] LABS: Alanine Aminotransferase 11 U/L (0-40); Albumin Level 3.9 g/dL (3.5-5.0); Alkaline Phosphatase 71 U/L (39-117); Anion Gap 12 (12-20); Aspartate Amino Transferase 19 U/L (5-37); Bilirubin Direct < 0.2 mg/dL (0.0-0.5); Bilirubin Total 0.2 mg/dL (0.0-1.0); Blood Urea Nitrogen 13 mg/dL (9-16); Calcium 8.9 mg/dL (8.4-10.2); Carbon Dioxide 23 mmol/L (22-29); Chloride 108 mmol/L (96-108); Creatinine Clr Calc Pharmacy 48.3; Estimated Glomerular Filt Rate > 60; Ethanol < 10 mg/dL; Glucose Random 105 mg/dL (60-115); Potassium 4.2 mmol/L (3.3-5.1); Sodium 139 mmol/L (135-145); Total Protein 6.2 g/dL (6.5-8.0)
[2024-01-27] MEDS: 0.9 % Sodium Chloride 1,000 ML 999 ML IV ×3 (02:27→07:44)
--- NOTE | 2024-01-27 03:08 | PC.NURSE ---
patient having low BPs, MD aware. IV inserted and fluids given. Patient also placed in trendelenbug per MD request
--- NOTE | 2024-01-27 05:38 | ECG_ITS ---
Test Reason : LOW bp Blood Pressure : / mmHG Vent. Rate : 071 BPM Atrial Rate : 071 BPM P-R Int : 144 ms QRS Dur : 086 ms QT Int : 440 ms P-R-T Axes : 086 078 072 degrees QTc Int : 478 ms Normal sinus rhythm Normal ECG When compared with ECG of 15-JAN-2024 20:31, No significant change was found Referred By: Gladis Vanessa Electronically Signed By:CAROLYN RAMIREZ MD
[2024-01-27 06:23] LABS: Prothrombin Time 11.7 SEC (11.1-13.3)
[2024-01-27 06:27] LABS: Lactic Acid 0.6 mmol/L (0.5-2.0)
[2024-01-27 06:29] LABS: COVID-19 Test Negative (Negative); IDNOW Serial# 152EDE1D
[2024-01-27 06:31] LABS: Magnesium 1.6 mg/dL (1.6-2.6)
[2024-01-27 06:37] LABS: Troponin-I High Sensitivity 4.2 ng/L (<3.5-35.0)
[2024-01-27 06:38] LABS: B Type Natriuretic Peptide < 10 pg/mL (<100)
--- NOTE | 2024-01-27 09:15 | MHC.EDTECH ---
Assisted pt to bathroom, pt was steady and walking proficiently. Urine was not obtained, urinal contained blood. aware. RN aware.
[2024-01-27 11:52] LABS: Appearance Urine Turbid; Color Urine RED; Leukocyte Esterase Urine Moderate (2+) (Negative); UMIC TRIGGER UACC YES; Urine Blood Large (3+) (Negative); Urine Ketones 15 mg/dL (Negative); Urine Protein 300 (3+) mg/dL (Neg-Trace)
[2024-01-27 12:06] LABS: Amphetamine Screen Urine Not Detected (Not Detect); Barbiturates, Urine Not Detected (Not Detect); Benzodiazepines Screen Urine Not Detected (Not Detect); Buprenorphine Scr Not Detected (Not Detect); Cannabinoid Screen Urine Not Detected (Not Detect); Cocaine Screen Urine Not Detected (Not Detect); Fentanyl, urine Not Detected (Not Detect); Methadone Screen, Urine Not Detected (Not Detect); Opiate Screen Urine POSITIVE (Not Detect); Oxycodone Screen Urine Positive (Not Detect); Phencyclidine Screen Urine Not Detected (Not Detect)
[2024-01-27 12:09] LABS: Bacteria Urine Trace (None Seen); Calcium Oxalate Crystals Urine Present; Hyaline Casts Urine 0-2 /LPF (0-2); RBC Urine >20 /HPF (0-2); Squamous Epithelial Cell Urine 0-2 /HPF (0-2); WBC Urine 21-50 /HPF (0-5)
[2024-01-27] MEDS: cefTRIAXone sodium 1 GM in 0.9 % Sodium Chloride 50 ML IV (12:53)
--- NOTE | 2024-01-27 13:33 | PM.EVENT ---
Event Note Date of Service: 01/27/24 Event Note: Pt seen and examined. Reports prior to arrival had felt lightheaded with subsequent fall and head injury. Not on blood thinners. No LOC. He does report dysuria. Has history of labile blood pressures and was hypotensive on arrival, resolved with 3 L IVF. On examination, blood pressure 110/50. He denies any lightheadedness, shortness for breath, palpitations, vision changes, chest pain. He has been ambulatory in the unit without any syncope. Urinalysis does appear consistent with UTI. Has not received any IV fluids since 02/16 this morning and continues maintaining blood pressures. At this time I do not feel patient warrants admission. Can consider discontinuing Flomax and reducing dose of oxycodone which is likely contributing to patient's labile blood pressures. Discussed with ED. provider Time Spent With Patient Time: Total time managing care of this patient today ____ minutes.
--- NOTE | 2024-01-27 14:02 | MHC.CM.ED ---
Received consult for assessment of d/c needs: ED provider direct conversation re: consult placement: ED provider concerned with pt's clinical presentation and feels pt needs continued care citing labile BP after 3 L of IVF and + UTI findings. Pt w/hx of falls, weakness, malignancy and family feels he is not safe to return to home. Brief review of clinical data supports OBS level of admission per IQ. Pt may respond to 24 - 48 hours of additional IV ATB and continued fluids/med adjustments and be able to return to home. Pt assessment deferred at this time until admission status has been determined.
--- NOTE | 2024-01-27 14:31 | P.HPHOSP_ITS ---
<Statement entered by Raúl Escobedo MD - 01/27/24 17:22> the patient was seen and evaluated with BRAD Borden. I agree with her note, assessment and plan with the following. In summary, A 63 years old male with PMH of bladder CA post TURB, smoker, Hep C among other who presents to ED with fall and low BP found to have UTI. - UTi complicated with hypotension and fall Hold Bactrim, start IV ceftriaxone follow cultures IV fluids monitor BP PT evaluation Rest of evaluations by PA note. History of Present Illness Date of Service: 01/27/24 Attending physician on admission: Raúl Escobedo Chief Complaint: fall 63-year-old male with hyperlipidemia, chronic hepatitis-C s/p treatment, invasive bladder carcinoma s/p TURBT who is a current 1/2 pack per day cigarette smoker presented to the ED following a fall. He reports he felt lightheaded and fell forward landing on the left side of his face. There was no loss of consciousness and denies any blood thinner use. He is currently following with Urology and recently underwent cystoscopy on 01/19 and has been on prophylactic Bactrim. He is currently reporting dysuria and urgency but reports this is baseline but no hematuria, increased urinary frequency. He denies fevers, chills, abd pain, flank pain, n/v/d, ongoing lightheadedness, palpitations, sob, chest pain. He reports he only drinks coffee throughout the day, no water. Otherwise good po intake. On arrival was normotensive but did develop hypotension to 77/47 received 3 L IVF with improvement to 120/48. Remains normotensive on admission with negative orthostatic vital signs. Hematology studies show a stable normocytic anemia, no other abnormalities. Renal function and electrolyte levels are normal. BNP undetectable, troponin 4.2. Urinalysis with 3+ blood, 2+ leukocytes, positive urinary sediment. Urine drug screen positive for opiates/oxycodone. Negative for COVID-19. Head CT negative for any acute intracranial abnormality. CT cervical spine negative for any fracture or malalignment. CXR shows advanced emphysema but nothing acute. There is a stable irregular lesion of the left lower lobe and follow-up CT. Humerus x-ray negative. In the ED, has received 3 L IVF and 1 g Rocephin. Review of Systems 2 Review of Systems: Yes all other systems are reviewed and are negative [facility] Medical History Bladder cancer Chronic hepatitis C HLD (hyperlipidemia) Microcytic anemia Smoker Chronic headaches MDD (major depressive disorder) Surgical History Hx of cystoscopy Social History Household Members: Family Housing: Apartment Do you presently have visiting nurse or other home services: No Unable to assess alcohol history related to: Unknown Alcohol intake: former Patient Tobacco Use Status: Current everyday Tobacco user Tobacco use type: Cigarette Cigarette Packs Per Day: 0.5 Cigarettes Per Day: 7 Smoked in Last 30 Days: Yes Use of substances other than those prescribed or required for medical reasons: No Advance Directives: Yes Advance Directives on File: Yes Advance Directives Date on File: 08/15/23 Do you have a plan to hurt others: No Plan service: No Current occupational status: disabled Meds Allergies Allergy/AdvReac Type Severity Reaction Status Date / Time haloperidol [From Haldol] Allergy Severe Difficulty Verified 01/26/24 23:03 Breathing Active Medications: Current Medications Acetaminophen (Acetaminophen 325 Mg Tablet) 650 mg PO Q6H PRN PRN Reason: Pain, Mild (Pain Scale 1-3), fever or headache Calcium Carbonate (Calcium Carbonate 750 Mg Tab.Chew) 750 mg PO Q4H PRN PRN Reason: Heartburn Enoxaparin Sodium (Enoxaparin Sodium 40 Mg/0.4 Ml Syringe) 40 mg SUBCUT Q24H [facility] Sodium Chloride (Ns) 1,000 mls @ 80 mls/hr IVCONT .[id number] [place] Magnesium Hydroxide (Milk Of Magnesia 30 Ml Oral.Susp) 30 ml PO DAILY PRN PRN Reason: Constipation Melatonin (Melatonin 3 Mg Tablet) 6 mg PO BEDTIME PRN PRN Reason: Insomnia Sodium Chloride (0.9 % Sodium Chloride Flush 3 Ml Syringe) 3 ml IVFLUSH QSHIFT [place] Home Medications ?Medication ?Instructions ?Recorded ?Confirmed ?Last Taken ?Type amitriptyline 50 mg tablet 50 mg PO BEDTIME 02/03/23 01/10/24 1 Week Ago History ~06/24/23 atorvastatin 40 mg tablet 40 mg PO BEDTIME 02/03/23 01/10/24 1 Week Ago History ~06/24/23 benztropine 1 mg tablet 1 mg PO BID 02/03/23 01/10/24 1 Week Ago History ~06/24/23 famotidine 40 mg tablet 40 mg PO BEDTIME 02/03/23 01/10/24 1 Week Ago History ~06/24/23 hydroxyzine pamoate 25 mg capsule 25 mg PO TID PRN Anxiety 02/03/23 01/10/24 1 Week Ago History ~06/24/23 qaxonm-[id number] 1 cap PO Q8H 02/03/23 01/10/24 1 Week Ago History 24,000-76,000-120,000 unit ~06/24/23 capsule,delayed rel (Creon) pantoprazole 40 mg tablet,delayed 40 mg PO DAILY@0630 02/03/23 01/10/24 1 Week Ago History release ~06/24/23 paroxetine HCl 20 mg tablet 40 mg PO DAILY 02/03/23 01/10/24 1 Week Ago History ~06/24/23 quetiapine 100 mg tablet 100 mg PO BEDTIME 02/03/23 01/10/24 1 Week Ago History ~06/24/23 oxycodone 10 mg tablet 10 mg PO Q6H PRN severe pain 08/17/23 01/10/24 Unknown History ascorbic acid (vitamin C) 500 mg 500 mg PO 01/27/24 Unknown History tablet (Vitamin C) sennosides 8.6 mg-docusate sodium 2 tab PO BEDTIME 01/27/24 Unknown History 50 mg tablet (Stimulant Laxative Plus) Physical Exam 2 Vital Signs and Narrative: Vital Signs: Last Vital Signs Temp 97.6 F 01/27/24 14:18 Pulse 83 01/27/24 14:24 Resp 18 01/27/24 14:18 BP 113/91 H 01/27/24 14:24 Pulse Ox 99 01/27/24 14:18 O2 Del Method Room Air 01/27/24 14:18 BMI result Body Mass Index 15.8 Constitutional - Awake and Alert, No apparent distress Eyes - PERRLA, EOMI Cardiovascular - S1S2, RRR, No edema Respiratory - Normal lung expansion, Normal respiratory effort, No respiratory distress, CTA bilaterally Gastrointestinal - NT / ND; +BS; No rebound or guarding Extremities - no calf tenderness bilaterally, no swelling Skin - Warm/Dry Neurological - Alert & oriented x3 Psychological - Appropriate affect Results Labs 01/27/24 00:13 01/27/24 00:13 Labs: Laboratory Results - last 24 hr 01/27/24 01/27/24 01/27/24 00:13 06:07 06:08 MCV 83.3 MCH 27.8 MCHC 33.4 RDW 14.6 Plt Count 194 MPV 9.8 Immature Gran % (Auto) 0.4 Neut % (Auto) 53.1 Lymph % (Auto) 27.1 [place] % (Auto) 6.5 Eos % (Auto) 12.4 H Baso % (Auto) 0.5 Lymph # (Auto) 2.3 [place] # (Auto) 0.6 Eos # (Auto) 1.1 H Baso # (Auto) 0.0 Abs Immat Gran (auto) 0.03 Absolute Neuts (auto) 4.5 Absolute Nucleated RBC 0.000 Nucleated RBC % (auto) 0.0 PT 11.7 INR 1.0 Anion Gap 12 Estim Creat Clear Calc 48.3 Estimated GFR > 60 Random Glucose 105 Lactic Acid 0.6 Calcium 8.9 D Magnesium 1.6 Total Bilirubin 0.2 Direct Bilirubin < 0.2 AST 19 ALT 11 Alkaline Phosphatase 71 Troponin I High Sens 4.2 D B-Natriuretic Peptide < 10 Total Protein 6.2 L Albumin 3.9 Urine Color Urine Appearance Urine pH Ur Specific [place] Urine Protein Urine Glucose (UA) Urine Ketones Urine Blood Urine Nitrite Ur Leukocyte Esterase Urine RBC Urine WBC Ur Squamous Epith Cells Calcium Oxalate Crystal Urine Bacteria Hyaline Casts Urine Opiates Screen Ur Buprenorphine Scrn Ur Oxycodone Screen Urine Methadone Screen Urine Fentanyl Screen Ur Barbiturates Screen Ur Phencyclidine Scrn Ur Amphetamines Screen U Benzodiazepines Scrn Urine Cocaine Screen U Marijuana (THC) Screen Ethyl Alcohol < 10 COVID-19 ([place]QU[place]INE) Negative COVID-19 Clin Com See Note 01/27/24 01/27/24 11:34 11:35 MCV MCH MCHC RDW Plt Count MPV Immature Gran % (Auto) Neut % (Auto) Lymph % (Auto) [place] % (Auto) Eos % (Auto) Baso % (Auto) Lymph # (Auto) [place] # (Auto) Eos # (Auto) Baso # (Auto) Abs Immat Gran (auto) Absolute Neuts (auto) Absolute Nucleated RBC Nucleated RBC % (auto) PT INR Anion Gap Estim Creat Clear Calc Estimated GFR Random Glucose Lactic Acid Calcium Magnesium Total Bilirubin Direct Bilirubin AST ALT Alkaline Phosphatase Troponin I High Sens B-Natriuretic Peptide Total Protein Albumin Urine Color RED Urine Appearance Turbid Urine pH 7.0 Ur Specific [place] 1.020 Urine Protein 300 (3+) H Urine Glucose (UA) TNP Urine Ketones 15 Urine Blood Large (3+) H Urine Nitrite TNP Ur Leukocyte Esterase Moderate (2+) H Urine RBC >20 H Urine WBC 21-50 H Ur Squamous Epith Cells 0-2 Calcium Oxalate Crystal Present Urine Bacteria Trace Hyaline Casts 0-2 Urine Opiates Screen POSITIVE H Ur Buprenorphine Scrn Not Detected Ur Oxycodone Screen Positive H Urine Methadone Screen Not Detected Urine Fentanyl Screen Not Detected Ur Barbiturates Screen Not Detected Ur Phencyclidine Scrn Not Detected Ur Amphetamines Screen Not Detected U Benzodiazepines Scrn Not Detected Urine Cocaine Screen Not Detected U Marijuana (THC) Screen Not Detected Ethyl Alcohol COVID-19 (JAQUELINE) COVID-19 Clin Com Imaging Radiologist's Impressions: Impressions Humerus X-Ray 01/27/24 00:26 IMPRESSION: No significant abnormality identified. Cervical Spine CT 01/27/24 00:27 IMPRESSION: 1. No acute intracranial process seen. 2. There is no acute cervical spine fracture or malalignment. There is mild diffuse cervical spondylosis. Head CT 01/27/24 00:27 IMPRESSION: 1. No acute intracranial process seen. 2. There is no acute cervical spine fracture or malalignment. There is mild diffuse cervical spondylosis. Chest X-Ray 01/27/24 06:14 IMPRESSION: Advanced emphysema. No acute superimposed process. Stable irregular lesion left lower lobe. Follow-up CT recommended. Assessment and Plan (1) Dehydration: Status: Acute (2) Acute hypotension: Status: Acute (3) UTI (urinary tract infection): Status: Acute Plan 63-year-old male with hyperlipidemia, chronic hepatitis-C s/p treatment, invasive bladder carcinoma s/p TURBT who is a current 1/2 pack per day cigarette smoker to be observed for UTI with hypotension now resolved who is noted to be unsteady on his feet #?ACute UTi -urinalysis with 2+ leukocytes, 3+ blood, positive urinary sediment, trace bacteria -did undergo cystoscopy on 01/19 and has been on prophylactic Bactrim. Hold Bactrim, continue IV ceftriaxone -historically urine cultures have been negative. -no leukocytosis or sepsis -follow CBC, cultures -continue Pyridium # acute hypotension-resolved on admission -likely orthostatic hypotension. Orthostatic VS negative following 3L ivf -possibly in setting of excessive caffeine intake, flomax, oxycodone -given bladder ca history, should continue flomax -continute gentle IVF #Fall -pt eval -imaging negative #Bladder cancer -s/p TURBT, s/p cysto on 01/19 -hold bactrim, on IV ctx # cigarette smoker -patches for replacement therapy, cessation advised # left lower lobe lung lesion -on CXR, CT chest on 07/02/2023 shows a focus of probable round atelectasis, further imaging recommended for follow-up -outpatient follow-up # GERD -PPI # mood disorder -continue home meds DVT prophylaxis- Lovenox Full code Given ongoing instability with recurrent ED visit for low blood pressure will observe overnight. Discussed with Dr. Escobedo # Quality Stroke Does the patient have a stroke diagnosis?: No VTE Prior VTE?: No VTE Risk Level:: Medical - moderate - high VTE Device Contraindication: Treatment Not Indicated VTE Drug Contraindication: N/A - Med Ordered
[2024-01-27] MEDS: Nicotine 14 MG PATCH.TD24 TRANSDERMA (15:31)
[2024-01-27] MEDS: Enoxaparin Sodium 40 MG/0.4 ML SYRINGE SUBCUT (15:31)
[2024-01-27] MEDS: 0.9 % Sodium Chloride Flush 3 ML SYRINGE IVFLUSH (15:33)
[2024-01-27] MEDS: 0.9 % Sodium Chloride 1,000 ML 80 ML IVCONT (15:33)
--- NOTE | 2024-01-27 16:44 | PHA.MEDREC ---
Addendum entered by Kelsey Gatica RPh 01/27/24 17:21: Med rec was reviewed. Original Note: Pharmacy Consult ? Medication Reconciliation Pharmacy has completed the medication reconciliation. Spoke to patient and his DYE BOARDING MACHINE OPERATOR from [facility] to confirm med list. DYE BOARDING MACHINE OPERATOR had a list of medications with her on her phone, however didn't have full directions. called [facility] pharmacy to get a medbox list. Utilized medbox list to confirm med rec.
[2024-01-27] MEDS: Acetaminophen 325 MG TABLET 650 MG PO (17:59)
[2024-01-27] MEDS: Sennosides/Docusate Sodium TABLET 2 TAB PO (22:00)
[2024-01-27] MEDS: Atorvastatin Calcium 40 MG TABLET PO (22:00)
[2024-01-27] MEDS: Famotidine 20 MG TABLET 40 MG PO (22:00)
[2024-01-27] MEDS: Tamsulosin HCL 0.4 MG CAPSULE PO (22:00)
[2024-01-27] MEDS: Megestrol Acetate 400 MG/10 ML ORAL.SUSP PO (22:00)
[2024-01-27] MEDS: Ascorbic Acid 500 MG TABLET PO (22:01)
[2024-01-27] MEDS: Amitriptyline HCl 50 MG TABLET PO (22:01)
[2024-01-27] MEDS: QUEtiapine Fumarate 200 MG TABLET PO (22:01)
[2024-01-27] MEDS: Benztropine Mesylate 1 MG TABLET PO (22:01)
[2024-01-27] MEDS: Lipase/Prot/Amylase 24/76/120K 1 CAP CAPSULE.DR PO (22:01)
[2024-01-27] MEDS: oxyCODONE HCl Immed Release 15 MG TABLET PO (22:09)
[2024-01-28] VITALS: BP 103/55; PULSE 75; RESP 16; TEMP 36; O2SAT 95
[2024-01-28 04:00] VITALS: BP 120/55; PULSE 82; RESP 18; TEMP 36.1; O2SAT 96
[2024-01-28] MEDS: 0.9 % Sodium Chloride 1,000 ML 80 ML IVCONT ×2 (05:08→15:53)
[2024-01-28] MEDS: Omeprazole 20 MG CAPSULE.DR PO ×2 (05:42→15:50)
[2024-01-28 06:58] LABS: MANUAL DIFF FLAG NO
[2024-01-28 07:06] LABS: Basophils Percent Auto 0.5 % (0-2); Eosinophils Absolute Auto 0.7 X10*3/uL (0.0-0.4); Eosinophils Percent Auto 11.5 % (0-4); Hematocrit 31.9 % (42.0-52.0); Hemoglobin 10.5 g/dl (14.0-18.0); Imm Gran Abs Auto 0.03 X10*3/uL (0.00-0.03); Imm Gran Pct Auto 0.5 % (0.0-0.4); Lymphocytes Absolute Auto 1.5 X10*3/uL (1.2-4.9); Lymphocytes Percent Auto 24.4 % (20-40); Mean Corpuscular HGB Conc 32.9 g/dl (31.0-36.0); Mean Corpuscular Hemoglobin 28.2 pg (27.0-33.0); Mean Corpuscular Volume 85.8 fL (80.0-98.0); Mean Platelet Volume 9.7 fL (9.4-12.4); Monocytes Absolute Auto 0.3 X10*3/uL (0.1-1.2); Monocytes Percent Auto 5.4 % (2-11); Neutrophils Absolute Auto 3.6 x10*3/uL (2.0-8.3); Neutrophils Percent Auto 57.7 % (45-73); Platelet Count 166 X10*3/uL (160-400); Red Blood Count 3.72 X10*6/uL (4.60-5.80); White Blood Count 6.3 X10*3/uL (4.8-10.8)
[2024-01-28 07:25] LABS: Anion Gap 8 (12-20); Blood Urea Nitrogen 6 mg/dL (9-16); Calcium 7.8 mg/dL (8.4-10.2); Carbon Dioxide 23 mmol/L (22-29); Chloride 114 mmol/L (96-108); Creatinine Clr Calc Pharmacy 75.6; Estimated Glomerular Filt Rate > 60; Glucose Random 130 mg/dL (60-115); Sodium 141 mmol/L (135-145)
[2024-01-28] MEDS: Ferrous Sulfate 324 MG TABLET.DR PO ×2 (07:45→17:03)
[2024-01-28] MEDS: Lipase/Prot/Amylase 24/76/120K 1 CAP CAPSULE.DR PO ×2 (07:46→15:50)
[2024-01-28] MEDS: Ascorbic Acid 500 MG TABLET PO (07:46)
[2024-01-28] MEDS: Megestrol Acetate 400 MG/10 ML ORAL.SUSP PO (07:46)
[2024-01-28] MEDS: Nicotine 14 MG PATCH.TD24 TRANSDERMA (07:46)
[2024-01-28] MEDS: Benztropine Mesylate 1 MG TABLET PO (07:46)
[2024-01-28] MEDS: PARoxetine HCL 40 MG TABLET PO (07:46)
[2024-01-28] MEDS: Lidocaine 4 % Patch ADH..PATCH 1 PATCH TRANSDERMA (07:51)
[2024-01-28 08:00] VITALS: BP 90/44; PULSE 72; RESP 18; TEMP 36.4; O2SAT 96
--- NOTE | 2024-01-28 09:20 | HO.PM.IMPN ---
Subjective Subjective Date of Service: 01/28/24 Interval History: Seen and evaluated this morning complaining of lower abdominal pain no fever or chills Review of Systems Review of Systems: Yes all other systems are reviewed and are negative Physical Exam Vital Signs: Vital Signs: Last Vital Signs Temp 97.6 F 01/28/24 08:00 Pulse 72 01/28/24 08:00 Resp 18 01/28/24 08:00 BP 90/44 L 01/28/24 08:00 Pulse Ox 96 01/28/24 08:00 O2 Del Method Room Air 01/28/24 08:00 BMI result Body Mass Index 15.9 Const: Other: Constitutional : interactive, not in distress Cardiovascular : no JVP, no lower extremity edema Respiratory : bilateral chest movement, not in resp distress Gastrointestinal: soft, lax, Non tender Skin : Warm, Dry Neurological : Alert & oriented , No focal deficit Objective Data Active Medications Acetaminophen (Acetaminophen 325 Mg Tablet) 650 mg PO Q6H PRN PRN Reason: Pain, Mild (Pain Scale 1-3), fever or headache Last Admin: 01/27/24 17:59 Dose: 650 mg Documented By: LAURA Amitriptyline HCl (Amitriptyline Hcl 50 Mg Tablet) 50 mg PO BEDTIME [facility] Last Admin: 01/27/24 22:01 Dose: 50 mg Documented By: CELSA Lipase/Protease/Amylase (Lipase/Prot/Amylase 24/76/120k 1 Cap Capsule.Dr) 1 cap PO TID [facility] Last Admin: 01/28/24 07:46 Dose: 1 cap Documented By: MOE Ascorbic Acid (Ascorbic Acid 500 Mg Tablet) 500 mg PO BID [facility] Last Admin: 01/28/24 07:46 Dose: 500 mg Documented By: MOE Atorvastatin Calcium (Atorvastatin Calcium 40 Mg Tablet) 40 mg PO BEDTIME [facility] Last Admin: 01/27/24 22:00 Dose: 40 mg Documented By: CELSA Benztropine Mesylate (Benztropine Mesylate 1 Mg Tablet) 1 mg PO BID [facility] Last Admin: 01/28/24 07:46 Dose: 1 mg Documented By: MOE Calcium Carbonate (Calcium Carbonate 750 Mg Tab.Chew) 750 mg PO Q4H PRN PRN Reason: Heartburn Enoxaparin Sodium (Enoxaparin Sodium 40 Mg/0.4 Ml Syringe) 40 mg SUBCUT Q24H [facility] Last Admin: 01/27/24 15:31 Dose: 40 mg Documented By: IKE Famotidine (Famotidine 20 Mg Tablet) 40 mg PO BEDTIME [facility] Last Admin: 01/27/24 22:00 Dose: 40 mg Documented By: CELSA Ferrous Sulfate (Ferrous Sulfate 324 Mg Tablet.) 324 mg PO BIDWM [facility] Last Admin: 01/28/24 07:45 Dose: 324 mg Documented By: MOE Hydroxyzine HCl (Hydroxyzine Hcl 50 Mg Tablet) 50 mg PO TID PRN PRN Reason: Anxiety Sodium Chloride (Ns) 1,000 mls @ 80 mls/hr IVCONT .[id number] [facility] Last Admin: 01/28/24 05:08 Dose: 80 mls/hr Documented By: CELSA Ceftriaxone Sodium 1 gm/ (Sodium Chloride) 50 mls @ 100 mls/hr IV Q24H [facility] Lidocaine (Lidocaine 4 % Patch Adh..Patch) 1 patch TRANSDERMA DAILY [facility] Last Admin: 01/28/24 07:51 Dose: 1 patch Documented By: MOE Magnesium Hydroxide (Milk Of Magnesia 30 Ml Oral.Susp) 30 ml PO DAILY PRN PRN Reason: Constipation Megestrol Acetate (Megestrol Acetate 400 Mg/10 Ml Oral.Susp) 400 mg PO BID [facility] Last Admin: 01/28/24 07:46 Dose: 400 mg Documented By: MOE Melatonin (Melatonin 3 Mg Tablet) 6 mg PO BEDTIME PRN PRN Reason: Insomnia Nicotine (Nicotine 14 Mg Patch.Td24) 14 mg TRANSDERMA DAILY [facility] Last Admin: 01/28/24 07:46 Dose: 14 mg Documented By: MOE Omeprazole (Omeprazole 20 Mg Capsule.) 20 mg PO BID@0630,1630 [facility] Last Admin: 01/28/24 05:42 Dose: 20 mg Documented By: CELSA Oxycodone HCl (Oxycodone Hcl Immed Release 15 Mg Tablet) 15 mg PO Q6H PRN PRN Reason: severe pain Last Admin: 01/27/24 22:09 Dose: 15 mg Documented By: CELSA Paroxetine HCl (Paroxetine Hcl 40 Mg Tablet) 40 mg PO DAILY [facility] Last Admin: 01/28/24 07:46 Dose: 40 mg Documented By: MOE Quetiapine Fumarate (Quetiapine Fumarate 200 Mg Tablet) 200 mg PO BEDTIME [facility] Last Admin: 01/27/24 22:01 Dose: 200 mg Documented By: CELSA Senna/Docusate Sodium (Sennosides/Docusate Sodium Tablet) 2 tab PO BEDTIME [facility] Last Admin: 01/27/24 22:00 Dose: 2 tab Documented By: CELSA Sodium Chloride (0.9 % Sodium Chloride Flush 3 Ml Syringe) 3 ml IVFLUSH QSHIFT [facility] Last Admin: 01/28/24 07:52 Dose: Not Given Documented By: MOE Non-Admin Reason: IV Running Tamsulosin HCl (Tamsulosin Hcl 0.4 Mg Capsule) 0.4 mg PO BEDTIME [facility] Last Admin: 01/27/24 22:00 Dose: 0.4 mg Documented By: CELSA Labs 01/28/24 06:34 01/28/24 06:34 Labs: Laboratory Results - last 24 hr 01/27/24 01/27/24 01/28/24 11:34 11:35 06:34 MCV 85.8 MCH 28.2 MCHC 32.9 RDW 15.0 Plt Count 166 MPV 9.7 Immature Gran % (Auto) 0.5 H Neut % (Auto) 57.7 Lymph % (Auto) 24.4 [place] % (Auto) 5.4 Eos % (Auto) 11.5 H Baso % (Auto) 0.5 Lymph # (Auto) 1.5 [place] # (Auto) 0.3 Eos # (Auto) 0.7 H Baso # (Auto) 0.0 Abs Immat Gran (auto) 0.03 Absolute Neuts (auto) 3.6 Absolute Nucleated RBC 0.000 Nucleated RBC % (auto) 0.0 Anion Gap 8 L Estim Creat Clear Calc 75.6 Estimated GFR > 60 Random Glucose 130 H Calcium 7.8 L D Urine Color RED Urine Appearance Turbid Urine pH 7.0 Ur Specific [place] 1.020 Urine Protein 300 (3+) H Urine Glucose (UA) TNP Urine Ketones 15 Urine Blood Large (3+) H Urine Nitrite TNP Ur Leukocyte Esterase Moderate (2+) H Urine RBC >20 H Urine WBC 21-50 H Ur Squamous Epith Cells 0-2 Calcium Oxalate Crystal Present Urine Bacteria Trace Hyaline Casts 0-2 Urine Opiates Screen POSITIVE H Ur Buprenorphine Scrn Not Detected Ur Oxycodone Screen Positive H Urine Methadone Screen Not Detected Urine Fentanyl Screen Not Detected Ur Barbiturates Screen Not Detected Ur Phencyclidine Scrn Not Detected Ur Amphetamines Screen Not Detected U Benzodiazepines Scrn Not Detected Urine Cocaine Screen Not Detected U Marijuana (THC) Screen Not Detected Microbiology Microbiology Results: Microbiology 01/27/24 06:09 Blood Culture - Preliminary Blood - Venous No growth after 24 hours. 01/27/24 06:09 Blood Culture - Preliminary Blood - Venous No growth after 24 hours. Assessment and Plan (1) Dehydration: Status: Acute (2) Acute hypotension: Status: Acute (3) Fall: Status: Acute (4) UTI (urinary tract infection): Status: Acute Plan 63-year-old male with hyperlipidemia, chronic hepatitis-C s/p treatment, invasive bladder carcinoma s/p TURBT who is a current 1/2 pack per day cigarette smoker to be observed for UTI with hypotension now resolved who is noted to be unsteady on his feet #ACute UTi complicated with hypotension and fall Hold Bactrim IV ceftriaxone follow cultures IV fluids monitor BP # Hypotension secondary to severe malnutrition and weight loss start Midodrine continue Megace bid [employer] eval add Ensure #Fall PT rec STR #Bladder cancer s/p TURBT, s/p cysto on 01/19 # cigarette smoker patches for replacement therapy, cessation advised # left lower lobe lung lesion on CXR, CT chest on 07/02/2023 shows a focus of probable round atelectasis, further imaging recommended for follow-up outpatient follow-up # GERD PPI # mood disorder continue home meds DVT prophylaxis- Lovenox Given ongoing instability with recurrent ED visit for low blood pressure and UTI needing placement will monitor overnight # Quality Stroke Does the patient have a stroke diagnosis?: No VTE Prior VTE?: No VTE Risk Level:: Medical - moderate - high VTE Device Contraindication: Treatment Not Indicated VTE Drug Contraindication: N/A - Med Ordered
[2024-01-28] MEDS: Midodrine HCl 5 MG TABLET PO ×2 (10:42→15:50)
--- NOTE | 2024-01-28 11:08 | PC.NURSE ---
Pt. voids freely in the bathroom, refused to use urinal, hat or [place] cath for measurement. Bladder scan shows >577 ml, MD notifies and order for F/C but pt. refused f/c. notified and at bedside, still pt. refused, Urology cons was put in by .
[2024-01-28 12:00] VITALS: BP 112/68; PULSE 77; RESP 18; TEMP 36.3; O2SAT 98
[2024-01-28] MEDS: cefTRIAXone sodium 1 GM in 0.9 % Sodium Chloride 50 ML IV (13:22)
[2024-01-28] MEDS: Enoxaparin Sodium 40 MG/0.4 ML SYRINGE SUBCUT (13:27)
--- NOTE | 2024-01-28 14:50 | MHC.CM.PN ---
PT REPORTS HE LIVES WITH HIS BROTHER AND HIS BROTHERS HE HAS DAILY [employer] AND USES A CANE PT SAYS HE HAS A HCP, COPY REQUESTED PCP: JOSE[facility] SOOD OBSERVATION NOTICE DELIVERED DCP: PT WILL NEED STR REFERRALS OUT BLS TRANSPORT
[2024-01-28 15:19] VITALS: BP 111/71; PULSE 76; RESP 18; TEMP 36.8; O2SAT 98
[2024-01-28 19:46] VITALS: BP 118/59; RESP 18; TEMP 36.9; O2SAT 98
[2024-01-28] MEDS: LORazepam 2 MG/ML VIAL 1.5 MG IVPUSH (20:36)
[2024-01-28] MEDS: QUEtiapine Fumarate 200 MG TABLET PO (20:41)
--- NOTE | 2024-01-29 00:43 | PC.NURSE ---
late entry: yesterday 01/27 at beginning of shift around 20:00 patient became severely anxious, uncooperative, refused to be assisted by staff for safety when out of bed. Stated he is going home, dressing up. Patient found not following good reasoning. Security called for assistance, Dr Jones at bedside to evaluate patient ,not safe to allow for patient to leave . Ativan given to reduce anxiety, food and snack offered. Patient agreed to rest in bed. History of urinary retention, bladder scanned for over 700 ml. FC placed per MD order. Immediately drained 1000 ml of dark red urine. Patient tolerated procedure fairly and states relief in frequent urgency to urinate . Nursing supervisor screen printing present during occurrence.
--- NOTE | 2024-01-29 02:05 | PC.NURSE ---
see previous note from discharge rn concerning patient behaviour and plan of care. Noted patient declined all HS medications during his anxiety period of wishing to leave hospital. However, was able to convince him to take one pill to help him relax, see MAR. BROWN at bedside to help maintain safety and patient noted to sleep in naps with no s/sx distress, tremors present as per baseline. will continue to monitor closely.
[2024-01-29 03:10] VITALS: BP 163/71; PULSE 71; RESP 16; TEMP 36.1; O2SAT 99
[2024-01-29] MEDS: 0.9 % Sodium Chloride 1,000 ML 80 ML IVCONT (04:03)
[2024-01-29] MEDS: LORazepam 2 MG/ML VIAL 1 MG IVPUSH ×3 (10:07→22:37)
--- NOTE | 2024-01-29 12:19 | HO.PM.IMPN ---
Subjective Subjective Date of Service: 01/29/24 Interval History: Seen and evaluated this morning complaining of hematuria and having the chen in no fever or chills Review of Systems Review of Systems: Yes all other systems are reviewed and are negative Physical Exam Vital Signs: Vital Signs: Last Vital Signs Temp 96.9 F 01/29/24 03:10 Pulse 71 01/29/24 03:10 Resp 16 01/29/24 03:10 BP 163/71 H 01/29/24 03:10 Pulse Ox 99 01/29/24 03:10 O2 Del Method Room Air 01/29/24 03:10 BMI result Body Mass Index 15.9 Const: Other: Constitutional : interactive, mildly anxious Cardiovascular : no JVP, no lower extremity edema Respiratory : bilateral chest movement, not in resp distress Gastrointestinal: soft, lax, Non tender Skin : Warm, Dry Urology: Chen in place with bloody tinged urine Neurological : Alert & oriented , No focal deficit Objective Data Active Medications Acetaminophen (Acetaminophen 325 Mg Tablet) 650 mg PO Q6H PRN PRN Reason: Pain, Mild (Pain Scale 1-3), fever or headache Last Admin: 01/27/24 17:59 Dose: 650 mg Documented By: LAURA Amitriptyline HCl (Amitriptyline Hcl 50 Mg Tablet) 50 mg PO BEDTIME [facility] Last Admin: 01/28/24 21:36 Dose: Not Given Documented By: MIKE Non-Admin Reason: Patient Refused Lipase/Protease/Amylase (Lipase/Prot/Amylase 24/76/120k 1 Cap Capsule.Dr) 1 cap PO TID [facility] Last Admin: 01/29/24 10:30 Dose: Not Given Documented By: MOE Non-Admin Reason: Patient Refused Ascorbic Acid (Ascorbic Acid 500 Mg Tablet) 500 mg PO BID [facility] Last Admin: 01/29/24 10:30 Dose: Not Given Documented By: MOE Non-Admin Reason: Patient Refused Atorvastatin Calcium (Atorvastatin Calcium 40 Mg Tablet) 40 mg PO BEDTIME [facility] Last Admin: 01/28/24 21:37 Dose: Not Given Documented By: IMKE Non-Admin Reason: Patient Refused Benztropine Mesylate (Benztropine Mesylate 1 Mg Tablet) 1 mg PO BID [facility] Last Admin: 01/29/24 10:30 Dose: Not Given Documented By: MOE Non-Admin Reason: Patient Refused Calcium Carbonate (Calcium Carbonate 750 Mg Tab.Chew) 750 mg PO Q4H PRN PRN Reason: Heartburn Enoxaparin Sodium (Enoxaparin Sodium 40 Mg/0.4 Ml Syringe) 40 mg SUBCUT Q24H [facility] Last Admin: 01/28/24 13:27 Dose: 40 mg Documented By: MOE Famotidine (Famotidine 20 Mg Tablet) 40 mg PO BEDTIME [facility] Last Admin: 01/28/24 21:37 Dose: Not Given Documented By: MIKE Non-Admin Reason: Patient Refused Ferrous Sulfate (Ferrous Sulfate 324 Mg Tablet.Dr) 324 mg PO BIDWM [facility] Last Admin: 01/29/24 10:29 Dose: Not Given Documented By: MOE Non-Admin Reason: Patient Refused Hydroxyzine HCl (Hydroxyzine Hcl 50 Mg Tablet) 50 mg PO TID PRN PRN Reason: Anxiety Ceftriaxone Sodium 1 gm/ (Sodium Chloride) 50 mls @ 100 mls/hr IV Q24H [facility] Last Infusion: 01/28/24 14:01 Dose: Infused Documented By: MOE Lidocaine (Lidocaine 4 % Patch Adh..Patch) 1 patch TRANSDERMA DAILY [facility] Last Admin: 01/29/24 10:30 Dose: Not Given Documented By: MOE Non-Admin Reason: Patient Refused Lorazepam (Lorazepam 2 Mg/Ml Vial) 1 mg IVPUSH Q6H PRN PRN Reason: anxiety/restlessness Last Admin: 01/29/24 10:07 Dose: 1 mg Documented By: EYAL Magnesium Hydroxide (Milk Of Magnesia 30 Ml Oral.Susp) 30 ml PO DAILY PRN PRN Reason: Constipation Megestrol Acetate (Megestrol Acetate 400 Mg/10 Ml Oral.Susp) 400 mg PO BID [facility] Last Admin: 01/29/24 10:31 Dose: Not Given Documented By: MOE Non-Admin Reason: Patient Refused Melatonin (Melatonin 3 Mg Tablet) 6 mg PO BEDTIME PRN PRN Reason: Insomnia Midodrine (Midodrine Hcl 5 Mg Tablet) 5 mg PO TID [facility] Last Admin: 01/29/24 10:31 Dose: Not Given Documented By: MOE Non-Admin Reason: Patient Refused Nicotine (Nicotine 14 Mg Patch.Td24) 14 mg TRANSDERMA DAILY [facility] Last Admin: 01/29/24 10:31 Dose: Not Given Documented By: MOE Non-Admin Reason: Patient Refused Omeprazole (Omeprazole 20 Mg Mickey.) 20 mg PO BID@0630,1630 [facility] Last Admin: 01/29/24 06:44 Dose: Not Given Documented By: MIKE Non-Admin Reason: too sleepy at this time Oxycodone HCl (Oxycodone Hcl Immed Release 15 Mg Tablet) 15 mg PO Q6H PRN PRN Reason: severe pain Last Admin: 01/27/24 22:09 Dose: 15 mg Documented By: CELSA Paroxetine HCl (Paroxetine Hcl 40 Mg Tablet) 40 mg PO DAILY [facility] Last Admin: 01/29/24 10:31 Dose: Not Given Documented By: MOE Non-Admin Reason: Patient Refused Quetiapine Fumarate (Quetiapine Fumarate 200 Mg Tablet) 200 mg PO BEDTIME [facility] Last Admin: 01/28/24 20:41 Dose: 200 mg Documented By: MIKE Quetiapine Fumarate (Quetiapine Fumarate 50 Mg Tablet) 50 mg PO ONCE PRN PRN Reason: Anxiety Senna/Docusate Sodium (Sennosides/Docusate Sodium Tablet) 2 tab PO BEDTIME [facility] Last Admin: 01/28/24 21:38 Dose: Not Given Documented By: MIKE Non-Admin Reason: Patient Refused Sodium Chloride (0.9 % Sodium Chloride Flush 3 Ml Syringe) 3 ml IVFLUSH QSHIFT [facility] Last Admin: 01/29/24 10:29 Dose: Not Given Documented By: MOE Non-Admin Reason: IV Running Tamsulosin HCl (Tamsulosin Hcl 0.4 Mg Capsule) 0.4 mg PO BEDTIME [facility] Last Admin: 01/28/24 21:38 Dose: Not Given Documented By: MIKE Non-Admin Reason: Patient Refused Labs 01/28/24 06:34 01/28/24 06:34 Microbiology Microbiology Results: Microbiology 01/27/24 06:09 Blood Culture - Preliminary Blood - Venous No growth after 48 hours. 01/27/24 06:09 Blood Culture - Preliminary Blood - Venous No growth after 48 hours. 01/27/24 11:34 Urine Culture - Final Urine clean catch - Clean Catch Midstream No growth. Assessment and Plan (1) Dehydration: Status: Acute (2) Acute hypotension: Status: Acute (3) UTI (urinary tract infection): Status: Acute (4) Urine retention: Status: Acute Plan 63-year-old male with hyperlipidemia, chronic hepatitis-C s/p treatment, invasive bladder carcinoma s/p TURBT who is a current 1/2 pack per day cigarette smoker to be observed for UTI with hypotension now resolved who is noted to be unsteady on his feet #ACute UTi complicated with urine retention and hematuria Hold Bactrim continue IV ceftriaxone negative cultures Continue IV fluids Hematuria post Chen placement for retention Continue Tamsulosin Urology to follow monitor BP # Hypotension secondary to severe malnutrition and weight loss start Midodrine continue Megace bid 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 add Ensure #Fall PT rec STR #Bladder cancer s/p TURBT, s/p cysto on 01/19 # cigarette smoker patches for replacement therapy, cessation advised # left lower lobe lung lesion on CXR, CT chest on 07/02/2023 shows a focus of probable round atelectasis, further imaging recommended for follow-up outpatient follow-up # GERD PPI # mood disorder continue home meds DVT prophylaxis- SCDs The patient will need overnight stay for monitoring of hematuria pending urology evaluation Quality Stroke Does the patient have a stroke diagnosis?: No VTE Prior VTE?: No VTE Risk Level:: Medical - moderate - high VTE Device Contraindication: Treatment Not Indicated VTE Drug Contraindication: N/A - Med Ordered
[2024-01-29 13:29] VITALS: BP 135/72; PULSE 69; RESP 18; TEMP 36.7; O2SAT 96
[2024-01-29] MEDS: cefTRIAXone sodium 1 GM in 0.9 % Sodium Chloride 50 ML IV (13:32)
[2024-01-29] MEDS: Midodrine HCl 5 MG TABLET PO (13:34)
[2024-01-29] MEDS: hydrOXYzine HCL 50 MG TABLET PO (13:37)
[2024-01-29] MEDS: Lipase/Prot/Amylase 24/76/120K 1 CAP CAPSULE.DR PO (13:37)
--- NOTE | 2024-01-29 14:08 | P.CNUR_ITS ---
History of Present Illness Consult details Consult date: 01/29/24 Narrative: 63-year-old male with hyperlipidemia, chronic hepatitis-C s/p treatment, invasive bladder carcinoma s/p TURBT who is a current 1/2 pack per day cigarette smoker presented to the ED following a fall. He reports he felt lightheaded and fell forward landing on the left side of his face. Called to evaluate due to urinary retention. Review of Systems 2 Review of Systems: Yes all other systems are reviewed and are negative Constitutional: Constitutional: Reports no additional constitutional complaints Eyes: Eyes: Reports no additional eye complaints ENT: Reports system reviewed and no additional complaints, except as documented Cardiovascular: Cardiovascular: Reports no additional cardiovascular complaints Respiratory: Respiratory: Reports no additional respiratory complaints Gastrointestinal: Gastrointestinal: Reports no additional gastrointestinal complaints Genitourinary: Genitourinary: Reports as per HPI Musculoskeletal: Musculoskeletal: Reports no additional musculoskeletal complaints Integumentary/Breasts: Skin/Breast: Reports system reviewed and no additional complaints, except as docu Neurologic: Reports system reviewed and no additional complaints, except as documented Psychiatric: Psychiatric: Reports no additional psychiatric complaints Endocrine: Endocrine: Reports no additional endocrine complaints Hematologic/Lymphatic: Hematologic/Lymphatic: Reports no additional hematologic/lymphatic complaints Allergic/Immunologic: Allergic/Immunologic: Reports no additional allergic/immunologic complaints PMFSH Past Medical History Medical History Bladder cancer Chronic hepatitis C HLD (hyperlipidemia) Microcytic anemia Smoker Chronic headaches MDD (major depressive disorder) Surgical History Surgical History Hx of cystoscopy Social History Social History Household Members: Family Housing: Apartment Do you presently have visiting nurse or other home services: No Unable to assess alcohol history related to: Unknown Alcohol intake: former Comment: needed bedside monitoring due to escalted behaviour and wanting to leave Patient Tobacco Use Status: Current everyday Tobacco user Tobacco use type: Cigarette Cigarette Packs Per Day: 0.5 Cigarettes Per Day: 10.0 Smoked in Last 30 Days: Yes Use of substances other than those prescribed or required for medical reasons: No Currently Displaying Signs/Symptoms of Drug Intoxication Withdrawal: No Advance Directives: Yes Advance Directives on File: Yes Advance Directives Date on File: 08/15/23 Do you have a plan to hurt others: No Plan Nutrition Risks: No Nutritional Risk service: No Current occupational status: disabled Meds Allergies Allergy/AdvReac Type Severity Reaction Status Date / Time haloperidol [From Haldol] Allergy Severe Difficulty Verified 01/26/24 23:03 Breathing Active Medications: Current Medications Acetaminophen (Acetaminophen 325 Mg Tablet) 650 mg PO Q6H PRN PRN Reason: Pain, Mild (Pain Scale 1-3), fever or headache Last Admin: 01/27/24 17:59 Dose: 650 mg Amitriptyline HCl (Amitriptyline Hcl 50 Mg Tablet) 50 mg PO BEDTIME [facility] Last Admin: 01/28/24 21:36 Dose: Not Given Lipase/Protease/Amylase (Lipase/Prot/Amylase /120k 1 Cap Capsule.) 1 cap PO TID [facility] Last Admin: 01/29/24 13:37 Dose: 1 cap Ascorbic Acid (Ascorbic Acid 500 Mg Tablet) 500 mg PO BID [facility] Last Admin: 01/29/24 10:30 Dose: Not Given Atorvastatin Calcium (Atorvastatin Calcium 40 Mg Tablet) 40 mg PO BEDTIME [facility] Last Admin: 01/28/24 21:37 Dose: Not Given Benztropine Mesylate (Benztropine Mesylate 1 Mg Tablet) 1 mg PO BID [facility] Last Admin: 01/29/24 10:30 Dose: Not Given Calcium Carbonate (Calcium Carbonate 750 Mg Tab.Chew) 750 mg PO Q4H PRN PRN Reason: Heartburn Enoxaparin Sodium (Enoxaparin Sodium 40 Mg/0.4 Ml Syringe) 40 mg SUBCUT Q24H [facility] Last Admin: 01/28/24 13:27 Dose: 40 mg Famotidine (Famotidine 20 Mg Tablet) 40 mg PO BEDTIME [facility] Last Admin: 01/28/24 21:37 Dose: Not Given Ferrous Sulfate (Ferrous Sulfate 324 Mg Tablet.) 324 mg PO BIDWM [facility] Last Admin: 01/29/24 10:29 Dose: Not Given Hydroxyzine HCl (Hydroxyzine Hcl 50 Mg Tablet) 50 mg PO TID PRN PRN Reason: Anxiety Last Admin: 01/29/24 13:37 Dose: 50 mg Ceftriaxone Sodium 1 gm/ (Sodium Chloride) 50 mls @ 100 mls/hr IV Q24H [facility] Last Admin: 01/29/24 13:32 Dose: 100 mls/hr Lidocaine (Lidocaine 4 % Patch Adh..Patch) 1 patch TRANSDERMA DAILY [facility] Last Admin: 01/29/24 10:30 Dose: Not Given Lorazepam (Lorazepam 2 Mg/Ml Vial) 1 mg IVPUSH Q6H PRN PRN Reason: anxiety/restlessness Last Admin: 01/29/24 10:07 Dose: 1 mg Magnesium Hydroxide (Milk Of Magnesia 30 Ml Oral.Susp) 30 ml PO DAILY PRN PRN Reason: Constipation Megestrol Acetate (Megestrol Acetate 400 Mg/10 Ml Oral.Susp) 400 mg PO BID [facility] Last Admin: 01/29/24 10:31 Dose: Not Given Melatonin (Melatonin 3 Mg Tablet) 6 mg PO BEDTIME PRN PRN Reason: Insomnia Midodrine (Midodrine Hcl 5 Mg Tablet) 5 mg PO TID [facility] Last Admin: 01/29/24 13:34 Dose: 5 mg Nicotine (Nicotine 14 Mg Patch.Td24) 14 mg TRANSDERMA DAILY [facility] Last Admin: 01/29/24 10:31 Dose: Not Given Omeprazole (Omeprazole 20 Mg Capsule.Dr) 20 mg PO BID@0630,1630 [facility] Last Admin: 01/29/24 06:44 Dose: Not Given Oxycodone HCl (Oxycodone Hcl Immed Release 15 Mg Tablet) 15 mg PO Q6H PRN PRN Reason: severe pain Last Admin: 01/27/24 22:09 Dose: 15 mg Paroxetine HCl (Paroxetine Hcl 40 Mg Tablet) 40 mg PO DAILY [facility] Last Admin: 01/29/24 10:31 Dose: Not Given Quetiapine Fumarate (Quetiapine Fumarate 200 Mg Tablet) 200 mg PO BEDTIME [facility] Last Admin: 01/28/24 20:41 Dose: 200 mg Quetiapine Fumarate (Quetiapine Fumarate 50 Mg Tablet) 50 mg PO ONCE PRN PRN Reason: Anxiety Senna/Docusate Sodium (Sennosides/Docusate Sodium Tablet) 2 tab PO BEDTIME [facility] Last Admin: 01/28/24 21:38 Dose: Not Given Sodium Chloride (0.9 % Sodium Chloride Flush 3 Ml Syringe) 3 ml IVFLUSH QSHIFT [facility] Last Admin: 01/29/24 10:29 Dose: Not Given Tamsulosin HCl (Tamsulosin Hcl 0.4 Mg Capsule) 0.4 mg PO BEDTIME [facility] Last Admin: 01/28/24 21:38 Dose: Not Given Home Medications ?Medication ?Instructions ?Recorded ?Confirmed ?Last Taken ?Type amitriptyline 50 mg tablet 50 mg PO BEDTIME 02/03/23 01/27/24 01/26/24 History atorvastatin 40 mg tablet 40 mg PO BEDTIME 02/03/23 01/27/24 01/26/24 History benztropine 1 mg tablet 1 mg PO BID 02/03/23 01/27/24 01/26/24 History famotidine 40 mg tablet 40 mg PO BEDTIME 02/03/23 01/27/24 01/26/24 History hydroxyzine pamoate 25 mg capsule 50 mg PO TID PRN Anxiety 02/03/23 01/27/24 01/26/24 History okofee-lobhdtob-lidrtiz 1 cap PO Q8H 02/03/23 01/27/24 01/26/24 History 24,000-76,000-120,000 unit capsule,delayed rel (Creon) pantoprazole 40 mg tablet,delayed 40 mg PO BID@0630,1630 02/03/23 01/27/24 01/26/24 History release paroxetine HCl 20 mg tablet 40 mg PO DAILY 02/03/23 01/27/24 01/26/24 History quetiapine 100 mg tablet 200 mg PO BEDTIME 02/03/23 01/27/24 01/26/24 History acetaminophen 500 mg tablet 500 mg PO Q6H PRN Pain 01/27/24 01/27/24 01/26/24 History (Tylenol Extra Strength) ascorbic acid (vitamin C) 500 mg 500 mg PO BID 01/27/24 01/27/24 01/26/24 History tablet (Vitamin C) lidocaine 5 % topical patch 1 patch topical DAILY 01/27/24 01/27/24 01/26/24 History megestrol 400 mg/10 mL (40 mg/mL) 400 mg PO BID 01/27/24 01/27/24 01/26/24 History oral suspension oxycodone 15 mg tablet 15 mg PO Q6H PRN severe pain 01/27/24 01/27/24 01/26/24 History sennosides 8.6 mg-docusate sodium 2 tab PO BEDTIME 01/27/24 01/27/24 01/26/24 History 50 mg tablet (Stimulant Laxative Plus) Physical Exam 2 Vital Signs: Vital Signs: Last Vital Signs Temp 98.1 F 01/29/24 13:29 Pulse 69 01/29/24 13:29 Resp 18 01/29/24 13:29 BP 135/72 01/29/24 13:29 Pulse Ox 96 01/29/24 13:29 O2 Del Method Room Air 01/29/24 13:29 BMI result Body Mass Index 15.9 Const: General: no acute distress and anxious Nutritional Appearance: c achectic and thin Orientation/consciousness: patient oriented x3 HEENT: Head: Yes normocephalic and Yes atraumatic Eyes: Conjunctivae: conjunctivae normal Neck: Neck: Yes normal visual inspection Chest: Chest palpation & inspection: normal inspection of the chest Resp: Effort & Inspection: normal respiratory effort Cardio: Rate: regular rate GI: Inspection: Yes normal to inspection Palpation (GI): Soft to palpation : Other: chen in place, urine draining from chen currently clear Penis: normal penis Neuro: General: patient oriented x3 Extrem: General: No pedal edema Psych: Appearance: grossly normal Affect: normal affect Results Labs 01/28/24 06:34 01/28/24 06:34 Labs: Urine 01/27/24 Range/Units 11:34 Urine Color RED Urine Appearance Turbid Urine pH 7.0 (5.0-9.0) Ur Specific Val[place] 1.020 (1.005-1.025) Urine Protein 300 (3+) H (Neg-Trace) mg/dL Urine Glucose (UA) TNP All other labs normal. Assessment and Plan (1) Bladder cancer: Status: Chronic (2) Urine retention: Status: Acute Plan Recommend voiding trial in AM Pt has scheduled out patient urology follow up Procedures Date of Service Date of Service: 01/29/24
--- NOTE | 2024-01-29 15:17 | P.DS_ITS ---
DS: Providers Provider Date of admission: 01/27/24 14:24 Primary care physician: Marga Garrido MD Consults: 01/27/24 13:55 Consult to Case Management Stat Comment: 01/28/24 11:06 Consult to Urology Routine Consulting Provider: [facility] [place] [facility] Reason for consultation: Urine retention, Hx Bladder CA, refusing Vaughn\straight cath DS: Diagnosis Discharge Diagnosis (1) Bladder cancer: Status: Chronic (2) Urine retention: Status: Acute Physical Exam Vital Signs: Vital Signs: Last Vital Signs Temp 98.1 F 01/29/24 13:29 Pulse 69 01/29/24 13:29 Resp 18 01/29/24 13:29 BP 135/72 01/29/24 13:29 Pulse Ox 96 01/29/24 13:29 O2 Del Method Room Air 01/29/24 13:29 BMI result Body Mass Index 15.9 DS: Data Data Completed and Pending Completed studies during hospitalization [Text1]: Procedures Excision of Bladder Neck, Via Natural or Artificial Opening Endoscopic (07/01/23) Excision of Bladder, Via Natural or Artificial Opening Endoscopic (07/01/23) Transfusion of Nonautologous Red Blood Cells into Peripheral Vein, Percutaneous Approach (07/01/23) Labs on day of discharge: Preliminary micro results at discharge 01/27/24 06:09 Blood Culture - Preliminary Blood - Venous No growth after 48 hours. 01/27/24 06:09 Blood Culture - Preliminary Blood - Venous No growth after 48 hours. Discharge Plan Discharge Anticipated Discharge Date/Time: 01/29/24 15:15 Patient Disposition: Home Health Service Discharge Diagnosis: Fall Urine retention Referrals: Marga Garrido MD [Primary Care Provider] - 1 Week Discharge Medications: New cefuroxime axetil 500 mg tablet 500 mg PO BID 7 Days Qty: 14 0RF midodrine 5 mg Tablet 5 mg PO TID Qty: 90 0RF Continued sennosides-docusate sodium [Stimulant Laxative Plus] 8.6-50 mg tablet 2 tab PO BEDTIME ascorbic acid (vitamin C) [Vitamin C] 500 mg tablet 500 mg PO BID megestrol 400 mg/10 mL (40 mg/mL) suspension 400 mg PO BID acetaminophen [Tylenol Extra Strength] 500 mg Tablet 500 mg PO Q6H PRN (Reason: Pain) oxycodone 15 mg tablet 15 mg PO Q6H PRN (Reason: severe pain) lidocaine 5 % adhesive patch,medicated 1 patch topical DAILY Rx Instructions: leave on for 12 hour and off for 12 hours atorvastatin 40 mg tablet 40 mg PO BEDTIME famotidine 40 mg tablet 40 mg PO BEDTIME quetiapine 100 mg tablet 200 mg PO BEDTIME amitriptyline 50 mg tablet 50 mg PO BEDTIME paroxetine HCl 20 mg tablet 40 mg PO DAILY pantoprazole 40 mg tablet,delayed release (DR/EC) 40 mg PO BID@0630,1630 benztropine 1 mg tablet 1 mg PO BID hydroxyzine pamoate 25 mg capsule 50 mg PO TID PRN (Reason: Anxiety) Creon 24,000-76,000 -120,000 unit capsule,delayed release(DR/EC) 1 cap PO Q8H tamsulosin 0.4 mg Capsule 0.4 mg PO BEDTIME Qty: 30 0RF ferrous sulfate 324 mg (65 mg iron) Tablet,Delayed Release (Dr/Ec) 324 mg PO BIDWM Qty: 30 0RF Discontinued sulfamethoxazole-trimethoprim [Bactrim DS] 800-160 mg tablet 1 tab PO BID 10 Days Qty: 20 0RF Rx Instructions: End date 01-30-24 Diet: Advance to usual diet Activity on Discharge: As tolerated Stand Alone Forms: Patient Portal Discharge page Print Language: Serbian Activity Restrictions/Additional Instructions: You were seen today after a fall. You had a CT and labs done Please call to follow up. Care Plan Goals: Midodrine for low blood pressure, monitor blood pressure at home Continue Ceftin at home Follow with Urology as outpatient. Health Concerns: Read below Plan of Treatment: Read below Assessment: Read below Patient Instructions: Urinary Tract Infection in Men (DC), Bladder Cancer (DC), Hypotension (ED)
[2024-01-29] MEDS: 0.9 % Sodium Chloride Flush 3 ML SYRINGE IVFLUSH ×2 (16:39→22:19)
[2024-01-29 20:00] VITALS: RESP 18
[2024-01-29 23:37] VITALS: RESP 18
[2024-01-30] VITALS: BP 134/66; PULSE 61; RESP 18; TEMP 36.3; O2SAT 96
[2024-01-30 04:00] VITALS: RESP 18
--- NOTE | 2024-01-30 05:25 | PC.NURSE ---
patient with escalating behaviour back at shift report time, getting out of bed frequently, uncooperative, saying he wanted to get dressed and leave, and refusing all medications. Safety and redirection attempts, offered snack, beverage, tv, ambulation with walker within his room with close stand by supervision, reposition, but all met with resistance. He did sit in recliner for a short period. Sitter at bedside needed for safety as patients gait remains unsteady,getting to bedside quickly, history of falls at home, and chne catheter in use. Urine noted to be yellow, denied pain, headache, and all discomforts. Medicated with prn Ativan as per Aug at 2236 with only some effect, Patient continued to be fidgety and restless in bed, moving pillows, sitting upright, declined vital signs etc.....noted finally able to rest in naps near 0330. will continue to monitor
[2024-01-30] MEDS: Omeprazole 20 MG CAPSULE.DR PO ×2 (06:36→15:02)
[2024-01-30 07:40] LABS: Hematocrit 34.8 % (42.0-52.0); Hemoglobin 11.5 g/dl (14.0-18.0); Mean Corpuscular Hemoglobin 27.9 pg (27.0-33.0); Mean Corpuscular Volume 84.5 fL (80.0-98.0); Mean Platelet Volume 9.8 fL (9.4-12.4); Platelet Count 206 X10*3/uL (160-400); Red Blood Count 4.12 X10*6/uL (4.60-5.80); Red Cell Distribution Width 14.6 % (11.0-16.0); White Blood Count 7.6 X10*3/uL (4.8-10.8)
[2024-01-30 08:00] VITALS: BP 134/63; PULSE 78; RESP 18; TEMP 36.5; O2SAT 96
[2024-01-30 08:06] LABS: Anion Gap 12 (12-20); Blood Urea Nitrogen 7 mg/dL (9-16); Calcium 9.1 mg/dL (8.4-10.2); Carbon Dioxide 27 mmol/L (22-29); Chloride 108 mmol/L (96-108); Creatinine Clr Calc Pharmacy 75.6; Estimated Glomerular Filt Rate > 60; Glucose Random 82 mg/dL (60-115); Potassium 3.6 mmol/L (3.3-5.1); Sodium 143 mmol/L (135-145)
[2024-01-30] MEDS: Acetaminophen 325 MG TABLET 650 MG PO ×2 (09:02→15:01)
[2024-01-30] MEDS: 0.9 % Sodium Chloride Flush 3 ML SYRINGE IVFLUSH ×2 (09:03→15:02)
[2024-01-30] MEDS: Ferrous Sulfate 324 MG TABLET.DR PO ×2 (09:03→17:59)
[2024-01-30] MEDS: oxyCODONE HCl Immed Release 15 MG TABLET PO ×2 (09:03→15:02)
[2024-01-30] MEDS: Lipase/Prot/Amylase 24/76/120K 1 CAP CAPSULE.DR PO ×3 (09:03→20:50)
[2024-01-30] MEDS: Ascorbic Acid 500 MG TABLET PO ×2 (09:03→20:50)
[2024-01-30] MEDS: PARoxetine HCL 40 MG TABLET PO (09:03)
[2024-01-30] MEDS: hydrOXYzine HCL 50 MG TABLET PO ×2 (09:03→17:59)
[2024-01-30] MEDS: Midodrine HCl 5 MG TABLET PO ×3 (09:03→20:50)
[2024-01-30] MEDS: Benztropine Mesylate 1 MG TABLET PO ×2 (09:03→20:50)
[2024-01-30] MEDS: Nicotine 14 MG PATCH.TD24 TRANSDERMA (09:09)
--- NOTE | 2024-01-30 09:13 | PC.NURSE ---
Order to dc chen and do voiding trial. chen removed 0900, patient tolerated well. patient due to void at 1500. patient educated on asking for assistance when needing to void.
--- NOTE | 2024-01-30 09:14 | PC.NURSE ---
Addendum entered by Loly Self RN 01/30/24 10:34: Patient refused lidocaine patch it does not work patient allowed this RN to apply nicotine patch, nicotine patch applied to right shoulder. patient resting comfortably in bed. Original Note: Patient ate all of breakfast. Patient complaint of 7/10 headache behind my eyes pt medicated per AUG. patient calm, cooperative, took all medications without difficulty.
--- NOTE | 2024-01-30 11:19 | P.PNIM_ITS ---
Subjective Subjective Date of Service: 01/30/24 Interval History: Seen and evaluated this morning Urine clean in chen, removed Chen had anxiety overnight requiring Ativan no fever or chills Review of Systems Review of Systems: Yes all other systems are reviewed and are negative Physical Exam 2 Vital Signs: Vital Signs: Last Vital Signs Temp 97.7 F 01/30/24 08:00 Pulse 78 01/30/24 08:00 Resp 18 01/30/24 08:00 BP 134/63 01/30/24 08:00 Pulse Ox 96 01/30/24 08:00 O2 Del Method Room Air 01/30/24 08:00 BMI result Body Mass Index 15.9 Const: Other: Constitutional : interactive, sleepy Cardiovascular : no JVP, no lower extremity edema Respiratory : bilateral chest movement, not in resp distress Gastrointestinal: soft, lax, Non tender Skin : Warm, Dry Urology: Chen in place with bloody tinged urine Neurological : Alert & orientedto self only otherwise disoriented, No focal deficit Objective Data Active Medications Acetaminophen (Acetaminophen 325 Mg Tablet) 650 mg PO Q6H PRN PRN Reason: Pain, Mild (Pain Scale 1-3), fever or headache Last Admin: 01/30/24 09:02 Dose: 650 mg Documented By: JOSE Amitriptyline HCl (Amitriptyline Hcl 50 Mg Tablet) 50 mg PO BEDTIME [facility] Last Admin: 01/29/24 22:32 Dose: Not Given Documented By: MIKE Non-Admin Reason: refused, many attempts and discussions Lipase/Protease/Amylase (Lipase/Prot/Amylase 24/76/120k 1 Cap Capsule.) 1 cap PO TID [facility] Last Admin: 01/30/24 09:03 Dose: 1 cap Documented By: JOSE Ascorbic Acid (Ascorbic Acid 500 Mg Tablet) 500 mg PO BID [facility] Last Admin: 01/30/24 09:03 Dose: 500 mg Documented By: DELVINEMA Atorvastatin Calcium (Atorvastatin Calcium 40 Mg Tablet) 40 mg PO BEDTIME [facility] Last Admin: 01/29/24 22:18 Dose: Not Given Documented By: MIKE Non-Admin Reason: pt refused all meds, tried just 2 with no pancho Benztropine Mesylate (Benztropine Mesylate 1 Mg Tablet) 1 mg PO BID [facility] Last Admin: 01/30/24 09:03 Dose: 1 mg Documented By: JOSE Calcium Carbonate (Calcium Carbonate 750 Mg Tab.Chew) 750 mg PO Q4H PRN PRN Reason: Heartburn Enoxaparin Sodium (Enoxaparin Sodium 40 Mg/0.4 Ml Syringe) 40 mg SUBCUT Q24H [facility] Last Admin: 01/28/24 13:27 Dose: 40 mg Documented By: MOE Famotidine (Famotidine 20 Mg Tablet) 40 mg PO BEDTIME [facility] Last Admin: 01/29/24 22:18 Dose: Not Given Documented By: MIKE Non-Admin Reason: Patient Refused Ferrous Sulfate (Ferrous Sulfate 324 Mg Tablet.) 324 mg PO BIDWM [facility] Last Admin: 01/30/24 09:03 Dose: 324 mg Documented By: JOSE Hydroxyzine HCl (Hydroxyzine Hcl 50 Mg Tablet) 50 mg PO TID PRN PRN Reason: Anxiety Last Admin: 01/30/24 09:03 Dose: 50 mg Documented By: JOSE Ceftriaxone Sodium 1 gm/ (Sodium Chloride) 50 mls @ 100 mls/hr IV Q24H [facility] Last Infusion: 01/29/24 14:49 Dose: Infused Documented By: MOE Lidocaine (Lidocaine 4 % Patch Adh..Patch) 1 patch TRANSDERMA DAILY [facility] Last Admin: 01/30/24 08:57 Dose: Not Given Documented By: JOSE Non-Admin Reason: Patient Refused Lorazepam (Lorazepam 2 Mg/Ml Vial) 1 mg IVPUSH Q6H PRN PRN Reason: anxiety/restlessness Last Admin: 01/29/24 22:37 Dose: 1 mg Documented By: MIKE Magnesium Hydroxide (Milk Of Magnesia 30 Ml Oral.Susp) 30 ml PO DAILY PRN PRN Reason: Constipation Megestrol Acetate (Megestrol Acetate 400 Mg/10 Ml Oral.Susp) 400 mg PO BID [facility] Last Admin: 01/30/24 09:02 Dose: Not Given Documented By: JOSE Non-Admin Reason: Patient Refused Melatonin (Melatonin 3 Mg Tablet) 6 mg PO BEDTIME PRN PRN Reason: Insomnia Midodrine (Midodrine Hcl 5 Mg Tablet) 5 mg PO TID [facility] Last Admin: 01/30/24 09:03 Dose: 5 mg Documented By: HO.COTEMA Nicotine (Nicotine 14 Mg Patch.Td24) 14 mg TRANSDERMA DAILY [facility] Last Admin: 01/30/24 09:09 Dose: 14 mg Documented By: COTEMA Omeprazole (Omeprazole 20 Mg Capsule.) 20 mg PO BID@0630,1630 [facility] Last Admin: 01/30/24 06:36 Dose: 20 mg Documented By: MIKE Oxycodone HCl (Oxycodone Hcl Immed Release 15 Mg Tablet) 15 mg PO Q6H PRN PRN Reason: severe pain Last Admin: 01/30/24 09:03 Dose: 15 mg Documented By: COTEMA Paroxetine HCl (Paroxetine Hcl 40 Mg Tablet) 40 mg PO DAILY [facility] Last Admin: 01/30/24 09:03 Dose: 40 mg Documented By: COTEMA Quetiapine Fumarate (Quetiapine Fumarate 200 Mg Tablet) 200 mg PO BEDTIME [facility] Last Admin: 01/29/24 22:32 Dose: Not Given Documented By: MIKE Non-Admin Reason: refused after many attempts and discussions Quetiapine Fumarate (Quetiapine Fumarate 50 Mg Tablet) 50 mg PO ONCE PRN PRN Reason: Anxiety Senna/Docusate Sodium (Sennosides/Docusate Sodium Tablet) 2 tab PO BEDTIME [facility] Last Admin: 01/29/24 22:19 Dose: Not Given Documented By: MIKE Non-Admin Reason: Patient Refused Sodium Chloride (0.9 % Sodium Chloride Flush 3 Ml Syringe) 3 ml IVFLUSH QSHIFT [facility] Last Admin: 01/30/24 09:03 Dose: 3 ml Documented By: JOSE Tamsulosin HCl (Tamsulosin Hcl 0.4 Mg Capsule) 0.4 mg PO BEDTIME [facility] Last Admin: 01/29/24 22:20 Dose: Not Given Documented By: MIKE Non-Admin Reason: Patient Refused Labs 01/30/24 06:33 01/30/24 06:33 Labs: Laboratory Results - last 24 hr 01/30/24 06:33 MCV 84.5 MCH 27.9 MCHC 33.0 RDW 14.6 Plt Count 206 MPV 9.8 Absolute Nucleated RBC 0.000 Nucleated RBC % (auto) 0.0 Anion Gap 12 Estim Creat Clear Calc 75.6 Estimated GFR > 60 Random Glucose 82 Calcium 9.1 D Microbiology Microbiology Results: Microbiology 01/27/24 06:09 Blood Culture - Preliminary Blood - Venous No growth after 48 hours. 01/27/24 06:09 Blood Culture - Preliminary Blood - Venous No growth after 48 hours. Assessment and Plan (1) Urine retention: Status: Acute (2) Acute hypotension: Status: Acute (3) UTI (urinary tract infection): Status: Acute (4) Toxic metabolic encephalopathy: Status: Acute Plan 63-year-old male with hyperlipidemia, chronic hepatitis-C s/p treatment, invasive bladder carcinoma s/p TURBT who is a current 1/2 pack per day cigarette smoker to be observed for UTI with hypotension now resolved who is noted to be unsteady on his feet # Acute toxic encephalopathy Likely 2/2 acute inpatient delerium and poly pharmacy recurrent reorientation avoid sedating medicaitons #ACute UTi complicated with urine retention and hematuria negative urine and blood cultures DC Bactrim continue IV ceftriaxone dc IV fluids Hematuria resolved, Chen removed Continue Tamsulosin Urology input appreciated, follow as OP Voiding trials # Hypotension secondary to severe malnutrition and weight loss Better readings Continue Midodrine continue Megace bid Climatology Teacher eval add Ensure #Fall PT rec STR #Bladder cancer s/p TURBT, s/p cysto on 01/19 # cigarette smoker patches for replacement therapy, cessation advised # left lower lobe lung lesion on CXR, CT chest on 07/02/2023 shows a focus of probable round atelectasis, further imaging recommended for follow-up outpatient follow-up # GERD PPI # mood disorder continue home meds DVT prophylaxis- SCDs The patient will need overnight stay for encephalopathy pending clinical improvement and safe discharge plan Quality Stroke Does the patient have a stroke diagnosis?: No VTE Prior VTE?: No VTE Risk Level:: Medical - moderate - high VTE Device Contraindication: Treatment Not Indicated VTE Drug Contraindication: N/A - Med Ordered
[2024-01-30 13:26] VITALS: BMI 15.9
--- NOTE | 2024-01-30 14:06 | MHC.CLN ---
NUTRITION CONSULT FOR MALNUTRITION. DIET=REGULAR. ADDING ENSURE TID. SUPPLEMENT PROVIDES 1050 KCALS, 60 G PROTEIN. PATIENT LIKES AND ACCEPTS ENSURE. QUALIFIES MODERATELY MALNOURISHED IN THE CONTEXT OF CHRONIC ILLNESS. VISITED AT LUNCH AND EATING VERY WELL. 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 CONTINUE REGULAR DIET AND ENSURE SUPPLEMENT TID. FOLLOW FOR INTAKE AND WEIGHT. SEE CLINICAL NUTRITION ASSESSMENT 01/30/24.
--- NOTE | 2024-01-30 14:14 | MHC.CM.PN ---
Addendum entered by Rhea Lynn 01/30/24 16:21: REFERRAL EXPANDED, [facility], [facility], [facility], [facility], AND [facility] ARE ALL INQUIRING, HOWEVER HAVE NOT OFFERED A BED. UPDATES SENT, CM WILL RESUME SEARCH TOMORROW Addendum entered by Rhea Lynn 01/30/24 14:18: JULIANA RECEIVED A CALL FROM PTS PRIMARY CONTACT, SOURAV SCOTT SHE REPORTS SHE IS WORRIED THE PT MAY NEED LTC, HOWEVER UNDERSTANDS THAT STR IS THE CURRENT GOAL SHE SAYS THERE IS NO PLAN FOR THE PT TO HAVE CHEMOTHERAPY, THERE IS A PLAN FOR A SURGERY TO REMOVE TUMORS ON 02/07/24 SHE SAYS SHE USUALLY ARRANGES [facility] TRANSPORT FOR THE PT, AND ONCE A SNF IS SECURED SHE WILL SET UP TRANSPORT FOR HIS APPTS Original Note: JULIANA RECEIVED A CALL FROM BILL AT [facility] SHE REPORTS THE PTS PCP FEELS HE NEEDS TO GO TO LTC BILL ASKED IF THE PCP WOULD NEED TO WRITE A LETTER TO THAT FACT JULIANA EXPLAINED THAT AT THIS POINT, THE PT IS QUALIFYING FOR STR IF AT THE END OF STR, HE HAS NOT IMPROVED ENOUGH TO BE SAFE AT HOME, THEN HE WOULD TRANSITION INTO LTC, HOWEVER A LETTER WOULD NOT BE NECESSARY FOR THIS TO HAPPEN, SHE ASKED THAT THEY BE UPDATED ONCE PLACEMENT IS FOUND BILL: [phone]
[2024-01-30] MEDS: cefTRIAXone sodium 1 GM in 0.9 % Sodium Chloride 50 ML IV (14:16)
[2024-01-30 15:53] VITALS: BP 118/64; PULSE 81; RESP 16; TEMP 36.9; O2SAT 95
--- NOTE | 2024-01-30 16:06 | PC.NURSE ---
pt due to void at 1500, patient does not feel urge to void. bladder scanned pt for 266mls. dr. escamilla made aware and said to wait, give him time, and see if he is able to void in a couple hours.
--- NOTE | 2024-01-30 16:09 | PC.NURSE ---
Patient complaint of 7/10 pain. patient medicated per AUG. patient took all medications without difficulty. camera in room and bed alarm on for safety. patient sleeping at this time.
--- NOTE | 2024-01-30 19:01 | PC.NURSE ---
Patient ambulated 1 assist to bathroom and had an unmeasured void and bm in bathroom. urine yellow. post void bladder scan was 54mls. patient assisted back to bed. bed alarm on. patient resting comfortably.
[2024-01-30 19:34] VITALS: BP 119/79; PULSE 82; RESP 18; TEMP 36.3; O2SAT 96
[2024-01-30] MEDS: QUEtiapine Fumarate 200 MG TABLET PO (20:50)
[2024-01-30] MEDS: Amitriptyline HCl 50 MG TABLET PO (20:50)
[2024-01-30] MEDS: Famotidine 20 MG TABLET 40 MG PO (20:50)
[2024-01-30] MEDS: Megestrol Acetate 400 MG/10 ML ORAL.SUSP PO (20:50)
[2024-01-30] MEDS: Sennosides/Docusate Sodium TABLET 2 TAB PO (20:50)
[2024-01-30] MEDS: Atorvastatin Calcium 40 MG TABLET PO (20:50)
[2024-01-30] MEDS: Tamsulosin HCL 0.4 MG CAPSULE PO (20:50)
--- NOTE | 2024-01-30 23:53 | PC.NURSE ---
2345- Patient awake, having snack, agreeable to Bladder scan as no void since early evening. Pt noted with 491ml, denied pain or pressure and okay with assistance to bathroom upon completion of his snack. RN following this technical report writer at this time will follow up, PAVING FOREMAN also updated. Pt talkative and cooperative.
[2024-01-31] MEDS: 0.9 % Sodium Chloride Flush 3 ML SYRINGE IVFLUSH ×4 (00:38→20:47)
[2024-01-31 03:33] VITALS: BP 110/50; PULSE 69; RESP 16; TEMP 36.1; O2SAT 97
--- NOTE | 2024-01-31 04:13 | PC.NURSE ---
patient forgetful. OOB sounding bed alarm and also camera stat alarm due to patient OOB multiple times to urinate during night. Patient is forgetful, and unsteady. high fall precautions in place, needs frequent redirection.
--- NOTE | 2024-01-31 06:33 | PC.NURSE ---
due to void complete, patient voiding multiple times in bathroom, unsteady, alarms set as he is forgetful.
[2024-01-31 06:59] VITALS: BP 120/58; PULSE 70; RESP 16; TEMP 36.1; O2SAT 96
[2024-01-31 10:02] VITALS: BP 120/58; PULSE 70; O2SAT 96
[2024-01-31] MEDS: Ascorbic Acid 500 MG TABLET PO ×2 (10:24→20:42)
[2024-01-31] MEDS: Ferrous Sulfate 324 MG TABLET.DR PO ×2 (10:24→16:55)
[2024-01-31] MEDS: Midodrine HCl 5 MG TABLET PO ×3 (10:24→20:44)
[2024-01-31] MEDS: Megestrol Acetate 400 MG/10 ML ORAL.SUSP PO ×2 (10:24→20:44)
[2024-01-31] MEDS: Lipase/Prot/Amylase 24/76/120K 1 CAP CAPSULE.DR PO ×3 (10:24→20:43)
[2024-01-31] MEDS: PARoxetine HCL 40 MG TABLET PO (10:24)
[2024-01-31] MEDS: Nicotine 14 MG PATCH.TD24 TRANSDERMA (10:24)
[2024-01-31] MEDS: Benztropine Mesylate 1 MG TABLET PO ×2 (10:24→20:42)
--- NOTE | 2024-01-31 11:13 | MHC.CM.PN ---
Addendum entered by Carly Anne 01/31/24 13:58: This CM called PT 1 to inquire about pts transportation being covered from [place] to [place], and per the [facility] telephone sales representative unless the pts trip is 25 miles or less it is unlikely to be covered. Original Note: EMR reviewed and per MD rounds, pt is medically cleared for discharge pending STR placement. No current bed offers, however [facility] is interested and may be wiling to accept pt is PT 1 transport is able to assist with his transport to his upcoming healthcare appointments at [place]. This CM called and spoke with pts brother/HCP Sd, he stated his name is James, not Sd. Per James, his brother has lived with him for the past 20 years, but he can no longer have him there, physically and mentally he can no longer handle him with his frequent falls. This CM explained to James that the pt is medically cleared and we have no current STR bed offers. This CM requested James to call [facility] to inquire if they are able to provide the transportation for the pt to his upcoming appointments from [place]. James states he will call PT [facility] and call us back.
--- NOTE | 2024-01-31 12:55 | P.PNIM_ITS ---
Subjective Subjective Date of Service: 01/31/24 Interval History: Seen and evaluated this morning Urine clean in chen, removed Chen had anxiety overnight requiring Ativan no fever or chills Physical Exam 2 Vital Signs: Vital Signs: Last Vital Signs Temp 97 F 01/31/24 06:59 Pulse 70 01/31/24 10:02 Resp 16 01/31/24 06:59 BP 120/58 L 01/31/24 10:02 Pulse Ox 96 01/31/24 10:02 O2 Del Method Room Air 01/31/24 06:59 BMI result Body Mass Index 15.9 Const: Other: Constitutional : interactive, sleepy Cardiovascular : no JVP, no lower extremity edema Respiratory : bilateral chest movement, not in resp distress Gastrointestinal: soft, lax, Non tender Skin : Warm, Dry Urology: Chen in place with bloody tinged urine Neurological : Alert & orientedto self only otherwise disoriented, No focal deficit Objective Data Active Medications Acetaminophen (Acetaminophen 325 Mg Tablet) 650 mg PO Q6H PRN PRN Reason: Pain, Mild (Pain Scale 1-3), fever or headache Last Admin: 01/30/24 15:01 Dose: 650 mg Documented By: JOSE Amitriptyline HCl (Amitriptyline Hcl 50 Mg Tablet) 50 mg PO BEDTIME [facility] Last Admin: 01/30/24 20:50 Dose: 50 mg Documented By: MIKE Lipase/Protease/Amylase (Lipase/Prot/Amylase 24/76/120k 1 Cap Capsule.Dr) 1 cap PO TID [facility] Last Admin: 01/31/24 10:24 Dose: 1 cap Documented By: HERBIE Ascorbic Acid (Ascorbic Acid 500 Mg Tablet) 500 mg PO BID [facility] Last Admin: 01/31/24 10:24 Dose: 500 mg Documented By: HERBIE Atorvastatin Calcium (Atorvastatin Calcium 40 Mg Tablet) 40 mg PO BEDTIME [facility] Last Admin: 01/30/24 20:50 Dose: 40 mg Documented By: MIKE Benztropine Mesylate (Benztropine Mesylate 1 Mg Tablet) 1 mg PO BID [facility] Last Admin: 01/31/24 10:24 Dose: 1 mg Documented By: HERBIE Calcium Carbonate (Calcium Carbonate 750 Mg Tab.Chew) 750 mg PO Q4H PRN PRN Reason: Heartburn Enoxaparin Sodium (Enoxaparin Sodium 40 Mg/0.4 Ml Syringe) 40 mg SUBCUT Q24H [facility] Last Admin: 01/28/24 13:27 Dose: 40 mg Documented By: MOE Famotidine (Famotidine 20 Mg Tablet) 40 mg PO BEDTIME [facility] Last Admin: 01/30/24 20:50 Dose: 40 mg Documented By: MIKE Ferrous Sulfate (Ferrous Sulfate 324 Mg Tablet.) 324 mg PO BIDWM [facility] Last Admin: 01/31/24 10:24 Dose: 324 mg Documented By: HERBIE Hydroxyzine HCl (Hydroxyzine Hcl 50 Mg Tablet) 50 mg PO TID PRN PRN Reason: Anxiety Last Admin: 01/30/24 17:59 Dose: 50 mg Documented By: JOSE Ceftriaxone Sodium 1 gm/ (Sodium Chloride) 50 mls @ 100 mls/hr IV Q24H [facility] Last Infusion: 01/30/24 15:04 Dose: Infused Documented By: JOSE Lidocaine (Lidocaine 4 % Patch Adh..Patch) 1 patch TRANSDERMA DAILY [facility] Last Admin: 01/31/24 10:32 Dose: Not Given Documented By: HERBIE Non-Admin Reason: Patient Refused Lorazepam (Lorazepam 2 Mg/Ml Vial) 1 mg IVPUSH Q6H PRN PRN Reason: anxiety/restlessness Last Admin: 01/29/24 22:37 Dose: 1 mg Documented By: MIKE Magnesium Hydroxide (Milk Of Magnesia 30 Ml Oral.Susp) 30 ml PO DAILY PRN PRN Reason: Constipation Megestrol Acetate (Megestrol Acetate 400 Mg/10 Ml Oral.Susp) 400 mg PO BID [facility] Last Admin: 01/31/24 10:24 Dose: 400 mg Documented By: HERBIE Melatonin (Melatonin 3 Mg Tablet) 6 mg PO BEDTIME PRN PRN Reason: Insomnia Midodrine (Midodrine Hcl 5 Mg Tablet) 5 mg PO TID [facility] Last Admin: 01/31/24 10:24 Dose: 5 mg Documented By: HERBIE Nicotine (Nicotine 14 Mg Patch.Td24) 14 mg TRANSDERMA DAILY [facility] Last Admin: 01/31/24 10:24 Dose: 14 mg Documented By: HERBIE Omeprazole (Omeprazole 20 Mg Capsule.) 20 mg PO BID@1730,9760 [facility] Last Admin: 01/31/24 06:40 Dose: Not Given Documented By: WILLIAM Non-Admin Reason: Patient Refused Oxycodone HCl (Oxycodone Hcl Immed Release 15 Mg Tablet) 15 mg PO Q6H PRN PRN Reason: severe pain Last Admin: 01/30/24 15:02 Dose: 15 mg Documented By: COTMARCY Paroxetine HCl (Paroxetine Hcl 40 Mg Tablet) 40 mg PO DAILY [facility] Last Admin: 01/31/24 10:24 Dose: 40 mg Documented By: HERBIE Quetiapine Fumarate (Quetiapine Fumarate 200 Mg Tablet) 200 mg PO BEDTIME [facility] Last Admin: 01/30/24 20:50 Dose: 200 mg Documented By: MIKE Quetiapine Fumarate (Quetiapine Fumarate 50 Mg Tablet) 50 mg PO ONCE PRN PRN Reason: Anxiety Senna/Docusate Sodium (Sennosides/Docusate Sodium Tablet) 2 tab PO BEDTIME [facility] Last Admin: 01/30/24 20:50 Dose: 2 tab Documented By: MIKE Sodium Chloride (0.9 % Sodium Chloride Flush 3 Ml Syringe) 3 ml IVFLUSH QSHIFT [facility] Last Admin: 01/31/24 10:25 Dose: 3 ml Documented By: HERBIE Tamsulosin HCl (Tamsulosin Hcl 0.4 Mg Capsule) 0.4 mg PO BEDTIME [facility] Last Admin: 01/30/24 20:50 Dose: 0.4 mg Documented By: MIKE Labs 01/30/24 06:33 01/30/24 06:33 Assessment and Plan (1) Toxic metabolic encephalopathy: Status: Acute (2) Urine retention: Status: Acute (3) Fall: Status: Acute Plan 63-year-old male with hyperlipidemia, chronic hepatitis-C s/p treatment, invasive bladder carcinoma s/p TURBT who is a current 1/2 pack per day cigarette smoker to be observed for UTI with hypotension now resolved who is noted to be unsteady on his feet # Acute toxic encephalopathy Likely 2/2 acute inpatient delerium and poly pharmacy improving recurrent reorientation avoid sedating medicaitons #ACute UTi complicated with urine retention and hematuria negative urine and blood cultures Hematuria resolved, Chen removed DC Bactrim, IV Ceftriaxone change to PO Ceftin dc IV fluids Continue Tamsulosin Urology input appreciated, follow as OP Voiding trials # Hypotension secondary to severe malnutrition and weight loss Better readings Continue Midodrine continue Megace bid Type Copy Examiner salonial on Ensure #Fall PT rec STR #Bladder cancer s/p TURBT, s/p cysto on 01/19 # cigarette smoker patches for replacement therapy, cessation advised # left lower lobe lung lesion on CXR, CT chest on 07/02/2023 shows a focus of probable round atelectasis, further imaging recommended for follow-up outpatient follow-up # GERD PPI # mood disorder continue home meds DVT prohylaxis- SCDs The patient will need overnight stay for encephalopathy pending clinical improvement and safe discharge plan Quality Stroke Does the patient have a stroke diagnosis?: No VTE Prior VTE?: No VTE Risk Level:: Medical - moderate - high VTE Device Contraindication: Treatment Not Indicated VTE Drug Contraindication: N/A - Med Ordered
[2024-01-31] MEDS: cefTRIAXone sodium 1 GM in 0.9 % Sodium Chloride 50 ML IV (13:34)
[2024-01-31] MEDS: Omeprazole 20 MG CAPSULE.DR PO (15:55)
[2024-01-31 16:00] VITALS: BP 131/62; PULSE 103; RESP 16; TEMP 36.3; O2SAT 99
[2024-01-31 19:33] VITALS: BP 127/53; PULSE 100; RESP 18; TEMP 37.1; O2SAT 99
[2024-01-31] MEDS: Tamsulosin HCL 0.4 MG CAPSULE PO (20:41)
[2024-01-31] MEDS: Atorvastatin Calcium 40 MG TABLET PO (20:41)
[2024-01-31] MEDS: Famotidine 20 MG TABLET 40 MG PO (20:42)
[2024-01-31] MEDS: Amitriptyline HCl 50 MG TABLET PO (20:43)
[2024-01-31] MEDS: Sennosides/Docusate Sodium TABLET 2 TAB PO (20:43)
[2024-01-31] MEDS: QUEtiapine Fumarate 200 MG TABLET PO (20:43)
[2024-02-01 03:20] VITALS: BP 110/55; PULSE 81; RESP 18; TEMP 36; O2SAT 96
--- NOTE | 2024-02-01 06:15 | PC.NURSE ---
Pt only voided once to the bathroom throughout the gold tooler. This RN and EMS COORDINATOR offered the pt to go use the bathroom but refused multiple times. This RN told the pt that he can be bladder scan but refused as well. MD Jones notified of the situation. Will continue to monitor pt's output.
[2024-02-01 06:52] LABS: Hemoglobin 12.2 g/dl (14.0-18.0); Mean Corpuscular Hemoglobin 27.4 pg (27.0-33.0); Platelet Count 251 X10*3/uL (160-400); Red Blood Count 4.46 X10*6/uL (4.60-5.80); Red Cell Distribution Width 14.8 % (11.0-16.0); White Blood Count 8.2 X10*3/uL (4.8-10.8)
[2024-02-01 07:15] LABS: Anion Gap 14 (12-20); Blood Urea Nitrogen 14 mg/dL (9-16); Calcium 9.1 mg/dL (8.4-10.2); Carbon Dioxide 21 mmol/L (22-29); Chloride 110 mmol/L (96-108); Creatinine Clr Calc Pharmacy 73.5; Estimated Glomerular Filt Rate > 60; Glucose Random 109 mg/dL (60-115); Potassium 3.9 mmol/L (3.3-5.1); Sodium 141 mmol/L (135-145)
[2024-02-01 07:35] VITALS: BP 121/69; PULSE 80; RESP 16; TEMP 37.1; O2SAT 99
[2024-02-01] MEDS: Megestrol Acetate 400 MG/10 ML ORAL.SUSP PO (10:32)
[2024-02-01] MEDS: PARoxetine HCL 40 MG TABLET PO (10:32)
[2024-02-01] MEDS: Ferrous Sulfate 324 MG TABLET.DR PO (10:32)
[2024-02-01] MEDS: cefuroxime axetiL 250 MG TABLET PO (10:32)
[2024-02-01] MEDS: Ascorbic Acid 500 MG TABLET PO (10:32)
[2024-02-01] MEDS: Benztropine Mesylate 1 MG TABLET PO (10:32)
[2024-02-01] MEDS: Lipase/Prot/Amylase 24/76/120K 1 CAP CAPSULE.DR PO (10:32)
[2024-02-01] MEDS: Midodrine HCl 5 MG TABLET PO (10:32)
[2024-02-01] MEDS: Nicotine 14 MG PATCH.TD24 TRANSDERMA (10:33)
--- NOTE | 2024-02-01 11:24 | P.PNIM_ITS ---
Subjective Subjective Date of Service: 02/01/24 Interval History: Seen and evaluated this morning looking comfortable but can get anxious easily no fever or chills Review of Systems Review of Systems: Yes all other systems are reviewed and are negative Physical Exam 2 Vital Signs: Vital Signs: Last Vital Signs Temp 98.7 F 02/01/24 07:35 Pulse 80 02/01/24 07:35 Resp 16 02/01/24 07:35 BP 121/69 02/01/24 07:35 Pulse Ox 99 02/01/24 07:35 O2 Del Method Room Air 02/01/24 07:35 BMI result Body Mass Index 15.9 Const: Other: Constitutional : interactive, sleepy Cardiovascular : no JVP, no lower extremity edema Respiratory : bilateral chest movement, not in resp distress Gastrointestinal: soft, lax, Non tender Skin : Warm, Dry Urology: Vaughn in place with bloody tinged urine Neurological : Alert & oriented to self only otherwise disoriented, No focal deficit Objective Data Active Medications Acetaminophen (Acetaminophen 325 Mg Tablet) 650 mg PO Q6H PRN PRN Reason: Pain, Mild (Pain Scale 1-3), fever or headache Last Admin: 01/30/24 15:01 Dose: 650 mg Documented By: JOSE Amitriptyline HCl (Amitriptyline Hcl 50 Mg Tablet) 50 mg PO BEDTIME [facility] Last Admin: 01/31/24 20:43 Dose: 50 mg Documented By: REJI Lipase/Protease/Amylase (Lipase/Prot/Amylase 24/76/120k 1 Cap Capsule.Dr) 1 cap PO TID [facility] Last Admin: 02/01/24 10:32 Dose: 1 cap Documented By: HERBIE Ascorbic Acid (Ascorbic Acid 500 Mg Tablet) 500 mg PO BID [facility] Last Admin: 02/01/24 10:32 Dose: 500 mg Documented By: HERBIE Atorvastatin Calcium (Atorvastatin Calcium 40 Mg Tablet) 40 mg PO BEDTIME [facility] Last Admin: 01/31/24 20:41 Dose: 40 mg Documented By: REJI Benztropine Mesylate (Benztropine Mesylate 1 Mg Tablet) 1 mg PO BID [facility] Last Admin: 02/01/24 10:32 Dose: 1 mg Documented By: HERBIE Calcium Carbonate (Calcium Carbonate 750 Mg Tab.Chew) 750 mg PO Q4H PRN PRN Reason: Heartburn Cefuroxime Axetil (Cefuroxime Axetil 250 Mg Tablet) 250 mg PO BID [facility] Last Admin: 02/01/24 10:32 Dose: 250 mg Documented By: HERBIE Enoxaparin Sodium (Enoxaparin Sodium 40 Mg/0.4 Ml Syringe) 40 mg SUBCUT Q24H [facility] Last Admin: 01/28/24 13:27 Dose: 40 mg Documented By: MOE Famotidine (Famotidine 20 Mg Tablet) 40 mg PO BEDTIME [facility] Last Admin: 01/31/24 20:42 Dose: 40 mg Documented By: REJI Ferrous Sulfate (Ferrous Sulfate 324 Mg Tablet.Dr) 324 mg PO BIDWM [facility] Last Admin: 02/01/24 10:32 Dose: 324 mg Documented By: HERBIE Hydroxyzine HCl (Hydroxyzine Hcl 50 Mg Tablet) 50 mg PO TID PRN PRN Reason: Anxiety Last Admin: 01/30/24 17:59 Dose: 50 mg Documented By: JOSE Lidocaine (Lidocaine 4 % Patch Adh..Patch) 1 patch TRANSDERMA DAILY [facility] Last Admin: 02/01/24 10:33 Dose: Not Given Documented By: HERBIE Non-Admin Reason: Patient Refused Lorazepam (Lorazepam 2 Mg/Ml Vial) 1 mg IVPUSH Q6H PRN PRN Reason: anxiety/restlessness Last Admin: 01/29/24 22:37 Dose: 1 mg Documented By: MIKE Magnesium Hydroxide (Milk Of Magnesia 30 Ml Oral.Susp) 30 ml PO DAILY PRN PRN Reason: Constipation Megestrol Acetate (Megestrol Acetate 400 Mg/10 Ml Oral.Susp) 400 mg PO BID [facility] Last Admin: 02/01/24 10:32 Dose: 400 mg Documented By: HERBIE Melatonin (Melatonin 3 Mg Tablet) 6 mg PO BEDTIME PRN PRN Reason: Insomnia Midodrine (Midodrine Hcl 5 Mg Tablet) 5 mg PO TID [facility] Last Admin: 02/01/24 10:32 Dose: 5 mg Documented By: HERBIE Nicotine (Nicotine 14 Mg Patch.Td24) 14 mg TRANSDERMA DAILY [facility] Last Admin: 02/01/24 10:33 Dose: 14 mg Documented By: HERBIE Omeprazole (Omeprazole 20 Mg Capsule.) 20 mg PO BID@0630,1880 [facility] Last Admin: 02/01/24 06:14 Dose: Not Given Documented By: REJI Non-Admin Reason: Patient Refused Oxycodone HCl (Oxycodone Hcl Immed Release 15 Mg Tablet) 15 mg PO Q6H PRN PRN Reason: severe pain Last Admin: 01/30/24 15:02 Dose: 15 mg Documented By: JOSE Paroxetine HCl (Paroxetine Hcl 40 Mg Tablet) 40 mg PO DAILY [facility] Last Admin: 02/01/24 10:32 Dose: 40 mg Documented By: HERBIE Quetiapine Fumarate (Quetiapine Fumarate 200 Mg Tablet) 200 mg PO BEDTIME [facility] Last Admin: 01/31/24 20:43 Dose: 200 mg Documented By: REJI Quetiapine Fumarate (Quetiapine Fumarate 50 Mg Tablet) 50 mg PO ONCE PRN PRN Reason: Anxiety Senna/Docusate Sodium (Sennosides/Docusate Sodium Tablet) 2 tab PO BEDTIME [facility] Last Admin: 01/31/24 20:43 Dose: 2 tab Documented By: REJI Sodium Chloride (0.9 % Sodium Chloride Flush 3 Ml Syringe) 3 ml IVFLUSH QSHIFT [facility] Last Admin: 02/01/24 10:33 Dose: Not Given Documented By: HERBIE Non-Admin Reason: Previously Administered Tamsulosin HCl (Tamsulosin Hcl 0.4 Mg Capsule) 0.4 mg PO BEDTIME [facility] Last Admin: 01/31/24 20:41 Dose: 0.4 mg Documented By: REJI Labs 02/01/24 06:01 02/01/24 06:01 Labs: Laboratory Results - last 24 hr 02/01/24 06:01 MCV 83.0 MCH 27.4 MCHC 33.0 RDW 14.8 Plt Count 251 MPV 10.0 Absolute Nucleated RBC 0.000 Nucleated RBC % (auto) 0.0 Anion Gap 14 Estim Creat Clear Calc 73.5 Estimated GFR > 60 Random Glucose 109 Calcium 9.1 Microbiology Microbiology Results: Microbiology 01/27/24 06:09 Blood Culture - Final Blood - Venous No growth after 5 days. 01/27/24 06:09 Blood Culture - Final Blood - Venous No growth after 5 days. Assessment and Plan (1) Toxic metabolic encephalopathy: Status: Acute (2) Urine retention: Status: Acute Plan 63-year-old male with hyperlipidemia, chronic hepatitis-C s/p treatment, invasive bladder carcinoma s/p TURBT who is a current 1/2 pack per day cigarette smoker to be observed for UTI with hypotension now resolved who is noted to be unsteady on his feet # Acute toxic encephalopathy Likely 2/2 acute inpatient delerium and poly pharmacy improving, can get restless and confused easily recurrent reorientation avoid sedating medicaitons #ACute UTi complicated with urine retention and hematuria negative urine and blood cultures Hematuria resolved, Vaughn removed DC Bactrim and IV Ceftriaxone change to PO Ceftin dc IV fluids Continue Tamsulosin Urology input appreciated, follow as OP Voiding trials # Hypotension secondary to severe malnutrition and weight loss Better readings Continue Midodrine continue Megace bid Veterinary Practice Manager yinka , on Ensure #Fall PT rec STR #Bladder cancer s/p TURBT, s/p cysto on 01/19 # cigarette smoker patches for replacement therapy, cessation advised # left lower lobe lung lesion on CXR, CT chest on 07/02/2023 shows a focus of probable round atelectasis, further imaging recommended for follow-up outpatient follow-up # GERD PPI # mood disorder continue home meds DVT prohylaxis- SCDs The patient will need overnight stay for safe discharge plan as transportation out of facilities to his appointment related to his cancer making it difficult to place him. Quality Stroke Does the patient have a stroke diagnosis?: No VTE Prior VTE?: No VTE Risk Level:: Medical - moderate - high VTE Device Contraindication: Treatment Not Indicated VTE Drug Contraindication: N/A - Med Ordered
--- NOTE | 2024-02-01 11:41 | MHC.CLN ---
F/U DIET=REGULAR. ENSURE TID PROVIDES 1050 KCALS, 60 G PROTEIN. PATIENT LIKES AND ACCEPTS ENSURE. 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 APPEARS TO BE EATING WELL MOST MEALS. CONTINUE REGULAR DIET AND ENSURE SUPPLEMENT TID. FOLLOW FOR INTAKE AND WEIGHT. AWAITING PLACEMENT.
[2024-02-01 12:47] VITALS: RESP 18
--- NOTE | 2024-02-01 15:50 | MHC.CM.PN ---
Pt medically cleared for discharge, but unable to due to no safe discharge plan in place. No STR bed offers. Barrier being upcoming medial appointments with no transport (PT1 unable to cover a distance of >25 miles), leaving STR's unwilling to accept pt. This CM spoke with Sandra, pts nurse from [facility], this CM inquired if pt would be appropriate for their day program. Per Sandra, they had been trying to set that up but the pt would not show up, he kept forgetting to go and at this time is not appropriate for [facility] day program.
--- NOTE | 2024-02-01 18:40 | PM.EVENT ---
Event Note Date of Service: 02/01/24 Event Note: Patient agitated trying to leave, but clearly does not have capacity to make this decision and unable to take care of himself outside hospital. Has been hallucinating and delirious, unable to tell me the year or why he is in the hospital. Patient at risk for further self-harm. unable to be talked down. will give 5mg im zyprexa Time Spent With Patient Time: Total time managing care of this patient today ____ minutes.
[2024-02-01] MEDS: LORazepam 2 MG/ML VIAL 1 MG IVPUSH (18:51)
[2024-02-01] MEDS: OLANZapine 10 MG VIAL 5 MG IM (18:54)
[2024-02-01 19:11] VITALS: BP 139/69; PULSE 99; RESP 18; TEMP 37; O2SAT 98
[2024-02-01 22:38] VITALS: BP 102/58; PULSE 79; RESP 16; TEMP 36.6; O2SAT 95
[2024-02-02] VITALS (7 sets, daily range): BP systolic 103–128; BP diastolic 59–67; PULSE 71–93; RESP 12–18; TEMP 36.3–37.1; O2SAT 94–100
--- NOTE | 2024-02-02 06:30 | PC.NURSE ---
Pt unable to void, bladder scan for 622. MD Jones notified of the situation. Straight cath ordered was placed. Pt is refusing to be straight cath by this RN. MD Jones and nursing superior made aware of the pt's refusal. Will continue to monitor. Plan of care ongoing.
--- NOTE | 2024-02-02 08:06 | PC.NURSE ---
MD Cabral made aware via tiger text at 08:06 pt is refusing all AM medications. Additionally pt's bladder was scanned for 622ML on previous shift around 0600, pt is currently refusing any interventions at this time, including trying to void in bathroom and or being bladder scanned again.
[2024-02-02] MEDS: LORazepam 2 MG/ML VIAL 1 MG IVPUSH ×3 (09:18→20:44)
[2024-02-02] MEDS: OLANZapine 10 MG VIAL 5 MG IM (09:22)
--- NOTE | 2024-02-02 09:26 | HO.PM.IMPN ---
Subjective Subjective Date of Service: 02/02/24 Interval History: Called to see patient secondary to refusal of care. Bladder scan for 625 mL. . . Unwilling to be straight cath or attempt voiding. Patient appears to be acute delirium trying to elope Review of Systems Unable to obtain Physical Exam Vital Signs: Vital Signs: Last Vital Signs Temp 98.4 F 02/02/24 07:49 Pulse 71 02/02/24 07:49 Resp 16 02/02/24 07:49 BP 106/61 02/02/24 07:49 Pulse Ox 99 02/02/24 07:49 O2 Del Method Room Air 02/02/24 07:49 BMI result Body Mass Index 15.9 Const: Other: Awake/agitated. Resp: Other: Clear to auscultation bilaterally no rales rhonchi or wheezes Cardio: Other: No S4; positive S1-S2; no S3 murmurs rubs or gallops GI: Other: Soft nontender nondistended normoactive bowel sounds Extrem: Other: No edema bilaterally Objective Data Active Medications Acetaminophen (Acetaminophen 325 Mg Tablet) 650 mg PO Q6H PRN PRN Reason: Pain, Mild (Pain Scale 1-3), fever or headache Last Admin: 01/30/24 15:01 Dose: 650 mg Documented By: JOSE Amitriptyline HCl (Amitriptyline Hcl 50 Mg Tablet) 50 mg PO BEDTIME [facility] Last Admin: 02/01/24 23:40 Dose: Not Given Documented By: REJI Non-Admin Reason: Patient Refused Lipase/Protease/Amylase (Lipase/Prot/Amylase 24/76/120k 1 Cap Capsule.Dr) 1 cap PO TID [facility] Last Admin: 02/01/24 23:46 Dose: Not Given Documented By: REJI Non-Admin Reason: Patient Refused Ascorbic Acid (Ascorbic Acid 500 Mg Tablet) 500 mg PO BID [facility] Last Admin: 02/01/24 23:40 Dose: Not Given Documented By: REJI Non-Admin Reason: Patient Refused Atorvastatin Calcium (Atorvastatin Calcium 40 Mg Tablet) 40 mg PO BEDTIME [facility] Last Admin: 02/01/24 23:43 Dose: Not Given Documented By: REJI Non-Admin Reason: Patient Refused Benztropine Mesylate (Benztropine Mesylate 1 Mg Tablet) 1 mg PO BID [facility] Last Admin: 02/01/24 23:44 Dose: Not Given Documented By: REJI Non-Admin Reason: Patient Refused Calcium Carbonate (Calcium Carbonate 750 Mg Tab.Chew) 750 mg PO Q4H PRN PRN Reason: Heartburn Cefuroxime Axetil (Cefuroxime Axetil 250 Mg Tablet) 250 mg PO BID [facility] Last Admin: 02/01/24 23:44 Dose: Not Given Documented By: REJI Non-Admin Reason: Patient Refused Enoxaparin Sodium (Enoxaparin Sodium 40 Mg/0.4 Ml Syringe) 40 mg SUBCUT Q24H [facility] Last Admin: 01/28/24 13:27 Dose: 40 mg Documented By: MOE Famotidine (Famotidine 20 Mg Tablet) 40 mg PO BEDTIME [facility] Last Admin: 02/01/24 23:44 Dose: Not Given Documented By: REJI Non-Admin Reason: Patient Refused Ferrous Sulfate (Ferrous Sulfate 324 Mg Tablet.) 324 mg PO BIDWM [facility] Last Admin: 02/01/24 16:13 Dose: Not Given Documented By: CONNIE Non-Admin Reason: Patient Refused Hydroxyzine HCl (Hydroxyzine Hcl 50 Mg Tablet) 50 mg PO TID PRN PRN Reason: Anxiety Last Admin: 01/30/24 17:59 Dose: 50 mg Documented By: JOSE Lidocaine (Lidocaine 4 % Patch Adh..Patch) 1 patch TRANSDERMA DAILY [facility] Last Admin: 02/01/24 10:33 Dose: Not Given Documented By: HERBIE Non-Admin Reason: Patient Refused Lorazepam (Lorazepam 2 Mg/Ml Vial) 1 mg IVPUSH Q6H PRN PRN Reason: anxiety/restlessness Last Admin: 02/02/24 09:18 Dose: 1 mg Documented By: ENOC Magnesium Hydroxide (Milk Of Magnesia 30 Ml Oral.Susp) 30 ml PO DAILY PRN PRN Reason: Constipation Megestrol Acetate (Megestrol Acetate 400 Mg/10 Ml Oral.Susp) 400 mg PO BID [facility] Last Admin: 02/01/24 23:46 Dose: Not Given Documented By: REJI Non-Admin Reason: Patient Refused Melatonin (Melatonin 3 Mg Tablet) 6 mg PO BEDTIME PRN PRN Reason: Insomnia Midodrine (Midodrine Hcl 5 Mg Tablet) 5 mg PO TID [facility] Last Admin: 02/01/24 23:47 Dose: Not Given Documented By: REJI Non-Admin Reason: Patient Refused Nicotine (Nicotine 14 Mg Patch.Td24) 14 mg TRANSDERMA DAILY [facility] Last Admin: 02/01/24 10:33 Dose: 14 mg Documented By: HERBIE Omeprazole (Omeprazole 20 Mg Capsule.Dr) 20 mg PO BID@0630,1630 [facility] Last Admin: 02/02/24 06:27 Dose: Not Given Documented By: REJI Non-Admin Reason: Patient Refused Paroxetine HCl (Paroxetine Hcl 40 Mg Tablet) 40 mg PO DAILY [facility] Last Admin: 02/01/24 10:32 Dose: 40 mg Documented By: HERBIE Quetiapine Fumarate (Quetiapine Fumarate 200 Mg Tablet) 200 mg PO BEDTIME [facility] Last Admin: 02/01/24 23:47 Dose: Not Given Documented By: REJI Non-Admin Reason: Patient Refused Quetiapine Fumarate (Quetiapine Fumarate 50 Mg Tablet) 50 mg PO ONCE PRN PRN Reason: Anxiety Senna/Docusate Sodium (Sennosides/Docusate Sodium Tablet) 2 tab PO BEDTIME [facility] Last Admin: 02/01/24 23:47 Dose: Not Given Documented By: REJI Non-Admin Reason: Patient Refused Sodium Chloride (0.9 % Sodium Chloride Flush 3 Ml Syringe) 3 ml IVFLUSH QSHIFT [facility] Last Admin: 02/02/24 00:17 Dose: Not Given Documented By: REJI Non-Admin Reason: Patient Refused Tamsulosin HCl (Tamsulosin Hcl 0.4 Mg Capsule) 0.4 mg PO BEDTIME [facility] Last Admin: 02/01/24 23:47 Dose: Not Given Documented By: REJI Non-Admin Reason: Patient Refused Labs 02/01/24 06:01 02/01/24 06:01 Microbiology Microbiology Results: Microbiology 01/27/24 06:09 Blood Culture - Final Blood - Venous No growth after 5 days. 01/27/24 06:09 Blood Culture - Final Blood - Venous No growth after 5 days. Assessment and Plan (1) Toxic metabolic encephalopathy: Status: Acute (2) UTI (urinary tract infection): Status: Acute (3) Acute hypotension: Status: Acute Plan 63-year-old male with hyperlipidemia, chronic hepatitis-C s/p treatment, invasive bladder carcinoma s/p TURBT who is a current 1/2 pack per day cigarette smoker admitted with acute UTI and hypotension hypotension now resolved ; now is delirious and nonsensical. At this point in time I do not believe patient has a capacity to make decisions regarding his health and well-being. .. Section 12 signed 1.Acute toxic encephalopathy Likely 2/2 acute inpatient delerium -acutely agitated and combative; given Zyprexa 5 IM/Ativan 1 mg IV (previous order; will be DC) -section 12 completed -psych consult. .. Discussed with psych who will see 2.Acute UTi complicated with urine retention -completed IV course now on oral Ceftin -bladder scan for 6-5 mL initially refusing scan. -at this time acceptable for manual hold to facilitate straight catheterization; would not tolerate indwelling Vaughn at this time.. Would likely accelerate his delirium 3.Hypotension secondary -improving with midodrine; continue the same -monitor clinically and adjust therapies as appropriate 4.Bladder cancer -s/p TURBT, s/p cysto on 01/19 -outpatient follow up 5.Left lower lobe lung lesion -CT chest on 07/02/2023 shows a focus of probable round atelectasis, further imaging recommended for follow-up -outpatient follow-up DVT prohylaxis- SCDs Patient required section 12 due to his inability to make decisions regarding his health and well-being. Psychiatry consult pending Quality Stroke Does the patient have a stroke diagnosis?: No VTE Prior VTE?: No VTE Risk Level:: Medical - moderate - high VTE Device Contraindication: Treatment Not Indicated VTE Drug Contraindication: N/A - Med Ordered
--- NOTE | 2024-02-02 09:53 | PC.NURSE ---
MD Cabral made aware pt trying to leave AMA. Pt yelling, combative trying to push staff, security called to bedside. MD Cabral at bedside. Per MD Cabral no HCP available, pt not able to leave safely. Section 12 initiated. IVP Ativan given and IM Zyprexa given per orders. Pt refusing vitals at 15 min checks. Camera in room for safty. Pt resting in bed rise and fall of chest noted. Continue with plan of care. Psych eval ordered.
--- NOTE | 2024-02-02 13:41 | PM.PSYCN ---
History of Present Illness Date of Service: t Chief Complaint: Fall w/ head strike Reason for Consult: Psychotic agitation Requesting physician: Trevin Cabral Discussed with referring provider: Yes Sources of Information: patient interviewed, chart reviewed and crisis/core team assessment reviewed HPI Narrative: The patient is a 63-year-old [place]ian male, only [place]-speaking, with a past history of bladder cancer, hypertension an anterior mental status who was brought to the facility after he fall. He was having a UTI and he was very confused. He was admitted to the medical unit for stabilization and apparently he had urinary retention. I was consulted since the patient was delirious, nonsensical agitated and needed 2 doses of Zyprexa IM 5 mg last night and today at 09:00 o'clock. Him to assess him in the afternoon, the patient was awake and alert but very confused and nonsensical in [place] unable to follow the interview. He was irritable and uncooperative. It was clear that the patient has been on delirium due to his medical problems. Past Psychiatric History: The patient is on treatment with antidepressants such as Elavil, Seroquel and other medications. Unclear past psychiatric history since we do not have collateral at this time Medical Evaluation Reviewed: Yes [facility] Medical History Bladder cancer Chronic hepatitis C HLD (hyperlipidemia) Microcytic anemia Smoker Chronic headaches MDD (major depressive disorder) Surgical History Hx of cystoscopy Diagnostics Vital Signs (24Hr): Vital Signs - 24 hr 02/01/24 19:11 02/01/24 22:38 02/02/24 04:00 Temperature 98.6 F 97.9 F 98.7 F Pulse Rate 99 79 79 Respiratory Rate 18 16 16 Blood Pressure 139/69 102/58 L 103/59 L Pulse Oximetry 98 95 99 Oxygen Delivery Method Room Air Room Air Room Air 02/02/24 07:49 Temperature 98.4 F Pulse Rate 71 Respiratory Rate 16 Blood Pressure 106/61 Pulse Oximetry 99 Oxygen Delivery Method Room Air BMI result Body Mass Index 15.9 Labs 02/01/24 06:01 02/01/24 06:01 Labs: Laboratory Results - last 48 hr 02/01/24 06:01 WBC 8.2 RBC 4.46 L Hgb 12.2 L Hct 37.0 L MCV 83.0 MCH 27.4 MCHC 33.0 RDW 14.8 Plt Count 251 MPV 10.0 Absolute Nucleated RBC 0.000 Nucleated RBC % (auto) 0.0 Sodium 141 Potassium 3.9 Chloride 110 H Carbon Dioxide 21 L Anion Gap 14 BUN 14 Creatinine 0.72 Estim Creat Clear Calc 73.5 Estimated GFR > 60 Random Glucose 109 Calcium 9.1 Imaging Radiology Impressions: ITS Impressions Humerus X-Ray 01/27/24 00:26 IMPRESSION: No significant abnormality identified. Cervical Spine CT 01/27/24 00:27 IMPRESSION: 1. No acute intracranial process seen. 2. There is no acute cervical spine fracture or malalignment. There is mild diffuse cervical spondylosis. Head CT 01/27/24 00:27 IMPRESSION: 1. No acute intracranial process seen. 2. There is no acute cervical spine fracture or malalignment. There is mild diffuse cervical spondylosis. Chest X-Ray 01/27/24 06:14 IMPRESSION: Advanced emphysema. No acute superimposed process. Stable irregular lesion left lower lobe. Follow-up CT recommended. Mental Status Exam Mental Status Exam Patient Appearance: Appropriate (On hospital gowns) and Unkempt (Severe weight loss) Patient Orientation: Person Level of Consciousness: Awake, Restless and Inappropriate Patient Behavior: Restless, Belligerent and Fatigued Mood Description: Appropriate and Angry Affect Description: Labile and Angry Patient Cognition Impaired: Yes Ability to Follow Directions: Poor Speech Pattern: Impoverished Hallucinations: None Delusions: Paranoid Ideation and Ideas of Reference Thought Process: Incoherent and Illogical Thought Content: positive for [place], positive for Loose Associations and positive for Incoherent Judgement: Poor Medications Medications Current Medications Acetaminophen (Acetaminophen 325 Mg Tablet) 650 mg PO Q6H PRN PRN Reason: Pain, Mild (Pain Scale 1-3), fever or headache Last Admin: 01/30/24 15:01 Dose: 650 mg Amitriptyline HCl (Amitriptyline Hcl 50 Mg Tablet) 50 mg PO BEDTIME [facility] Last Admin: 02/01/24 23:40 Dose: Not Given Lipase/Protease/Amylase (Lipase/Prot/Amylase 24/76/120k 1 Cap Capsule.Dr) 1 cap PO TID [facility] Last Admin: 02/02/24 10:18 Dose: Not Given Ascorbic Acid (Ascorbic Acid 500 Mg Tablet) 500 mg PO BID [facility] Last Admin: 02/02/24 10:18 Dose: Not Given Atorvastatin Calcium (Atorvastatin Calcium 40 Mg Tablet) 40 mg PO BEDTIME [facility] Last Admin: 02/01/24 23:43 Dose: Not Given Benztropine Mesylate (Benztropine Mesylate 1 Mg Tablet) 1 mg PO BID [facility] [place] Last Admin: 02/02/24 10:18 Dose: Not Given Calcium Carbonate (Calcium Carbonate 750 Mg Tab.Chew) 750 mg PO Q4H PRN PRN Reason: Heartburn Cefuroxime Axetil (Cefuroxime Axetil 250 Mg Tablet) 250 mg PO BID [facility] [place] Last Admin: 02/02/24 10:18 Dose: Not Given Enoxaparin Sodium (Enoxaparin Sodium 40 Mg/0.4 Ml Syringe) 40 mg SUBCUT Q24H [facility] Last Admin: 01/28/24 13:27 Dose: 40 mg Famotidine (Famotidine 20 Mg Tablet) 40 mg PO BEDTIME [facility] [place] Last Admin: 02/01/24 23:44 Dose: Not Given Ferrous Sulfate (Ferrous Sulfate 324 Mg Tablet.Dr) 324 mg PO BIDWM [facility] [place] Last Admin: 02/02/24 10:17 Dose: Not Given Hydroxyzine HCl (Hydroxyzine Hcl 50 Mg Tablet) 50 mg PO TID PRN PRN Reason: Anxiety Last Admin: 01/30/24 17:59 Dose: 50 mg Lidocaine (Lidocaine 4 % Patch Adh..Patch) 1 patch TRANSDERMA DAILY [facility] Last Admin: 02/02/24 10:18 Dose: Not Given Lorazepam (Lorazepam 2 Mg/Ml Vial) 1 mg IVPUSH Q6H PRN PRN Reason: anxiety/restlessness Last Admin: 02/02/24 09:18 Dose: 1 mg Magnesium Hydroxide (Milk Of Magnesia 30 Ml Oral.Susp) 30 ml PO DAILY PRN PRN Reason: Constipation Megestrol Acetate (Megestrol Acetate 400 Mg/10 Ml Oral.Susp) 400 mg PO BID [facility] [place] Last Admin: 02/02/24 10:18 Dose: Not Given Melatonin (Melatonin 3 Mg Tablet) 6 mg PO BEDTIME PRN PRN Reason: Insomnia Midodrine (Midodrine Hcl 5 Mg Tablet) 5 mg PO TID [facility] Last Admin: 02/02/24 10:18 Dose: Not Given Nicotine (Nicotine 14 Mg Patch.Td24) 14 mg TRANSDERMA DAILY [facility] Last Admin: 02/02/24 10:18 Dose: Not Given Olanzapine (Olanzapine Odt 10 Mg Tab.Rapdis) 5 mg TRANSLINGU Q4H PRN PRN Reason: Psychosis Omeprazole (Omeprazole 20 Mg Capsule.Dr) 20 mg PO BID@0630,1630 [facility] Last Admin: 02/02/24 06:27 Dose: Not Given Paroxetine HCl (Paroxetine Hcl 40 Mg Tablet) 40 mg PO DAILY [facility] [place] Last Admin: 02/02/24 10:19 Dose: Not Given Quetiapine Fumarate (Quetiapine Fumarate 200 Mg Tablet) 200 mg PO BEDTIME [facility] [place] Last Admin: 02/01/24 23:47 Dose: Not Given Quetiapine Fumarate (Quetiapine Fumarate 50 Mg Tablet) 50 mg PO ONCE PRN PRN Reason: Anxiety Senna/Docusate Sodium (Sennosides/Docusate Sodium Tablet) 2 tab PO BEDTIME [facility] [place] Last Admin: 02/01/24 23:47 Dose: Not Given Sodium Chloride (0.9 % Sodium Chloride Flush 3 Ml Syringe) 3 ml IVFLUSH QSHIFT [facility] [place] Last Admin: 02/02/24 10:17 Dose: Not Given Tamsulosin HCl (Tamsulosin Hcl 0.4 Mg Capsule) 0.4 mg PO BEDTIME [facility] [place] Last Admin: 02/01/24 23:47 Dose: Not Given Allergies Allergies Allergy/AdvReac Type Severity Reaction Status Date / Time haloperidol [From Haldol] Allergy Severe Difficulty Verified 01/26/24 23:03 Breathing Assessment & Plan Assessment & Plan (1) Toxic metabolic encephalopathy: Status: Acute Code(s): G92.8 - Other toxic encephalopathy (2) Urine retention: Status: Acute Code(s): R33.9 - Retention of urine, unspecified (3) UTI (urinary tract infection): Status: Acute Code(s): N39.0 - Urinary tract infection, site not specified (4) Bladder cancer: Status: Chronic Code(s): C67.9 - Malignant neoplasm of bladder, unspecified (5) Chronic hepatitis C: Status: Acute Code(s): B18.2 - Chronic viral hepatitis C (6) Acute hypotension: Status: Acute Code(s): I95.9 - Hypotension, unspecified (7) Dehydration: Status: Acute Code(s): E86.0 - Dehydration Plan The patient is a 63-year-old [place]ian male, only [place]-speaking who was brought to the facility for his fall, he has several medical comorbidities such as bladder cancer, urinary retention and altered mental status. He was admitted to Medicine for IV antibiotics for UTI and metabolic problems. The patient had been very agitated the nonsensical who was chemically restrained twice in the last 12 hours. The present consult was asked to assess mental status and offer treatment options for his altered mental status. Diagnosis 1. Delirium 2. Past history of depression. 3. UTI Recommendations. 1. Start Zyprexa Zydis 5 mg q.6 hours p.r.n. agitation. 2. Try to avoid benzodiazepine since in his case could have a paradoxical response and get more agitated. 3. Continue with Zuleima clicks another medications at this moment if it has not medically contraindicated. 4. Reassessment as demand. Total time managing care of this patient today __45__ minutes. Patient educated on: diagnosis Informed Consent: does not understand
[2024-02-02] MEDS: OLANZapine ODT 10 MG TAB.RAPDIS 5 MG TRANSLINGU (13:53)
--- NOTE | 2024-02-02 13:55 | PC.NURSE ---
Pt being physically aggressive towards staff, security called. Pt agreed to take PRN PO Zyprexa. Dr. Cabral made aware.
--- NOTE | 2024-02-02 15:15 | PC.NURSE ---
Pt being physically aggressive towards staff, trying to elope, pt placed on section 12 cannot leave AMA. PRN Ativan given per orders with no effect. Pt continues to be aggrieve and yelling, trying to assault staff hitting and kicking. Verbal redirection ineffective, bilateral soft wrist restraints applied, per MD Cabral orders. Vital signs stable, 1:1 sitter ordered and in room.
[2024-02-02] MEDS: 0.9 % Sodium Chloride Flush 3 ML SYRINGE IVFLUSH (16:39)
[2024-02-02] MEDS: cefTRIAXone sodium 1 GM in 0.9 % Sodium Chloride 50 ML IV (17:38)
--- NOTE | 2024-02-02 22:46 | PC.NURSE ---
pt asleep during restraint checks @2230. Pt becomes agitated/combative if awoken so allowed to sleep. respirations 14. Previously checked and ROM performed prior to chen insertion @ 2130.
[2024-02-03] VITALS (8 sets, daily range): BP systolic 107–137; BP diastolic 57–86; PULSE 72–126; RESP 12–22; TEMP 36.3–36.8; O2SAT 93–100
--- NOTE | 2024-02-03 06:33 | PC.NURSE ---
Patient was released from all restraint approximately 2345 by nursing supervisor heavy equipment who was helping on the floor at the moment. After speaking with her, we decided it was best for the patient as he did receive Ativan prior to my shift. Elenr noted that the patient had received Ativan on a prior night and slept through the night. Bed alarm has been on and camera at the bedside. Frequent checks were performed. Patient has been repositioning self, rolling over in his sleep throughout the night. Patient was awoken for vitals and fell back asleep. At this time, patient remains restraint free.
--- NOTE | 2024-02-03 09:14 | PC.NURSE ---
Dr. Barone made aware via tiger text pt refusing all PO medications, nicotine patch, and lidocaine patch.
[2024-02-03] MEDS: OLANZapine 10 MG VIAL 5 MG IM ×2 (10:02→12:40)
--- NOTE | 2024-02-03 10:50 | PC.NURSE ---
At approximately 09:40 pt trying top elope, states he wants to go home. Pt became aggressive and violent with staff, pt unsteady and at risk for falling. Pt helped back to bed. Pt trying to pull out Vaughn cath at this time. On going education provided to pt on on hospital stay and reason for catheter. Pt unable to retain information at this time, pt is confused and belligerent. PO Zyprexa offered pt refused. Pt attempted to strangle self with bed sheet. Staff was able to remove sheets and all cords from immediate pt vicinity and room. IM Zyprexa given per orders. Security called to bedside MD Barone made aware, 1:1 sitter in room.
--- NOTE | 2024-02-03 12:45 | PC.NURSE ---
Pt combative, attempting to kick and hit staff, PRN IM Zyprexa given per orders. Attempted to give PO Zyprexa, pt refused. MD Barone made aware.
--- NOTE | 2024-02-03 13:41 | P.PNIM_ITS ---
Subjective Subjective Date of Service: 02/03/24 Interval History: Patient noted to be combative, refused by mouth medications, pulling Vaughn, remained belligerent despite use of im Zyprexa,sitter. Tolerated breakfast without nausea, no vomiting, no abdominal pain, complaining of depression, Vaughn catheter with clear urine. History obtained by truss puller helper. Review of Systems All other system reviewed and negative Physical Exam 2 Vital Signs: Vital Signs: Last Vital Signs Temp 98.3 F 02/03/24 04:00 Pulse 126 H 02/03/24 13:10 Resp 22 H 02/03/24 13:10 BP 119/86 02/03/24 13:10 Pulse Ox 95 02/03/24 04:00 O2 Del Method Room Air 02/03/24 13:10 BMI result Body Mass Index 15.9 Const: Other: General frail, awake, alert, in no acute distress. Neck no JVD. CVS regular rate rhythm, Respiratory lungs clear to auscultation, no respiratory distress, no wheeze, no rhonchi. Gastrointestinal abdomen soft, non tender, bowel sounds audible, no guarding , no rigidity. Extremities no edema. Neuro non focal, moving all 4 extremity, speech clear, disoriented . Objective Data Active Medications Acetaminophen (Acetaminophen 325 Mg Tablet) 650 mg PO Q6H PRN PRN Reason: Pain, Mild (Pain Scale 1-3), fever or headache Last Admin: 01/30/24 15:01 Dose: 650 mg Documented By: JOSE Amitriptyline HCl (Amitriptyline Hcl 50 Mg Tablet) 50 mg PO BEDTIME [facility] Last Admin: 02/02/24 20:36 Dose: Not Given Documented By: SHIRLEY Non-Admin Reason: Patient Refused Lipase/Protease/Amylase (Lipase/Prot/Amylase 24/76/120k 1 Cap Capsule.Dr) 1 cap PO TID [facility] Last Admin: 02/03/24 09:04 Dose: Not Given Documented By: ENOC Non-Admin Reason: Patient Refused Ascorbic Acid (Ascorbic Acid 500 Mg Tablet) 500 mg PO BID [facility] Last Admin: 02/03/24 09:04 Dose: Not Given Documented By: ENOC Non-Admin Reason: Patient Refused Atorvastatin Calcium (Atorvastatin Calcium 40 Mg Tablet) 40 mg PO BEDTIME [facility] Last Admin: 02/02/24 20:36 Dose: Not Given Documented By: SHIRLEY Non-Admin Reason: Patient Refused Benztropine Mesylate (Benztropine Mesylate 1 Mg Tablet) 1 mg PO BID [facility] Last Admin: 02/03/24 09:04 Dose: Not Given Documented By: ENOC Non-Admin Reason: Patient Refused Calcium Carbonate (Calcium Carbonate 750 Mg Tab.Chew) 750 mg PO Q4H PRN PRN Reason: Heartburn Enoxaparin Sodium (Enoxaparin Sodium 40 Mg/0.4 Ml Syringe) 40 mg SUBCUT Q24H [facility] Last Admin: 01/28/24 13:27 Dose: 40 mg Documented By: MOE Famotidine (Famotidine 20 Mg Tablet) 40 mg PO BEDTIME [facility] Last Admin: 02/02/24 20:37 Dose: Not Given Documented By: SHIRLEY Non-Admin Reason: Patient Refused Ferrous Sulfate (Ferrous Sulfate 324 Mg Tablet.) 324 mg PO BIDWM [facility] Last Admin: 02/03/24 09:03 Dose: Not Given Documented By: ENOC Non-Admin Reason: Patient Refused Hydroxyzine HCl (Hydroxyzine Hcl 50 Mg Tablet) 50 mg PO TID PRN PRN Reason: Anxiety Last Admin: 01/30/24 17:59 Dose: 50 mg Documented By: COTEMA Ceftriaxone Sodium 1 gm/ (Sodium Chloride) 50 mls @ 100 mls/hr IV Q24H [facility] Last Infusion: 02/02/24 18:08 Dose: Infused Documented By: ENOC Lidocaine (Lidocaine 4 % Patch Adh..Patch) 1 patch TRANSDERMA DAILY [facility] Last Admin: 02/03/24 09:04 Dose: Not Given Documented By: ENOC Non-Admin Reason: Patient Refused Magnesium Hydroxide (Milk Of Magnesia 30 Ml Oral.Susp) 30 ml PO DAILY PRN PRN Reason: Constipation Megestrol Acetate (Megestrol Acetate 400 Mg/10 Ml Oral.Susp) 400 mg PO BID [facility] Last Admin: 02/03/24 09:04 Dose: Not Given Documented By: ENOC Non-Admin Reason: Patient Refused Melatonin (Melatonin 3 Mg Tablet) 6 mg PO BEDTIME PRN PRN Reason: Insomnia Midodrine (Midodrine Hcl 5 Mg Tablet) 5 mg PO TID [facility] Last Admin: 02/03/24 09:04 Dose: Not Given Documented By: ENOC Non-Admin Reason: Patient Refused Nicotine (Nicotine 14 Mg Patch.Td24) 14 mg TRANSDERMA DAILY [facility] Last Admin: 02/03/24 09:04 Dose: Not Given Documented By: ENOC Non-Admin Reason: Patient Refused Olanzapine (Olanzapine Odt 10 Mg Tab.Rapdis) 5 mg TRANSLINGU Q4H PRN PRN Reason: Psychosis Last Admin: 02/02/24 13:53 Dose: 5 mg Documented By: ENOC Olanzapine (Olanzapine 10 Mg Vial) 5 mg IM Q6H PRN PRN Reason: agitation Last Admin: 02/03/24 12:40 Dose: 5 mg Documented By: ENOC Omeprazole (Omeprazole 20 Mg Capsule.Dr) 20 mg PO BID@0630,1630 [facility] Last Admin: 02/03/24 06:41 Dose: Not Given Documented By: WILLIAM Non-Admin Reason: Patient Asleep Paroxetine HCl (Paroxetine Hcl 40 Mg Tablet) 40 mg PO DAILY [facility] Last Admin: 02/03/24 09:04 Dose: Not Given Documented By: ENOC Non-Admin Reason: Patient Refused Quetiapine Fumarate (Quetiapine Fumarate 200 Mg Tablet) 200 mg PO BEDTIME [facility] Last Admin: 02/02/24 20:37 Dose: Not Given Documented By: SHIRLEY Non-Admin Reason: Patient Refused Quetiapine Fumarate (Quetiapine Fumarate 50 Mg Tablet) 50 mg PO ONCE PRN PRN Reason: Anxiety Senna/Docusate Sodium (Sennosides/Docusate Sodium Tablet) 2 tab PO BEDTIME [facility] Last Admin: 02/02/24 20:38 Dose: Not Given Documented By: SHIRLEY Non-Admin Reason: Patient Refused Sodium Chloride (0.9 % Sodium Chloride Flush 3 Ml Syringe) 3 ml IVFLUSH QSHIFT [facility] Last Admin: 02/03/24 09:03 Dose: Not Given Documented By: ENOC Non-Admin Reason: Patient Refused Tamsulosin HCl (Tamsulosin Hcl 0.4 Mg Capsule) 0.4 mg PO BEDTIME [facility] Last Admin: 02/02/24 20:38 Dose: Not Given Documented By: SHIRLEY Non-Admin Reason: Patient Refused Ziprasidone (Ziprasidone Mesylate 20 Mg Vial) 10 mg IM ONCE ONE Stop: 02/03/24 13:39 Labs 02/03/24 14:48 02/03/24 14:48 Assessment and Plan (1) Toxic metabolic encephalopathy: Status: Acute (2) UTI (urinary tract infection): Status: Acute (3) Acute hypotension: Status: Acute Plan 63-year-old male with hyperlipidemia, chronic hepatitis-C s/p treatment, invasive bladder carcinoma s/p TURBT who is a current 1/2 pack per day cigarette smoker admitted with acute UTI and hypotension hypotension now resolved ; now is delirious and nonsensical. At this point in time I do not believe patient has a capacity to make decisions regarding his health and well-being. .. Section 12 signed 1.Acute toxic encephalopathy Likely / acute inpatient delerium -remains agitated and combative, given Zyprexa 5 IM x2 Normal renal function, liver enzymes, electrolytes, is stable H&H, no WBC, U tox positive for opiates and oxycodone, CT head no acute intracranial process, no C-spine fracture On multiple psych medications at home including Seroquel, Cogentin, amitriptyline Due to persistent agitation , aggressive behavior re-consult with psych, Geodon 10 mg IM and Ativan 2 mg IV given As per family patient has paranoid delusions and psychosis for at least 1 year Psych recommends to discontinue Paxil and Seroquel , risperidone 1 mg by mouth b.i.d. for psychosis and delusion added. Psych recommend to increase Zyprexa to 10 mg by mouth q.6 hours for worsening agitation use soft restrain/section in place. Will maintain potassium greater than 4 magnesium greater than 2 Patient noted to have no capacity, healthcare proxy invoked. check labs, TSH, lytes, renal function, liver enzymes, ammonia level, CPK IV fluids. History of major depressive disorder. 2.Acute UTi complicated with urine retention -urine culture and blood culture showed no growth On IV ceftriaxone since refusing by mouth medication, will DC IV ceftriaxone. Vaughn catheter placed due to urinary retention 3.Hypotension secondary -BP is stable, refusing midodrine will follow BP closely to avoid hypotension 4.Bladder cancer -s/p TURBT, s/p cysto on 01/19, continue Flomax -patient is scheduled for cystoscopy repeat Transurethral bladder tumor resection for 02/07/2024, if patient is medically stable urology would like to keep him on schedule 5.Left lower lobe lung lesion -CT chest on 07/02/2023 shows a focus of probable round atelectasis, further imaging recommended for follow-up -outpatient follow-up 6. Tobacco use disorder continue nicotine patch 7. Moderate malnutrition on supplements and Megace DVT prohylaxis- SCDs Patient required section 12 due to his inability to make decisions regarding his health and well-being. Psychiatry consult pending Quality Stroke Does the patient have a stroke diagnosis?: No VTE Prior VTE?: No VTE Risk Level:: Medical - moderate - high VTE Device Contraindication: Treatment Not Indicated VTE Drug Contraindication: N/A - Med Ordered
--- NOTE | 2024-02-03 13:41 | P.CNPS_ITS ---
History of Present Illness Date of Service: 02/03/2024 Chief Complaint: Fall w/ head strike Reason for Consult: f/u combative behaviors s/s to delirium Requesting physician: Gera Barone Discussed with referring provider: Yes Sources of Information: patient interviewed, chart reviewed and crisis/core team assessment reviewed HPI Narrative: Interim Hx: Pt is a 63 year-old male who was admitted for hotn, UTI. Hospital course complicated by pt becoming more confised, agitated. Initial H&P describes pt as oriented x 3. acutely presenting as more confused and combative since 01/31/2024. Pt seen by psychiatry on 02/02/24 assessment pt presenting as delirious. Pt started on olanzapine 5mg q6h prn. However, pt continues to escalate, trying to elope, hit staff. He has refused most of oral medications, which he was taking on admission. He only took one oral ceftin, today started on IV. Pt seen in his room, with soft restraints on, trying to get out of bed, yelling, stating that everything has been stolen from him by us and he wants to leave this place. Pt unable to tell where he is, states he wants to go to a hotel. Unable to tell city. He received olanzapine 5mg IM twice today with minimal therapeutic effect. Collateral information gathered from brother- Sd (who is also his HCP), his other brother, James, and sister in law Allyson Elkins. Brother reports patient has been paranoid and hearing voices for the past year. They report pt gets very irritable when redirected, has frequent falls, can become agitated, usually not fully oriented, waking up and cooking in the middle of the night. Brother reports they are concern abut his safety and others in the house as he leaves stove on. He also refuses cancer treatment because he does not think he has it. Past Psychiatric History: The patient is on treatment with antidepressants such as Elavil, Seroquel and other medications. Unclear past psychiatric history since we do not have collateral at this time [facility] Medical History (Updated 01/30/24 @ 11:23 by Raúl Escobedo MD) Bladder cancer HLD (hyperlipidemia) Microcytic anemia Smoker Chronic headaches Chronic hepatitis C MDD (major depressive disorder) Surgical History (Updated 02/03/24 @ 13:40 by Nela Geronimo RN) Hx of cystoscopy Diagnostics Vital Signs (24Hr): Vital Signs - 24 hr 02/02/24 15:05 02/02/24 16:31 02/02/24 18:23 Temperature 98 F 97.4 F Pulse Rate 93 77 77 Respiratory Rate 16 12 18 Blood Pressure 128/66 106/64 112/67 Pulse Oximetry 100 94 94 Oxygen Delivery Method Room Air Room Air Room Air 02/02/24 19:46 02/02/24 22:44 02/03/24 04:00 Temperature 97.5 F 98.3 F Pulse Rate 78 76 Respiratory Rate 18 14 16 Blood Pressure 120/66 124/65 Pulse Oximetry 95 Oxygen Delivery Method Room Air Room Air 02/03/24 13:10 Temperature Pulse Rate 126 H Respiratory Rate 22 H Blood Pressure 119/86 Pulse Oximetry Oxygen Delivery Method Room Air BMI result Body Mass Index 15.9 Labs 02/03/24 14:48 02/03/24 14:48 Imaging Radiology Impressions: ITS Impressions Humerus X-Ray 01/27/24 00:26 IMPRESSION: No significant abnormality identified. Cervical Spine CT 01/27/24 00:27 IMPRESSION: 1. No acute intracranial process seen. 2. There is no acute cervical spine fracture or malalignment. There is mild diffuse cervical spondylosis. Head CT 01/27/24 00:27 IMPRESSION: 1. No acute intracranial process seen. 2. There is no acute cervical spine fracture or malalignment. There is mild diffuse cervical spondylosis. Chest X-Ray 01/27/24 06:14 IMPRESSION: Advanced emphysema. No acute superimposed process. Stable irregular lesion left lower lobe. Follow-up CT recommended. Mental Status Exam Mental Status Exam Narrative: Pt combative, in bed with 4 point soft restraint, trying to get out of bed, not oriented to place, month, year nor situation, which is not how he presented on admission. Medications Medications Current Medications Acetaminophen (Acetaminophen 325 Mg Tablet) 650 mg PO Q6H PRN PRN Reason: Pain, Mild (Pain Scale 1-3), fever or headache Last Admin: 01/30/24 15:01 Dose: 650 mg Amitriptyline HCl (Amitriptyline Hcl 50 Mg Tablet) 50 mg PO BEDTIME [facility] Last Admin: 02/02/24 20:36 Dose: Not Given Lipase/Protease/Amylase (Lipase/Prot/Amylase 24/76/120k 1 Cap Capsule.) 1 cap PO TID [facility] Last Admin: 02/03/24 09:04 Dose: Not Given Ascorbic Acid (Ascorbic Acid 500 Mg Tablet) 500 mg PO BID [facility] Last Admin: 02/03/24 09:04 Dose: Not Given Atorvastatin Calcium (Atorvastatin Calcium 40 Mg Tablet) 40 mg PO BEDTIME [facility] Last Admin: 02/02/24 20:36 Dose: Not Given Benztropine Mesylate (Benztropine Mesylate 1 Mg Tablet) 1 mg PO BID [facility] Last Admin: 02/03/24 09:04 Dose: Not Given Calcium Carbonate (Calcium Carbonate 750 Mg Tab.Chew) 750 mg PO Q4H PRN PRN Reason: Heartburn Enoxaparin Sodium (Enoxaparin Sodium 40 Mg/0.4 Ml Syringe) 40 mg SUBCUT Q24H [facility] Last Admin: 01/28/24 13:27 Dose: 40 mg Famotidine (Famotidine 20 Mg Tablet) 40 mg PO BEDTIME [facility] Last Admin: 02/02/24 20:37 Dose: Not Given Ferrous Sulfate (Ferrous Sulfate 324 Mg Tablet.) 324 mg PO BIDWM [facility] Last Admin: 02/03/24 09:03 Dose: Not Given Hydroxyzine HCl (Hydroxyzine Hcl 50 Mg Tablet) 50 mg PO TID PRN PRN Reason: Anxiety Last Admin: 01/30/24 17:59 Dose: 50 mg Ceftriaxone Sodium 1 gm/ (Sodium Chloride) 50 mls @ 100 mls/hr IV Q24H [facility] Last Infusion: 02/02/24 18:08 Dose: Infused Lidocaine (Lidocaine 4 % Patch Adh..Patch) 1 patch TRANSDERMA DAILY [facility] Last Admin: 02/03/24 09:04 Dose: Not Given Magnesium Hydroxide (Milk Of Magnesia 30 Ml Oral.Susp) 30 ml PO DAILY PRN PRN Reason: Constipation Megestrol Acetate (Megestrol Acetate 400 Mg/10 Ml Oral.Susp) 400 mg PO BID [facility] Last Admin: 02/03/24 09:04 Dose: Not Given Melatonin (Melatonin 3 Mg Tablet) 6 mg PO BEDTIME PRN PRN Reason: Insomnia Midodrine (Midodrine Hcl 5 Mg Tablet) 5 mg PO TID [facility] Last Admin: 02/03/24 09:04 Dose: Not Given Nicotine (Nicotine 14 Mg Patch.Td24) 14 mg TRANSDERMA DAILY [facility] Last Admin: 02/03/24 09:04 Dose: Not Given Olanzapine (Olanzapine Odt 10 Mg Tab.Rapdis) 5 mg TRANSLINGU Q4H PRN PRN Reason: Psychosis Last Admin: 02/02/24 13:53 Dose: 5 mg Olanzapine (Olanzapine 10 Mg Vial) 5 mg IM Q6H PRN PRN Reason: agitation Last Admin: 02/03/24 12:40 Dose: 5 mg Omeprazole (Omeprazole 20 Mg Capsule.Dr) 20 mg PO BID@0630,1630 [facility] Last Admin: 02/03/24 06:41 Dose: Not Given Paroxetine HCl (Paroxetine Hcl 40 Mg Tablet) 40 mg PO DAILY [facility] Last Admin: 02/03/24 09:04 Dose: Not Given Quetiapine Fumarate (Quetiapine Fumarate 200 Mg Tablet) 200 mg PO BEDTIME [facility] Last Admin: 02/02/24 20:37 Dose: Not Given Quetiapine Fumarate (Quetiapine Fumarate 50 Mg Tablet) 50 mg PO ONCE PRN PRN Reason: Anxiety Senna/Docusate Sodium (Sennosides/Docusate Sodium Tablet) 2 tab PO BEDTIME [facility] Last Admin: 02/02/24 20:38 Dose: Not Given Sodium Chloride (0.9 % Sodium Chloride Flush 3 Ml Syringe) 3 ml IVFLUSH QSHIFT [facility] Last Admin: 02/03/24 09:03 Dose: Not Given Tamsulosin HCl (Tamsulosin Hcl 0.4 Mg Capsule) 0.4 mg PO BEDTIME [facility] Last Admin: 02/02/24 20:38 Dose: Not Given Ziprasidone (Ziprasidone Mesylate 20 Mg Vial) 10 mg IM ONCE ONE Stop: 02/03/24 13:39 Allergies Allergies Allergy/AdvReac Type Severity Reaction Status Date / Time haloperidol [From Haldol] Allergy Severe Difficulty Verified 01/26/24 23:03 Breathing Assessment & Plan Assessment & Plan (1) Toxic metabolic encephalopathy: Status: Acute Code(s): G92.8 - Other toxic encephalopathy Plan Mr. Elkins is a 63 year-old male who self presented to [facility] after fall, found to be HOTN, given IV fluids, treated for UTI, complicated with urinary retention, on chen. Along the hospital course, pt presented as more confused, combative, agitated, trying to elope. He has been in physical restraint- soft 4 point, has received IM olanzapine with little effect. reconsult for management of agitation. Collateral information from family- which they report pt has been presenting as paranoid, hearing voices for the past year, refusing medical treatment, falling, more confused. Based on collateral information- psychosis and paranoid delusions for at least one year now, will d/c antidepressant paxil (one because he is on several anticholinergic medications (cogentin and amitryptiline), has not taken it in last few days and can worsen psychosis). will also d/c seroquel, start risperidone 1mg po BID for psychosis and delusions. PLAN 1. when seen pt severely agitated, not able to be redirected needing IM- given geodone 10mg and ativan 2mg IV. 2. agree with careful administration of benzodiazepines to avoid worsening of delirium- however, in acute situation and given risk of harm to self or others, we did have to given ativan 2mg IM. 3. can increase olanzapine to 10mg po q6h, prn agitation. monitor EKG- last one sinus rythm, qtc wnl. maintain K>4, Mg>2. 4. now that pt has been in restraints in last 24 hrs on and off- monitor CPK, renal function- monitor/prevent rhabdo, and PUNEET. 5. Pt does not have capacity to make medical decisions- HCP on file. Sd Elkins [phone] is HCP. recommend invoking HCP. Total time managing care of this patient today ____ minutes.
[2024-02-03] MEDS: LORazepam 2 MG/ML VIAL IVPUSH (13:48)
[2024-02-03] MEDS: Ziprasidone Mesylate 20 MG VIAL 10 MG IM (13:52)
--- NOTE | 2024-02-03 13:52 | MHC.CLN ---
F/U DIET=REGULAR. ENSURE TID PROVIDES 1050 KCALS, 60 G PROTEIN. PATIENT LIKES AND ACCEPTS ENSURE. 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 INTAKE VARIABLE, 0-100%. CONTINUE REGULAR DIET AND ENSURE SUPPLEMENT TID. FOLLOW FOR INTAKE AND WEIGHT.
--- NOTE | 2024-02-03 13:57 | PC.NURSE ---
MD Barone made aware pt continues to be thrashing, kicking side of bed, throwing legs out of bed. Pt is unable to be redirected. Eliza Bland at bedside. IVP ativan and IM Geodon given per orders, pending effectiveness. Unable to get accurate set of vital signs due to pt thrashing in bed.
[2024-02-03 15:05] LABS: Hematocrit 37.9 % (42.0-52.0); Hemoglobin 12.7 g/dl (14.0-18.0); Mean Corpuscular HGB Conc 33.5 g/dl (31.0-36.0); Mean Corpuscular Volume 83.5 fL (80.0-98.0); Mean Platelet Volume 9.7 fL (9.4-12.4); Platelet Count 274 X10*3/uL (160-400); Red Blood Count 4.54 X10*6/uL (4.60-5.80); Red Cell Distribution Width 15.1 % (11.0-16.0); White Blood Count 8.8 X10*3/uL (4.8-10.8)
[2024-02-03 15:15] LABS: Ammonia 25 umol/L (13-55)
[2024-02-03 15:31] LABS: Anion Gap 14 (12-20); Blood Urea Nitrogen 22 mg/dL (9-16); Calcium 9.6 mg/dL (8.4-10.2); Carbon Dioxide 24 mmol/L (22-29); Chloride 108 mmol/L (96-108); Creatinine Clr Calc Pharmacy 60.9; Estimated Glomerular Filt Rate > 60; Glucose Random 87 mg/dL (60-115); Sodium 142 mmol/L (135-145)
[2024-02-03 15:45] LABS: Thyroid Stimulating Hormone 1.59 uIU/mL (0.32-4.0)
[2024-02-03] MEDS: Lactated Ringers 1,000 ML 100 ML IVCONT (17:23)
[2024-02-03 17:24] LABS: Appearance Urine Hazy; Color Urine Yellow; Glucose Urine UA Negative (Negative); Leukocyte Esterase Urine Negative (Negative); Nitrite Urine Negative (Negative); UMIC TRIGGER UACC YES; Urine Blood Large (3+) (Negative); Urine Ketones Negative (Negative); Urine Protein 30 (1+) mg/dL (Neg-Trace)
[2024-02-03] MEDS: 0.9 % Sodium Chloride Flush 3 ML SYRINGE IVFLUSH (17:29)
[2024-02-03 17:35] LABS: Bacteria Urine None Seen (None Seen); Hyaline Casts Urine 0-2 /LPF (0-2); RBC Urine >20 /HPF (0-2); Squamous Epithelial Cell Urine 0-2 /HPF (0-2); WBC Urine 0-5 /HPF (0-5)
[2024-02-04] VITALS (9 sets, daily range): BP systolic 104–134; BP diastolic 59–90; PULSE 79–110; RESP 12–20; TEMP 36.1–37.1; O2SAT 92–99
--- NOTE | 2024-02-04 00:11 | PC.NURSE ---
at 2310 restraints assessment done pt cooperative impulsive at times restraints d/cd . pt has sitter for protection of iv line and f/c for now
[2024-02-04] MEDS: OLANZapine 10 MG VIAL 5 MG IM ×3 (03:56→17:05)
[2024-02-04] MEDS: LORazepam 2 MG/ML VIAL 1 MG IVPUSH (06:08)
[2024-02-04] MEDS: Ziprasidone Mesylate 20 MG VIAL 10 MG IM (06:14)
--- NOTE | 2024-02-04 07:03 | PC.NURSE ---
615 am restrains had to be reapplied for severe agitation md order received and flow sheet activated pts [id number]
--- NOTE | 2024-02-04 09:53 | PC.NURSE ---
Care Team Consult for Psych Placement per MD.
--- NOTE | 2024-02-04 11:04 | MHC.CARE ---
Business Management Consultant placed call to HCP Sd Elkins [phone] to obtain collateral information. Unable to reach; voicemail with request for return call left.
[2024-02-04] MEDS: LORazepam 2 MG/ML VIAL IVPUSH ×2 (12:57→17:13)
--- NOTE | 2024-02-04 14:03 | P.PNIM_ITS ---
Subjective Subjective Date of Service: 02/05/24 Interval History: Admitted for weakness and fall. Persistent agitation, aggressive behavior , pulled Vaughn catheter, Vaughn bag with dark bloody urine, refusing to eat. Has soft restraints. Sitter at bedside Review of Systems Denies headache, and dizziness Denies nausea vomiting Denies fever Denies pain. Physical Exam 2 Vital Signs: Vital Signs: Last Vital Signs Temp 98.7 F 02/04/24 10:31 Pulse 110 H 02/04/24 10:31 Resp 16 02/04/24 10:31 BP 130/90 H 02/04/24 12:59 Pulse Ox 97 02/04/24 07:10 O2 Del Method Room Air 02/04/24 07:10 BMI result Body Mass Index 15.9 Const: Other: General frail, emaciated, awake, alert, in no acute distress. Oral mucosa dry/dry coating on lips Neck no JVD. CVS regular rate rhythm, Respiratory lungs clear to auscultation, no respiratory distress, no wheeze, no rhonchi. Gastrointestinal abdomen soft, non tender, bowel sounds audible, no guarding , no rigidity. Extremities no edema. Neuro non focal, moving all 4 extremity, remains disoriented Objective Data Active Medications Acetaminophen (Acetaminophen 325 Mg Tablet) 650 mg PO Q6H PRN PRN Reason: Pain, Mild (Pain Scale 1-3), fever or headache Last Admin: 01/30/24 15:01 Dose: 650 mg Documented By: JOSE Lipase/Protease/Amylase (Lipase/Prot/Amylase 24/76/120k 1 Cap Capsule.Dr) 1 cap PO TID [facility] Last Admin: 02/04/24 08:39 Dose: Not Given Documented By: SHIRLEY Non-Admin Reason: Patient Refused Ascorbic Acid (Ascorbic Acid 500 Mg Tablet) 500 mg PO BID [facility] Last Admin: 02/04/24 08:39 Dose: Not Given Documented By: SHIRLEY Non-Admin Reason: Patient Refused Atorvastatin Calcium (Atorvastatin Calcium 40 Mg Tablet) 40 mg PO BEDTIME [facility] Last Admin: 02/03/24 22:38 Dose: Not Given Documented By: AD Non-Admin Reason: Patient Refused Calcium Carbonate (Calcium Carbonate 750 Mg Tab.Chew) 750 mg PO Q4H PRN PRN Reason: Heartburn Enoxaparin Sodium (Enoxaparin Sodium 40 Mg/0.4 Ml Syringe) 40 mg SUBCUT Q24H [facility] Last Admin: 01/28/24 13:27 Dose: 40 mg Documented By: MOE Famotidine (Famotidine 20 Mg Tablet) 40 mg PO BEDTIME [facility] Last Admin: 02/03/24 22:38 Dose: Not Given Documented By: AD Non-Admin Reason: Patient Refused Ferrous Sulfate (Ferrous Sulfate 324 Mg Tablet.Dr) 324 mg PO BIDWM [facility] Last Admin: 02/04/24 08:38 Dose: Not Given Documented By: SHIRLEY Non-Admin Reason: Patient Refused Lidocaine (Lidocaine 4 % Patch Adh..Patch) 1 patch TRANSDERMA DAILY [facility] Last Admin: 02/04/24 08:39 Dose: Not Given Documented By: SHIRLEY Non-Admin Reason: Patient Refused Lorazepam (Lorazepam 2 Mg/Ml Vial) 2 mg IVPUSH Q6H PRN PRN Reason: anxiety/restlessness Last Admin: 02/04/24 12:57 Dose: 2 mg Documented By: SHIRLEY Magnesium Hydroxide (Milk Of Magnesia 30 Ml Oral.Susp) 30 ml PO DAILY PRN PRN Reason: Constipation Megestrol Acetate (Megestrol Acetate 400 Mg/10 Ml Oral.Susp) 400 mg PO BID [facility] Last Admin: 02/04/24 08:39 Dose: Not Given Documented By: SHIRLEY Non-Admin Reason: Patient Refused Melatonin (Melatonin 3 Mg Tablet) 6 mg PO BEDTIME PRN PRN Reason: Insomnia Midodrine (Midodrine Hcl 5 Mg Tablet) 5 mg PO TID [facility] Last Admin: 02/04/24 08:39 Dose: Not Given Documented By: SHIRLEY Non-Admin Reason: Patient Refused Nicotine (Nicotine 14 Mg Patch.Td24) 14 mg TRANSDERMA DAILY [facility] Last Admin: 02/04/24 08:39 Dose: Not Given Documented By: SHIRLEY Non-Admin Reason: Patient Refused Nicotine Polacrilex (Nicotine Polacrilex 2 Mg Gum) 2 mg BUCCAL Q2H PRN PRN Reason: Nicotine Cravings Olanzapine (Olanzapine 10 Mg Vial) 5 mg IM Q6H PRN PRN Reason: agitation Last Admin: 02/04/24 09:37 Dose: 5 mg Documented By: SHIRLEY Olanzapine (Olanzapine Odt 10 Mg Tab.Rapdis) 10 mg TRANSLINGU Q6H PRN PRN Reason: Psychosis Omeprazole (Omeprazole 20 Mg Capsule.) 20 mg PO BID@0630,1630 [facility] Last Admin: 02/04/24 06:27 Dose: Not Given Documented By: AD Non-Admin Reason: Patient Refused Risperidone (Risperidone 1 Mg Tablet) 1 mg PO BID [facility] Last Admin: 02/04/24 08:39 Dose: Not Given Documented By: SHIRLEY Non-Admin Reason: Patient Refused Senna/Docusate Sodium (Sennosides/Docusate Sodium Tablet) 2 tab PO BEDTIME [facility] Last Admin: 02/03/24 22:39 Dose: Not Given Documented By: AD Non-Admin Reason: Patient Refused Sodium Chloride (0.9 % Sodium Chloride Flush 3 Ml Syringe) 3 ml IVFLUSH QSHIFT [facility] Last Admin: 02/04/24 10:04 Dose: Not Given Documented By: SHIRLEY Non-Admin Reason: Patient Refused Tamsulosin HCl (Tamsulosin Hcl 0.4 Mg Capsule) 0.4 mg PO BEDTIME [facility] Last Admin: 02/03/24 22:40 Dose: Not Given Documented By: AD Non-Admin Reason: Patient Refused Labs 02/03/24 14:48 02/03/24 14:48 Labs: Laboratory Results - last 24 hr 02/03/24 02/03/24 14:48 16:25 MCV 83.5 MCH 28.0 MCHC 33.5 RDW 15.1 Plt Count 274 MPV 9.7 Absolute Nucleated RBC 0.000 Nucleated RBC % (auto) 0.0 Anion Gap 14 Estim Creat Clear Calc 60.9 Estimated GFR > 60 Random Glucose 87 Calcium 9.6 Ammonia 25 Total Creatine Kinase 170 TSH 1.59 Urine Color Yellow Urine Appearance Hazy Urine pH 6.0 Ur Specific Mcclure 1.020 Urine Protein 30 (1+) H Urine Glucose (UA) Negative Urine Ketones Negative Urine Blood Large (3+) H Urine Nitrite Negative Ur Leukocyte Esterase Negative Urine RBC >20 H Urine WBC 0-5 Ur Squamous Epith Cells 0-2 Urine Bacteria None Seen Hyaline Casts 0-2 Assessment and Plan (1) Psychotic disorder: Status: Acute (2) Toxic metabolic encephalopathy: Status: Acute (3) Urine retention: Status: Acute Plan 63-year-old male with hyperlipidemia, chronic hepatitis-C s/p treatment, invasive bladder carcinoma s/p TURBT who is a current 1/2 pack per day cigarette smoker admitted with acute UTI and hypotension hypotension now resolved ; now is delirious and nonsensical. At this point in time I do not believe patient has a capacity to make decisions regarding his health and well-being. .. Section 12 signed 1. Acute toxic metabolic encephalopathy Initially felt to have hospital-acquired delirium due to persistent symptoms seen by psych and diagnosed to have psychosis and paranoid delusions has h/o history of major depressive disorder Normal renal function, liver enzymes, electrolytes, stable H&H, no WBC, U tox positive for opiates and oxycodone, CT head no acute intracranial process, no C- spine fracture Normal TSH, renal function, liver enzymes, ammonia and CPK Refusing by mouth meds Seen by psychiatry, Tomas Hernandezoquel discontinued patient started on risperidone 1 mg b.i.d. and Zyprexa q.6 hours Due to persistent symptoms of agitation, aggressive behavior case discussed with psychiatry Dr. Peterson today he recommend to add Ativan 2 mg IV q.6 hours with Zyprexa 5mg im prn On multiple psych medications at home including Seroquel, Cogentin, amitriptyline, on hold. use soft restrain/section in place. maintain potassium greater than 4 magnesium greater than 2 healthcare proxy invoked. IV fluids. Declined all meals and oral medications 2.Acute UTi complicated with urine retention -urine culture and blood culture showed no growth Pulled Vaughn catheter, will recheck bladder scan, and place Vaughn back if unable to void/resisting care . 3.Hypotension secondary -BP is stable, refusing midodrine will follow BP closely to avoid hypotension 4.Bladder cancer -s/p TURBT, s/p cysto on 01/19, continue Flomax -patient is scheduled for cystoscopy repeat Transurethral bladder tumor resection for 02/07/2024, if patient is medically stable urology would like to keep him on schedule 5.Left lower lobe lung lesion -CT chest on 07/02/2023 shows a focus of probable round atelectasis, further imaging recommended for follow-up -outpatient follow-up 6. Tobacco use disorder continue nicotine patch 7. Moderate malnutrition on supplements and Megace, but refusing meds Sd [phone] is HCP, Healthcare proxy invoked since patient has no capacity, will call healthcare proxy and discuss goal of care. DVT prohylaxis- SCDs Patient required section 12 due to his inability to make decisions regarding his health and well-being. Will require continued inpatient hospitalization for managing acute psychosis, treatment can not be provided in less acute setting. Quality Stroke Does the patient have a stroke diagnosis?: No VTE Prior VTE?: No VTE Risk Level:: Medical - moderate - high VTE Device Contraindication: Treatment Not Indicated VTE Drug Contraindication: N/A - Med Ordered
[2024-02-04] MEDS: Dextrose 5 % and Lactated Ring 1,000 ML 100 ML IVCONT (14:33)
--- NOTE | 2024-02-04 17:15 | PC.NURSE ---
attempted trial release of restraints. @ aprox 1700 pt swung at [employer], increased agitation and verbally abusive. Restraints reapplied and IM zyprexa given. @1715 pt yelling and kicking. MD elie Kennedy giving iv ativan 2mg an hour early, and med was admin.
--- NOTE | 2024-02-04 17:52 | PM.PSYCN ---
History of Present Illness Date of Service: 02/04/2024 Chief Complaint: Fall w/ head strike Reason for Consult: ongoing dysregulation HPI Narrative: see previous consult notes for full Hx. interval Hx is pt has not been adequately in behavioral control with recommendations from yesterday. case d/w medical attending, plan made to add ativan 2 mg Q6H to zyprexa 5 mg Q6H PRN for agitation. on interview with pt, pt was seated in bed with sitter nearby, wrists in soft restraints. he appeared disoriented and perhaps attending to stimuli MD was unable to perceive. he was able to answer some simple MSE questions directly. he was unable to say where he was or why. Past Psychiatric History: The patient is on treatment with antidepressants such as Elavil, Seroquel and other medications. Unclear past psychiatric history since we do not have collateral at this time [facility] Medical History (Updated 02/04/24 @ 17:56 by Anibal Peterson MD) Bladder cancer HLD (hyperlipidemia) Microcytic anemia Smoker Chronic headaches Chronic hepatitis C MDD (major depressive disorder) Surgical History (Updated 02/03/24 @ 13:40 by Nela Geronimo RN) Hx of cystoscopy Diagnostics Vital Signs (24Hr): Vital Signs - 24 hr 02/03/24 19:19 02/03/24 22:00 02/03/24 23:09 Temperature 97.6 F 97.5 F 97.7 F Pulse Rate 80 75 82 Respiratory Rate 17 17 18 Blood Pressure 137/62 119/57 L 126/64 Pulse Oximetry 98 98 97 Oxygen Delivery Method Room Air Room Air Room Air 02/04/24 04:00 02/04/24 06:15 02/04/24 07:10 Temperature 97.5 F 97 F Pulse Rate 94 89 Respiratory Rate 17 18 12 Blood Pressure 129/75 115/70 Pulse Oximetry 97 97 Oxygen Delivery Method Room Air Room Air 02/04/24 10:31 02/04/24 12:59 02/04/24 14:35 Temperature 98.7 F 97 F Pulse Rate 110 H 88 Respiratory Rate 16 14 Blood Pressure 126/70 130/90 H 104/61 Pulse Oximetry 99 Oxygen Delivery Method Room Air BMI result Body Mass Index 15.9 Labs 02/03/24 14:48 02/03/24 14:48 Labs: Laboratory Results - last 48 hr 02/03/24 02/03/24 14:48 16:25 WBC 8.8 RBC 4.54 L Hgb 12.7 L Hct 37.9 L MCV 83.5 MCH 28.0 MCHC 33.5 RDW 15.1 Plt Count 274 MPV 9.7 Absolute Nucleated RBC 0.000 Nucleated RBC % (auto) 0.0 Sodium 142 Potassium 4.0 Chloride 108 Carbon Dioxide 24 Anion Gap 14 BUN 22 H Creatinine 0.87 Estim Creat Clear Calc 60.9 Estimated GFR > 60 Random Glucose 87 Calcium 9.6 Ammonia 25 Total Creatine Kinase 170 TSH 1.59 Urine Color Yellow Urine Appearance Hazy Urine pH 6.0 Ur Specific [place] 1.020 Urine Protein 30 (1+) H Urine Glucose (UA) Negative Urine Ketones Negative Urine Blood Large (3+) H Urine Nitrite Negative Ur Leukocyte Esterase Negative Urine RBC >20 H Urine WBC 0-5 Ur Squamous Epith Cells 0-2 Urine Bacteria None Seen Hyaline Casts 0-2 Imaging Radiology Impressions: ITS Impressions Humerus X-Ray 01/27/24 00:26 IMPRESSION: No significant abnormality identified. Cervical Spine CT 01/27/24 00:27 IMPRESSION: 1. No acute intracranial process seen. 2. There is no acute cervical spine fracture or malalignment. There is mild diffuse cervical spondylosis. Head CT 01/27/24 00:27 IMPRESSION: 1. No acute intracranial process seen. 2. There is no acute cervical spine fracture or malalignment. There is mild diffuse cervical spondylosis. Chest X-Ray 01/27/24 06:14 IMPRESSION: Advanced emphysema. No acute superimposed process. Stable irregular lesion left lower lobe. Follow-up CT recommended. Mental Status Exam Mental Status Exam Narrative: Pt pulling at soft wrist restraints, not oriented to place, or situation. mood terrible. endorses SI/SIBI. denies HI/AVH, although some delays in answers and peering around the room suggestive of AVH. Medications Medications Current Medications Acetaminophen (Acetaminophen 325 Mg Tablet) 650 mg PO Q6H PRN PRN Reason: Pain, Mild (Pain Scale 1-3), fever or headache Last Admin: 01/30/24 15:01 Dose: 650 mg Lipase/Protease/Amylase (Lipase/Prot/Amylase 24/76/120k 1 Cap Capsule.) 1 cap PO TID [facility] Last Admin: 02/04/24 14:35 Dose: Not Given Ascorbic Acid (Ascorbic Acid 500 Mg Tablet) 500 mg PO BID [facility] Last Admin: 02/04/24 08:39 Dose: Not Given Atorvastatin Calcium (Atorvastatin Calcium 40 Mg Tablet) 40 mg PO BEDTIME [facility] Last Admin: 02/03/24 22:38 Dose: Not Given Calcium Carbonate (Calcium Carbonate 750 Mg Tab.Chew) 750 mg PO Q4H PRN PRN Reason: Heartburn Enoxaparin Sodium (Enoxaparin Sodium 40 Mg/0.4 Ml Syringe) 40 mg SUBCUT Q24H [facility] Last Admin: 01/28/24 13:27 Dose: 40 mg Famotidine (Famotidine 20 Mg Tablet) 40 mg PO BEDTIME [facility] Last Admin: 02/03/24 22:38 Dose: Not Given Ferrous Sulfate (Ferrous Sulfate 324 Mg Tablet.Dr) 324 mg PO BIDWM [facility] Last Admin: 02/04/24 15:41 Dose: Not Given Dextrose/Lactated Ringer's (D5lr) 1,000 mls @ 100 mls/hr IVCONT .Q10H [facility] Stop: 02/05/24 00:29 Last Admin: 02/04/24 14:33 Dose: 100 mls/hr Lidocaine (Lidocaine 4 % Patch Adh..Patch) 1 patch TRANSDERMA DAILY [facility] Last Admin: 02/04/24 08:39 Dose: Not Given Lorazepam (Lorazepam 2 Mg/Ml Vial) 2 mg IVPUSH Q6H PRN PRN Reason: anxiety/restlessness Last Admin: 02/04/24 17:13 Dose: 2 mg Magnesium Hydroxide (Milk Of Magnesia 30 Ml Oral.Susp) 30 ml PO DAILY PRN PRN Reason: Constipation Megestrol Acetate (Megestrol Acetate 400 Mg/10 Ml Oral.Susp) 400 mg PO BID [facility] Last Admin: 02/04/24 08:39 Dose: Not Given Melatonin (Melatonin 3 Mg Tablet) 6 mg PO BEDTIME PRN PRN Reason: Insomnia Midodrine (Midodrine Hcl 5 Mg Tablet) 5 mg PO TID [facility] Last Admin: 02/04/24 14:35 Dose: Not Given Nicotine (Nicotine 14 Mg Patch.Td24) 14 mg TRANSDERMA DAILY [facility] Last Admin: 02/04/24 08:39 Dose: Not Given Nicotine Polacrilex (Nicotine Polacrilex 2 Mg Gum) 2 mg BUCCAL Q2H PRN PRN Reason: Nicotine Cravings Olanzapine (Olanzapine 10 Mg Vial) 5 mg IM Q6H PRN PRN Reason: agitation Last Admin: 02/04/24 17:05 Dose: 5 mg Olanzapine (Olanzapine Odt 10 Mg Tab.Rapdis) 10 mg TRANSLINGU Q6H PRN PRN Reason: Psychosis Omeprazole (Omeprazole 20 Mg Capsule.Dr) 20 mg PO BID@0630,1630 [facility] Last Admin: 02/04/24 14:39 Dose: Not Given Risperidone (Risperidone 1 Mg Tablet) 1 mg PO BID [facility] Last Admin: 02/04/24 08:39 Dose: Not Given Senna/Docusate Sodium (Sennosides/Docusate Sodium Tablet) 2 tab PO BEDTIME [facility] Last Admin: 02/03/24 22:39 Dose: Not Given Sodium Chloride (0.9 % Sodium Chloride Flush 3 Ml Syringe) 3 ml IVFLUSH QSHIFT [facility] Last Admin: 02/04/24 14:39 Dose: Not Given Tamsulosin HCl (Tamsulosin Hcl 0.4 Mg Capsule) 0.4 mg PO BEDTIME [facility] Last Admin: 02/03/24 22:40 Dose: Not Given Allergies Allergies Allergy/AdvReac Type Severity Reaction Status Date / Time haloperidol [From Haldol] Allergy Severe Difficulty Verified 01/26/24 23:03 Breathing Assessment & Plan Assessment & Plan (1) Toxic metabolic encephalopathy: Status: Acute Code(s): G92.8 - Other toxic encephalopathy (2) Psychotic disorder: Status: Acute Code(s): F29 - Unspecified psychosis not due to a substance or known physiological condition Plan continue zyprexa 5 mg Q6H PRN agitation. add ativan 2 mg Q6H agitation, to be given with zyprexa. DC anticholinergic and anithistaminergic medications to the extent possible, such as cogentin and TCAs. continue to offer risperidone, although pt is presently refusing it. Total time managing care of this patient today __25__ minutes.
[2024-02-05] VITALS (11 sets, daily range): BP systolic 108–157; BP diastolic 64–83; PULSE 76–110; RESP 14–18; TEMP 36–36.9; O2SAT 92–99
[2024-02-05] MEDS: 0.9 % Sodium Chloride Flush 3 ML SYRINGE IVFLUSH (00:40)
[2024-02-05] MEDS: LORazepam 2 MG/ML VIAL IVPUSH ×4 (00:43→21:26)
[2024-02-05] MEDS: OLANZapine 10 MG VIAL 5 MG IM ×3 (00:48→21:24)
--- NOTE | 2024-02-05 02:19 | PC.NURSE ---
0200 pt still did not void; dtv was by 12 am . Bladder scan for > 671 ml str cath for 900 ml bloody urine
--- NOTE | 2024-02-05 02:39 | PM.EVENT ---
Event Note Date of Service: 02/05/24 Event Note: Nurse reported >600ml after bladder scan. Straight cath with 900ml bloody urine and blood clots. Will order chen, CBI and urology consult. Lovenox is on hold Time Spent With Patient Time: Total time managing care of this patient today ____ minutes.
[2024-02-05] MEDS: Ziprasidone Mesylate 20 MG VIAL 10 MG IM (03:08)
--- NOTE | 2024-02-05 04:43 | PC.NURSE ---
330 am pt is having hematuria with clots notified order to insert 3 way f/c and start CBI . also new order for urology consult .
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
--- NOTE | 2024-02-05 12:30 | PC.NURSE ---
Assessed pt for restraints. Pt appearing more and more cachetic. Arousable however very weak. Currently released from restraint. Pt been refusing eating/drinking >4days. Requested MD Barone to assess pt. assessed pt at bedside. plan to call family to discuss plan of care
[2024-02-05] MEDS: Dextrose 5 % and Lactated Ring 1,000 ML 100 ML IVCONT (13:10)
--- NOTE | 2024-02-05 13:27 | MHC.CLN ---
RE: CONSULT PT TO START PPN PER MD PT IS REFUSING TO EAT, TAKE MEDS AND RESISTIVE TO CARE REVIEWED LABS DISCUSSED WITH PHARMACY RECOMMEND PPN AT 40ML/HR TO PROVIDE 490KCALS, 96G DEXTROSE, 41G PROTEIN REPLETE LYTES NEEDED FULL NUTRITION ASSESSMENT TO FOLLOW
--- NOTE | 2024-02-05 13:29 | P.PNIM_ITS ---
Subjective Subjective Date of Service: 02/06/24 Interval History: Events from last night noted, Was unable to void last evening , with a bladder scan of 671, therefore straight cath done 900 mL of bloody urine was drained, subsequently Vaughn catheter placed and patient started on CBI this morning urine punch color later in early afternoon urine is clear, patient remains disoriented mumbling received Geodon last night, soft restraints in place . Review of Systems Unable to obtain due to mental status. Physical Exam 2 Vital Signs: Vital Signs: Last Vital Signs Temp 97.5 F 02/05/24 11:56 Pulse 76 02/05/24 11:56 Resp 16 02/05/24 11:56 BP 130/71 02/05/24 11:56 Pulse Ox 93 02/05/24 11:56 O2 Del Method Room Air 02/05/24 11:56 BMI result Body Mass Index 15.9 Const: Other: General frail, emaciated, appears chronically sick. Oral mucosa dry/dry coating on lips, sunken eyes Neck no JVD. CVS regular rate rhythm, Respiratory lungs clear to auscultation, no respiratory distress, no wheeze, no rhonchi. Gastrointestinal abdomen soft, bowel sounds audible Extremities no edema. Neuro non focal, moving all 4 extremity, remains disoriented, mumbling, incoherent speech Vaughn catheter clear urine Objective Data Active Medications Acetaminophen (Acetaminophen 325 Mg Tablet) 650 mg PO Q6H PRN PRN Reason: Pain, Mild (Pain Scale 1-3), fever or headache Last Admin: 01/30/24 15:01 Dose: 650 mg Documented By: JOSE Lipase/Protease/Amylase (Lipase/Prot/Amylase /76/120k 1 Cap Capsule.Dr) 1 cap PO TID [facility] Last Admin: 02/05/24 09:21 Dose: Not Given Documented By: SHIRLEY Non-Admin Reason: Patient Refused Ascorbic Acid (Ascorbic Acid 500 Mg Tablet) 500 mg PO BID [facility] Last Admin: 02/05/24 09:21 Dose: Not Given Documented By: SHIRLEY Non-Admin Reason: Patient Refused Atorvastatin Calcium (Atorvastatin Calcium 40 Mg Tablet) 40 mg PO BEDTIME [facility] Last Admin: 02/04/24 21:23 Dose: Not Given Documented By: AD Non-Admin Reason: Patient Refused Calcium Carbonate (Calcium Carbonate 750 Mg Tab.Chew) 750 mg PO Q4H PRN PRN Reason: Heartburn Enoxaparin Sodium (Enoxaparin Sodium 40 Mg/0.4 Ml Syringe) 40 mg SUBCUT Q24H [facility] Last Admin: 01/28/24 13:27 Dose: 40 mg Documented By: MOE Famotidine (Famotidine 20 Mg Tablet) 40 mg PO BEDTIME [facility] Last Admin: 02/04/24 21:23 Dose: Not Given Documented By: AD Non-Admin Reason: Patient Refused Ferrous Sulfate (Ferrous Sulfate 324 Mg Tablet.Dr) 324 mg PO BIDWM [facility] Last Admin: 02/05/24 09:20 Dose: Not Given Documented By: SHIRLEY Non-Admin Reason: Patient Refused Dextrose/Lactated Ringer's (D5lr) 1,000 mls @ 100 mls/hr IVCONT .Q10H [facility] Last Admin: 02/05/24 13:10 Dose: 100 mls/hr Documented By: RERE Lidocaine (Lidocaine 4 % Patch Adh..Patch) 1 patch TRANSDERMA DAILY [facility] Last Admin: 02/05/24 09:21 Dose: Not Given Documented By: SHIRLEY Non-Admin Reason: Patient Refused Lorazepam (Lorazepam 2 Mg/Ml Vial) 2 mg IVPUSH Q6H PRN PRN Reason: anxiety/restlessness Last Admin: 02/05/24 08:48 Dose: 2 mg Documented By: SHIRLEY Magnesium Hydroxide (Milk Of Magnesia 30 Ml Oral.Susp) 30 ml PO DAILY PRN PRN Reason: Constipation Megestrol Acetate (Megestrol Acetate 400 Mg/10 Ml Oral.Susp) 400 mg PO BID [facility] Last Admin: 02/05/24 09:21 Dose: Not Given Documented By: SHIRLEY Non-Admin Reason: Patient Refused Melatonin (Melatonin 3 Mg Tablet) 6 mg PO BEDTIME PRN PRN Reason: Insomnia Midodrine (Midodrine Hcl 5 Mg Tablet) 5 mg PO TID [facility] Last Admin: 02/05/24 09:21 Dose: Not Given Documented By: SHIRLEY Non-Admin Reason: Patient Refused Nicotine (Nicotine 14 Mg Patch.Td24) 14 mg TRANSDERMA DAILY [facility] Last Admin: 02/05/24 09:22 Dose: Not Given Documented By: SHIRLEY Non-Admin Reason: Patient Refused Nicotine Polacrilex (Nicotine Polacrilex 2 Mg Gum) 2 mg BUCCAL Q2H PRN PRN Reason: Nicotine Cravings Olanzapine (Olanzapine 10 Mg Vial) 5 mg IM Q6H PRN PRN Reason: agitation Last Admin: 02/05/24 00:48 Dose: 5 mg Documented By: AD Olanzapine (Olanzapine Odt 10 Mg Tab.Rapdis) 10 mg TRANSLINGU Q6H PRN PRN Reason: Psychosis Omeprazole (Omeprazole 20 Mg Capsule.Dr) 20 mg PO BID@0630,1630 [facility] Last Admin: 02/05/24 06:01 Dose: Not Given Documented By: AD Non-Admin Reason: Patient Refused Risperidone (Risperidone 1 Mg Tablet) 1 mg PO BID [facility] Last Admin: 02/05/24 09:22 Dose: Not Given Documented By: SHIRLEY Non-Admin Reason: Patient Refused Senna/Docusate Sodium (Sennosides/Docusate Sodium Tablet) 2 tab PO BEDTIME [facility] Last Admin: 02/04/24 21:24 Dose: Not Given Documented By: AD Non-Admin Reason: Patient Refused Sodium Chloride (0.9 % Sodium Chloride Flush 3 Ml Syringe) 3 ml IVFLUSH QSHIFT [facility] Last Admin: 02/05/24 09:19 Dose: Not Given Documented By: SHIRLEY Non-Admin Reason: Previously Administered Tamsulosin HCl (Tamsulosin Hcl 0.4 Mg Capsule) 0.4 mg PO BEDTIME [facility] Last Admin: 02/04/24 21:24 Dose: Not Given Documented By: AD Non-Admin Reason: Patient Refused Labs 02/06/24 05:15 02/05/24 13:36 Assessment and Plan (1) Toxic metabolic encephalopathy: Status: Acute (2) Urine retention: Status: Acute Plan 63-year-old male with hyperlipidemia, chronic hepatitis-C s/p treatment, invasive bladder carcinoma s/p TURBT who is a current 1/2 pack per day cigarette smoker admitted with acute UTI and hypotension hypotension now resolved ; now is delirious and nonsensical. At this point in time I do not believe patient has a capacity to make decisions regarding his health and well-being. .. Section 12 signed 1. Acute toxic metabolic encephalopathy Initially felt to have hospital-acquired delirium due to persistent symptoms seen by psych and diagnosed to have psychosis and paranoid delusions has h/o history of major depressive disorder Normal renal function, liver enzymes, electrolytes, stable H&H, no WBC, U tox positive for opiates and oxycodone, CT head no acute intracranial process, no C- spine fracture Normal TSH, renal function, liver enzymes, ammonia and CPK last checked 02/02 Seen by psychiatry, Paxil, Seroquel , Cogentin and amitriptyline discontinued Now on risperidone 1 mg b.i.d.(refusing by mouth meds) and im Zyprexa q.6 hours prn and Ativan 2 mg IV q.6 hours on soft restrain/section [address]. maintain potassium greater than 4 magnesium greater than 2 healthcare proxy invoked,Sd Severo [phone] is HCP, called him several times on this number, someone picked up inside he is his brother jyotsna Elkins and gave a new number [phone] call this number and left message, will discuss goal of care with healthcare proxy. Spoke with primary contact Sandra Thomas [phone], she is patient's nurse from [facility], she will try to contact healthcare proxy and leave message for him to contact us. Continue IV fluids/repeat labs. Will order PPN due to poor by mouth intake, moderate malnutrition. 2.Acute UTi complicated with urine retention/hematuria -Vaughn catheter reinserted after patient noted to have bladder scan >671 , str cath for 900 ml bloody urine , hematuria due to trauma, Vaughn catheter reinserted patient started on CBI Will clamp CBI if urine remains clear. 3.Hypotension secondary -BP is stable, refusing midodrine ,follow BP closely to avoid hypotension 4.Bladder cancer diagnosed in 01/2023 -s/p TURBT, s/p cysto on 01/19, continue Flomax -scheduled for cystoscopy repeat Transurethral bladder tumor resection for 02/07/2024, if patient is medically stable urology would like to keep him on schedule 5.Left lower lobe lung lesion -CT chest on 07/02/2023 shows a focus of probable round atelectasis, further imaging recommended for follow-up -outpatient follow-up 6. Tobacco use disorder continue nicotine patch 7. Moderate malnutrition on supplements and Megace, /failure to thrive: refusing meds, as per patient's primary contact (his outpatient nurse) Sandra Thomas patient has not been eating drinking and doing poorly for last 6 months Sd Elkins [phone] is HCP, Healthcare proxy invoked since patient has no capacity, will call healthcare proxy and discuss goal of care. DVT prohylaxis- SCDs Patient required section 12 due to his inability to make decisions regarding his health and well-being. Will require continued inpatient hospitalization for managing acute psychosis, treatment can not be provided in less acute setting. Quality Stroke Does the patient have a stroke diagnosis?: No VTE Prior VTE?: No VTE Risk Level:: Medical - moderate - high VTE Device Contraindication: Treatment Not Indicated VTE Drug Contraindication: N/A - Med Ordered
--- NOTE | 2024-02-05 13:30 | PC.NURSE ---
Labs ordered, ICU MD in to assess pt.
[2024-02-05 13:53] LABS: Alanine Aminotransferase 20 U/L (0-40); Albumin Level 4.4 g/dL (3.5-5.0); Alkaline Phosphatase 79 U/L (39-117); Aspartate Amino Transferase 34 U/L (5-37); Bilirubin Direct 0.2 mg/dL (0.0-0.5); Bilirubin Total 0.6 mg/dL (0.0-1.0); Total Protein 7.1 g/dL (6.5-8.0)
[2024-02-05 13:56] LABS: Alanine Aminotransferase 20 U/L (0-40); Albumin Level 4.4 g/dL (3.5-5.0); Alkaline Phosphatase 79 U/L (39-117); Anion Gap 18 (12-20); Aspartate Amino Transferase 33 U/L (5-37); Bilirubin Total 0.6 mg/dL (0.0-1.0); Blood Urea Nitrogen 16 mg/dL (9-16); Calcium 10.1 mg/dL (8.4-10.2); Carbon Dioxide 21 mmol/L (22-29); Chloride 107 mmol/L (96-108); Creatinine Clr Calc Pharmacy 65.4; Estimated Glomerular Filt Rate > 60; Glucose Random 98 mg/dL (60-115); Potassium 4.3 mmol/L (3.3-5.1); Sodium 142 mmol/L (135-145); Total Protein 7.3 g/dL (6.5-8.0)
[2024-02-05 14:02] LABS: Triglycerides 71 mg/dL (<150)
[2024-02-05] MEDS: Parenteral Nutrition 960 ML 40 ML IV (21:12)
[2024-02-06] VITALS (12 sets, daily range): BP systolic 100–143; BP diastolic 58–92; PULSE 72–125; RESP 12–20; TEMP 36.1–36.8; O2SAT 93–100; BMI 15.9
[2024-02-06] MEDS: OLANZapine 10 MG VIAL 5 MG IM ×2 (05:31→20:49)
[2024-02-06] MEDS: LORazepam 2 MG/ML VIAL IVPUSH ×3 (05:31→20:33)
[2024-02-06 06:31] LABS: Hematocrit 44.6 % (42.0-52.0); Hemoglobin 14.4 g/dl (14.0-18.0); Mean Corpuscular HGB Conc 32.3 g/dl (31.0-36.0); Mean Corpuscular Hemoglobin 27.4 pg (27.0-33.0); Mean Platelet Volume 10.4 fL (9.4-12.4); Platelet Count 308 X10*3/uL (160-400); Red Blood Count 5.25 X10*6/uL (4.60-5.80); Red Cell Distribution Width 14.5 % (11.0-16.0); White Blood Count 10.3 X10*3/uL (4.8-10.8)
[2024-02-06 09:19] LABS: Alanine Aminotransferase 24 U/L (0-40); Albumin Level 4.6 g/dL (3.5-5.0); Alkaline Phosphatase 87 U/L (39-117); Anion Gap 15 (12-20); Aspartate Amino Transferase 43 U/L (5-37); Bilirubin Total 0.6 mg/dL (0.0-1.0); Blood Urea Nitrogen 17 mg/dL (9-16); Calcium 10.8 mg/dL (8.4-10.2); Chloride 108 mmol/L (96-108); Creatinine Clr Calc Pharmacy 61.6; Estimated Glomerular Filt Rate > 60; Glucose Random 112 mg/dL (60-115); Potassium 4.9 mmol/L (3.3-5.1); Sodium 144 mmol/L (135-145); Total Protein 7.7 g/dL (6.5-8.0)
[2024-02-06 09:37] LABS: Carbon Dioxide 24 mmol/L (22-29)
--- NOTE | 2024-02-06 09:50 | PC.NURSE ---
Found patients medications in ED. Attempted to contact patient with no success; Phone number on file has been disconnected. Contacted his pharmacy for alternate phone number #[phone]. Message left. Will send to pharmacy for safe keeping.
--- NOTE | 2024-02-06 11:13 | MHC.CLN ---
F/U PATIENT WITH USUALLY POOR PO. PT STARTED PPN 02/04. REVIEWED LABS. COMMUNICATED WITH PHARMACY. RECOMMEND ADVANCE PPN TODAY TO: PPN AT 60 ML/HR TO PROVIDE 734 KCALS, 144 G DEXTROSE, 61 G PROTEIN. REPLETE LYTES NEEDED. RECOMMEND ADVANCE TO MAX GOAL RATE ON DAY 3, 02/07/24: PPN AT 75 ML PER HOUR PLUS 70 G LIPIDS (1.4 G/KG). PROVIDES 1618 TOTAL KCALS (32.2 KCAL/KG); 180 G DEXTROSE; 77 G PROTEIN (1.53 G/KG). REPLETE LYTES NEEDED. FOLLOW FOR PPN TOLERANCE, PO INTAKE, AND PLAN OF CARE. SEE CLINICAL NUTRITION ASSESSMENT 02/06/24.
[2024-02-06 11:46] LABS: Magnesium 2.2 mg/dL (1.6-2.6)
--- NOTE | 2024-02-06 13:28 | HO.PM.IMPN ---
Subjective Subjective Date of Service: 02/06/24 Interval History: No change in condition. Persistent symptoms of agitation, refusing medications lab draws, pulling lines. Review of Systems Unable to obtain due to mental status. Physical Exam Vital Signs: Vital Signs: Last Vital Signs Temp 96.9 F 02/06/24 12:06 Pulse 90 02/06/24 12:06 Resp 12 02/06/24 12:06 BP 132/67 02/06/24 12:06 Pulse Ox 94 02/06/24 12:06 O2 Del Method Room Air 02/06/24 12:06 BMI result Body Mass Index 15.9 Const: Other: General frail, emaciated, appears chronically sick. Oral mucosa dry/dry coating on lips, sunken eyes Neck no JVD. CVS regular rate rhythm, Respiratory lungs clear to auscultation, no respiratory distress, no wheeze, no rhonchi. Gastrointestinal abdomen soft, bowel sounds audible Extremities no edema. Neuro non focal, moving all 4 extremity, remains disoriented, mumbling, incoherent speech Vaughn catheter light pink urine Objective Data Active Medications Acetaminophen (Acetaminophen 325 Mg Tablet) 650 mg PO Q6H PRN PRN Reason: Pain, Mild (Pain Scale 1-3), fever or headache Last Admin: 01/30/24 15:01 Dose: 650 mg Documented By: JOSE Lipase/Protease/Amylase (Lipase/Prot/Amylase 24/76/120k 1 Cap Capsule.Dr) 1 cap PO TID COUNTS INCLUDE 234 BEDS AT THE [facility] Last Admin: 02/06/24 07:13 Dose: Not Given Documented By: KARINA Non-Admin Reason: Patient Refused Ascorbic Acid (Ascorbic Acid 500 Mg Tablet) 500 mg PO BID COUNTS INCLUDE 234 BEDS AT THE [facility] Last Admin: 02/06/24 07:12 Dose: Not Given Documented By: KARINA Non-Admin Reason: Patient Refused Atorvastatin Calcium (Atorvastatin Calcium 40 Mg Tablet) 40 mg PO BEDTIME COUNTS INCLUDE 234 BEDS AT THE [facility] Last Admin: 02/05/24 21:40 Dose: Not Given Documented By: CAROL Non-Admin Reason: Patient Refused Calcium Carbonate (Calcium Carbonate 750 Mg Tab.Chew) 750 mg PO Q4H PRN PRN Reason: Heartburn Enoxaparin Sodium (Enoxaparin Sodium 40 Mg/0.4 Ml Syringe) 40 mg SUBCUT Q24H COUNTS INCLUDE 234 BEDS AT THE [facility] Last Admin: 01/28/24 13:27 Dose: 40 mg Documented By: MOE Famotidine (Famotidine 20 Mg Tablet) 40 mg PO BEDTIME COUNTS INCLUDE 234 BEDS AT THE [facility] Last Admin: 02/05/24 21:40 Dose: Not Given Documented By: CAROL Non-Admin Reason: Patient Refused Ferrous Sulfate (Ferrous Sulfate 324 Mg Tablet.Dr) 324 mg PO BIDWM COUNTS INCLUDE 234 BEDS AT THE [facility] Last Admin: 02/06/24 07:12 Dose: Not Given Documented By: KARINA Non-Admin Reason: Patient Refused Nutrition (Parenteral) (Parenteral Nutrition) 960 mls @ 40 mls/hr IV .Q24H COUNTS INCLUDE 234 BEDS AT THE [facility]; Protocol Stop: 02/06/24 20:59 Last Admin: 02/05/24 21:12 Dose: 40 mls/hr Documented By: CAROL Nutrition (Parenteral) (Parenteral Nutrition) 1,440 mls @ 60 mls/hr IV .Q24H COUNTS INCLUDE 234 BEDS AT THE [facility]; Protocol Stop: 02/07/24 20:59 Lidocaine (Lidocaine 4 % Patch Adh..Patch) 1 patch TRANSDERMA DAILY COUNTS INCLUDE 234 BEDS AT THE [facility] Last Admin: 02/06/24 07:13 Dose: Not Given Documented By: KARINA Non-Admin Reason: Patient Refused Lorazepam (Lorazepam 2 Mg/Ml Vial) 2 mg IVPUSH Q6H PRN PRN Reason: anxiety/restlessness Last Admin: 02/06/24 05:31 Dose: 2 mg Documented By: CAROL Magnesium Hydroxide (Milk Of Magnesia 30 Ml Oral.Susp) 30 ml PO DAILY PRN PRN Reason: Constipation Megestrol Acetate (Megestrol Acetate 400 Mg/10 Ml Oral.Susp) 400 mg PO BID COUNTS INCLUDE 234 BEDS AT THE [facility] Last Admin: 02/06/24 07:13 Dose: Not Given Documented By: KARINA Non-Admin Reason: Patient Refused Melatonin (Melatonin 3 Mg Tablet) 6 mg PO BEDTIME PRN PRN Reason: Insomnia Midodrine (Midodrine Hcl 5 Mg Tablet) 5 mg PO TID COUNTS INCLUDE 234 BEDS AT THE [facility] Last Admin: 02/06/24 07:13 Dose: Not Given Documented By: KARINA Non-Admin Reason: Patient Refused Nicotine (Nicotine 14 Mg Patch.Td24) 14 mg TRANSDERMA DAILY COUNTS INCLUDE 234 BEDS AT THE [facility] Last Admin: 02/06/24 07:13 Dose: Not Given Documented By: KARINA Non-Admin Reason: Patient Refused Nicotine Polacrilex (Nicotine Polacrilex 2 Mg Gum) 2 mg BUCCAL Q2H PRN PRN Reason: Nicotine Cravings Olanzapine (Olanzapine 10 Mg Vial) 5 mg IM Q6H PRN PRN Reason: agitation Last Admin: 02/06/24 05:31 Dose: 5 mg Documented By: CAROL Olanzapine (Olanzapine Odt 10 Mg Tab.Rapdis) 10 mg TRANSLINGU Q6H PRN PRN Reason: Psychosis Omeprazole (Omeprazole 20 Mg Capsule.Dr) 20 mg PO BID@0630,1630 COUNTS INCLUDE 234 BEDS AT THE [facility] Last Admin: 02/06/24 05:32 Dose: Not Given Documented By: CAROL Non-Admin Reason: Patient Refused Pharmacy Consult (Consult Rx Parenteral Nutrition Ordering) 1 each MISCELLANE DAILY PRN PRN Reason: Consult order Risperidone (Risperidone 1 Mg Tablet) 1 mg PO BID COUNTS INCLUDE 234 BEDS AT THE [facility] Last Admin: 02/06/24 07:13 Dose: Not Given Documented By: KARINA Non-Admin Reason: Patient Refused Senna/Docusate Sodium (Sennosides/Docusate Sodium Tablet) 2 tab PO BEDTIME COUNTS INCLUDE 234 BEDS AT THE [facility] Last Admin: 02/05/24 21:41 Dose: Not Given Documented By: CAROL Non-Admin Reason: Patient Refused Sodium Chloride (0.9 % Sodium Chloride Flush 3 Ml Syringe) 3 ml IVFLUSH QSHIFT COUNTS INCLUDE 234 BEDS AT THE [facility] Last Admin: 02/06/24 07:12 Dose: Not Given Documented By: KARINA Non-Admin Reason: IV Running Tamsulosin HCl (Tamsulosin Hcl 0.4 Mg Capsule) 0.4 mg PO BEDTIME COUNTS INCLUDE 234 BEDS AT THE [facility] Last Admin: 02/05/24 21:41 Dose: Not Given Documented By: CAROL Non-Admin Reason: Patient Refused Labs 02/06/24 05:15 02/06/24 08:55 Labs: Laboratory Results - last 24 hr 02/05/24 02/05/24 02/05/24 13:30 13:30 13:30 MCV MCH MCHC RDW Plt Count MPV Absolute Nucleated RBC Nucleated RBC % (auto) Anion Gap Estim Creat Clear Calc Estimated GFR Random Glucose Calcium Phosphorus 4.0 Cancelled Magnesium 2.0 Cancelled Total Bilirubin 0.6 Direct Bilirubin 0.2 AST 34 ALT 20 Alkaline Phosphatase 79 Total Protein 7.1 Albumin 4.4 Triglycerides 02/05/24 02/05/24 02/05/24 13:30 13:31 13:36 MCV MCH MCHC RDW Plt Count MPV Absolute Nucleated RBC Nucleated RBC % (auto) Anion Gap Cancelled 18 Estim Creat Clear Calc Cancelled 65.4 Estimated GFR Cancelled > 60 Random Glucose Cancelled 98 Calcium Cancelled 10.1 Phosphorus Magnesium Total Bilirubin 0.6 Direct Bilirubin AST 33 ALT 20 Alkaline Phosphatase 79 Total Protein 7.3 Albumin Cancelled 4.4 Triglycerides 71 02/06/24 02/06/24 02/06/24 05:15 08:55 11:23 MCV 85.0 MCH 27.4 MCHC 32.3 RDW 14.5 Plt Count 308 MPV 10.4 Absolute Nucleated RBC 0.000 Nucleated RBC % (auto) 0.0 Anion Gap 15 Estim Creat Clear Calc 61.6 Estimated GFR > 60 Random Glucose 112 Calcium 10.8 H D Phosphorus 4.0 Magnesium 2.2 Total Bilirubin 0.6 Direct Bilirubin AST 43 H ALT 24 Alkaline Phosphatase 87 Total Protein 7.7 Albumin 4.6 Triglycerides Assessment and Plan (1) Psychotic disorder: Status: Acute (2) Urine retention: Status: Acute Plan 63-year-old male with hyperlipidemia, chronic hepatitis-C s/p treatment, invasive bladder carcinoma s/p TURBT who is a current 1/2 pack per day cigarette smoker admitted with acute UTI and hypotension hypotension now resolved ; now is delirious and nonsensical. At this point in time I do not believe patient has a capacity to make decisions regarding his health and well-being. .. Section 12 signed 1. Acute toxic metabolic encephalopathy Initially felt to have hospital-acquired delirium due to persistent symptoms seen by psych and diagnosed to have psychosis and paranoid delusions has h/o history of major depressive disorder, patient treated with Zyprexa 5 mg IM and Ativan 2 mg IV q.6 hours, soft hand restraints place since patient's symptoms were not controlled with above patient required couple doses of Geodon, had normal renal function, liver enzymes, electrolytes, stable H&H, no WBC, U tox positive for opiates and oxycodone, CT head no acute intracranial process, no C-spine fracture, Normal TSH, ammonia and CPK last checked 02/02, all other psych medications Paxil, Seroquel , Cogentin and amitriptyline discontinued , patient placed on PPN, noted no change in patient condition case discussed with family patient's [id number] and Sd Elkins HCP discussed goal of care , inform family about ongoing psychosis of 1 year ,decreased by mouth intake, failure to thrive, falling at home, refusal of treatment including lab draws, voiding trials, hematuria with bladder cancer requiring recurrent procedures including cystoscopy and Transurethral bladder tumor resection, healthcare proxy decided for hospice Therefore will consult hospice and will hold further lab draws and aggressive treatment. Will continue current iv psychiatric medications. 2.Acute UTi complicated with urine retention/hematuria, finished course of antibiotic continue Vaughn catheter, clamp CBI, H&H stable. 3.Hypotension stable BP. 4.Bladder cancer diagnosed in 01/2023 -scheduled for cystoscopy repeat Transurethral bladder tumor resection for 02/07/2024, will notify Urology about pts. condition and hospice . 5. Moderate malnutrition started on IV PPN, will discontinue since patient will be on hospice await hospice eval. Sdjacquelyn Elkins [phone] is HCP, Healthcare proxy invoked since patient has no capacity. DVT prohylaxis- SCDs Patient required section 12 due to his inability to make decisions regarding his health and well-being.waiting for hospice eval cont. inpatient hospitalization for managing acute psychosis, treatment can not be provided in less acute setting. Quality Stroke Does the patient have a stroke diagnosis?: No VTE Prior VTE?: No VTE Risk Level:: Medical - moderate - high VTE Device Contraindication: Treatment Not Indicated VTE Drug Contraindication: N/A - Med Ordered
--- NOTE | 2024-02-06 13:45 | MHC.CM.PN ---
THIS CM MET WITH PT'S BROTHER CELSO AND ASIYA GROSS TO DISCUSS PLAN WITH PROVIDER.. BROTHER WAS EDUCATED ON THE ROLE OF BEING A HCP, VERBALIZES UNDERSTANDING AND IS AGREEABLE TO CONTINUE HCP. BROTHER IS ALSO AGREEABLE TO A HOSPICE CONSULT/INFORMATIONAL WITH [facility]. REFERRAL SENT. CM WILL CONTINUE TO FOLLOW FOR PLAN.
--- NOTE | 2024-02-06 14:48 | P.CDIM_ITS ---
PROVIDER RESPONSE TEXT: To clarify, the appropriate diagnosis supported by the clinical indicators: Moderate QUERY TEXT: PHYSICIAN'S DOCUMENTATION REQUEST Date of Query: 02/06/2024 11:32 AM EDT Patient Name: Ezra Elkins Admit Date: 02/01/2024 Dear Gera Barone MD, A review of the medical record indicates additional documentation may be needed. Please review below and update the documentation accordingly. Progress notes 01/28 - 01/31 within the Plan: Hypotension secondary to severe malnutrition and weight l oss. Progress notes 02/02-present within the Plan: Moderate malnutrition on supplements and Megace. Clinical nutrition assessment - Moderately malnourished in the context of chronic illness - accepts E nsure. BMI 15.9 If possible, please provide specificity regarding the severity of the malnutrition using the above in formation for consistency and clarity within the medical record: Mild Moderate Severe Other (explain) Clinically unable to determine (explain) Thank you, Clementina Garza, CCS, CDIS Use of terms such as suspected, likely, concern for, or probable (associated with a specific diagnosi s that is being evaluated, monitored, or treated as if it exists) are acceptable and can be coded in the inpatient se tting, when documented at the time of discharge. Please use your independent medical judgment in providing your response. THIS QUERY IS PART OF THE PERMANENT MEDICAL RECORD
[2024-02-06] MEDS: 0.9 % Sodium Chloride Flush 3 ML SYRINGE IVFLUSH (15:12)
--- NOTE | 2024-02-06 15:18 | PC.NURSE ---
Assumed care of pt at 14:45 at this time pt pulling against restraints trying to reach IV and tubing lines. Pt yelling out and trying to throw legs OOB. PRN Ativan given per orders, pending effectivness. RU and MINO soft wrist restraints remain in place, restraints adjusted and checked at this time.
--- NOTE | 2024-02-06 17:04 | PC.NURSE ---
Addendum entered by Janeth Mcmahan RN 02/06/24 17:36: CBI draining maroon color in tubing, CBI restarted. Original Note: CBI cath draining clear/pink tinged urine. Per MD Yin clamp CBI at this time.
[2024-02-06] MEDS: Parenteral Nutrition 1,440 ML 60 ML IV (21:26)
[2024-02-07] VITALS (9 sets, daily range): BP systolic 111–134; BP diastolic 58–83; PULSE 87–108; RESP 17–20; TEMP 36.1–36.6; O2SAT 98–99
[2024-02-07] MEDS: LORazepam 2 MG/ML VIAL IVPUSH ×3 (05:13→17:26)
[2024-02-07 06:22] LABS: Alanine Aminotransferase 22 U/L (0-40); Albumin Level 4.2 g/dL (3.5-5.0); Alkaline Phosphatase 76 U/L (39-117); Anion Gap 15 (12-20); Aspartate Amino Transferase 37 U/L (5-37); Bilirubin Total 0.6 mg/dL (0.0-1.0); Blood Urea Nitrogen 22 mg/dL (9-16); Calcium 9.6 mg/dL (8.4-10.2); Carbon Dioxide 18 mmol/L (22-29); Chloride 111 mmol/L (96-108); Creatinine Clr Calc Pharmacy 70.6; Estimated Glomerular Filt Rate > 60; Glucose Random 113 mg/dL (60-115); Magnesium 2.3 mg/dL (1.6-2.6); Phosphorus 4.4 mg/dL (2.7-4.5); Sodium 140 mmol/L (135-145)
[2024-02-07] MEDS: OLANZapine 10 MG VIAL 5 MG IM ×2 (07:37→13:22)
--- NOTE | 2024-02-07 10:53 | MHC.CLN ---
F/U PT CURRENTLY NPO WITH PPN REVIEWED LABS COMMUNICATED WITH PHARMACY RECOMMEND ADVANCE TO MAX GOAL RATE: PPN AT 75 ML PER HOUR PLUS 70 G LIPIDS (1.4 G/KG) PROVIDES 1618 TOTAL KCALS (32.2 KCAL/KG); 180 G DEXTROSE; 77 G PROTEIN (1.53 G/KG) REPLETE LYTES NEEDED POSSIBLE TRANSITION TO HOSPICE FOLLOWING WITH TEAM
--- NOTE | 2024-02-07 14:29 | MHC.CM.PN ---
Hospice has scheduled a meeting with the HCP/Sd between at 4-4:30pm today. They will meet in the [facility] Building. The plan is to sign the patient on to hospice + GIP at the meeting.
--- NOTE | 2024-02-07 16:08 | P.PNIM_ITS ---
Subjective Subjective Date of Service: 02/07/24 Interval History: No change in clinical condition. Remains disoriented, mumbling. Review of Systems Unable to obtain due to clinical condition Physical Exam 2 Vital Signs: Vital Signs: Last Vital Signs Temp 97.0 F 02/07/24 13:29 Pulse 89 02/07/24 13:29 Resp 20 02/07/24 13:29 BP 111/63 02/07/24 13:29 Pulse Ox 98 02/07/24 12:00 O2 Del Method Room Air 02/07/24 13:29 BMI result Body Mass Index 15.9 Const: Other: General frail, emaciated, appears chronically sick. Oral mucosa dry/dry coating on lips, sunken eyes Neck no JVD. CVS regular rate rhythm, Respiratory lungs clear to auscultation, no respiratory distress, no wheeze, no rhonchi. Gastrointestinal abdomen soft, bowel sounds audible Extremities no edema. Neuro non focal, moving all 4 extremity, remains disoriented, mumbling, incoherent speech Vaughn catheter light pink urine Objective Data Active Medications Acetaminophen (Acetaminophen 325 Mg Tablet) 650 mg PO Q6H PRN PRN Reason: Pain, Mild (Pain Scale 1-3), fever or headache Last Admin: 01/30/24 15:01 Dose: 650 mg Documented By: JOSE Lipase/Protease/Amylase (Lipase/Prot/Amylase 24/76/120k 1 Cap Capsule.Dr) 1 cap PO TID [facility] Last Admin: 02/07/24 13:18 Dose: Not Given Documented By: DABA Non-Admin Reason: Patient Refused Ascorbic Acid (Ascorbic Acid 500 Mg Tablet) 500 mg PO BID [facility] Last Admin: 02/07/24 06:56 Dose: Not Given Documented By: DABA Non-Admin Reason: Patient Refused Atorvastatin Calcium (Atorvastatin Calcium 40 Mg Tablet) 40 mg PO BEDTIME [facility] Last Admin: 02/06/24 21:36 Dose: Not Given Documented By: LYSZ Non-Admin Reason: Patient Refused Calcium Carbonate (Calcium Carbonate 750 Mg Tab.Chew) 750 mg PO Q4H PRN PRN Reason: Heartburn Enoxaparin Sodium (Enoxaparin Sodium 40 Mg/0.4 Ml Syringe) 40 mg SUBCUT Q24H [facility] Last Admin: 01/28/24 13:27 Dose: 40 mg Documented By: MOE Famotidine (Famotidine 20 Mg Tablet) 40 mg PO BEDTIME [facility] Last Admin: 02/06/24 21:36 Dose: Not Given Documented By: [place]OR[place] Non-Admin Reason: Patient Refused Ferrous Sulfate (Ferrous Sulfate 324 Mg Tablet.Dr) 324 mg PO BIDWM [facility] Last Admin: 02/07/24 15:29 Dose: Not Given Documented By: RONAN Non-Admin Reason: Patient Refused Nutrition (Parenteral) (Parenteral Nutrition) 1,440 mls @ 60 mls/hr IV .Q24H [facility]; Protocol Stop: 02/07/24 20:59 Last Admin: 02/06/24 21:26 Dose: 60 mls/hr Documented By: FLOR[place] Lidocaine (Lidocaine 4 % Patch Adh..Patch) 1 patch TRANSDERMA DAILY [facility] Last Admin: 02/07/24 06:56 Dose: Not Given Documented By: RONAN Non-Admin Reason: Patient Refused Lorazepam (Lorazepam 2 Mg/Ml Vial) 2 mg IVPUSH Q6H PRN PRN Reason: anxiety/restlessness Last Admin: 02/07/24 11:31 Dose: 2 mg Documented By: RONAN Magnesium Hydroxide (Milk Of Magnesia 30 Ml Oral.Susp) 30 ml PO DAILY PRN PRN Reason: Constipation Megestrol Acetate (Megestrol Acetate 400 Mg/10 Ml Oral.Susp) 400 mg PO BID [facility] Last Admin: 02/07/24 06:57 Dose: Not Given Documented By: RONAN Non-Admin Reason: Patient Refused Melatonin (Melatonin 3 Mg Tablet) 6 mg PO BEDTIME PRN PRN Reason: Insomnia Midodrine (Midodrine Hcl 5 Mg Tablet) 5 mg PO TID [facility] Last Admin: 02/07/24 14:29 Dose: Not Given Documented By: RONAN Non-Admin Reason: Patient Refused Nicotine (Nicotine 14 Mg Patch.Td24) 14 mg TRANSDERMA DAILY [facility] Last Admin: 02/07/24 06:57 Dose: Not Given Documented By: RONAN Non-Admin Reason: Patient Refused Nicotine Polacrilex (Nicotine Polacrilex 2 Mg Gum) 2 mg BUCCAL Q2H PRN PRN Reason: Nicotine Cravings Olanzapine (Olanzapine 10 Mg Vial) 5 mg IM Q6H PRN PRN Reason: agitation Last Admin: 02/07/24 13:22 Dose: 5 mg Documented By: RONAN Olanzapine (Olanzapine Odt 10 Mg Tab.Rapdis) 10 mg TRANSLINGU Q6H PRN PRN Reason: Psychosis Omeprazole (Omeprazole 20 Mg Capsule.) 20 mg PO BID@0630,1630 [facility] Last Admin: 02/07/24 14:35 Dose: Not Given Documented By: RONAN Non-Admin Reason: Patient Refused Risperidone (Risperidone 1 Mg Tablet) 1 mg PO BID [facility] Last Admin: 02/07/24 06:57 Dose: Not Given Documented By: ROANN Non-Admin Reason: Patient Refused Senna/Docusate Sodium (Sennosides/Docusate Sodium Tablet) 2 tab PO BEDTIME [facility] Last Admin: 02/06/24 21:37 Dose: Not Given Documented By: [place]OR[place] Non-Admin Reason: Patient Refused Sodium Chloride (0.9 % Sodium Chloride Flush 3 Ml Syringe) 3 ml IVFLUSH QSHIFT [facility] Last Admin: 02/07/24 14:29 Dose: Not Given Documented By: RONAN Non-Admin Reason: IV Running Tamsulosin HCl (Tamsulosin Hcl 0.4 Mg Capsule) 0.4 mg PO BEDTIME [facility] Last Admin: 02/06/24 21:37 Dose: Not Given Documented By: [place]OR[place] Non-Admin Reason: Patient Refused Labs 02/06/24 05:15 02/07/24 05:49 Labs: Laboratory Results - last 24 hr 02/07/24 05:49 Hold Purple Top SEE NOTE Anion Gap 15 Estim Creat Clear Calc 70.6 Estimated GFR > 60 Random Glucose 113 Calcium 9.6 D Phosphorus 4.4 Magnesium 2.3 Total Bilirubin 0.6 AST 37 ALT 22 Alkaline Phosphatase 76 Total Protein 7.0 Albumin 4.2 Assessment and Plan Plan 63-year-old male with hyperlipidemia, chronic hepatitis-C s/p treatment, invasive bladder carcinoma s/p TURBT who is a current 1/2 pack per day cigarette smoker admitted with acute UTI and hypotension hypotension now resolved ; now is delirious and nonsensical. At this point in time I do not believe patient has a capacity to make decisions regarding his health and well-being. .. Section 12 signed 1. Acute toxic metabolic encephalopathy Initially felt to have hospital-acquired delirium due to persistent symptoms seen by psych and diagnosed to have psychosis and paranoid delusions has h/o history of major depressive disorder, patient treated with Zyprexa 5 mg IM and Ativan 2 mg IV q.6 hours, soft hand restraints place since patient's symptoms were not controlled with above patient required couple doses of Geodon, had normal renal function, liver enzymes, electrolytes, stable H&H, no WBC, U tox positive for opiates and oxycodone, CT head no acute intracranial process, no C-spine fracture, Normal TSH, ammonia and CPK last checked 02/02, all other psych medications Paxil, Seroquel , Cogentin and amitriptyline discontinued , patient placed on PPN, noted no change in patient condition case discussed with family patient's [id number]-max and Sd Elkins HCP discussed goal of care , inform family about ongoing psychosis of 1 year ,decreased by mouth intake, failure to thrive, falling at home, refusal of treatment including lab draws, voiding trials, hematuria with bladder cancer requiring recurrent procedures including cystoscopy and Transurethral bladder tumor resection, healthcare proxy decided for hospice Therefore will consult hospice and will hold further lab draws and aggressive treatment. Will continue current iv psychiatric medications. 2.Acute UTi complicated with urine retention/hematuria, finished course of antibiotic continue Vaughn catheter, clamp CBI, H&H stable. 3.Hypotension stable BP. 4.Bladder cancer diagnosed in 01/2023 -scheduled for cystoscopy repeat Transurethral bladder tumor resection for 02/07/2024, will notify Urology about pts. condition and hospice . 5. Moderate malnutrition started on IV PPN, will discontinue since patient will be on hospice await hospice eval. Sd Elkins [phone] is HCP, Healthcare proxy invoked since patient has no capacity. DVT prohylaxis- SCDs Patient required section 12 due to his inability to make decisions regarding his health and well-being.waiting for hospice eval cont. inpatient hospitalization for managing acute psychosis, treatment can not be provided in less acute setting. Quality Stroke Does the patient have a stroke diagnosis?: No VTE Prior VTE?: No VTE Risk Level:: Medical - moderate - high VTE Device Contraindication: Treatment Not Indicated VTE Drug Contraindication: N/A - Med Ordered
--- NOTE | 2024-02-08 10:34 | P.DS_ITS ---
DS: Providers Provider Date of admission: 02/07/24 17:33 Primary care physician: Marga Garrido MD DS: Summary Hospital Course Hospital Course: History of presenting illness: Attending physician on admission: Raúl Escobedo Chief Complaint: fall 63-year-old male with hyperlipidemia, chronic hepatitis-C s/p treatment, invasive bladder carcinoma s/p TURBT who is a current 1/2 pack per day cigarette smoker presented to the ED following a fall. He reports he felt lightheaded and fell forward landing on the left side of his face. There was no loss of consciousness and denies any blood thinner use. He is currently following with Urology and recently underwent cystoscopy on 01/19 and has been on prophylactic Bactrim. He is currently reporting dysuria and urgency but reports this is baseline but no hematuria, increased urinary frequency. He denies fevers, chills, abd pain, flank pain, n/v/d, ongoing lightheadedness, palpitations, sob, chest pain. He reports he only drinks coffee throughout the day, no water. Otherwise good po intake. On arrival was normotensive but did develop hypotension to 77/47 received 3 L IVF with improvement to 120/48. Remains normotensive on admission with negative orthostatic vital signs. Hematology studies show a stable normocytic anemia, no other abnormalities. Renal function and electrolyte levels are normal. BNP undetectable, troponin 4.2. Urinalysis with 3+ blood, 2+ leukocytes, positive urinary sediment. Urine drug screen positive for opiates/oxycodone. Negative for COVID-19. Head CT negative for any acute intracranial abnormality. CT cervical spine negative for any fracture or malalignment. CXR shows advanced emphysema but nothing acute. There is a stable irregular lesion of the left lower lobe and follow-up CT. Humerus x-ray negative. In the ED, has received 3 L IVF and 1 g Rocephin. Hospital course: 63-year-old male with hyperlipidemia, chronic hepatitis-C s/p treatment, invasive bladder carcinoma s/p TURBT admitted with acute UTI ,hypotension and acute toxic metabolic encephalopathy , he finished a course of antibiotics for UTI, underwent extensive testing for encephalopathy,renal function, liver enzymes, electrolytes were all normal, U tox positive for opiates and oxycodone, CT head showed no acute intracranial process, no C-spine fracture, Normal TSH, ammonia and CPK , patient was evaluated closely by Psychiatry medications were adjusted patient was placed on Zyprexa IM and Ativan due to persistent restlessness, aggressive behavior, refusing medications and diet, patient was deemed incompetent by Psychiatry, healthcare proxy was invoked, goal of care discussed with Sd Elkins HCP due to non resolving metabolic encephalopathy, underlying cancer, failure to thrive family agreed for hospice/comfort measures, patient evaluated by hospice and transition to hospice [facility]. All home medication discontinued, patient placed on morphine sulfate 4 mg q.3 hours as needed, Zyprexa 5 mg IM q.6 hours as needed lorazepam 2 mg IV q.4 hours as needed and Tylenol 650 mg suppository q.4 hours as needed. Time Attestation Total time managing care of this patient today: 40 mintues. Discharge Coordination Time (in mins): 40 min Quality: Safe Use of Opioids Does Pt have an Active Cancer Diagnosis on the Problem List?: Yes Opioid Measure Date for [facility] Report: 01/09/24 Opioid Measure Time for [facility] Report: 10:37 Quality: Stroke Does the patient have a stroke diagnosis?: No DS: Data Data Completed and Pending Completed studies during hospitalization [Text1]: Procedures Excision of Bladder Neck, Via Natural or Artificial Opening Endoscopic (07/01/23) Excision of Bladder, Via Natural or Artificial Opening Endoscopic (07/01/23) Transfusion of Nonautologous Red Blood Cells into Peripheral Vein, Percutaneous Approach (07/01/23) Discharge Plan Discharge Anticipated Discharge Date/Time: 02/07/24 20:00 Patient Disposition: Hospice - Medical Facility Discharge Diagnosis: hospice Referrals: Marga Garrido MD [Primary Care Provider] - 1 Week Discharge Orders: Discharge Order (Routine); Ordered 02/08/24 Ordered By: Gera Barone Diet: Advance to usual diet Activity on Discharge: As tolerated Stand Alone Forms: Patient Portal Discharge page Print Language: Latvian Care Plan Goals: hospice Health Concerns: hospice Plan of Treatment: hospice Assessment: hospice
== END 2024-02-07 17:34 | disposition hospice, inpatient (51) | DRG 751 ==
LOC: HO.ED 01-27 13:33 → HO.EDOVER 01-27 14:34 → HO.S3 01-27 16:39
PROVIDERS: Student in an Organized Health Care Education/Training Program; Admitting Provider Physician Assistant; Emergency Provider Emergency Medicine; PCP Family Medicine; Visit Provider Hospitalist
DX: F29 Unspecified psychosis not due to a substance or known physiological condition (principal); G92.8 Other toxic encephalopathy; E44.0 Moderate protein-calorie malnutrition; E88.A Wasting disease (syndrome) due to underlying condition; C67.9 Malignant neoplasm of bladder, unspecified; I95.9 Hypotension, unspecified; D63.0 Anemia in neoplastic disease; B18.2 Chronic viral hepatitis C; N39.0 Urinary tract infection, site not specified; Z51.5 Encounter for palliative care; E86.0 Dehydration; R33.9 Retention of urine, unspecified; R31.9 Hematuria, unspecified; F17.210 Nicotine dependence, cigarettes, uncomplicated; W19.XXXA Unspecified fall, initial encounter; T50.915A Adverse effect of multiple unspecified drugs, medicaments and biological substances, initial encounter; J43.9 Emphysema, unspecified; K21.9 Gastro-esophageal reflux disease without esophagitis; J98.11 Atelectasis; F39 Unspecified mood [affective] disorder; Z68.1 Body mass index [BMI] 19.9 or less, adult; Z20.822 Contact with and (suspected) exposure to COVID-19; Z78.1 Physical restraint status; Z71.6 Tobacco abuse counseling; Z79.899 Other long term (current) drug therapy
CPT/HCPCS: 36415; 70450; 71045; 72125; 73060; 80048; 80053; 80076; 80307; 81001; 81003; 82140; 82550; 83605; 83735; 83880; 84100; 84443; 84478; 84484; 85025; 85027; 85610; 87040; 87086; 87635; 92950; 93005; 97116; 97162; 99285; C1758; J0696; J1650; J2060; J2359; J3486; J7120; S9485

== ENCOUNTER → 2024-01-26 23:19 | Outpatient (BNV) | payer MEDICAID, SELFPAY | PROVIDERS: Emergency Provider Emergency Medicine; Visit Provider Physician Assistant | DX: G92.8 Other toxic encephalopathy (principal); R33.9 Retention of urine, unspecified; F29 Unspecified psychosis not due to a substance or known physiological condition; Z91.148 Patient's other noncompliance with medication regimen for other reason | CPT/HCPCS: 99223; 99231; 99232; 99233; 99499 ==

== ENCOUNTER → 2024-01-27 05:38 | Outpatient (BNV) | payer MEDICAID, SELFPAY | PROVIDERS: Emergency Provider Emergency Medicine; Visit Provider Internal Medicine Cardiovascular Disease | DX: I95.9 Hypotension, unspecified (principal) | CPT/HCPCS: 93010 ==

== ENCOUNTER → 2024-01-27 14:24 | Outpatient (BNV) | payer MEDICAID, SELFPAY | PROVIDERS: Admitting Provider Physician Assistant; Emergency Provider Emergency Medicine; PCP Family Medicine; Visit Provider Urology | DX: C67.9 Malignant neoplasm of bladder, unspecified (principal); R33.9 Retention of urine, unspecified | CPT/HCPCS: 99222 ==

== ENCOUNTER → 2024-02-01 09:46 | Outpatient (BNV) | payer OTHER, SELFPAY | PROVIDERS: Admitting Provider Physician Assistant; Emergency Provider Emergency Medicine; PCP Family Medicine; Visit Provider Psychiatry & Neurology Psychiatry | DX: F33.1 Major depressive disorder, recurrent, moderate (principal); G92.8 Other toxic encephalopathy; N39.0 Urinary tract infection, site not specified; C67.9 Malignant neoplasm of bladder, unspecified | CPT/HCPCS: 99232 ==

== ENCOUNTER 2024-02-07 17:33 | Inpatient (IN) | payer OTHER, MEDICAID, SELFPAY ==
--- NOTE | 2024-02-07 17:39 | P.EN_ITS ---
Event Note Date of Service: 02/07/24 Event Note: The patient's status has been transitioned to [facility] hospice care per the earlier plan, patient with bladder cancer, and non resolving metabolic encephalopathy complicated by agitation, restlesness, malnutrition, not eating. Family had agree for hospice/comfort measures. Patient was evaluated by multimedia services coordinator and is being transitioned to hospice GIP with Medications adjustment for comfort as follows: - Ativan 2 mg IV q4h PRN for anxiety or agitation. - Zyprexa 5 mg IM q6h PRNfor agitation and restlessness. - Morphine 4 mg IV q3h PRN for comfort and respiratory distress. -Tylenol supp 650 mg Q4 PRN for fever Further adjustments will be made as needed to ensure maximum comfort for the patient. Time Spent With Patient Time: Total time managing care of this patient today ____ minutes.
[2024-02-07] MEDS: Scopolamine 1.5 MG PATCH.TD.3 TRANSDERMA (17:56)
[2024-02-07] MEDS: Morphine Sulfate 4 MG/ML CARTRIDGE IVPUSH ×2 (18:11→21:17)
--- NOTE | 2024-02-07 21:37 | PC.NURSE ---
Patient [employer] now, calm, soft limb restraint discontinued at 1930.
[2024-02-07] MEDS: LORazepam 2 MG/ML VIAL IVPUSH (22:53)
[2024-02-08] MEDS: Morphine Sulfate 4 MG/ML CARTRIDGE IVPUSH ×6 (02:01→21:59)
[2024-02-08] MEDS: LORazepam 2 MG/ML VIAL IVPUSH ×4 (06:32→21:16)
--- NOTE | 2024-02-08 07:21 | PM.DS ---
DS: Providers Provider Date of Service: 02/07/24 Date of admission: 02/07/24 17:33 Primary care physician: Marga Garrido MD DS: Summary Hospital Course Hospital Course: History of presenting illness: Attending physician on admission: Raúl Escobedo Chief Complaint: fall 63-year-old male with hyperlipidemia, chronic hepatitis-C s/p treatment, invasive bladder carcinoma s/p TURBT who is a current 1/2 pack per day cigarette smoker presented to the ED following a fall. He reports he felt lightheaded and fell forward landing on the left side of his face. There was no loss of consciousness and denies any blood thinner use. He is currently following with Urology and recently underwent cystoscopy on 01/19 and has been on prophylactic Bactrim. He is currently reporting dysuria and urgency but reports this is baseline but no hematuria, increased urinary frequency. He denies fevers, chills, abd pain, flank pain, n/v/d, ongoing lightheadedness, palpitations, sob, chest pain. He reports he only drinks coffee throughout the day, no water. Otherwise good po intake. On arrival was normotensive but did develop hypotension to 77/47 received 3 L IVF with improvement to 120/48. Remains normotensive on admission with negative orthostatic vital signs. Hematology studies show a stable normocytic anemia, no other abnormalities. Renal function and electrolyte levels are normal. BNP undetectable, troponin 4.2. Urinalysis with 3+ blood, 2+ leukocytes, positive urinary sediment. Urine drug screen positive for opiates/oxycodone. Negative for COVID-19. Head CT negative for any acute intracranial abnormality. CT cervical spine negative for any fracture or malalignment. CXR shows advanced emphysema but nothing acute. There is a stable irregular lesion of the left lower lobe and follow-up CT. Humerus x-ray negative. In the ED, has received 3 L IVF and 1 g Rocephin. Hospital course: 63-year-old male with hyperlipidemia, chronic hepatitis-C s/p treatment, invasive bladder carcinoma s/p TURBT admitted with acute UTI ,hypotension and acute toxic metabolic encephalopathy , he finished a course of antibiotics for UTI, underwent extensive testing for encephalopathy,renal function, liver enzymes, electrolytes were all normal, U tox positive for opiates and oxycodone, CT head showed no acute intracranial process, no C-spine fracture, Normal TSH, ammonia and CPK , patient was evaluated closely by Psychiatry medications were adjusted patient was placed on Zyprexa IM and Ativan due to persistent restlessness, aggressive behavior, refusing medications and diet, patient was deemed incompetent by Psychiatry, healthcare proxy was invoked, goal of care discussed with Sd Elkins HCP due to non resolving metabolic encephalopathy, underlying cancer, failure to thrive family agreed for hospice/comfort measures, patient evaluated by hospice and transition to hospice [facility]. All home medication discontinued, patient placed on morphine sulfate 4 mg q.3 hours as needed, Zyprexa 5 mg IM q.6 hours as needed lorazepam 2 mg IV q.4 hours as needed and Tylenol 650 mg suppository q.4 hours as needed. Quality: Safe Use of Opioids Does Pt have an Active Cancer Diagnosis on the Problem List?: No Quality: Stroke Does the patient have a stroke diagnosis?: No Physical Exam Const: Other: General frail, emaciated, sunken eyes Oral mucosa dry/dry coating on lips, sunken eyes Neck no JVD. CVS regular rate rhythm, Respiratory lungs clear to auscultation, no respiratory distress Gastrointestinal abdomen soft, bowel sounds audible Extremities no edema. Neuro non focal, moving all 4 extremity, remains disoriented, mumbling, incoherent speech Vaughn catheter dark urine DS: Data Data Completed and Pending Completed studies during hospitalization [Text1]: Procedures Excision of Bladder Neck, Via Natural or Artificial Opening Endoscopic (07/01/23) Excision of Bladder, Via Natural or Artificial Opening Endoscopic (07/01/23) Transfusion of Nonautologous Red Blood Cells into Peripheral Vein, Percutaneous Approach (07/01/23) Discharge Plan Discharge Referrals: Marga Garrido MD [Primary Care Provider] - 1 Week Print Language: Ukrainian
--- NOTE | 2024-02-08 09:58 | MHC.CM.PN ---
Patient made [facility] on [facility] hospice with [facility].
--- NOTE | 2024-02-08 10:34 | P.DS_ITS ---
DS: Providers Provider Date of admission: 02/07/24 17:33 Primary care physician: Marga Garrido MD DS: Summary Hospital Course Hospital Course: History of presenting illness: Attending physician on admission: Raúl Escobedo Chief Complaint: fall 63-year-old male with hyperlipidemia, chronic hepatitis-C s/p treatment, invasive bladder carcinoma s/p TURBT who is a current 1/2 pack per day cigarette smoker presented to the ED following a fall. He reports he felt lightheaded and fell forward landing on the left side of his face. There was no loss of consciousness and denies any blood thinner use. He is currently following with Urology and recently underwent cystoscopy on 01/19 and has been on prophylactic Bactrim. He is currently reporting dysuria and urgency but reports this is baseline but no hematuria, increased urinary frequency. He denies fevers, chills, abd pain, flank pain, n/v/d, ongoing lightheadedness, palpitations, sob, chest pain. He reports he only drinks coffee throughout the day, no water. Otherwise good po intake. On arrival was normotensive but did develop hypotension to 77/47 received 3 L IVF with improvement to 120/48. Remains normotensive on admission with negative orthostatic vital signs. Hematology studies show a stable normocytic anemia, no other abnormalities. Renal function and electrolyte levels are normal. BNP undetectable, troponin 4.2. Urinalysis with 3+ blood, 2+ leukocytes, positive urinary sediment. Urine drug screen positive for opiates/oxycodone. Negative for COVID-19. Head CT negative for any acute intracranial abnormality. CT cervical spine negative for any fracture or malalignment. CXR shows advanced emphysema but nothing acute. There is a stable irregular lesion of the left lower lobe and follow-up CT. Humerus x-ray negative. In the ED, has received 3 L IVF and 1 g Rocephin. Hospital course: 63-year-old male with hyperlipidemia, chronic hepatitis-C s/p treatment, invasive bladder carcinoma s/p TURBT admitted with acute UTI ,hypotension and acute toxic metabolic encephalopathy , he finished a course of antibiotics for UTI, underwent extensive testing for encephalopathy,renal function, liver enzymes, electrolytes were all normal, U tox positive for opiates and oxycodone, CT head showed no acute intracranial process, no C-spine fracture, Normal TSH, ammonia and CPK , patient was evaluated closely by Psychiatry medications were adjusted patient was placed on Zyprexa IM and Ativan due to persistent restlessness, aggressive behavior, refusing medications and diet, patient was deemed incompetent by Psychiatry, healthcare proxy was invoked, goal of care discussed with Sd Elkins HCP due to non resolving metabolic encephalopathy, underlying cancer, failure to thrive family agreed for hospice/comfort measures, patient evaluated by hospice and transition to hospice [facility]. All home medication discontinued, patient placed on morphine sulfate 4 mg q.3 hours as needed, Zyprexa 5 mg IM q.6 hours as needed lorazepam 2 mg IV q.4 hours as needed and Tylenol 650 mg suppository q.4 hours as needed. Time Attestation Total time managing care of this patient today: 40 mintues. Discharge Coordination Time (in mins): 40 min Quality: Safe Use of Opioids Does Pt have an Active Cancer Diagnosis on the Problem List?: Yes Opioid Measure Date for [facility] Report: 01/09/24 Opioid Measure Time for [facility] Report: 10:37 Quality: Stroke Does the patient have a stroke diagnosis?: No DS: Data Data Completed and Pending Completed studies during hospitalization [Text1]: Procedures Excision of Bladder Neck, Via Natural or Artificial Opening Endoscopic (07/01/23) Excision of Bladder, Via Natural or Artificial Opening Endoscopic (07/01/23) Transfusion of Nonautologous Red Blood Cells into Peripheral Vein, Percutaneous Approach (07/01/23) Discharge Plan Discharge Anticipated Discharge Date/Time: 02/07/24 20:00 Patient Disposition: Hospice - Medical Facility Discharge Diagnosis: hospice Referrals: Marga Garrido MD [Primary Care Provider] - 1 Week Discharge Orders: Discharge Order (Routine); Ordered 02/08/24 Ordered By: Gera Barone Diet: Advance to usual diet Activity on Discharge: As tolerated Stand Alone Forms: Patient Portal Discharge page Print Language: Nepali Care Plan Goals: hospice Health Concerns: hospice Plan of Treatment: hospice Assessment: hospice
--- NOTE | 2024-02-08 15:25 | MHC.CM.PN ---
Patient in room 384 is now [facility]. Hospice services are provided by [facility]. Patients/HCP/GEMA/Sd signed the Molst form today. Patient is being kept comfortable by nursing. CM will continue to follow.
--- NOTE | 2024-02-08 16:26 | P.PNIM_ITS ---
Subjective Subjective Date of Service: 02/08/24 Interval History: Patient under [facility] hospice. No acute events overnight, appears comfortable, Vaughn bag with dark urine (old blood) Review of Systems Unable to obtain Physical Exam Const: Other: General appears comfortable, no distress CVS regular rate rhythm, Respiratory no respiratory distress Gastrointestinal abdomen soft, bowel sounds audible. Extremities no edema. Objective Data Active Medications Acetaminophen (Acetaminophen Supp 650 Mg Supp.Rect) 650 mg TN Q4H PRN PRN Reason: Fever >100.4 Lorazepam (Lorazepam 2 Mg/Ml Vial) 2 mg IVPUSH Q4H PRN PRN Reason: Anxiety Last Admin: 02/08/24 11:41 Dose: 2 mg Documented By: RERE Morphine Sulfate (Morphine Sulfate 4 Mg/Ml Cartridge) 4 mg IVPUSH Q3H PRN PRN Reason: Discomfort/Shortness of breath Last Admin: 02/08/24 14:35 Dose: 4 mg Documented By: RERE Olanzapine (Olanzapine 10 Mg Vial) 5 mg IM Q6H PRN PRN Reason: anxiety/restlessness Ondansetron HCl (Ondansetron Hcl 4 Mg/2 Ml Vial) 4 mg IVPUSH Q8H PRN PRN Reason: Nausea and Vomiting Scopolamine (Scopolamine 1.5 Mg Patch.Td.3) 1.5 mg TRANSDERMA Q72H [place] Last Admin: 02/07/24 17:56 Dose: 1.5 mg Documented By: RONAN Assessment and Plan (1) Psychotic disorder: Status: Acute Plan 63-year-old gentleman with hyperlipidemia, chronic hepatitis-C s/p treatment, invasive bladder carcinoma s/p TURBT , current 1/2 pack per day cigarette smoker, presented to the ED following a fall and admitted with acute UTI, hypotension and acute toxic metabolic encephalopathy patient finished course of antibiotic, underwent extensive testing for encephalopathy all tests were negative patient was evaluated by Psychiatry and was diagnosed to have psychosis with underlying history of depression patient was treated with antipsychotic medication, but he remained encephalopathic hospital course was complicated by agitation restlessness malnutrition, refusal to take medications and not eating, family agreed for hospice and comfort measures. Diagnosis Invasive bladder carcinoma Chronic hepatitis-C Hyperlipidemia Non resolving metabolic encephalopathy Unspecified psychosis Moderate protein calorie malnutrition Continue medications for comfort - Ativan 2 mg IV q4h PRN for anxiety or agitation. - Zyprexa 5 mg IM q6h PRN for agitation and restlessness. - Morphine 4 mg IV q3h PRN for comfort and respiratory distress. -Tylenol supp 650 mg Q4 PRN for fever MOLST form signed. Quality Stroke Does the patient have a stroke diagnosis?: No VTE Prior VTE?: No VTE Risk Level:: Medical - moderate - high VTE Device Contraindication: Treatment Not Indicated VTE Drug Contraindication: Treatment Not Indicated
[2024-02-09] MEDS: LORazepam 2 MG/ML VIAL IVPUSH ×5 (01:16→19:05)
[2024-02-09] MEDS: Morphine Sulfate 4 MG/ML CARTRIDGE IVPUSH ×9 (02:19→22:01)
--- NOTE | 2024-02-09 04:04 | PC.NURSE ---
Pt had increased restlessness. MD Jones made aware of the situation. One time dose at Ativan 2mg IV was ordered. Pt medicated at 03:52 with good effect, see MAR. Will continue to monitor. Plan of care ongoing.
[2024-02-09 09:59] VITALS: RESP 9
--- NOTE | 2024-02-09 14:24 | HO.PM.IMPN ---
Subjective Subjective Date of Service: 02/09/24 Interval History: Under hospice care Noted to have increased restlessness this morning, therefore dose of IV morphine adjusted at present patient is resting comfortably. Review of Systems Unable to obtain due to mental status Physical Exam Vital Signs: Vital Signs: Last Vital Signs Resp 9 L 02/09/24 09:59 Const: Other: General appears comfortable, no distress CVS regular rate rhythm, Respiratory no respiratory distress Extremities no edema. Objective Data Active Medications Acetaminophen (Acetaminophen Supp 650 Mg Supp.Rect) 650 mg [place] Q4H PRN PRN Reason: Fever >100.4 Lorazepam (Lorazepam 2 Mg/Ml Vial) 2 mg IVPUSH Q4H PRN PRN Reason: Anxiety Last Admin: 02/09/24 09:39 Dose: 2 mg Documented By: RERE Morphine Sulfate (Morphine Sulfate 4 Mg/Ml Cartridge) 4 mg IVPUSH Q1H PRN PRN Reason: Discomfort/Shortness of breath Last Admin: 02/09/24 12:56 Dose: 4 mg Documented By: RERE Olanzapine (Olanzapine 10 Mg Vial) 5 mg IM Q6H PRN PRN Reason: anxiety/restlessness Ondansetron HCl (Ondansetron Hcl 4 Mg/2 Ml Vial) 4 mg IVPUSH Q8H PRN PRN Reason: Nausea and Vomiting Scopolamine (Scopolamine 1.5 Mg Patch.Td.3) 1.5 mg TRANSDERMA Q72H [place] Last Admin: 02/07/24 17:56 Dose: 1.5 mg Documented By: RONAN Assessment and Plan (1) Psychotic disorder: Status: Acute Plan 63-year-old gentleman with hyperlipidemia, chronic hepatitis-C s/p treatment, invasive bladder carcinoma s/p TURBT , current 1/2 pack per day cigarette smoker, presented to the ED following a fall and admitted with acute UTI, hypotension and acute toxic metabolic encephalopathy patient finished course of antibiotic, underwent extensive testing for encephalopathy all tests were negative patient was evaluated by Psychiatry and was diagnosed to have psychosis with underlying history of depression patient was treated with antipsychotic medication, but he remained encephalopathic hospital course was complicated by agitation, restlessness, malnutrition, refusal to take medications and not eating, family agreed for hospice and comfort measures. Diagnosis Invasive bladder carcinoma Chronic hepatitis-C Hyperlipidemia Non resolving metabolic encephalopathy Unspecified psychosis Moderate protein calorie malnutrition Continue medications for comfort - Ativan 2 mg IV q4h PRN for anxiety or agitation. - Zyprexa 5 mg IM q6h PRN for agitation and restlessness. - increase Morphine 4 mg IV q1 h PRN for comfort and respiratory distress. -Tylenol supp 650 mg Q4 PRN for fever MOLST form in chart. Quality Stroke Does the patient have a stroke diagnosis?: No VTE Prior VTE?: No VTE Risk Level:: Medical - moderate - high VTE Device Contraindication: Treatment Not Indicated VTE Drug Contraindication: Treatment Not Indicated
[2024-02-10] MEDS: LORazepam 2 MG/ML VIAL IVPUSH ×5 (02:21→20:01)
[2024-02-10] MEDS: Morphine Sulfate 4 MG/ML CARTRIDGE IVPUSH ×8 (03:33→22:27)
--- NOTE | 2024-02-10 12:37 | HO.PM.IMPN ---
Subjective Subjective Date of Service: 02/10/24 Interval History: Continued to have intermittent restlessness. Review of Systems unable to obtain due to mental status. Physical Exam Vital Signs: Vital Signs: Last Vital Signs Resp 9 L 02/09/24 09:59 Const: Other: General no distress, intermittent restlessness CVS regular rate rhythm, Respiratory no respiratory distress Extremities no edema. Objective Data Active Medications Acetaminophen (Acetaminophen Supp 650 Mg Supp.Rect) 650 mg SC Q4H PRN PRN Reason: Fever >100.4 Lorazepam (Lorazepam 2 Mg/Ml Vial) 2 mg IVPUSH Q4H PRN PRN Reason: Anxiety Last Admin: 02/10/24 11:37 Dose: 2 mg Documented By: BARRY Morphine Sulfate (Morphine Sulfate 4 Mg/Ml Cartridge) 4 mg IVPUSH Q1H PRN PRN Reason: Discomfort/Shortness of breath Last Admin: 02/10/24 12:13 Dose: 4 mg Documented By: BARRY Olanzapine (Olanzapine 10 Mg Vial) 5 mg IM Q6H PRN PRN Reason: anxiety/restlessness Ondansetron HCl (Ondansetron Hcl 4 Mg/2 Ml Vial) 4 mg IVPUSH Q8H PRN PRN Reason: Nausea and Vomiting Scopolamine (Scopolamine 1.5 Mg Patch.Td.3) 1.5 mg TRANSDERMA Q72H [place] Last Admin: 02/07/24 17:56 Dose: 1.5 mg Documented By: RONAN Assessment and Plan (1) Psychotic disorder: Status: Acute (2) Hospice care: Status: Acute Plan 63-year-old gentleman with hyperlipidemia, chronic hepatitis-C s/p treatment, invasive bladder carcinoma s/p TURBT , current 1/2 pack per day cigarette smoker, presented to the ED following a fall and admitted with acute UTI, hypotension and acute toxic metabolic encephalopathy patient finished course of antibiotic, underwent extensive testing for encephalopathy all tests were negative patient was evaluated by Psychiatry and was diagnosed to have psychosis with underlying history of depression patient was treated with antipsychotic medication, but he remained encephalopathic hospital course was complicated by agitation, restlessness, malnutrition, refusal to take medications and not eating, family agreed for hospice and comfort measures. Diagnosis Invasive bladder carcinoma Chronic hepatitis-C Hyperlipidemia Non resolving metabolic encephalopathy Unspecified psychosis Moderate protein calorie malnutrition Continue medications for comfort - Ativan 2 mg IV q4h PRN for anxiety or agitation. - Zyprexa 5 mg IM q6h PRN for agitation and restlessness. - increase Morphine 4 mg IV q1 h PRN for comfort and respiratory distress. -Tylenol supp 650 mg Q4 PRN for fever MOLST form in chart. Quality Stroke Does the patient have a stroke diagnosis?: No VTE Prior VTE?: No VTE Risk Level:: Medical - moderate - high VTE Device Contraindication: Treatment Not Indicated VTE Drug Contraindication: Treatment Not Indicated
[2024-02-10] MEDS: Scopolamine 1.5 MG PATCH.TD.3 TRANSDERMA (16:17)
[2024-02-10 22:27] VITALS: RESP 14
[2024-02-10 22:57] VITALS: RESP 12
[2024-02-11] MEDS: LORazepam 2 MG/ML VIAL IVPUSH ×5 (00:27→21:23)
[2024-02-11 01:27] VITALS: RESP 12
[2024-02-11] MEDS: Morphine Sulfate 4 MG/ML CARTRIDGE IVPUSH ×6 (03:39→22:12)
--- NOTE | 2024-02-11 14:18 | HO.PM.IMPN ---
Subjective Subjective Date of Service: 02/11/24 Interval History: Noted to be restless, disoriented. Review of Systems Unable to obtain due to mental status. Physical Exam Vital Signs: Vital Signs: Last Vital Signs Resp 12 02/11/24 01:27 Const: Other: General no distress, intermittent restlessness CVS regular rate rhythm, Respiratory no respiratory distress Extremities no edema. Vaughn dark urine Objective Data Active Medications Acetaminophen (Acetaminophen Supp 650 Mg Supp.Rect) [address] Q4H PRN PRN Reason: Fever >100.4 Lorazepam (Lorazepam 2 Mg/Ml Vial) 2 mg IVPUSH Q4H PRN PRN Reason: Anxiety Last Admin: 02/11/24 11:03 Dose: 2 mg Documented By: PAT Morphine Sulfate (Morphine Sulfate 4 Mg/Ml Cartridge) 4 mg IVPUSH Q1H PRN PRN Reason: Discomfort/Shortness of breath Last Admin: 02/11/24 12:38 Dose: 4 mg Documented By: PAT Olanzapine (Olanzapine 10 Mg Vial) 5 mg IM Q6H PRN PRN Reason: anxiety/restlessness Ondansetron HCl (Ondansetron Hcl 4 Mg/2 Ml Vial) 4 mg IVPUSH Q8H PRN PRN Reason: Nausea and Vomiting Scopolamine (Scopolamine 1.5 Mg Patch.Td.3) 1.5 mg TRANSDERMA Q72H [place] Last Admin: 02/10/24 16:17 Dose: 1.5 mg Documented By: BARRY Assessment and Plan (1) Hospice care: Status: Acute Plan 63-year-old gentleman with hyperlipidemia, chronic hepatitis-C s/p treatment, invasive bladder carcinoma s/p TURBT , current 1/2 pack per day cigarette smoker, presented to the ED following a fall and admitted with acute UTI, hypotension and acute toxic metabolic encephalopathy patient finished course of antibiotic, underwent extensive testing for encephalopathy all tests were negative patient was evaluated by Psychiatry and was diagnosed to have psychosis with underlying history of depression patient was treated with antipsychotic medication, but he remained encephalopathic hospital course was complicated by agitation, restlessness, malnutrition, refusal to take medications and not eating, family agreed for hospice and comfort measures. Diagnosis Invasive bladder carcinoma Chronic hepatitis-C Hyperlipidemia Non resolving metabolic encephalopathy Unspecified psychosis Moderate protein calorie malnutrition Continue medications for comfort. - Ativan 2 mg IV q4h PRN for anxiety or agitation. - Zyprexa 5 mg IM q6h PRN for agitation and restlessness. - Morphine 4 mg IV q1 h PRN for comfort and respiratory distress. -Tylenol supp 650 mg Q4 PRN for fever MOLST form in chart. Quality Stroke Does the patient have a stroke diagnosis?: No VTE Prior VTE?: No VTE Risk Level:: Medical - moderate - high VTE Device Contraindication: Treatment Not Indicated VTE Drug Contraindication: Treatment Not Indicated
[2024-02-11 22:23] VITALS: RESP 12
[2024-02-12] VITALS (9 sets, daily range): RESP 12–24
[2024-02-12] MEDS: Morphine Sulfate 4 MG/ML CARTRIDGE IVPUSH ×9 (00:46→23:17)
[2024-02-12] MEDS: LORazepam 2 MG/ML VIAL IVPUSH ×4 (01:58→21:52)
--- NOTE | 2024-02-12 06:24 | PC.NURSE ---
monitored closely this 12 hour shift, checks every 15 minutes or greater, repositioned, mouth care, chen catheter draining bloody urine, output 100ml. Medicated with alternating Ativan and Morphine for resp distress, restlessness, increased movement with good effect. oral suctioning by David for loose pooling secretions to mouth and cheek pocket with relief, daniel well. will continue to monitor closely, [id number]
--- NOTE | 2024-02-12 11:28 | HO.PM.IMPN ---
Subjective Subjective Date of Service: 02/12/24 Interval History: Being followed for hospice No episodes of restlessness, no agitation, noted to have shallow breaths, Vaughn with dark urine old blood. Review of Systems All system reviewed and negative. Physical Exam Vital Signs: Vital Signs: Last Vital Signs Resp 12 02/12/24 06:46 Const: Other: General no distress, no restlessness CVS regular rate rhythm, Respiratory shallow breathing Extremities no edema. Vaughn dark urine Objective Data Active Medications Acetaminophen (Acetaminophen Supp 650 Mg Supp.Rect) 650 mg DC Q4H PRN PRN Reason: Fever >100.4 Lorazepam (Lorazepam 2 Mg/Ml Vial) 2 mg IVPUSH Q4H PRN PRN Reason: Anxiety Last Admin: 02/12/24 08:16 Dose: 2 mg Documented By: PAT Morphine Sulfate (Morphine Sulfate 4 Mg/Ml Cartridge) 4 mg IVPUSH Q1H PRN PRN Reason: Discomfort/Shortness of breath Last Admin: 02/12/24 10:57 Dose: 4 mg Documented By: PTA Olanzapine (Olanzapine 10 Mg Vial) 5 mg IM Q6H PRN PRN Reason: anxiety/restlessness Ondansetron HCl (Ondansetron Hcl 4 Mg/2 Ml Vial) 4 mg IVPUSH Q8H PRN PRN Reason: Nausea and Vomiting Scopolamine (Scopolamine 1.5 Mg Patch.Td.3) 1.5 mg TRANSDERMA Q72H [place] Last Admin: 02/10/24 16:17 Dose: 1.5 mg Documented By: BARRY Assessment and Plan (1) Hospice care: Status: Acute Plan 63-year-old gentleman with hyperlipidemia, chronic hepatitis-C s/p treatment, invasive bladder carcinoma s/p TURBT , current 1/2 pack per day cigarette smoker, presented to the ED following a fall and admitted with acute UTI, hypotension and acute toxic metabolic encephalopathy patient finished course of antibiotic, underwent extensive testing for encephalopathy all tests were negative patient was evaluated by Psychiatry and was diagnosed to have psychosis with underlying history of depression patient was treated with antipsychotic medication, but he remained encephalopathic hospital course was complicated by agitation, restlessness, malnutrition, refusal to take medications and not eating, family agreed for hospice and comfort measures. Diagnosis Invasive bladder carcinoma Chronic hepatitis-C Hyperlipidemia Non resolving metabolic encephalopathy Unspecified psychosis Moderate protein calorie malnutrition Continue medications for comfort. - Ativan 2 mg IV q4h PRN for anxiety or agitation. - Zyprexa 5 mg IM q6h PRN for agitation and restlessness. - Morphine 4 mg IV q1 h PRN for comfort and respiratory distress. -Tylenol supp 650 mg Q4 PRN for fever MOLST form in chart. Quality Stroke Does the patient have a stroke diagnosis?: No VTE Prior VTE?: No VTE Risk Level:: Medical - moderate - high VTE Device Contraindication: Treatment Not Indicated VTE Drug Contraindication: Treatment Not Indicated
[2024-02-12] MEDS: OLANZapine 10 MG VIAL 5 MG IM (11:32)
[2024-02-12] MEDS: Scopolamine 1.5 MG PATCH.TD.3 EAR-BEHIND (13:48)
[2024-02-12] MEDS: Atropine Sulfate 1 % Ophth Sol 2 ML BOTTLE 2 DROP SUBLINGUAL ×2 (14:25→18:21)
--- NOTE | 2024-02-12 21:57 | PC.NURSE ---
Assumed care of patient at 19:00. Pt is [employer], obtunded/non-responsive. Tachypneic this evening. Prn morphine given per MAR with little effect. RR 23-28 on full minute count assessment. Covering Dr. Wright notified with orders to video games storywriter via [employer] to give prn ativan. Pending reassessment, MD may adjust morphine orders. Plan of care continues.
[2024-02-13] VITALS (7 sets, daily range): RESP 12–24
[2024-02-13] MEDS: Morphine Sulfate 4 MG/ML CARTRIDGE IVPUSH ×3 (01:40→06:36)
[2024-02-13] MEDS: LORazepam 2 MG/ML VIAL IVPUSH (02:33)
--- NOTE | 2024-02-13 07:23 | PM.DDS ---
Discharge Sum: Prov Provider Primary care physician: Marga Garrido MD Discharge Sum: Diag Contributing Factors (1) Hospice care: Discharge Sum: Summary Date and Time Date of admission: 02/07/24 17:33 Summary Details: 63-year-old gentleman with hyperlipidemia, chronic hepatitis-C s/p treatment, invasive bladder carcinoma s/p TURBT , current 1/2 pack per day cigarette smoker, presented to the ED following a fall and admitted with acute UTI, hypotension and acute toxic metabolic encephalopathy patient finished course of antibiotic, underwent extensive testing for encephalopathy all tests were negative patient was evaluated by Psychiatry and was diagnosed to have psychosis with underlying history of depression patient was treated with antipsychotic medication, but he remained encephalopathic hospital course was complicated by agitation restlessness malnutrition, refusal to take medications and not eating, family agreed for hospice and comfort measures, patient placed on Ativan 2 mg IV q4h PRN for anxiety or agitation, Zyprexa 5 mg IM q6h PRN for agitation and restlessness, Morphine 4 mg IV q3h PRN for comfort and respiratory distress,Tylenol supp 650 mg Q4 PRN for fever and scopolamine patch. patient passed peacefully at 07:30 on 02/13/2024 noted to have no respirations, no pulse, pupils fixed and dilated. Notified patient's family [facility] healthcare proxy. Diagnosis Invasive bladder carcinoma Chronic hepatitis-C Hyperlipidemia Non resolving metabolic encephalopathy Unspecified psychosis Moderate protein calorie malnutrition Additional Data Attending physician: Gera Barone MD
== END 2024-02-13 07:30 | disposition expired | DRG 951 ==
PROVIDERS: Admitting Provider Internal Medicine; PCP Family Medicine; Visit Provider Hospitalist
DX: Z51.5 Encounter for palliative care (principal); G93.41 Metabolic encephalopathy; E44.0 Moderate protein-calorie malnutrition; F17.210 Nicotine dependence, cigarettes, uncomplicated; Z71.6 Tobacco abuse counseling; C67.9 Malignant neoplasm of bladder, unspecified; B18.2 Chronic viral hepatitis C; E78.5 Hyperlipidemia, unspecified; F29 Unspecified psychosis not due to a substance or known physiological condition
CPT/HCPCS: J2060; J2270; J2359

== ENCOUNTER → 2024-02-07 | Outpatient (BNV) | payer OTHER, SELFPAY | PROVIDERS: Admitting Provider Internal Medicine; Visit Provider Internal Medicine | DX: Z51.5 Encounter for palliative care (principal) | CPT/HCPCS: 99232; 99238; 99499 ==